=== PATIENT | female | born 1955 | race Caucasian/White ===

== ENCOUNTER → 2016-08-06 | Outpatient (CLI) | payer MEDICARE, MEDICAID ==
--- OUTSIDE RECORDS SUMMARY | 2016-08-06 12:38 | XMS REPORT ---
Author ELENITA Deluna [facility] eClinicalWorks Address Unknown Phone Unavailable Care Team Providers Care School Plant Consultant Name Role Phone ELENITA LOPEZ CP Unavailable Allergies, Adverse Reactions, Alerts Substance Reaction Event Type Morphine Info Not Available Drug Allergy Problems Problem Type Condition Code Onset Dates Condition Status Problem Cramp of limb 729.82 Active Problem Generalized osteoarthrosis, unspecified site 715.00 Active Problem Sciatica 724.3 Active Problem Acute exacerbation of emphysema J43.9 Active Problem Sciatica, unspecified side M54.30 Active Problem Emphysema with chronic bronchitis J44.9 Active Problem Chronic airway obstruction, not elsewhere classified 496 Active Problem Personal history of tobacco use, presenting hazards to health V15.82 Active Problem Hypoxemia 799.02 Active Problem Nondependent tobacco use disorder 305.1 Active Assessment Bronchitis J40 Active Problem Essential hypertension, benign 401.1 Active Problem Other and unspecified hyperlipidemia 272.4 Active Problem Need for prophylactic vaccination and inoculation, Influenza V04.81 Active Problem Encounter for long-term (current) use of other medications V58.69 Active Problem Disturbance of skin sensation 782.0 Active Problem Routine general medical examination at health care facility V70.0 Active Medications Medication Code System Code Instructions Start Date End Date Status Dosage Lyrica [facility] [address]-28 50 MG Orally Three times a day. Must have appt prior to refill Mar 27, 2015 1 capsule Amitriptyline HCl [facility] [address]-75 75 MG Orally Once a day at HS Jan 16, 2015 1 tablet Biotin [facility] [address]-85 300 MCG Orally Once a day 1 tablet HydrOXYzine HCl [facility] [address]-86 25 mg May 14, 2014 1 tablet by Oral route 4 times per day PRN Albuterol Sulfate [facility] [address]-80 2.5 mg /3 mL (0.083 %) Mar 19, 2014 1 Each by Inhalation route every 4 hours for cough and wheeze PRN for wheezing or cough Doxycycline Hyclate [facility] [address]-53 100 MG Orally Twice a day May 26, 2015 Jun 02, 2015 1 capsule Zyrtec Allergy [facility] [address]-50 10 MG Orally Once a day 1 tablet as needed Fish Oil [facility] [address]-96 1000 MG Orally Once a day 1 capsule PredniSONE [facility] [address]-04 20 MG Orally Once a day May 26, 2015 as directed Celexa [facility] [address]-06 20 mg August 24, 2014 1 tablet by Oral route 1 time per day Meloxicam [facility] [address]-55 7.5 mg May 14, 2014 take 1 tablet by Oral route 2 times per day anti-inflammatory med Aspirin [facility] [address]-01 81 mg December 18, 2012 chew 1 tablet (81 mg ) by oral route once daily atorvastatin [facility] 0 20 mg May 14, 2014 take 1 tablet by Oral route 1 time per day QHS; Avoid grapefruit juice Spiriva HandiHaler [facility] [address]-82 18 MCG Inhalation Once a day 1 capsule Singulair [facility] [address]-16 10 MG Orally Once a day 1 tablet in the evening Lisinopril [facility] [address]-63 10 mg May 14, 2014 take 1 tablet by Oral route 1 time per day Take in am Symbicort [facility] [address]-11 160-4.5 mcg/actuation May 14, 2014 inhale 2 puffs in the morning and evening 2 times per day use every day; rinse mouth after Flonase [facility] [address]-41 50 MCG/ACT Nasally Once a day 1 spray in each nostril Procedures Procedure Coding System Code Date Office Visit, Est Pt., Level 2 CPT-4 57269 May 26, 2015 MEASURE BLOOD OXYGEN LEVEL CPT-4 00342 May 26, 2015 Vital Signs Date/Time: May 26, 2015 Temperature 98.8 F Weight 185 lbs Height 64 in Oximetry 90 % Blood Pressure Diastolic 78 mmHg Blood Pressure Systolic 122 mmHg Cardiac Monitoring Heart Rate 108 bpm BMI 31.75 Index Results No Known Results Summary Purpose eClinicalWorks Submission
--- NOTE | 2016-08-09 17:28 | Diagnostic Imaging Report ---
Bilateral screening mammogram. The current study was also evaluated with a Computer Aided Detection (CAD) system. INDICATION: Screening. No current complaints stated on the questionnaire. COMPARISON: 01/21/10. FINDINGS: The breasts are composed of scattered fibroglandular densities. There is no mass, architectural distortion or suspicious cluster of calcification. Allowing for technique and positional differences, no suspicious change is seen. IMPRESSION: No significant change. ACR BI-RADS Category 2: Benign findings. Result letter will be mailed to the patient. Note: At least 10% of breast cancer is not imaged by mammography. Dictated by: Dictated on workstation # [id number]
== END ==
LOC: RAD 12:35
PROVIDERS: ATTEND Nurse Practitioner Family
DX: Z12.31 Encounter for screening mammogram for malignant neoplasm of breast (principal)
CPT/HCPCS: 77067

== ENCOUNTER → 2016-09-08 | Outpatient (CLI) | payer MEDICARE, MEDICAID ==
--- NOTE | 2016-09-08 15:37 | Diagnostic Imaging Report ---
PROCEDURE: CT chest without contrast. TECHNIQUE: Multiple contiguous axial images were obtained through the chest without the use of intravenous contrast. INDICATION: History of pneumonia. FINDINGS: Patchy subsegmental areas of consolidation are seen in the medial aspect of the right middle lobe and anterior lateral aspect of the right lower lobe along the lung base. There is associated air bronchograms. There is subpleural intralobular and interlobular septal thickening seen in the lungs compatible with nonspecific fibrotic changes. There is no honeycombing and there is no significant bronchiectasis. The left lung demonstrates no significant consolidation. There is no mass or suspicious nodule identified. The heart size is normal. No pericardial effusion. No mediastinal mass. Borderline sized mediastinal lymph nodes are seen up to 1 cm in short axis of uncertain significance. No axillary lymphadenopathy seen. The hilar vessels are not opacified on this unenhanced exam with no obvious hilar mass. Sections in the upper abdomen demonstrate no significant abnormality. There is mild to moderate degenerative changes in the thoracic spine. IMPRESSION: There is nonspecific background peripheral fibrotic changes seen in the lungs slightly more prominent in the bases. Patchy airspace consolidation in the right middle lobe and anterior aspect of the right lower lobe in the lung base may relate to superimposed pneumonia or atelectasis. Dictated by: Dictated on workstation # [id number]
== END ==
LOC: RAD 11:06
PROVIDERS: ATTEND Nurse Practitioner Family
DX: R04.2 Hemoptysis (principal)
CPT/HCPCS: 71250

== ENCOUNTER → 2016-11-02 | Outpatient (CLI) | payer MEDICARE, MEDICAID ==
--- NOTE | 2016-11-02 16:43 | Diagnostic Imaging Report ---
PROCEDURE: CT chest without contrast. TECHNIQUE: Multiple contiguous axial images were obtained through the chest without the use of intravenous contrast. INDICATION: Pneumonia. COMPARISON: Exam compared to 09/08/2016. FINDINGS: Focal air space consolidation and bronchograms in the inferior and posterior aspect of the right middle lobe present on the prior exam as well as in the subpleural right lower lobe at the lateral sulcus have resolved. The chronic interstitial lung disease and fibrotic features involving all five lobes superimposed is an unchanged finding. There is no adverse development. No effusion or pneumothorax. No evidence for adenopathy. IMPRESSION: Chronic interstitial changes, COPD, and fibrosis are stable background findings. The acute infiltrates superimposed in the right lung present on the prior have resolved in the interim. No adverse development. Dictated by: Dictated on workstation # [id number]
== END ==
LOC: RAD 13:20
PROVIDERS: ATTEND Nurse Practitioner Family
DX: J44.9 Chronic obstructive pulmonary disease, unspecified (principal); R09.02 Hypoxemia; R06.00 Dyspnea, unspecified; J18.9 Pneumonia, unspecified organism
CPT/HCPCS: 71250

== ENCOUNTER 2016-11-19 10:00 | Outpatient (CLI) | payer MEDICARE, MEDICAID ==
[~2016-11-19] VITALS: Ht 162.6 cm; Wt 64.9 kg
[2016-11-19] MEDS ORDERED: NFBIOT1000 PO (10:39)
[2016-11-19] MEDS ORDERED: FLUT9.9S NSEACH (10:39)
[2016-11-19] MEDS ORDERED: CITA20TA7 PO (10:39)
[2016-11-19] MEDS ORDERED: MONT10TA21 PO (10:39)
[2016-11-19] MEDS ORDERED: TIOT18CA2 IH (10:39)
[2016-11-19] MEDS ORDERED: CETI10TA20 PO (10:39)
[2016-11-19] MEDS ORDERED: HYDR-700 PO (10:39)
[2016-11-19] MEDS ORDERED: ALB0.5V IH (10:39)
[2016-11-19] MEDS ORDERED: HYDR25TA4 PO (10:39)
[2016-11-19] MEDS ORDERED: ATOR20TA66 PO (10:39)
[2016-11-19] MEDS ORDERED: BUDE10.22 IH (10:39)
[2016-11-19] MEDS ORDERED: ASPI-586 PO (10:39)
[2016-11-19] MEDS ORDERED: OMEG100032 PO (10:39)
[2016-11-19] MEDS ORDERED: LISI10TA2 PO (10:39)
[2016-11-19] MEDS ORDERED: PREG50CA2 PO (10:39)
[2016-11-19] MEDS ORDERED: MELO7.5T46 PO (10:39)
[2016-11-19] MEDS ORDERED: AMIT25TA9 PO (10:39)
== END 2016-11-19 14:05 ==
LOC: PREOP 10:00
PROVIDERS: ATTEND Surgery
DX: Z01.818 Encounter for other preprocedural examination (principal); R63.4 Abnormal weight loss; R19.5 Other fecal abnormalities

== ENCOUNTER 2016-11-23 08:41 | Day surgery (SDC) | payer MEDICARE, MEDICAID ==
[~2016-11-23] VITALS: Ht 162.6 cm; Wt 64.9 kg
[~2016-11-23 08:41] MED LIST: ALB0.5V IH; AMIT25TA9 PO; ASPI-586 PO; ATOR20TA66 PO; BUDE10.22 IH; CETI10TA20 PO; CITA20TA7 PO; FLUT9.9S NSEACH; HYDR-700 PO; HYDR25TA4 PO; LISI10TA2 PO; MELO7.5T46 PO; MONT10TA21 PO; NFBIOT1000 PO; OMEG100032 PO; PREG50CA2 PO; TIOT18CA2 IH
[2016-11-23] MEDS ORDERED: LACTATED RINGERS 1,000 ML IV STA (08:49)
[2016-11-23 08:50] VITALS: BP 130/79
[2016-11-23] MEDS ORDERED: HURRICAINE EXT TUBE (BENZOCAINE) XX PRN (09:00)
[2016-11-23] MEDS ORDERED: PROPOFOL INJECTION 50 ML IV ONE (09:16)
[2016-11-23] MEDS ORDERED: MIDAZOLAM 2 MG/2 ML (VERSED) VIAL ONE (09:16)
--- NOTE | 2016-11-23 09:48 | Progress Note-Pre Operative ---
Pre-Operative Progress Note H&P Reviewed The H&P was reviewed, patient examined and no changes noted. Date Seen by Provider: Nov 23, 2016 Time Seen by Provider: 09:48 Date H&P Reviewed: Nov 23, 2016 Time H&P Reviewed: 09:48 Pre-Operative Diagnosis: weight loss JUANA ORTEGA DO Nov 23, 2016 9:48 am
--- OUTSIDE RECORDS SUMMARY | 2016-11-23 10:21 | XMS REPORT ---
Author ELENITA Deluna [facility] eClinicalWorks Address Unknown Phone Unavailable Care Team Providers Care Senior Merchandiser Name Role Phone ELENITA LOPEZ CP Unavailable [...] Start Date End Date Status Dosage Lyrica [facility] [address]-76 50 MG Orally Three times a day. Must have appt prior to refill Mar 27, 2015 1 capsule Amitriptyline HCl [facility] [address]-59 75 MG Orally Once a day at HS Jan 16, 2015 1 tablet Biotin [facility] [address]-13 300 MCG Orally Once a day 1 tablet HydrOXYzine HCl [facility] [address]-22 25 mg May 14, 2014 1 tablet by Oral route 4 times per day PRN Albuterol Sulfate [facility] [address]-77 2.5 mg /3 mL (0.083 %) Mar 19, 2014 1 Each by Inhalation route every 4 hours for cough and wheeze PRN for wheezing or cough Doxycycline Hyclate [facility] [address]-66 100 MG Orally Twice a day May 26, 2015 Jun 02, 2015 1 capsule Zyrtec Allergy [facility] [address]-66 10 MG Orally Once a day 1 tablet as needed Fish Oil [facility] [address]-83 1000 MG Orally Once a day 1 capsule PredniSONE [facility] [address]-81 20 MG Orally Once a day May 26, 2015 as directed Celexa [facility] [address]-76 20 mg August 24, 2014 1 tablet by Oral route 1 time per day Meloxicam [facility] [address]-25 7.5 mg May 14, 2014 take 1 tablet by Oral route 2 times per day anti-inflammatory med Aspirin [facility] [address]-18 81 mg December 18, 2012 chew 1 tablet (81 mg ) by oral route once daily atorvastatin [facility] 0 20 mg May 14, 2014 take 1 tablet by Oral route 1 time per day QHS; Avoid grapefruit juice Spiriva HandiHaler [facility] [address]-38 18 MCG Inhalation Once a day 1 capsule Singulair [facility] [address]-08 10 MG Orally Once a day 1 tablet in the evening Lisinopril [facility] [address]-07 10 mg May 14, 2014 take 1 tablet by Oral route 1 time per day Take in am Symbicort [facility] [address]-04 160-4.5 mcg/actuation May 14, 2014 inhale 2 puffs in the morning and evening 2 times per day use every day; rinse mouth after Flonase [facility] [address]-51 50 MCG/ACT Nasally Once a day 1 spray in each nostril Procedures Procedure Coding System Code Date Office Visit, Est Pt., Level 2 CPT-4 72199 May 26, 2015 MEASURE BLOOD OXYGEN LEVEL CPT-4 36142 May 26, 2015 Vital Signs Date/Time: May 26, 2015 Temperature 98.8 F Weight 185 lbs Height 64 in Oximetry 90 % Blood Pressure Diastolic 78 mmHg Blood Pressure Systolic 122 mmHg Cardiac Monitoring Heart Rate 108 bpm BMI 31.75 Index Results No Known Results Summary Purpose eClinicalWorks Submission
--- OUTSIDE RECORDS SUMMARY | 2016-11-23 10:21 | XMS REPORT ---
Author Author TOMMY ROBLEDO Organization eClinicalWorks Address Unknown Phone Unavailable Care Team Providers Care Senior Behavioral Scientist Name Role Phone TOMMY ROBLEDO CP Unavailable Allergies No Known Allergies Problems Problem Type Condition Code Onset Dates Condition Status Problem Depression, unspecified depression type F32.9 Active Problem History of tobacco abuse Z87.891 Active Problem Nerve pain M79.2 Active Problem Environmental allergies Z91.09 Active Problem Wheezing R06.2 Active Problem Hepatitis C B19.20 Active Problem Low HDL (under 40) E78.6 Active Problem History of long-term use of multiple prescription drugs Z92.29 Active Problem Essential hypertension I10 Active Problem Chronic obstructive pulmonary disease, unspecified COPD type J44.9 Active Problem Osteoarthritis of multiple joints, unspecified osteoarthritis type M15.9 Active Medications Medication Code System Code Instructions Start Date End Date Status Dosage Atorvastatin Calcium [facility] [address]-52 20 mg Orally Once a day 1 tablet Hydrochlorothiazide [facility] [address]-88 12.5 MG Orally Once a day Feb 12, 2016 1 tablet Amitriptyline HCl [facility] 62272539972 75 MG Orally Once a day at HS 1 tablet Results No Known Results Summary Purpose eClinicalWorks Submission
--- OUTSIDE RECORDS SUMMARY | 2016-11-23 10:21 | XMS REPORT ---
Author Author TOMMY ROBLEDO eClinicalWorks Address Unknown Phone Unavailable Care Team Providers Care Trust Vault Clerk Name Role Phone TOMMY ROBLEDO CP Unavailable Allergies, Adverse Reactions, Alerts Substance Reaction Event Type Morphine Info Not Available Drug Allergy Problems Problem Type Condition Code Onset Dates Condition Status Problem Depression, unspecified depression type F32.9 Active Problem History of tobacco abuse Z87.891 Active Problem Nerve pain M79.2 Active Assessment Dependent edema R60.9 Active Problem Environmental allergies Z91.09 Active Problem [...] Instructions Start Date End Date Status Dosage Fish Oil [facility] [address]-44 1000 MG Orally Once a day 1 capsule Lisinopril [facility] [address]-64 10 mg Orally Once a day May 14, 2014 take 1 tablet by Oral route 1 time per day Take in am Albuterol Sulfate [facility] [address]-60 2.5 mg /3 mL (0.083 %) Inhalation every 4 hrs Mar 19, 2014 1 Each by Inhalation route every 4 hours for cough and wheeze PRN for wheezing or cough Singulair [facility] [address]-73 10 mg Orally Once a day 1 tablet in the evening Oxygen NDC 0 2LPM PRN Symbicort [facility] [address]-49 160-4.5 MCG/ACT Inhalation Twice a day INHALE TWO PUFFS BY MOUTH TWICE DAILY Flonase [facility] [address]-10 50 MCG/ACT Nasally Once a day 1 spray in each nostril Spiriva HandiHaler [facility] [address]-81 18 MCG Inhalation Once a day 1 capsule atorvastatin [place] 0 20 mg May 14, 2014 take 1 tablet by Oral route 1 time per day QHS; Avoid grapefruit juice Citalopram Hydrobromide [facility] [address]-19 20 mg Orally Once a day TAKE ONE TABLET BY MOUTH ONCE DAILY Amitriptyline HCl [facility] 67310272248 75 MG Orally Once a day at HS 1 tablet HydrOXYzine HCl [facility] [address]-23 25 mg May 14, 2014 1 tablet by Oral route 4 times per day PRN Biotin [facility] [address]-98 300 MCG Orally Once a day 1 tablet Lyrica [facility] [address]-59 50 mg Orally Three times a day Mar 27, 2015 1 capsule Aspirin [facility] [address]-43 81 mg December 18, 2012 chew 1 tablet (81 mg ) by oral route once daily Atorvastatin Calcium [facility] [address]-74 20 mg Orally Once a day 1 tablet Zyrtec Allergy [facility] [address]-71 10 mg Orally Once a day 1 tablet as needed Procedures Procedure Coding System Code Date Office Visit, Est Pt., Level 3 CPT-4 19121 December 16, 2015 Vital Signs Date/Time: December 16, 2015 Cardiac Monitoring Heart Rate 82 bpm Weight 179.5 lbs Height 64 in Blood Pressure Diastolic 82 mmHg Blood Pressure Systolic 131 mmHg Results No Known Results Summary Purpose eClinicalWorks Submission
--- OUTSIDE RECORDS SUMMARY | 2016-11-23 10:21 | XMS REPORT ---
Author Author JEROD NORBERTO Organization [facility] Address [address] [place] [address] Care Team Providers Care Tarring Machine Operator Name Role Phone NORBERTO NEWSOME Unavailable PROBLEMS Type Condition ICD9-CM Code [id number] Code Onset Dates Condition Status SNOMED Code Problem Nerve pain M79.2 Active 64998551 Problem Essential hypertension I10 Active 74199862 Problem History of tobacco abuse Z87.891 Active 2758100210334 Problem Low HDL (under 40) E78.6 Active 457549973 Problem Wheezing R06.2 Active 06604205 Problem Osteoarthritis of multiple joints, unspecified osteoarthritis type M15.9 Active 008249373 Problem History of long-term use of multiple prescription drugs Z92.29 Active 590845226 Problem Hepatitis C B19.20 Active 25493251 Problem Chronic obstructive pulmonary disease, unspecified COPD type J44.9 Active 62001965 Problem Neuropathy G62.9 Active 800763478 Problem Neuropathy of ankle, 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 Active 219527257 Assessment Cough R05 Apr, Active 98237815 Problem Major depressive disorder, recurrent, in full remission F33.42 Active 781071303 Assessment Subacute ethmoidal sinusitis J01.20 Apr, Active 39259000 Problem Environmental allergies Z91.09 Active 635265957 ALLERGIES Substance Reaction Event Type Date Status Morphine Unknown Drug Allergy Apr, Active SOCIAL HISTORY No smoking Hx information available PLAN OF CARE VITAL SIGNS Height 64 in 2016-05-01 Weight 176.0 lbs 2016-05-01 Heart Rate 84 bpm 2016-05-01 Respiratory Rate 20 2016-05-01 BMI 30.21 kg/m2 2016-05-01 Blood pressure systolic 124 mmHg 2016-05-01 Blood pressure diastolic 60 mmHg 2016-05-01 MEDICATIONS Medication Instructions Dosage Frequency Start Date End Date Duration Status Atorvastatin Calcium 20 mg Orally Once a day 1 tablet 24h Active HydrOXYzine HCl 25 mg 1 tablet by Oral route 4 times per day PRN Apr Active Flonase 50 MCG/ACT Nasally Once a day 1 spray in each nostril 24h Active Amitriptyline HCl 75 MG Orally Once a day at HS 1 tablet 90 days Active Singulair 10 mg Orally Once a day 1 tablet in the evening 24h Active Zyrtec Allergy 10 mg Orally Once a day 1 tablet as needed 24h Active Fish Oil 1000 MG Orally Once a day 1 capsule 24h Active Oxygen 2LPM PRN Active Promethazine-Codeine 6.25-10 MG/5ML Orally every 6 hrs 5 ml as needed 6h Apr, Active Lisinopril 10 mg Orally Once a day take 1 tablet by Oral route 1 time per day Take in am 24h Apr, Active Albuterol Sulfate 2.5 mg /3 mL (0.083 %) Inhalation every 4 hrs 1 Each by Inhalation route every 4 hours for cough and wheeze PRN for wheezing or cough 4h Feb, Active Symbicort 160-4.5 MCG/ACT Inhalation Twice a day INHALE TWO PUFFS BY MOUTH TWICE DAILY 12h Active Lyrica 50 mg Orally Three times a day 1 capsule 8h Feb, 90 days Active Augmentin 875-125 MG Orally every 12 hrs 1 tablet 12h Apr,Apr 10 day(s) Active Hydrochlorothiazide 12.5 MG Orally Once a day 1 tablet 24h 15 Jan, 2016 Active Citalopram Hydrobromide 20 mg Orally Once a day TAKE ONE TABLET BY MOUTH ONCE DAILY 24h Active Spiriva HandiHaler 18 MCG Inhalation Once a day 1 capsule 24h Active Biotin 300 MCG Orally Once a day 1 tablet 24h Active Aspirin 81 mg chew 1 tablet (81 mg) by oral route once daily Nov, Active PredniSONE 20 mg Orally twice a day 1 tablet 12h Apr, Apr, 05 days Active RESULTS No Results PROCEDURES Procedure Date Ordered Related Diagnosis Body Site PENDING SALE TO [facility] VISIT ESTABLISHED PATIENT May 01, 2016 Office Visit, Est Pt., Level 3 May 01, 2016 IMMUNIZATIONS No Known Immunizations
--- OUTSIDE RECORDS SUMMARY | 2016-11-23 10:21 | XMS REPORT ---
Author Author TOMMY ROBLEDO Organization eClinicalWorks Address Unknown Phone Unavailable Care Team Providers Care Snout Puller Name Role Phone TOMMY ROBLEDO CP Unavailable [...] joints, unspecified osteoarthritis type M15.9 Active Medications No Known Medications Results No Known Results Summary Purpose eClinicalWorks Submission
--- OUTSIDE RECORDS SUMMARY | 2016-11-23 10:22 | XMS REPORT ---
Author Author ASHLEY VÁZQUEZ [facility] eClinicalWorks Address Unknown Phone Unavailable Care Team Providers Care Regional Clinical Research Associate Name Role Phone ASHLEY VÁZQUEZ CP Unavailable Allergies, Adverse Reactions, Alerts Substance Reaction Event Type Morphine Info Not Available Drug Allergy Problems Problem Type Condition ICD-9 Code Onset Dates Condition Status Problem Other and unspecified hyperlipidemia 272.4 Active Problem Routine general medical examination at health care facility V70.0 Active Problem Encounter for long-term (current) use of other medications V58.69 Active Problem Nondependent tobacco use disorder 305.1 Active Problem Chronic airway obstruction, not elsewhere classified 496 Active Problem Hypoxemia 799.02 Active Problem Sciatica 724.3 Active Problem Cramp of limb 729.82 Active Problem Personal history of tobacco use, presenting hazards to health V15.82 Active Problem Generalized osteoarthrosis, unspecified site 715.00 Active Assessment Encounter for long-term (current) use of other medications V58.69 Active Problem Need for prophylactic vaccination and inoculation, Influenza V04.81 Active Problem Disturbance of skin sensation 782.0 Active Assessment Sciatica 724.3 Active Problem Essential hypertension, benign 401.1 Active Medications Medication Code System Code Instructions Start Date End Date Status Dosage Fish Oil [facility] [address]-40 1000 MG Orally Once a day 1 capsule Aspirin [facility] [address]-40 81 mg December 18, 2012 chew 1 tablet (81 mg ) by oral route once daily Symbicort [facility] [address]-40 160-4.5 mcg/actuation May 14, 2014 inhale 2 puffs in the morning and evening 2 times per day use every day; rinse mouth after Flonase [facility] [address]-42 50 MCG/ACT Nasally Once a day 1 spray in each nostril Albuterol Sulfate [facility] [address]-81 2.5 mg /3 mL (0.083 %) Mar 19, 2014 1 Each by Inhalation route every 4 hours for cough and wheeze PRN for wheezing or cough Biotin [facility] [address]-18 300 MCG Orally Once a day 1 tablet Singulair [facility] [address]-86 10 MG Orally Once a day 1 tablet in the evening Lisinopril [facility] [address]-33 10 mg May 14, 2014 take 1 tablet by Oral route 1 time per day Take in am Zyrtec Allergy [facility] [address]-97 10 MG Orally Once a day 1 tablet as needed Amitriptyline HCl [facility] [address]-60 75 MG Orally Once a day at HS Jan 16, 2015 1 tablet Celexa [facility] [address]-04 20 mg August 24, 2014 1 tablet by Oral route 1 time per day Lyrica [facility] [address]-09 50 MG Orally Three times a day November 13, 2014 1 capsule Meloxicam [facility] [address]-27 7.5 mg May 14, 2014 take 1 tablet by Oral route 2 times per day anti-inflammatory med Spiriva HandiHaler [facility] [address]-14 18 MCG Inhalation Once a day 1 capsule HydrOXYzine HCl [facility] [address]-33 25 mg May 14, 2014 1 tablet by Oral route 4 times per day PRN atorvastatin NDC 0 20 mg May 14, 2014 take 1 tablet by Oral route 1 time per day QHS; Avoid grapefruit juice Oxygen NDC 0 2LPM PRN Procedures Procedure Coding System Code Date Office Visit, Est Pt., Level 3 CPT-4 48073 Jan 16, 2015 Vital Signs Date/Time: Jan 16, 2015 Temperature 98.2 F Weight 186.2 lbs Height 64 in BMI 31.96 Index Blood Pressure Diastolic 80 mmHg Blood Pressure Systolic 128 mmHg Cardiac Monitoring Heart Rate 86 bpm Results No Known Results Summary Purpose eClinicalWorks Submission
--- OUTSIDE RECORDS SUMMARY | 2016-11-23 10:22 | XMS REPORT ---
Author Author WILLY SULLIVAN eClinicalWorks Address Unknown Phone Unavailable Care Team Providers Care Bouffant Curtain Machine Tender Name Role Phone WILLY SULLIVAN CP Unavailable Allergies, Adverse Reactions, Alerts Substance Reaction Event Type Morphine Info Not Available Drug Allergy Problems Problem Type Condition Code Onset Dates Condition Status Problem Acute exacerbation of emphysema J43.9 Active Problem Hyperlipidemia E78.5 Active Problem Environmental allergies Z91.09 Active Problem Osteoarthritis of multiple joints, unspecified osteoarthritis type M15.9 Active Assessment Hepatitis C virus infection without hepatic coma, unspecified chronicity B19.20 Active Problem History of long-term use of multiple prescription drugs Z92.29 Active Problem Chronic obstructive pulmonary disease, unspecified COPD type J44.9 Active Problem Nerve pain M79.2 Active Problem Depression, unspecified depression type F32.9 Active Problem Essential hypertension I10 Active Problem History of tobacco abuse Z87.891 Active Assessment Chronic obstructive pulmonary disease, unspecified COPD type J44.9 Active Assessment Hyperlipidemia E78.5 Active Assessment Anxiety F41.9 Active Assessment Environmental allergies Z91.09 Active Assessment Osteoarthritis of multiple joints, unspecified osteoarthritis type M15.9 Active Assessment Nerve pain M79.2 Active Assessment Depression, unspecified depression type F32.9 Active Assessment Essential hypertension I10 Active Assessment History of long-term use of multiple prescription drugs Z92.29 Active Problem Sciatica, unspecified side M54.30 Active Medications Medication Code System Code Instructions Start Date End Date Status Dosage Lyrica [facility] [address]-39 50 MG Orally Three times a day Mar 27, 2015 1 capsule Celexa [facility] [place] [address]-59 20 MG Orally Once a day August 24, 2014 1 tablet by Oral route 1 time per day Meloxicam [facility] [place] [address]-56 7.5 MG Orally 2 times a day May 14, 2014 September 10, 2015 take 1 tablet by Oral route 2 times per day anti- inflammatory med atorvastatin ND 0 20 mg May 14, 2014 take 1 tablet by Oral route 1 time per day QHS; Avoid grapefruit juice Aspirin [facility] [place] [address]-04 81 mg December 18, 2012 chew 1 tablet (81 mg ) by oral route once daily Oxygen ND 0 2LPM PRN Albuterol Sulfate [facility] [place] [address]-36 2.5 mg /3 mL (0.083 %) Mar 19, 2014 1 Each by Inhalation route every 4 hours for cough and wheeze PRN for wheezing or cough Amitriptyline HCl [facility] [place] [address]-51 75 MG Orally Once a day at Jan 16, 2015 1 tablet Combivent Respimat [facility] [place] [address]-57 20-100 MCG/ACT Inhalation Four times a day November 13, 2014 1 puff Fish Oil [facility] [place] [address]-51 1000 MG Orally Once a day 1 capsule Zyrtec Allergy [facility] [place] [address]-03 10 MG Orally Once a day 1 tablet as needed Flonase [facility] [place] [address]-23 50 MCG/ACT Nasally Once a day 1 spray in each nostril Spiriva HandiHaler [facility] [place] [address]-45 18 MCG Inhalation Once a day 1 capsule HydrOXYzine HCl [facility] [place] [address]-37 25 mg May 14, 2014 1 tablet by Oral route 4 times per day PRN Biotin [facility] [place] [address]-87 300 MCG Orally Once a day 1 tablet Lisinopril [facility] [place] [address]-45 10 MG Orally Once a day May 14, 2014 take 1 tablet by Oral route 1 time per day Take in am Atorvastatin Calcium [facility] [place] [address]-43 20 MG Orally Once a day Jun 12, 2015 1 tablet Singulair [facility] [place] [address]-55 10 MG Orally Once a day 1 tablet in the evening Symbicort [facility] [place] [address]-64 160-4.5 mcg/actuation May 14, 2014 inhale 2 puffs in the morning and evening 2 times per day use every day; rinse mouth after Procedures Procedure Coding System Code Date Office Visit, Est Pt., Level 3 CPT-4 24191 Jun 12, 2015 MEASURE BLOOD OXYGEN LEVEL CPT-4 84683 Jun 12, 2015 Vital Signs Date/Time: Jun 12, 2015 Temperature 98.0 F Weight 187.0 lbs Height 64 in Oximetry 92 % Blood Pressure Diastolic 60 mmHg Blood Pressure Systolic 120 mmHg Cardiac Monitoring Heart Rate 92 bpm BMI 32.09 Index Results No Known Results Summary Purpose eClinicalWorks Submission
--- OUTSIDE RECORDS SUMMARY | 2016-11-23 10:22 | XMS REPORT ---
Author Author ASHLEY VÁZQUEZ [facility] eClinicalWorks Address Unknown Phone Unavailable Care Team Providers Care Robotic Maintenance Technician Name Role Phone ASHLEY VÁZQUEZ CP Unavailable Allergies No Known Allergies Problems Problem Type Condition Code Onset Dates Condition Status Problem Other [...] Generalized osteoarthrosis, unspecified site 715.00 Active Problem Need for prophylactic vaccination and inoculation, Influenza V04.81 Active Problem Disturbance of skin sensation 782.0 Active Problem Essential hypertension, benign 401.1 Active Medications Medication Code System Code Instructions Start Date End Date Status Dosage Lyrica [facility] [place] [address]-20 50 MG Orally Three times a day November 13, 2014 1 capsule Results No Known Results Summary Purpose eClinicalWorks Submission
--- OUTSIDE RECORDS SUMMARY | 2016-11-23 10:22 | XMS REPORT ---
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 Active 318827656 Problem Major depressive disorder, recurrent, in full remission F33.42 Active 260663614 Problem Environmental allergies Z91.09 Active 095902304 Problem Low HDL (under 40) E78.6 Active 762264515 Problem Wheezing R06.2 Active 68771446 Problem Osteoarthritis of multiple joints, unspecified osteoarthritis type M15.9 Active 477323184 Problem History of long-term use of multiple prescription drugs Z92.29 Active 067974131 Problem Hepatitis C B19.20 Active 77443390 Problem Chronic obstructive pulmonary disease, unspecified COPD type J44.9 Active 79256943 ALLERGIES Unknown Allergies SOCIAL HISTORY No smoking Hx information available PLAN OF CARE VITAL SIGNS MEDICATIONS Medication Instructions Dosage Frequency Start Date End Date Duration Status Citalopram Hydrobromide 20 mg Orally Once a day TAKE ONE TABLET BY MOUTH ONCE DAILY 24h Active Zyrtec Allergy 10 mg Orally Once a day 1 tablet as needed 24h Active RESULTS No Results PROCEDURES No Known procedures IMMUNIZATIONS No Known Immunizations
--- OUTSIDE RECORDS SUMMARY | 2016-11-23 10:22 | XMS REPORT | Continuity of Care Document ---
Author Author [facility] Address Unknown Phone Unavailable Allergies Active Description Code Type Severity Reaction Onset Reported/Identified Relationship to Patient Clinical Status Yes morphine Drug Allergy N/A N/A 03/26/2013 Yes morphine [id number] Drug Allergy Unknown NAUSEA 11/19/2016 Medications Problems Date Dx Coded Attending Type Code Diagnosis Diagnosed By 10/07/2009 070.54 CHRONIC HEPATITIS C WITHOUT MENTION OF HEPATIC COMA 10/07/2009 070.54 CHRONIC HEPATITIS C WITHOUT MENTION OF HEPATIC COMA 10/07/2009 ROLANDO COLES DO K 070.54 CHRONIC HEPATITIS C WITHOUT MENTION OF HEPATIC COMA 10/07/2009 CHUYITA COLES DOA K 070.54 CHRONIC HEPATITIS C WITHOUT MENTION OF HEPATIC COMA 10/07/2009 ARVIND TAI APRN A 070.54 CHRONIC HEPATITIS C WITHOUT MENTION OF HEPATIC COMA 10/07/2009 ARVIND TAI APRN A 070.54 CHRONIC HEPATITIS C WITHOUT MENTION OF HEPATIC COMA 10/07/2009 CHUYITA COLES DOA K 070.54 CHRONIC HEPATITIS C WITHOUT MENTION OF HEPATIC COMA 10/07/2009 COLES CHUYITA ADAMSA K 070.54 CHRONIC HEPATITIS C WITHOUT MENTION OF HEPATIC COMA 10/07/2009 CHUYITA COLES DOA K 070.54 CHRONIC HEPATITIS C WITHOUT MENTION OF HEPATIC COMA 10/07/2009 COLES CHUYITA ADAMSA K 070.54 CHRONIC HEPATITIS C WITHOUT MENTION OF HEPATIC COMA 10/07/2009 COLES DO ROLANDO K 070.54 CHRONIC HEPATITIS C WITHOUT MENTION OF HEPATIC COMA 10/07/2009 BLAYNE WHARTON APRN 070.54 CHRONIC HEPATITIS C WITHOUT MENTION OF HEPATIC COMA 10/07/2009 RUBIO BURLESON DDS 070.54 CHRONIC HEPATITIS C WITHOUT MENTION OF HEPATIC COMA 10/07/2009 COLES DO ROLANDO K 070.54 CHRONIC HEPATITIS C WITHOUT MENTION OF HEPATIC COMA 10/07/2009 CHUYITA COLES DOA K 070.54 CHRONIC HEPATITIS C WITHOUT MENTION OF HEPATIC COMA 10/07/2009 COLES DOCHUYITAA K 070.54 CHRONIC HEPATITIS C WITHOUT MENTION OF HEPATIC COMA 10/07/2009 COLES DO ROLANDO K 070.54 CHRONIC HEPATITIS C WITHOUT MENTION OF HEPATIC COMA 10/07/2009 COLES DO ROLANDO K 070.54 CHRONIC HEPATITIS C WITHOUT MENTION OF HEPATIC COMA 12/18/2012 V58.69 LONG-TERM (CURRENT) USE OF OTHER MEDICATIONS 12/18/2012 V70.0 ROUTINE GENERAL MEDICAL EXAMINATION AT A HEALTH CARE FACILITY 12/18/2012 V58.69 LONG-TERM (CURRENT) USE OF OTHER MEDICATIONS 12/18/2012 V70.0 ROUTINE GENERAL MEDICAL EXAMINATION AT A HEALTH CARE FACILITY 12/18/2012 COLES DO ROLANDO K V58.69 LONG-TERM (CURRENT) USE OF OTHER MEDICATIONS 12/18/2012 COLES DO ROLANDO K V70.0 ROUTINE GENERAL MEDICAL EXAMINATION AT A HEALTH CARE FACILITY 12/18/2012 COLES DO ROLANDO K V58.69 LONG-TERM (CURRENT) USE OF OTHER MEDICATIONS 12/18/2012 COLES DO ROLANDO K V70.0 ROUTINE GENERAL MEDICAL EXAMINATION AT A HEALTH CARE FACILITY 12/18/2012 KERIE FERRY CAPTAIN, ARVIND A V58.69 LONG-TERM (CURRENT) USE OF OTHER MEDICATIONS 12/18/2012 RAJOTTE FERRY CAPTAIN, ARVIND A V70.0 ROUTINE GENERAL MEDICAL EXAMINATION AT A HEALTH CARE FACILITY 12/18/2012 RAJTHIENE FERRY CAPTAIN, ARVIND A V58.69 LONG-TERM (CURRENT) USE OF OTHER MEDICATIONS 12/18/2012 RAJOTTE FERRY CAPTAIN, ARVIND A V70.0 ROUTINE GENERAL MEDICAL EXAMINATION AT A HEALTH CARE FACILITY 12/18/2012 SHARYN DO ROLANDO K V58.69 LONG-TERM (CURRENT) USE OF OTHER MEDICATIONS 12/18/2012 COLES DO ROLANDO K V70.0 ROUTINE GENERAL MEDICAL EXAMINATION AT A HEALTH CARE FACILITY 12/18/2012 OCLES DO ROLANDO K V58.69 LONG-TERM (CURRENT) USE OF OTHER MEDICATIONS 12/18/2012 COLES DO ROLANDO K V70.0 ROUTINE GENERAL MEDICAL EXAMINATION AT A HEALTH CARE FACILITY 12/18/2012 COLES DO ROLANDO K V58.69 LONG-TERM (CURRENT) USE OF OTHER MEDICATIONS 12/18/2012 COLES DO ROLANDO K V70.0 ROUTINE GENERAL MEDICAL EXAMINATION AT A HEALTH CARE FACILITY 12/18/2012 COLES DO, ROLANDO K V58.69 LONG-TERM (CURRENT) USE OF OTHER MEDICATIONS 12/18/2012 COLES DO ROLANDO K V70.0 ROUTINE GENERAL MEDICAL EXAMINATION AT A HEALTH CARE FACILITY 12/18/2012 COLES DO ROLANDO K V58.69 LONG-TERM (CURRENT) USE OF OTHER MEDICATIONS 12/18/2012 COLES DO, ROLANDO K V70.0 ROUTINE GENERAL MEDICAL EXAMINATION AT A HEALTH CARE FACILITY 12/18/2012 BLAYNE WHARTON APRN S V58.69 LONG-TERM (CURRENT) USE OF OTHER MEDICATIONS 12/18/2012 BLAYNE WHARTON APRN S V70.0 ROUTINE GENERAL MEDICAL EXAMINATION AT A HEALTH CARE FACILITY 12/18/2012 RUBIO BURLESON DDS V58.69 LONG-TERM (CURRENT) USE OF OTHER MEDICATIONS 12/18/2012 SARAH BETH MCCANNSRUBIO V70.0 ROUTINE GENERAL MEDICAL EXAMINATION AT A HEALTH CARE FACILITY 12/18/2012 SHARYN DOCHUYITAA K V58.69 LONG-TERM (CURRENT) USE OF OTHER MEDICATIONS 12/18/2012 COLES DO ROLANDO K V70.0 ROUTINE GENERAL MEDICAL EXAMINATION AT A HEALTH CARE FACILITY 12/18/2012 SHARYN DO ROLANDO K V58.69 LONG-TERM (CURRENT) USE OF OTHER MEDICATIONS 12/18/2012 COLES DO ROLANDO K V70.0 ROUTINE GENERAL MEDICAL EXAMINATION AT A HEALTH CARE FACILITY 12/18/2012 COLES DO ROLANDO K V58.69 LONG-TERM (CURRENT) USE OF OTHER MEDICATIONS 12/18/2012 COLES DO ROLANDO K V70.0 ROUTINE GENERAL MEDICAL EXAMINATION AT A HEALTH CARE FACILITY 12/18/2012 COLES DO ROLANDO K V58.69 LONG-TERM (CURRENT) USE OF OTHER MEDICATIONS 12/18/2012 COLES DO, ROLANDO K V70.0 ROUTINE GENERAL MEDICAL EXAMINATION AT A HEALTH CARE FACILITY 12/18/2012 COLES DO ROLANDO K V58.69 LONG-TERM (CURRENT) USE OF OTHER MEDICATIONS 12/18/2012 COLES DO, ROLANDO K V70.0 ROUTINE GENERAL MEDICAL EXAMINATION AT A HEALTH CARE FACILITY 02/05/2013 786.2 COUGH 02/05/2013 786.2 COUGH 02/05/2013 COLES DO ROLANDO K 786.2 COUGH 02/05/2013 COLES DO ROLANDO K 786.2 COUGH 02/05/2013 RAJOTTE FERRY CAPTAIN, ARVIND A 786.2 COUGH 02/05/2013 RAJOTTE FERRY CAPTAIN, ARVIND A 786.2 COUGH 02/05/2013 COLES DO, ROLANDO K 786.2 COUGH 02/05/2013 COLES DO, ROLANDO K 786.2 COUGH 02/05/2013 COLES DO, ROLANDO K 786.2 COUGH 02/05/2013 COLES DO, ROLANDO K 786.2 COUGH 02/05/2013 COLES DO, ROLANDO K 786.2 COUGH 02/05/2013 DIO FERRY CAPTAIN, BLAYNE S 786.2 COUGH 02/05/2013 SARAH BETH DDRUBIO Abdullahi 786.2 COUGH 02/05/2013 COLES DO, ROLANDO K 786.2 COUGH 02/05/2013 COLES DO, ROLANDO K 786.2 COUGH 02/05/2013 COLES DO, ROLANDO K 786.2 COUGH 02/05/2013 COLES DO, ROLANDO K 786.2 COUGH 02/05/2013 COLES DO, ROLANDO K 786.2 COUGH 02/06/2013 305.1 NONDEPENDENT TOBACCO USE DISORDER 02/06/2013 496 COPD 02/06/2013 V65.42 COUNSELING - SMOKING CESSATION 02/06/2013 COLES DO, ROLANDO K 305.1 NONDEPENDENT TOBACCO USE DISORDER 02/06/2013 COLES DO, ROLANDO K 496 COPD 02/06/2013 COLES DO, ROLANDO K V65.42 COUNSELING - SMOKING CESSATION 02/06/2013 COLES DO, ROLANDO K 305.1 NONDEPENDENT TOBACCO USE DISORDER 02/06/2013 COLES DO, ROLANDO K 496 COPD 02/06/2013 COLES DO, ROLANDO K V65.42 COUNSELING - SMOKING CESSATION 02/06/2013 RAJOTTE FERRY CAPTAIN, ARVIND A 305.1 NONDEPENDENT TOBACCO USE DISORDER 02/06/2013 RAJOTTE FERRY CAPTAIN, ARVIND A 496 COPD 02/06/2013 RAJOTTE FERRY CAPTAIN, ARVIND A V65.42 COUNSELING - SMOKING CESSATION 02/06/2013 RAJOTTE FERRY CAPTAIN, ARVIND A 305.1 NONDEPENDENT TOBACCO USE DISORDER 02/06/2013 RAJOTTE FERRY CAPTAIN, ARVIND A 496 COPD 02/06/2013 RAJOTTE FERRY CAPTAIN, ARVIND A V65.42 COUNSELING - SMOKING CESSATION 02/06/2013 COLES DO, ROLANDO K 305.1 NONDEPENDENT TOBACCO USE DISORDER 02/06/2013 COLES DO, ROLANDO K 496 COPD 02/06/2013 COLES DO, ROLANDO K V65.42 COUNSELING - SMOKING CESSATION 02/06/2013 COLES DO, ROLANDO K 305.1 NONDEPENDENT TOBACCO USE DISORDER 02/06/2013 COLES DO, ROLANDO K 496 COPD 02/06/2013 COLES DO, ROLANDO K V65.42 COUNSELING - SMOKING CESSATION 02/06/2013 COLES DO, ROLANDO K 305.1 NONDEPENDENT TOBACCO USE DISORDER 02/06/2013 COLES DO, ROLANDO K 496 COPD 02/06/2013 COLES DO, ROLANDO K V65.42 COUNSELING - SMOKING CESSATION 02/06/2013 COLES DO, ROLANDO K 305.1 NONDEPENDENT TOBACCO USE DISORDER 02/06/2013 COLES DO, ROLANDO K 496 COPD 02/06/2013 COLES DO, ROLANDO K V65.42 COUNSELING - SMOKING CESSATION 02/06/2013 COLES DO, ROLANDO K 305.1 NONDEPENDENT TOBACCO USE DISORDER 02/06/2013 COLES DO, ROLANDO K 496 COPD 02/06/2013 COLES DO, ROLANDO K V65.42 COUNSELING - SMOKING CESSATION 02/06/2013 LILLIE WHARTON APRNA S 305.1 NONDEPENDENT TOBACCO USE DISORDER 02/06/2013 LILLIE WHARTON APRNA S 496 COPD 02/06/2013 SAVITA WHARTON APRNNDA S V65.42 COUNSELING - SMOKING CESSATION 02/06/2013 RUBIO BURLESON DDS 305.1 NONDEPENDENT TOBACCO USE DISORDER 02/06/2013 RUBIO BURLESON DDS 496 COPD 02/06/2013 RUBIO BURLESON DDS V65.42 COUNSELING - SMOKING CESSATION 02/06/2013 COLES DO ROLANDO K 305.1 NONDEPENDENT TOBACCO USE DISORDER 02/06/2013 COLES DO, ROLANDO K 496 COPD 02/06/2013 COLES DO, ROLANDO K V65.42 COUNSELING - SMOKING CESSATION 02/06/2013 COLES DO, ROLANDO K 305.1 NONDEPENDENT TOBACCO USE DISORDER 02/06/2013 COLES DO, ROLANDO K 496 COPD 02/06/2013 COLES DO, ROLANDO K V65.42 COUNSELING - SMOKING CESSATION 02/06/2013 COLES DO, ROLANDO K 305.1 NONDEPENDENT TOBACCO USE DISORDER 02/06/2013 COLES DO, ROLANDO K 496 COPD 02/06/2013 COLES DO, ROLANDO K V65.42 COUNSELING - SMOKING CESSATION 02/06/2013 COLES DO, ROLANDO K 305.1 NONDEPENDENT TOBACCO USE DISORDER 02/06/2013 COLES DO, ROLANDO K 496 COPD 02/06/2013 COLES DO, ROLANDO K V65.42 COUNSELING - SMOKING CESSATION 02/06/2013 COLES DO, ROLANDO K 305.1 NONDEPENDENT TOBACCO USE DISORDER 02/06/2013 COLES DO, ROLANDO K 496 COPD 02/06/2013 COLES DO, ROLANDO K V65.42 COUNSELING - SMOKING CESSATION 03/09/2013 COLES DO, ROLANDO K V15.82 Nicotine abuse 03/09/2013 COLES DO, ROLANDO K V15.82 Nicotine abuse 03/09/2013 RAJTHIENE FERRY CAPTAIN ARVIND A V15.82 Nicotine abuse 03/09/2013 RAJTHIENE FERRY CAPTAIN ARVIND A V15.82 Nicotine abuse 03/09/2013 COLES DO, ROLANDO K V15.82 Nicotine abuse 03/09/2013 COLES DO, ROLANDO K V15.82 Nicotine abuse 03/09/2013 COLES DO, ROLANDO K V15.82 Nicotine abuse 03/09/2013 COLES DO, ROLANDO K V15.82 Nicotine abuse 03/09/2013 COLES DO, ROLANDO K V15.82 Nicotine abuse 03/09/2013 BLAYNE WHARTON APRN S V15.82 Nicotine abuse 03/09/2013 RUBIO BURLESON DDS V15.82 Nicotine abuse 03/09/2013 COLES DO, ROLANDO K V15.82 Nicotine abuse 03/09/2013 COLES DO, ROLANDO K V15.82 Nicotine abuse 03/09/2013 COLES DO, ROLANDO K V15.82 Nicotine abuse 03/09/2013 COLES DO, ROLANDO K V15.82 NICOTINE ABUSE 03/09/2013 COLES DO, ROLANDO K V15.82 NICOTINE ABUSE 03/26/2013 COLES DO, ROLANDO K 401.1 HYPERTENSION, BENIGN ESSENTIAL 03/26/2013 COLES DO, ROLANDO K 782.0 DISTURBANCE OF SKIN SENSATION 03/26/2013 COLES DO, ROLANDO K V04.81 FLU SHOT 03/26/2013 RAJOTTE FERRY CAPTAIN, ARVIND A 401.1 HYPERTENSION, BENIGN ESSENTIAL 03/26/2013 RAJOTTE FERRY CAPTAIN, ARVIND A 782.0 DISTURBANCE OF SKIN SENSATION 03/26/2013 RAJOTTE FERRY CAPTAIN, ARVIND A V04.81 FLU SHOT 03/26/2013 RAJOTTE FERRY CAPTAIN, ARVIND A 401.1 HYPERTENSION, BENIGN ESSENTIAL 03/26/2013 RAJOTTE FERRY CAPTAIN, ARVIND A 782.0 DISTURBANCE OF SKIN SENSATION 03/26/2013 RAJOTTE FERRY CAPTAIN, ARVIND A V04.81 FLU SHOT 03/26/2013 COLES DO, ROLANDO K 401.1 HYPERTENSION, BENIGN ESSENTIAL 03/26/2013 COLES DO, ROLANDO K 782.0 DISTURBANCE OF SKIN SENSATION 03/26/2013 COLES DO, ROLANDO K V04.81 FLU SHOT 03/26/2013 COLES DO, ROLANDO K 401.1 HYPERTENSION, BENIGN ESSENTIAL 03/26/2013 COLES DO, ROLANDO K 782.0 DISTURBANCE OF SKIN SENSATION 03/26/2013 COLES DO, ROLANDO K V04.81 FLU SHOT 03/26/2013 COLES DO, ROLANDO K 401.1 HYPERTENSION, BENIGN ESSENTIAL 03/26/2013 COLES DO, ROLANDO K 782.0 DISTURBANCE OF SKIN SENSATION 03/26/2013 COLES DO, ROLANDO K V04.81 FLU SHOT 03/26/2013 COLES DO, ROLANDO K 401.1 HYPERTENSION, BENIGN ESSENTIAL 03/26/2013 COLES DO, ROLANDO K 782.0 DISTURBANCE OF SKIN SENSATION 03/26/2013 COLES DO, ROLANDO K V04.81 FLU SHOT 03/26/2013 COLES DO, ROLANDO K 401.1 HYPERTENSION, BENIGN ESSENTIAL 03/26/2013 COLES DO, ROLANDO K 782.0 DISTURBANCE OF SKIN SENSATION 03/26/2013 COLES DO, ROLANDO K V04.81 FLU SHOT 03/26/2013 DIO FERRY CAPTAIN, BLAYNE S 401.1 HYPERTENSION, BENIGN ESSENTIAL 03/26/2013 DIO FERRY CAPTAIN, BLAYNE S 782.0 DISTURBANCE OF SKIN SENSATION 03/26/2013 DIO FERRY CAPTAIN, BLAYNE S V04.81 FLU SHOT 03/26/2013 BURLESON DDS, RUBIO 401.1 HYPERTENSION, BENIGN ESSENTIAL 03/26/2013 BURLESON DDS, RUBIO 782.0 DISTURBANCE OF SKIN SENSATION 03/26/2013 BURLESON DDS, RUBIO V04.81 FLU SHOT 03/26/2013 COLES DO, ROLANDO K 401.1 HYPERTENSION, BENIGN ESSENTIAL 03/26/2013 COLES DO, ROLANDO K 782.0 DISTURBANCE OF SKIN SENSATION 03/26/2013 COLES DO, ROLANDO K V04.81 FLU SHOT 03/26/2013 COLES DO, ROLANDO K 401.1 HYPERTENSION, BENIGN ESSENTIAL 03/26/2013 COLES DO, ROLANDO K 782.0 DISTURBANCE OF SKIN SENSATION 03/26/2013 COLES DO, ROLANDO K V04.81 FLU SHOT 03/26/2013 COLES DO, ROLANDO K 401.1 HYPERTENSION, BENIGN ESSENTIAL 03/26/2013 COLES DO, ROLANDO K 782.0 DISTURBANCE OF SKIN SENSATION 03/26/2013 COLES DO, ROLANDO K V04.81 FLU SHOT 03/26/2013 COLES DO, ROLANDO K 401.1 HYPERTENSION, BENIGN ESSENTIAL 03/26/2013 COLES DO, ROLANDO K 782.0 DISTURBANCE OF SKIN SENSATION 03/26/2013 COLES DO, ROLANDO K V04.81 FLU SHOT 03/26/2013 COLES DO, ROLANDO K 401.1 HYPERTENSION, BENIGN ESSENTIAL 03/26/2013 COLES DO, ROLANDO K 782.0 DISTURBANCE OF SKIN SENSATION 03/26/2013 COLES DO, ROLANDO K V04.81 FLU SHOT 09/14/2013 COLES DO, ROLANDO K 724.3 SCIATICA 09/14/2013 COLES DO, ROLANDO K 729.82 CRAMP OF LIMB 09/14/2013 COLES DO, ROLANDO K 724.3 SCIATICA 09/14/2013 COLES DO, ROLANDO K 729.82 CRAMP OF LIMB 09/14/2013 COLES DO, ROLANDO K 724.3 SCIATICA 09/14/2013 COLES DO, ROLANDO K 729.82 CRAMP OF LIMB 09/14/2013 COLES DO, ROLANDO K 724.3 SCIATICA 09/14/2013 COLES DO, ROLANDO K 729.82 CRAMP OF LIMB 09/14/2013 COLES DO, ROLANDO K 724.3 SCIATICA 09/14/2013 COLES DO, ROLANDO K 729.82 CRAMP OF LIMB 09/14/2013 DIO FERRY CAPTAIN BLAYNE S 724.3 SCIATICA 09/14/2013 DIO FERRY CAPTAINSAVITABLAYNE S 729.82 CRAMP OF LIMB 09/14/2013 BURLESON DDS, RUBIO 724.3 SCIATICA 09/14/2013 BURLESON DDS, RUBIO 729.82 CRAMP OF LIMB 09/14/2013 COLES DO, ROLANDO K 724.3 SCIATICA 09/14/2013 COLES DO, ROLANDO K 729.82 CRAMP OF LIMB 09/14/2013 COLES DO, ROLANDO K 724.3 SCIATICA 09/14/2013 COLES DO, ROLANDO K 729.82 CRAMP OF LIMB 09/14/2013 COLES DO, ROLANDO K 724.3 SCIATICA 09/14/2013 COLES DO, ROLANDO K 729.82 CRAMP OF LIMB 09/14/2013 COLES DO, ROLANDO K 724.3 SCIATICA 09/14/2013 COLES DO, ROLANDO K 729.82 CRAMP OF LIMB 09/14/2013 COLES DO, ROLANDO K 724.3 SCIATICA 09/14/2013 COLES DO, ROLANDO K 729.82 CRAMP OF LIMB 09/21/2013 COLES DO, ROLANDO K 272.4 DYSLIPIDEMIA 09/21/2013 COLES DO, ROLANDO K 272.4 DYSLIPIDEMIA 09/21/2013 COLES DO, ROLANDO K 272.4 DYSLIPIDEMIA 09/21/2013 COLES DO, ROLANDO K 272.4 DYSLIPIDEMIA 09/21/2013 BLAYNE WHARTON APRN 272.4 DYSLIPIDEMIA 09/21/2013 BURLESON DDS, RUBIO 272.4 DYSLIPIDEMIA 09/21/2013 COLES DO, ROLANDO K 272.4 DYSLIPIDEMIA 09/21/2013 COLES DO, ROLANDO K 272.4 DYSLIPIDEMIA 09/21/2013 COLES DO, ROLANDO K 272.4 DYSLIPIDEMIA 09/21/2013 COLES DO, ROLANDO K 272.4 DYSLIPIDEMIA 09/21/2013 COLES DO, ROLANDO K 272.4 DYSLIPIDEMIA 01/04/2014 COLES DO, ROLANDO K 461.9 SINUSITIS ACUTE 01/04/2014 COLES DO, ROLANDO K 461.9 SINUSITIS ACUTE 01/04/2014 BLAYNE WHARTON APRN 461.9 SINUSITIS ACUTE 01/04/2014 SARAH BETH MCCANNS, RUBIO 461.9 SINUSITIS ACUTE 01/04/2014 COLES DO, ROLANDO K 461.9 SINUSITIS ACUTE 01/04/2014 COLES DO, ROLANDO K 461.9 SINUSITIS ACUTE 01/04/2014 COLES DO, ROLANDO K 461.9 SINUSITIS ACUTE 01/04/2014 COLES DO, ROLANDO K 461.9 SINUSITIS ACUTE 01/04/2014 COLES DO, ROLANDO K 461.9 SINUSITIS ACUTE 03/16/2014 DIO FERRY CAPTAIN, BLAYNE S 466.0 BRONCHITIS, ACUTE 03/16/2014 SARAH BETH LAMAR, RUBIO 466.0 BRONCHITIS, ACUTE 03/16/2014 COLES DO, ROLANDO K 466.0 BRONCHITIS, ACUTE 03/16/2014 COLES DO, ROLANDO K 466.0 BRONCHITIS, ACUTE 03/16/2014 COLES DO, ROLANDO K 466.0 BRONCHITIS, ACUTE 03/16/2014 COLES DO, ROLANDO K 466.0 BRONCHITIS, ACUTE 03/16/2014 COLES DO, ROLANDO K 466.0 BRONCHITIS, ACUTE 05/14/2014 COLES DO, ROLANDO K 715.00 OSTEOARTHROSIS GENERALIZED INVOLVING UNSPECIFIED SITE 05/14/2014 COLES DO, ROLANDO K 715.00 OSTEOARTHROSIS GENERALIZED INVOLVING UNSPECIFIED SITE 05/14/2014 COLES DO, ROLANDO K 715.00 OSTEOARTHROSIS GENERALIZED INVOLVING UNSPECIFIED SITE 05/14/2014 COLES DO, ROLANDO K 715.00 OSTEOARTHROSIS GENERALIZED INVOLVING UNSPECIFIED SITE 05/14/2014 COLES DO, ROLANDO K 715.00 OSTEOARTHROSIS GENERALIZED INVOLVING UNSPECIFIED SITE 06/04/2014 COLES DO, ROLANDO K 461.9 SINUSITIS ACUTE 06/04/2014 COLES DO, ROLANDO K 466.0 BRONCHITIS, ACUTE 06/04/2014 COLES DO, ROLANDO K 461.9 SINUSITIS ACUTE 06/04/2014 COLES DO, ROLANDO K 466.0 BRONCHITIS, ACUTE 06/04/2014 COLES DO, ROLANDO K 461.9 SINUSITIS ACUTE 06/04/2014 COLES DO, ROLANDO K 466.0 BRONCHITIS, ACUTE 06/04/2014 COLES DO, ROLANDO K 461.9 SINUSITIS ACUTE 06/04/2014 COLES DO, ROLANDO K 466.0 BRONCHITIS, ACUTE 07/02/2014 COLES DO, ROLANDO K 786.05 SHORTNESS OF BREATH 07/02/2014 COLES DO, ROLANDO K 799.02 HYPOXEMIA 07/02/2014 COLES DO, ROLANDO K 786.05 SHORTNESS OF BREATH 07/02/2014 COLES DO, RLOANDO K 799.02 HYPOXEMIA 07/02/2014 COLES DO, ROLANDO K 786.05 SHORTNESS OF BREATH 07/02/2014 COLES DO, ROLANDO K 799.02 HYPOXEMIA 09/12/2014 COLES DO, ROLANDO K 477.9 RHINITIS 01/08/2015 BISI HASSAN, ALFREDO Mi (DDU) Ot 070.70 01/08/2015 BISI HASSAN, ALFREDO Mi (DDU) Ot 401.9 01/08/2015 BISI HASSAN, ALFREDO Mi (DDU) Ot 496 01/08/2015 ALFREDO MATHEWS MD (DDU) Ot 733.90 01/08/2015 BISI HASSAN, ALFREDO Mi (DDU) Ot 786.05 01/22/2015 MICHELLE CLAY DO Ot 278.00 01/22/2015 MICHELLE CLAY DO M Ot 496 01/22/2015 MICHELLE CLAY DO M Ot 786.09 01/23/2015 MICHELLE CLAY DO M Ot 278.00 01/23/2015 MICHELLE CLAY DO M Ot 496 01/23/2015 MICHELLE CLAY DO M Ot 786.09 03/24/2015 IBSI HASSAN, ALFREDO Mi (DDU) Ot 070.70 03/24/2015 ALFREDO MATHEWS MD (DDU) Ot 401.9 03/24/2015 ALFREDO MATHEWS MD (DDU) Ot 496 03/24/2015 BISI HASSAN, ALFREDO Mi (DDU) Ot 733.99 03/24/2015 ALFREDO MATHEWS MD (DDU) Ot 782.3 03/24/2015 ALFREDO MATHEWS MD (DDU) Ot 786.05 03/26/2015 ALFREDO MATHEWS MD (DDU) Ot 070.70 03/26/2015 ALFREDO MATHEWS MD (DDU) Ot 401.9 03/26/2015 ALFREDO MATHEWS MD (DDU) Ot 496 03/26/2015 ALFREDO MATHEWS MD (DDU) Ot 733.90 03/26/2015 ALFREDO MATHEWS MD (DDU) Ot 786.05 03/26/2015 MICHELLE CLAY DO M Ot 278.00 03/26/2015 MICHELLE CLAY DO Ot 496 03/26/2015 OBEDMICHELLE MANE DO Ot 786.09 03/26/2015 MICHELLE CLAY DO Ot E66.9 03/26/2015 OBED MICHELLE ADAMS Ot J44.9 03/26/2015 MICHELLE CLAY DO Ot R06.00 04/11/2015 OBED MICHELLE ADAMS Ot E66.9 04/11/2015 OBED MICHELLE Almodovar Ot J44.9 04/11/2015 OBED MICHELLE ADAMS Ot R06.00 06/22/2015 OBED MICHELLE ADAMS Ot E66.9 OBESITY, UNSPECIFIED 06/22/2015 OBED ADAMS MICHELLE Almodovar Ot J44.9 CHRONIC OBSTRUCTIVE PULMONARY DISEASE, U 06/22/2015 OBED ADAMS MICHELLE Nishi Ot R06.00 DYSPNEA, UNSPECIFIED 08/06/2016 ALFREDO MATHEWS MD (DDU) Ot 070.70 UNSPECIFIED VIRAL HEPATITIS C WITHOUT HE 08/06/2016 ALFREDO MATHEWS MD (DDU) Ot 401.9 HYPERTENSION NOS 08/06/2016 ALFREDO MATHEWS MD (DDU) Ot 496 CHR AIRWAY OBSTRUCT NEC 08/06/2016 ALFREDO MATHEWS MD (DDU) Ot 733.90 BONE CARTILAGE DIS NOS 08/06/2016 ALFREDO MATHEWS MD (DDU) Ot 786.05 SHORTNESS OF BREATH 08/06/2016 OBED ADAMS MICHELLE Nishi Ot 278.00 OBESITY, NOS 08/06/2016 OBED ADAMS MICHELLE M Ot 496 CHR AIRWAY OBSTRUCT NEC 08/06/2016 MICHELLE CLAY DO Ot 786.09 RESPIRATORY ABNORM NEC 08/06/2016 OBED ADAMS MICHELLE Nishi Ot E66.9 OBESITY, UNSPECIFIED 08/06/2016 OBED ADAMS MICHELLE Nishi Ot J44.9 CHRONIC OBSTRUCTIVE PULMONARY DISEASE, U 08/06/2016 OBED ADAMS MICHELLE M Ot R06.00 DYSPNEA, UNSPECIFIED 09/01/2016 GUILLE SCHWARZ Ot Z12.31 ENCNTR SCREEN MAMMOGRAM FOR MALIGNANT NE 09/03/2016 GUILLE SCHWARZP Ot Z12.31 ENCNTR SCREEN MAMMOGRAM FOR MALIGNANT NE 09/10/2016 PAIGE [place] PHARMAC[employer] OPERATIONS COORDINATOR Ot R04.2 HEMOPTYSIS 09/28/2016 PAIGE [place] PHARMAC[employer] OPERATIONS COORDINATOR Ot R04.2 HEMOPTYSIS 10/05/2016 PAIGE [place] [employer]ARMAC[employer] OPERATIONS COORDINATOR Ot R04.2 HEMOPTYSIS 11/19/2016 MICHELLE CLAY DO Ot E66.9 OBESITY, UNSPECIFIED 11/19/2016 MICHELLE CLAY DO Ot J44.9 CHRONIC OBSTRUCTIVE PULMONARY DISEASE, U 11/19/2016 MICHELLE CLAY DO Ot R06.00 DYSPNEA, UNSPECIFIED Procedures Code [place] [address] OXIMETRY 2012 37480 XRAY CHEST 2 VIEW 02/05/2013 94654 NEBULIZER TREATMENT 02/05/2013 J7613 ALBUTEROL UNIT DOSE FORM INHALED 02/05/2013 76526 OXIMETRY 2012 86752 PULMONARY FUNCTION TEST (IN-HOUSE) 03/09/2013 95189 BRONCHODILATION PRE/POST 03/09/2013 50427 RESPIRATORY FLOW VOLUME LOOP 03/09/2013 47484 PULMONARY EDUCATION 03/09/2013 G0437 TOBACCO-USE ATHLETIC INSTRUCTOR>10MIN 03/09/2013 98091 ROUTINE VENIPUNCTURE 09/19/2013 61761 CBC 09/19/2013 85996 LIPID PANEL 09/19 60135 TSH 09/19/2013 42174 ROUTINE VENIPUNCTURE 01/04/2014 56768 CMP 01/04/2014 84981 OXIMETRY 2014 63587 OXIMETRY 2014 Results Encounters ACCT No. Visit Date/Time Discharge Status Pt. Type Provider Facility Loc./Unit Complaint [id number] 09/12/2014 11:40:00 09/12/2014 23: 59:59 CLS Outpatient ROLANDO COLES DO [id number] 08/24/2014 14:03:00 08/24/2014 23: 59:59 CLS Outpatient ROLANDO COLES DO [id number] 07/02/2014 15:49:00 07/02/2014 23: 59:59 CLS Outpatient ROLANDO COLES DO [id number] 06/04/2014 10:37:00 06/04/2014 23: 59:59 CLS Outpatient ROLANDO COLES DO [id number] 05/14/2014 15:10:00 05/14/2014 23: 59:59 CLS Outpatient ROLANDO COLES DO [id number] 03/26/2014 12:43:00 03/26/2014 23: 59:59 CLS Outpatient RUBIO BURLESON DDS [id number] 03/16/2014 10:54:00 03/16/2014 23: 59:59 CLS Outpatient BLAYNE WHARTON APRN [id number] 02/08/2014 16:22:00 02/08/2014 23: 59:59 CLS Outpatient COLES DOROLANDO [id number] 01/04/2014 09:34:00 01/04/2014 23: 59:59 CLS Outpatient COLES DOROLANDO [id number] 09/19/2013 07:57:00 09/19/2013 23: 59:59 CLS Outpatient COLES DOROLANDO [id number] 09/14/2013 16:27:00 09/14/2013 23: 59:59 CLS Outpatient COLES DOROLANDO [id number] 09/03/2013 00:00:00 09/03/2013 23: 59:59 CLS Outpatient COLES DOROLANDO [id number] 05/29/2013 00:00:00 05/29/2013 23: 59:59 CLS Outpatient ZAIRE BENTONARVIND Moreno [id number] 05/25/2013 09:15:00 05/25/2013 23: 59:59 CLS Outpatient ZAIRE BENTONARVIND Moreno [id number] 03/26/2013 16:29:00 03/26/2013 23: 59:59 CLS Outpatient COLES DOROLANDO [id number] 03/09/2013 08:53:00 03/09/2013 23: 59:59 CLS Outpatient COLES DOROLANDO [id number] 02/06/2013 07:58:00 Document Registration [id number] 02/05/2013 13:50:00 Document Registration
--- OUTSIDE RECORDS SUMMARY | 2016-11-23 10:23 | XMS REPORT ---
Author Author TOMMY ROBLEDO Organization [employer] Address Unknown Phone Unavailable Care Team Providers Care Caption Writer Name Role Phone TOMMY ROBLEDO CP Unavailable Allergies, Adverse Reactions, Alerts Substance Reaction Event Type Morphine Info Not Available Drug Allergy Problems Problem Type Condition Code Onset Dates Condition Status Assessment Routine health maintenance Z00.00 Active Problem Depression, unspecified depression type F32.9 Active Problem Environmental allergies Z91.09 Active Problem Chronic obstructive pulmonary disease, unspecified COPD type J44.9 Active Problem Osteoarthritis of multiple joints, unspecified osteoarthritis type M15.9 Active Problem Hepatitis C B19.20 Active Problem History of tobacco abuse Z87.891 Active Problem Nerve pain M79.2 Active Problem History of long-term use of multiple prescription drugs Z92.29 Active Problem Essential hypertension I10 Active Assessment Depression, unspecified depression type F32.9 Active Assessment Nerve pain M79.2 Active Assessment Hyperlipidemia E78.5 Active Assessment History of long-term use of multiple prescription drugs Z92.29 Active Assessment Osteoarthritis of multiple joints, unspecified osteoarthritis type M15.9 Active Assessment History of tobacco abuse Z87.891 Active Assessment Chronic obstructive pulmonary disease, unspecified COPD type J44.9 Active Assessment Essential hypertension I10 Active Assessment Hepatitis C B19.20 Active Medications Medication Code System Code Instructions Start Date End Date Status Dosage Lyrica [facility] [address]-44 50 MG Orally Three times a day Mar 27, 2015 1 capsule Symbicort [facility] [address]-66 160-4.5 MCG/ACT INHALE TWO PUFFS BY MOUTH TWICE DAILY Zyrtec Allergy [facility] [address]-76 10 MG Orally Once a day 1 tablet as needed Biotin [facility] [address]-67 300 MCG Orally Once a day 1 tablet Lisinopril [facility] [address]-65 10 MG Orally Once a day May 14, 2014 take 1 tablet by Oral route 1 time per day Take in am Flonase [facility] [address]-32 50 MCG/ACT Nasally Once a day 1 spray in each nostril Atorvastatin Calcium [facility] [address]-87 20 mg Orally Once a day 1 tablet Aspirin [facility] [address]-20 81 mg December 18, 2012 chew 1 tablet (81 mg ) by oral route once daily Singulair [facility] [address]-35 10 MG Orally Once a day 1 tablet in the evening Oxygen ND 0 2LPM PRN Amitriptyline HCl [facility] [address]-96 75 MG Orally Once a day at HS Jan 16, 2015 1 tablet Meloxicam [facility] [address]-14 7.5 MG Orally 2 times a day May 14, 2014 September 10, 2015 take 1 tablet by Oral route 2 times per day anti- inflammatory med HydrOXYzine HCl [facility] [address]-62 25 mg May 14, 2014 1 tablet by Oral route 4 times per day PRN Citalopram Hydrobromide [facility] [address]-05 20 mg Orally Once a day TAKE ONE TABLET BY MOUTH ONCE DAILY Spiriva HandiHaler [facility] [address]-99 18 MCG Inhalation Once a day 1 capsule Albuterol Sulfate [facility] [address]-01 2.5 mg /3 mL (0.083 %) Mar 19, 2014 1 Each by Inhalation route every 4 hours for cough and wheeze PRN for wheezing or cough Fish Oil [facility] [address]-73 1000 MG Orally Once a day 1 capsule Procedures Procedure Coding System Code Date Office Visit, Est Pt., Level 3 CPT-4 39823 September 09, 2015 Vital Signs Date/Time: September 09, 2015 Temperature 97.0 F Weight 184.4 lbs Height 64 in BMI 31.65 Index Blood Pressure Diastolic 78 mmHg Blood Pressure Systolic 120 mmHg Cardiac Monitoring Heart Rate 82 bpm Results No Known Results Summary Purpose [employer]ClinicalWorks Submission
--- OUTSIDE RECORDS SUMMARY | 2016-11-23 10:23 | XMS REPORT ---
Author ASHLEY Layne [employer] Address Unknown Phone Unavailable Care Team Providers Care Radiology Receptionist Name Role Phone ASHLEY VÁZQUEZ CP Unavailable [...] Nondependent tobacco use disorder 305.1 Active Assessment Emphysema with chronic bronchitis J44.9 Active Assessment Acute exacerbation of emphysema J43.9 Active Problem Essential hypertension, benign 401.1 Active [...] Instructions Start Date End Date Status Dosage Biotin [facility] [address]-32 300 MCG Orally Once a day 1 tablet Fish Oil [facility] [address]-58 1000 MG Orally Once a day 1 capsule Symbicort [facility] [address]-43 160-4.5 mcg/actuation May 14, 2014 inhale 2 puffs in the morning and evening 2 times per day use every day; rinse mouth after Aspirin [facility] [address]-51 81 mg December 18, 2012 chew 1 tablet (81 mg ) by oral route once daily PredniSONE [facility] [address]-69 20 MG Orally Once a day Feb 17, 2015Jan 3 tabs x 3 days, 2 tabs x 3 days, 1 tab x 3 days Meloxicam [facility] [address]-37 7.5 mg May 14, 2014 take 1 tablet by Oral route 2 times per day anti-inflammatory med Lyrica [facility] [address]-39 50 MG Orally Three times a day. Must have appt prior to refill Mar 27, 2015 1 capsule atorvastatin NDC 0 20 mg May 14, 2014 take 1 tablet by Oral route 1 time per day QHS; Avoid grapefruit juice Zyrtec Allergy [facility] [address]-80 10 MG Orally Once a day 1 tablet as needed Flonase [facility] [address]-97 50 MCG/ACT Nasally Once a day 1 spray in each nostril Celexa [facility] [address]-75 20 mg August 24, 2014 1 tablet by Oral route 1 time per day Albuterol Sulfate [facility] [address]-20 2.5 mg /3 mL (0.083 %) Mar 19, 2014 1 Each by Inhalation route every 4 hours for cough and wheeze PRN for wheezing or cough Amitriptyline HCl [facility] [address]-85 75 MG Orally Once a day at HS Jan 16, 2015 1 tablet Oxygen ND 0 2LPM PRN Singulair [facility] [address]-27 10 MG Orally Once a day 1 tablet in the evening HydrOXYzine HCl [facility] [address]-58 25 mg May 14, 2014 1 tablet by Oral route 4 times per day PRN Lisinopril [facility] [address]-09 10 mg May 14, 2014 take 1 tablet by Oral route 1 time per day Take in am Spiriva HandiHaler [facility] [address]-70 18 MCG Inhalation Once a day 1 capsule Procedures Procedure Coding System Code Date Office Visit, Est Pt., Level 3 CPT-4 40696 Apr 03, 2015 Vital Signs Date/Time: Apr 03, 2015 Temperature 97.6 F Weight 185.1 lbs Height 64 in BMI 31.77 Index Blood Pressure Diastolic 82 mmHg Blood Pressure Systolic 128 mmHg Cardiac Monitoring Heart Rate 80 bpm Results No Known Results Summary Purpose eClinicalWorks Submission
--- OUTSIDE RECORDS SUMMARY | 2016-11-23 10:23 | XMS REPORT ---
Author Author ASHLEY VÁZQUEZ [facility] eClinicalWorks Address Unknown Phone Unavailable Care Team Providers Care Sound Engineering Technician Name Role Phone ASHLEY VÁZQUEZ CP Unavailable Allergies No Known Allergies Problems Problem Type Condition Code Onset Dates Condition Status Problem Encounter for long-term (current) use of other medications V58.69 Active Problem Cramp of limb 729.82 Active Problem Routine general medical examination at health care facility V70.0 Active Problem Hypoxemia 799.02 Active Problem Nondependent tobacco use disorder 305.1 Active Problem Sciatica, unspecified side M54.30 Active Problem Generalized osteoarthrosis, unspecified site 715.00 Active Problem Sciatica 724.3 Active Problem Chronic airway obstruction, not elsewhere classified 496 Active Problem Personal history of tobacco use, presenting hazards to health V15.82 Active Problem Need for prophylactic vaccination and inoculation, Influenza V04.81 Active Problem Disturbance of skin sensation 782.0 Active Problem Essential hypertension, benign 401.1 Active Problem Other and unspecified hyperlipidemia 272.4 Active Medications No Known Medications Results No Known Results Summary Purpose eClinicalWorks Submission
--- OUTSIDE RECORDS SUMMARY | 2016-11-23 10:23 | XMS REPORT ---
Author Author TOMMY ROBLEDO Organization [employer] Address Unknown Phone Unavailable Care Team Providers Care Manager Unit Name Role Phone TOMMY ROBLEDO CP Unavailable Allergies, Adverse Reactions, Alerts Substance Reaction Event Type Morphine Info Not Available Drug Allergy Problems Problem Type Condition Code Onset Dates Condition Status Problem Environmental allergies Z91.09 Active Problem History of tobacco abuse Z87.891 Active Problem Nerve pain M79.2 Active Problem Wheezing R06.2 Active Problem Hepatitis C B19.20 Active Problem Low HDL (under 40) E78.6 Active Problem History of long-term use of multiple prescription drugs Z92.29 Active Problem Essential hypertension I10 Active Problem Chronic obstructive pulmonary disease, unspecified COPD type J44.9 Active Problem Osteoarthritis of multiple joints, unspecified osteoarthritis type M15.9 Active Assessment Low HDL (under 40) E78.6 Active Assessment Essential hypertension I10 Active Assessment Environmental allergies Z91.09 Active Assessment History of long-term use of multiple prescription drugs Z92.29 Active Assessment Nerve pain M79.2 Active Problem Neuropathy G62.9 Active Assessment Depression, unspecified depression type F32.9 Active Problem Neuropathy of ankle, 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 Active Assessment Chronic obstructive pulmonary disease, unspecified COPD type J44.9 Active Problem Major depressive disorder, recurrent, in full remission F33.42 Active Medications Medication Code System Code Instructions Start Date End Date Status Dosage Lyrica [facility] [address]-45 50 mg Orally Three times a day Mar 27, 2015 1 capsule Singulair [facility] [address]-29 10 mg Orally Once a day 1 tablet in the evening HydrOXYzine HCl [facility] [address]-34 25 mg May 14, 2014 1 tablet by Oral route 4 times per day PRN Flonase [facility] [address]-61 50 MCG/ACT Nasally Once a day 1 spray in each nostril Citalopram Hydrobromide [facility] [address]-29 20 mg Orally Once a day TAKE ONE TABLET BY MOUTH ONCE DAILY Oxygen NDC 0 2LPM PRN Atorvastatin Calcium [facility] [address]-88 20 mg Orally Once a day 1 tablet Fish Oil [facility] [address]-47 1000 MG Orally Once a day 1 capsule Biotin [facility] [address]-03 300 MCG Orally Once a day 1 tablet Zyrtec Allergy [facility] [address]-36 10 mg Orally Once a day 1 tablet as needed Symbicort [facility] [address]-27 160-4.5 MCG/ACT Inhalation Twice a day INHALE TWO PUFFS BY MOUTH TWICE DAILY Amitriptyline HCl [facility] 41800216244 75 MG Orally Once a day at HS 1 tablet atorvastatin NDC 0 20 mg May 14, 2014 take 1 tablet by Oral route 1 time per day QHS; Avoid grapefruit juice Albuterol Sulfate [facility] [address]-11 2.5 mg /3 mL (0.083 %) Inhalation every 4 hrs Mar 19, 2014 1 Each by Inhalation route every 4 hours for cough and wheeze PRN for wheezing or cough Aspirin [facility] [address]-12 81 mg December 18, 2012 chew 1 tablet (81 mg ) by oral route once daily Hydrochlorothiazide [facility] [address]-36 12.5 MG Orally Once a day Feb 12, 2016 1 tablet Lisinopril [facility] [address]-88 10 mg Orally Once a day May 14, 2014 take 1 tablet by Oral route 1 time per day Take in am Spiriva HandiHaler [facility] [address]-14 18 MCG Inhalation Once a day 1 capsule Procedures Procedure Coding System Code Date Office Visit, Est Pt., Level 3 CPT-4 67589 Apr 06, 2016 [facility] VISIT ESTABLISHED PATIENT CPT-4 G0467 Apr 06, 2016 Vital Signs Date/Time: Apr 06, 2016 Cardiac Monitoring Heart Rate 80 bpm Weight 179.4 lbs Height 64 in BMI 30.79 Index Blood Pressure Diastolic 84 mmHg Blood Pressure Systolic 122 mmHg Results No Known Results Summary Purpose eClinicalWorks Submission
--- OUTSIDE RECORDS SUMMARY | 2016-11-23 10:23 | XMS REPORT ---
Author Author ASHLEY VÁZQUEZ [facility] eClinicalWorks Address Unknown Phone Unavailable Care Team Providers Care Stamp Mounter Name Role Phone ASHLEY VÁZQUEZ CP Unavailable [...] unspecified site 715.00 Active Assessment Encounter for immunization Z23 Active Problem Need for prophylactic vaccination and inoculation, Influenza V04.81 Active Problem Disturbance of skin sensation 782.0 Active Problem Essential hypertension, benign 401.1 Active Medications No Known Medications Procedures Procedure Coding System Code Date SINGLE IMMUNIZATION ADMIN CPT-4 69217 Mar 06, 2015 FLUARIX QUAD (3 & UP)-GSK-2014 CPT-4 53191 Mar 06, 2015 Results No Known Results Immunizations Vaccine Administration Date FLUARIX QUAD (3 & UP)-GSK-2014Mar 06, 2015 Summary Purpose eClinicalWorks Submission
--- OUTSIDE RECORDS SUMMARY | 2016-11-23 10:23 | XMS REPORT ---
Author Author VENKAT TOMMY Organization [facility] Address [address] [place] [address] Care Team Providers Care Entry Analyst Name Role Phone ROBLEDO TOMMY Unavailable PROBLEMS Type Condition ICD9-CM Code PDG78-PT Code Onset Dates Condition Status SNOMED Code Problem Nerve pain M79.2 Active 79158394 Problem Essential hypertension I10 Active 69195902 Problem History of tobacco abuse Z87.891 Active 8764403350426 Problem Low HDL (under 40) E78.6 Active 760136390 Problem Wheezing R06.2 Active 77156471 Problem Osteoarthritis of multiple joints, unspecified osteoarthritis type M15.9 Active 867060449 Problem History of long-term use of multiple prescription drugs Z92.29 Active 575225711 Problem Hepatitis C B19.20 Active 57252838 Problem Chronic obstructive pulmonary disease, unspecified COPD type J44.9 Active 52258972 Assessment Encounter for immunization Z23 15 Jan, 2016 Active 677552182 Problem Neuropathy G62.9 Active 033744041 Problem Neuropathy of ankle, 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 Active 930041156 Assessment Flank pain R10.9 Jan, Active 191183329 Problem Major depressive disorder, recurrent, in full remission F33.42 Active 492618359 Assessment Dysuria R30.0 Jan, Active 49439531 Problem Environmental allergies Z91.09 Active 787868252 ALLERGIES Substance Reaction Event Type Date Status Morphine Unknown Drug Allergy Jan, Active SOCIAL HISTORY No smoking Hx information available PLAN OF CARE VITAL SIGNS Height 64 in 2016-02-12 Weight 180.1 lbs 2016-02-12 Heart Rate 94 bpm 2016-02-12 Respiratory Rate 18 2016-02-12 BMI 30.91 kg/m2 2016-02-12 Blood pressure systolic 119 mmHg 2016-02-12 Blood pressure diastolic 67 mmHg 2016-02-12 MEDICATIONS Medication Instructions Dosage Frequency Start Date End Date Duration Status Fish Oil 1000 MG Orally Once a day 1 capsule 24h Active Singulair 10 mg Orally Once a day 1 tablet in the evening 24h Active Aspirin 81 mg chew 1 tablet (81 mg) by oral route once daily Nov, Active Atorvastatin Calcium 20 mg Orally Once a day 1 tablet 24h Active Citalopram Hydrobromide 20 mg Orally Once a day TAKE ONE TABLET BY MOUTH ONCE DAILY 24h Active HydrOXYzine HCl 25 mg 1 tablet by Oral route 4 times per day PRN Apr Active Albuterol Sulfate 2.5 mg /3 mL (0.083 %) Inhalation every 4 hrs 1 Each by Inhalation route every 4 hours for cough and wheeze PRN for wheezing or cough 4h Feb, Active Symbicort 160-4.5 MCG/ACT Inhalation Twice a day INHALE TWO PUFFS BY MOUTH TWICE DAILY 12h Active Lisinopril 10 mg Orally Once a day take 1 tablet by Oral route 1 time per day Take in am 24h Apr, Active Lyrica 50 mg Orally Three times a day 1 capsule 8h Feb, Active atorvastatin 20 mg take 1 tablet by Oral route 1 time per day QHS; Avoid grapefruit juice Apr, Active Oxygen 2LPM PRN Active Spiriva HandiHaler 18 MCG Inhalation Once a day 1 capsule 24h Active Flonase 50 MCG/ACT Nasally Once a day 1 spray in each nostril 24h Active Biotin 300 MCG Orally Once a day 1 tablet 24h Active Zyrtec Allergy 10 mg Orally Once a day 1 tablet as needed 24h Active Hydrochlorothiazide 12.5 MG Orally Once a day 1 tablet 24h Jan, 30 day(s) Active Amitriptyline HCl 75 MG Orally Once a day at HS 1 tablet 30 Active RESULTS Name Result Date Reference Range UA LONG DIP (IN HOUSE) 2016-02-12 Lot # Exp date Clarity clear Color yellow Odor GLU negative AROLDO negative KET negative SG 1.020 BLO negative pH 6.5 Protein negative URO 1.0 NIT negative ALLEN negative Lot # Exp date PROCEDURES Procedure Date Ordered Related Diagnosis Body Site URINALYSIS, AUTO, W/O SCOPE Feb 12, 2016 Office Visit, Est Pt., Level 3 Feb 12, 2016 SINGLE IMMUNIZATION ADMIN Feb 12, 2016 FLUARIX QUAD P-FREE 3 AND UP .50 2015Feb 12, 2016 IMMUNIZATION ADMIN, EACH ADD (please include units) Feb 12, 2016 IMMUNIZATIONS Vaccine Route Administration Date Status FLUARIX QUAD P-FREE 3 AND UP .50 2015 IM Intramuscular Feb 12, 2016 Administered
--- OUTSIDE RECORDS SUMMARY | 2016-11-23 10:23 | XMS REPORT ---
Author Author ASHLEY VÁZQUEZ [facility] eClinicalWorks Address Unknown Phone Unavailable Care Team Providers Care Director Utilization Management Name Role Phone ASHLEY VÁZQUEZ CP Unavailable [...] Active Problem Essential hypertension, benign 401.1 Active Assessment Sciatica, unspecified side M54.30 Active Problem Other and unspecified hyperlipidemia 272.4 Active Medications Medication Code System Code Instructions Start Date End Date Status Dosage Lyrica [facility] [address]-92 50 MG Orally Three times a day. Must have appt prior to refill Mar 27, 2015 1 capsule Results No Known Results Summary Purpose eClinicalWorks Submission
--- OUTSIDE RECORDS SUMMARY | 2016-11-23 10:24 | XMS REPORT ---
Author Author DARRYL HARRY [facility] eClinicalWorks Address Unknown Phone Unavailable Care Team Providers Care Industrial Registered Nurse Name Role Phone DARRYL HARRY Unavailable Allergies, Adverse Reactions, Alerts Substance Reaction [...] Nondependent tobacco use disorder 305.1 Active Assessment Seasonal allergies J30.2 Active Assessment Acute left otitis media H66.92 Active Assessment Emphysema J43.9 Active Problem Essential hypertension, benign 401.1 [...] Start Date End Date Status Dosage Biotin [facility] [address]-15 300 MCG Orally Once a day 1 tablet Fish Oil [facility] [address]-72 1000 MG Orally Once a day 1 capsule Aspirin [facility] [address]-37 81 mg December 18, 2012 chew 1 tablet (81 mg ) by oral route once daily HydrOXYzine HCl [facility] [address]-25 25 mg May 14, 2014 1 tablet by Oral route 4 times per day PRN Albuterol Sulfate [facility] [address]-86 2.5 mg /3 mL (0.083 %) Mar 19, 2014 1 Each by Inhalation route every 4 hours for cough and wheeze PRN for wheezing or cough Lyrica [facility] [address]-48 50 MG Orally Three times a day. Must have appt prior to refill Mar 27, 2015 1 capsule Singulair [facility] [address]-91 10 MG Orally Once a day 1 tablet in the evening atorvastatin NDC 0 20 mg May 14, 2014 take 1 tablet by Oral route 1 time per day QHS; Avoid grapefruit juice Flonase [facility] [address]-03 50 MCG/ACT Nasally Once a day 1 spray in each nostril Oxygen ND 0 2LPM PRN Meloxicam [facility] [address]-92 7.5 mg May 14, 2014 take 1 tablet by Oral route 2 times per day anti-inflammatory med Amitriptyline HCl [facility] [address]-25 75 MG Orally Once a day at Jan 16, 2015 1 tablet Amoxicillin [facility] [address]-60 500 MG Orally Twice a day May 03, 2015 May 13, 2015 1 tablet Celexa [facility] [address]-23 20 mg August 24, 2014 1 tablet by Oral route 1 time per day Zyrtec Allergy [facility] [address]-60 10 MG Orally Once a day 1 tablet as needed Symbicort [facility] [address]-77 160-4.5 mcg/actuation May 14, 2014 inhale 2 puffs in the morning and evening 2 times per day use every day; rinse mouth after Lisinopril [facility] [address]-82 10 mg May 14, 2014 take 1 tablet by Oral route 1 time per day Take in am Spiriva HandiHaler [facility] [address]-36 18 MCG Inhalation Once a day 1 capsule Procedures Procedure Coding System Code Date Office Visit, Est Pt., Level 3 CPT-4 32294 May 03, 2015 MEASURE BLOOD OXYGEN LEVEL CPT-4 95671 May 03, 2015 Vital Signs Date/Time: May 03, 2015 Temperature 98.0 F Weight 187 lbs Height 64 in Oximetry 93 % Blood Pressure Diastolic 80 mmHg Blood Pressure Systolic 126 mmHg Cardiac Monitoring Heart Rate 90 bpm BMI 32.09 Index Results No Known Results Summary Purpose eClinicalWorks Submission
--- OUTSIDE RECORDS SUMMARY | 2016-11-23 10:24 | XMS REPORT ---
Author Author TOMMY ROBLEDO Organization e[employer] Address Unknown Phone Unavailable Care Team Providers Care Case Technician Name Role Phone TOMMY ROBLEDO CP Unavailable [...] Instructions Start Date End Date Status Dosage Amitriptyline HCl [facility] 63396637605 75 MG Orally Once a day at HS 1 tablet Results No Known Results Summary Purpose eClinicalWorks Submission
--- OUTSIDE RECORDS SUMMARY | 2016-11-23 10:24 | XMS REPORT ---
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 Active 950332503 Problem Major depressive disorder, recurrent, in full remission F33.42 Active 161851690 Problem Environmental allergies Z91.09 Active 698266455 Problem Low HDL (under 40) E78.6 Active 601341260 Problem Wheezing R06.2 Active 74739659 Problem Osteoarthritis of multiple joints, unspecified osteoarthritis type M15.9 Active 258231619 Problem History of long-term use of multiple prescription drugs Z92.29 Active 926855599 Problem Hepatitis C B19.20 Active 63456148 Problem Chronic obstructive pulmonary disease, unspecified COPD type J44.9 Active 93423393 ALLERGIES Unknown Allergies SOCIAL HISTORY No smoking Hx information available PLAN OF CARE VITAL SIGNS MEDICATIONS Medication Instructions Dosage Frequency Start Date End Date Duration Status Singulair 10 mg Orally Once a day 1 tablet in the evening 24h Active Atorvastatin Calcium 20 mg Orally Once a day 1 tablet 24h Active RESULTS No Results PROCEDURES No Known procedures IMMUNIZATIONS No Known Immunizations
[2016-11-23] MEDS ORDERED: PANT40TA2 PO (10:51)
[2016-11-23] MEDS ORDERED: SUCR1TAB36 PO (10:51)
--- NOTE | 2016-11-23 10:54 | Discharge Inst-Simple/Standard ---
Discharge Inst-Standard Discharge Medications New, Converted or Re-Newed RX: RX on Chart Patient Instructions/Follow Up Plan of Care/Instructions/FU: Follow up with Dr. Smallwood in 2-3 weeks Take medication as directed. Hold Aspirin and meloxicam for 3 days Activity as Tolerated: Yes Discharge Diet: No Restrictions JENNIFER LOU APRN Nov 23, 2016 10:54
[2016-11-23 10:55] VITALS: BP 123/85
--- NOTE | 2016-11-23 10:56 | Operative Report ---
Operative Report Date of Procedure/Surgery Nov 23, 2016 Surgeon (s) JUANA ORTEGA DO Faculty Research Assistant (s): na Post-Operative Diagnosis gastritis, colon polyps, minimal diverticulosis Procedure Performed egd c biopsies and colonoscopy c hot bx polypectomy x6 Description of Procedure Anesthesia Type: MAC Estimated blood loss (mL): none Specimen(s) collected/removed antrum, body of stomach, ascending colon polyps, sigmoid colon polyps x 4, rectal polyp Description of the Procedure COMPLICATIONS: None. INDICATIONS: The patient is a 61 female who presented with weight loss. She was recommended to have EGD and colonoscopy. She understands the risks and benefits and wished to proceed with procedure. Consent was signed and on the chart. The patient was taken to the endoscopy suite, placed in left lateral recumbent position. Timeout was performed. Scope was inserted into the mouth, down the esophagus, stomach and into the duodenum without difficulty. There are no polyps, masses or ulcerations within the duodenum. The scope was slowly retracted back into the stomach and further insufflated. Erythematous changes present. Biopsy of the antrum at this area was obtained. The scope was then slowly retracted back and retroflexed noting erythematous changes and biopsy obtained. Scope was returned to its normal position, slowly withdrawn back into the distal esophagus, there were no changes at the GE junction. Scope was slowly retracted back noting no other pathology. Digital rectal exam was performed and there were no palpable polyps, masses or ulcerations. Scope was inserted in the rectum and advanced all the way to the cecum with minimal difficulty. Prep was adequate. Scope was then slowly retracted back. There were no polyps, masses or ulcerations within the cecum. There were polyps in the ascending, descending and sigmoid colon and rectum which hot bx polypectomies were performed. Once in the rectum, scope was also retroflexed noting no other pathology. Scope was returned to its normal position, slowly withdrawn until completely removed. The patient tolerated procedure well without any complications. The patient was taken to recovery room in stable condition. RECOMMENDATIONS: Patient will follow up in the office to discuss pathology results in 3 weeks. The patient would recommend repeat colonoscopy if she has any problems at that time; otherwise in 3 years if no Patient to be placed on protonix and carafate and see how symptoms are. Findings of the Procedure see above. Allergies and Home Medications Allergies Coded Allergies: morphine (Verified Allergy, Unknown, NAUSEA, 11/19/16) Home Medications Albuterol Sulfate 2.5 Mg/0.5 Ml Vial.neb, 2.5 MG IH Q4H PRN for SHORTNESS OF BREATH, (Reported) Amitriptyline HCl 25 Mg Tablet, 25 MG PO HS, (Reported) Aspirin 81 Mg Tablet.dr, 81 MG PO DAILY, (Reported) Atorvastatin Calcium 20 Mg Tablet, 20 MG PO HS, (Reported) Biotin 1,000 Mcg Tablet, 1,000 MCG PO DAILY, (Reported) Budesonide/Formoterol Fumarate 10.2 Gm Hfa.aer.ad, 2 PUFF IH BID, (Reported) Cetirizine HCl 10 Mg Tablet, 10 MG PO DAILY, (Reported) Citalopram Hydrobromide 20 Mg Tablet, 20 MG PO DAILY, (Reported) Fluticasone Propionate 9.9 Ml [place].susp, 1 SPRAY NSEACH DAILY, (Reported) Hydrochlorothiazide 25 Mg Tablet, 25 MG PO DAILY, (Reported) Hydroxyzine HCl 25 Mg Tablet, 25 MG PO TID PRN for ANXIETY, (Reported) Lisinopril 10 Mg Tablet, 10 MG PO DAILY, (Reported) Meloxicam 7.5 Mg Tablet, 7.5 MG PO BID, (Reported) Montelukast Sodium 10 Mg Tablet, 10 MG PO DAILY, (Reported) [place]-3/Dha/Epa/Fish Oil 1,000 Mg Capsule, 1,000 MG PO DAILY, (Reported) Pregabalin 50 Mg Capsule, 50 MG PO TID, (Reported) Tiotropium [place] 1 Inh Aerp, 1 INH IH DAILY, (Reported) JUANA ORTEGA DO Nov 23, 2016 10:56 am
[2016-11-23 11:30] VITALS: BP 114/78
[2016-11-23 11:40] VITALS: BP 114/78
== END 2016-11-23 11:40 | disposition home or self-care (01) ==
LOC: ENDO 08:41
PROVIDERS: ATTEND Surgery
DX: D12.2 Benign neoplasm of ascending colon (principal); K63.5 Polyp of colon; K62.1 Rectal polyp; K57.30 Diverticulosis of large intestine without perforation or abscess without bleeding; K29.70 Gastritis, unspecified, without bleeding; R19.5 Other fecal abnormalities; R63.4 Abnormal weight loss; J44.9 Chronic obstructive pulmonary disease, unspecified; B19.20 Unspecified viral hepatitis C without hepatic coma; Z79.899 Other long term (current) drug therapy

== ENCOUNTER 2016-12-06 08:05 | Outpatient (RCR) | payer MEDICAID, MEDICARE ==
[~2016-12-06 08:05] MED LIST changes: +PANT40TA2 PO; +SUCR1TAB36 PO
== END 2017-02-26 | disposition home or self-care (01) ==
LOC: PULM 08:05
PROVIDERS: ATTEND Nurse Practitioner Family
DX: J44.9 Chronic obstructive pulmonary disease, unspecified (principal); R06.02 Shortness of breath
CPT/HCPCS: 99211

== ENCOUNTER → 2017-05-09 | Outpatient (CLI) | payer MEDICARE, MEDICAID ==
--- NOTE | 2017-05-09 11:27 | Diagnostic Imaging Report ---
CLINICAL INDICATION: Patient with COPD, dyspnea, unexplained weight loss and tobacco dependence. EXAM: Chest x-ray PA and lateral views. COMPARISON: Chest CT scan dated 11/02/2016. FINDINGS: There are slightly hyperinflated lungs, increased retrosternal clear space, and flattened hemidiaphragms which can be seen with COPD changes. There are reticular nodular opacities throughout both lungs with amorphous increased density involving the both lung bases. These findings may be related to chronic lung changes/scarring. There is curvilinear like an amorphous area of increased opacity in the right lung base likely representing atelectasis versus scarring. There is a subtle amorphous area of increased density in the right lung base which is not definitively seen on the comparison CT scan. No pleural effusion or pneumothorax. Pulmonary vasculature and cardiac silhouettes within normal limits. There are degenerative spurs seen throughout spine. IMPRESSION: 1: There is subtle amorphous increase density in the right lung base region. This finding may represent atelectasis or scarring but superimposed infiltrate or other abnormality should be excluded. Comparison to prior chest x-ray, follow up chest x-ray in 2 weeks is suggested to evaluate for interval resolution of this finding. If finding persists, then chest CT scan is suggested to evaluate for interval change. 2: There are COPD lung changes with bibasilar atelectasis or scarring. Dictated by: Dictated on workstation # [id number]
== END ==
LOC: RAD 10:44
PROVIDERS: ATTEND Nurse Practitioner Family
DX: R91.8 Other nonspecific abnormal finding of lung field (principal); J44.9 Chronic obstructive pulmonary disease, unspecified; R63.4 Abnormal weight loss; F17.200 Nicotine dependence, unspecified, uncomplicated
CPT/HCPCS: 71020

== ENCOUNTER → 2017-06-23 | Outpatient (CLI) | payer MEDICARE, MEDICAID ==
--- NOTE | 2017-06-23 10:51 | Diagnostic Imaging Report ---
PROCEDURE: CT chest without contrast. TECHNIQUE: Multiple contiguous axial images were obtained through the chest without the use of intravenous contrast. INDICATION: COPD. Comparison is made with prior CT chest from 11/02/2016. FINDINGS: No definite axillary, hilar or mediastinal lymphadenopathy is seen. Coronary arterial calcifications are present. No pericardial or pleural fluid is identified. Chronic appearing reticular opacities throughout both lungs consistent with interstitial fibrotic changes are again noted and appear stable when compared with prior exam. No definite superimposed infiltrate is seen. No parenchymal mass is identified. The upper abdomen is unremarkable. IMPRESSION: Stable chronic interstitial changes and COPD when compared with examination from 11/02/2016. Dictated by: Dictated on workstation # [id number]
== END ==
LOC: RAD 09:44
PROVIDERS: ATTEND Nurse Practitioner Family
DX: J44.9 Chronic obstructive pulmonary disease, unspecified (principal); E66.9 Obesity, unspecified; F17.200 Nicotine dependence, unspecified, uncomplicated; R63.4 Abnormal weight loss; R09.02 Hypoxemia
CPT/HCPCS: 71250

== ENCOUNTER 2018-07-06 14:33 | Outpatient (CLI) | payer MEDICARE, MEDICAID ==
[~2018-07-06] VITALS: Ht 162.6 cm; Wt 60.8 kg
[~2018-07-06 14:33] MED LIST changes: -CITA20TA7 PO; +CITA20TA9 PO
[2018-07-06] MEDS ORDERED: AMIT75TA2 PO (14:41)
[2018-07-06] MEDS ORDERED: VARE1TAB22 PO (14:41)
[2018-07-06] MEDS ORDERED: SUCR1TAB36 PO (14:41)
[2018-07-06] MEDS ORDERED: BUDE10.2 IH (14:41)
== END 2018-07-06 14:43 | disposition home or self-care (01) ==
LOC: PREOP 14:33
PROVIDERS: ATTEND Surgery
DX: Z01.818 Encounter for other preprocedural examination (principal)

== ENCOUNTER 2018-07-11 08:16 | Day surgery (SDC) | payer MEDICAID, MEDICARE ==
[~2018-07-11] VITALS: Ht 162.6 cm; Wt 60.8 kg
[~2018-07-11 08:16] MED LIST changes: +AMIT75TA2 PO; +BUDE10.2 IH; +VARE1TAB22 PO
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
--- OUTSIDE RECORDS SUMMARY | 2018-07-11 08:21 | XMS REPORT ---
Author Author VENKATHARLEENTOMMY Organization [facility] Address [address] [place] [address] Care Team Providers Care Adjunct Professor Name Role Phone ROBLEDOTOMMY Chaudhary Unavailable PROBLEMS Type Condition ICD9-CM Code OPS06-AX Code Onset Dates Condition Status SNOMED Code Problem Osteoarthritis of multiple joints, unspecified osteoarthritis type M15.9 Active 511617667 Problem Essential hypertension I10 Active 34955350 Problem Chronic obstructive pulmonary disease, unspecified COPD type J44.9 Active 91545288 Problem Neuropathy G62.9 Active 115255340 Problem Major depressive disorder, recurrent, in full remission F33.42 Active 559186362 Problem Environmental allergies Z91.09 Active 304373990 Problem Tobacco abuse counseling Z71.6 Active 375669728 Problem Tobacco abuse Z72.0 Active 539796154 Problem Low HDL (under 40) E78.6 Active 013489020 Problem Hepatitis C B19.20 Active 40518372 Problem Chronic fatigue R53.82 Active 54995948 Problem GERD with esophagitis K21.0 Active 073444450 ALLERGIES No Information ENCOUNTERS Encounter Location Date Diagnosis [place] [id number] [place] [address] 97202- 2750 Dec, Neuropathy G62.9 [facility] [address] [place] [address] 59175- 6173 Dec, Chronic obstructive pulmonary disease, unspecified COPD type J44.9 ; Essential hypertension I10 ; Neuropathy G62.9 and Tobacco abuse counseling Z71.6 [facility] [address] [place] [address] 77340- 0654 Nov, Neuropathy G62.9 [facility] [address] [place] [id number] [address] Aug, Essential hypertension I10 ; Chronic obstructive [...] abuse Z72.0 and Tobacco abuse counseling Z71.6 [facility] [address] [address] Aug, Low back pain M54.5 and Right flank pain R10.[address] [address]70- [address] Jun, [place] [address] 31188- 3870 May, Nerve pain M79.2 [facility] [place] [address] [address] May, Cough R05 and Chronic obstructive pulmonary disease, unspecified COPD type J44.9 [place] [address] 78851- 5108 Apr, Chronic obstructive pulmonary disease, unspecified COPD type J44.9 [place] [address] 10428- 7549 Mar, COPD with exacerbation J44.1 [place] [address] 27527- 7745 Mar, Environmental allergies Z91.09 ; Chronic obstructive pulmonary disease, unspecified COPD type J44.9 ; Major depressive disorder, recurrent, in full remission F33.42 and Nerve pain M79.2 [place] [address] 80484- 6685 Feb, Chronic obstructive pulmonary disease, unspecified COPD type J44.9 ; Essential hypertension I10 ; Hepatitis C B19.20 ; Abnormal CBC R79.89 ; Encounter for immunization Z23 ; GERD with esophagitis K21.0 ; Weight loss R63.4 and Chronic fatigue R53.82 [place] [address] 64095- 6138 Dec, [place] [address] 36511- 9898 Dec, Other injury of unspecified body region T14.8 and Laceration without foreign body, left lower leg, subsequent encounter S81.812D [place] [address] 72382- 1541 Dec, Nerve pain M79.2 [facility] [address] 7[address]8018 Nov, Unspecified open wound, left lower leg, initial encounter S81.802A [place] [address] 29526- 1004 Nov, Encounter for immunization Z23 [place] [address] 50645- 5470 Oct, [place] [address] 12995- 3646 September, Chronic obstructive pulmonary disease, unspecified COPD type J44.9 ; Essential hypertension I10 ; Low HDL (under 40) E78.6 ; Major depressive disorder, recurrent, in full remission F33.42 ; Neuropathy G62.9 and Weight loss R63.4 [place] [address] 69644- 9265 Aug, Chronic obstructive pulmonary disease, unspecified COPD type J44.9 ; COPD with exacerbation J44.[address] scan, chest R93.8 [place] [address] 89780- 2676 Aug, [place] [address] 41411- 1204 Aug, [place] [address] 90109- 1644 05 Aug, 2016 Hemoptysis R04.2 [place] [address] [place] [address] 13578- 8101 03 Aug, 2016 Follow-up visit after completion of treatment Z09 and Pneumonia of right lower lobe due to Mycoplasma pneumoniae J15.7 [place] [address] [place] [address] 50131- 6240 30 Jul, 2016 Cough R05 ; Fever, unspecified fever cause R50.9 and Community acquired pneumonia J18.9 [place] [address] [place] [id number] [place] [address] 20622- 6322 15 Jul, 2016 Routine gynecological examination Z01.419 and Yeast infection of the vagina B37.3 [place] [address] [place] [address] 43041- 5274 07 Jul, 2016 Routine gynecological examination Z01.419 ; Laceration of right ear without foreign body, initial encounter S01.311A and Yeast infection of the vagina B37.3 [place] [address] [place] [address] 92683- 4236 28 Jun, 2016 Essential hypertension I10 ; Chronic obstructive pulmonary disease, unspecified COPD type J44.9 and Major depressive disorder, recurrent, in full remission F33.42 [facility] [address] [place] [address] [id number] Jun, Dental examination Z01.20 [facility] [address] [place] [id number] [place] [address] [id number] Jun, Dental caries K02.9 [place] [address] [place] [address] 87619- 8876 Apr, Dental examination Z01.20 [place] [address] [place] [id number] [place] [address] 42665- 3103 16 Apr, 2016 Chronic obstructive pulmonary disease, unspecified COPD type J44.9 ; Earlobe lesion, right H61.91 and Acute bronchitis, unspecified organism J20.9 [facility] [address] 55258 -7761 Apr, Subacute ethmoidal sinusitis J01.20 and Cough R05 [address] 89194- 6732 Apr, [place] [address] 97547- 4850 Mar, Nerve pain M79.2 ; Chronic obstructive pulmonary disease, unspecified COPD type J44.9 ; Depression, unspecified depression type F32.9 ; Essential hypertension I10 ; Low HDL (under 40) E78.6 ; History of long-term use of multiple prescription drugs Z92.29 and Environmental allergies Z91.09 [place] [address] 64624- 6236 Feb, [address] 20050- 1003 Jan, [place] [address] 34805- 1053 Jan, [address] 66526- 3737 Jan, Dysuria R30.0 ; Flank pain R10.9 ; Encounter for immunization Z23 and Essential hypertension I10 [address] 18561- 2651 Dec, [address] 22318- 6832 Dec, [place] [address] 56614- 5396 Nov, Dependent edema R60.[address] 96051- 3761 Oct, Chronic obstructive pulmonary disease, unspecified COPD type J44.9 ; Osteoarthritis of multiple joints, unspecified osteoarthritis type M15.9 ; Essential hypertension I10 ; Environmental allergies Z91.09 ; Depression , unspecified depression type F32.9 ; Nerve pain M79.2 ; Low HDL (under 40) E78.6 and Wheezing R06.2 [place] [id number] [place] [address] 46979- 6111 September, Routine health maintenance Z00.00 ; Chronic obstructive pulmonary disease, unspecified COPD type J44.9 ; Essential hypertension I10 and Hyperlipidemia E78.[address] 11525- 5033 September, Routine health maintenance Z00.00 ; Chronic obstructive pulmonary disease, unspecified COPD type J44.9 ; Essential hypertension I10 ; Hyperlipidemia E78.5 ; Osteoarthritis of multiple joints, unspecified osteoarthritis type M15.9 ; History of long-term use of multiple prescription drugs Z92.29 ; History of tobacco abuse Z87.891 ; Nerve pain M79.2 and Depression, unspecified depression type F32.[address] 37929- 4767 September, [facility] [address] 76136- 5028 Aug, Routine health maintenance Z00.00 ; Hepatitis C B19.20 ; Chronic obstructive pulmonary disease, unspecified COPD type J44.9 ; Osteoarthritis of multiple joints, unspecified osteoarthritis type M15.9 ; History of long-term use of multiple prescription drugs Z92.29 ; Essential hypertension I10 ; History of tobacco abuse Z87.891 ; Nerve pain M79.2 ; Depression, unspecified depression type F32.9 and Hyperlipidemia E78.5 [facility] [address] [place] [id number] [place] [address] 15827- 0681 Aug, [facility] [address] [place] [id number] [place] [address] 65807 -1685 Jul, Acute bacterial sinusitis J01.90 and Chronic obstructive pulmonary disease, unspecified COPD type J44.9 [facility] [address] [place] [id number] [place] [address] 60027- 7785 Jul, Chronic obstructive pulmonary disease with (acute) exacerbation J44.1 [facility] [address] [place] [id number] [place] [address] 27209- 5738 Jun, [facility] [address] [place] [id number] [place] [address] 57711- 9776 10 Jun, 2015 Nerve pain M79.2 [place] [id number] [place] [address] 95682- 6639 May, Essential hypertension I10 ; Nerve pain M79.2 ; Osteoarthritis of multiple joints, unspecified osteoarthritis type M15.9 ; History of long-term use of multiple prescription drugs Z92.29 ; Depression, unspecified depression type F32.9 ; Hyperlipidemia E78.5 ; Chronic obstructive pulmonary disease, unspecified COPD type J44.9 ; Environmental allergies Z91.09 ; Anxiety F41.9 and Hepatitis C virus infection without hepatic coma, unspecified chronicity B19.20 [place] [id number] [place] [address] 69291- 2591 Apr, Bronchitis J40 [facility] [address] 93476 -0254 Apr, Acute left otitis media H66.92 ; Seasonal allergies J30.2 and Emphysema J43.9 [place] [id number] [place] [address] 42934- 5762 Mar, Acute exacerbation of emphysema J43.9 and Emphysema with chronic bronchitis J44.9 [place] [address] [place] [id number] [place] [address] 24293- 3984 Feb, [place] [address] 82911- 5014 Feb, Sciatica, unspecified side M54.30 [place] [id number] [place] [address] 69861- 5651 Feb, Encounter for immunization Z23 [place] [id number] [place] [address] 32871- 0164 Jan, [place] [address] [place] [id number] [place] [address] 43574- 1320 Jan, COPD with exacerbation 491.21 [place] [id number] [place] [address] 07662- 3956 Dec, Encounter for long-term (current) use of other medications V58.69 and Sciatica 724.3 [place] [id number] [place] [address] 22911- 0878 Dec, [place] [address] [place] [id number] [place] [address] 19244- 8695 Nov, Cramp of limb 729.82 and Shortness of breath 786.05 [place] [id number] [place] [address] 37175- 6671 Nov, Shortness of breath 786.05 [place] [id number] [place] [address] 58678- 3894 Oct, Essential hypertension, benign 401.1 [place] [id number] [place] [address] 85138- 5674 Oct, [place] [id number] [place] [address] 97303- 8757 Oct, Shortness of breath 786.05 ; Other and unspecified hyperlipidemia 272.4 ; Essential hypertension, benign 401.1 and Cramp of limb 729.[address] [place] [address] 77132- 1783 Oct, Shortness of breath 786.05 and Cramp of limb 729.82 [place] [address] [place] [id number] [place] [address] 29456- 6065 Oct, Shortness of breath 786.05 [place] [id number] [place] [address] 76987- 8714 14 Aug, 2014 [address] [place] [address] 91055- 4135 Aug, [place] [id number] [place] [address]- 0502 Jul, 2014 [facility] [place] [facility] [address] [id number] [place] [address]- 5562 Jul, 2014 [facility] [place] [facility] [address] [id number] [place] 3[address] Jul, 2014 [facility] [place] [facility] [address] [id number] [place] [address]- 9336 Jul, 2014 [facility] [place] [facility] [address] [id number] [place] [address]- 2916 Jun, 2014 [facility] [place] [facility] [address] [id number] [place] [address]- 4688 Jun, [facility] [place] [facility] [address] [id number] [place] [address]- 3781 May, [facility] [place] [facility] [address] [id number] [place] [address]- 6576 May, [facility] [place] [facility] [address] [id number] [place] [address]- 7119 Apr, [facility] [place] [facility] [address] [id number] [place] [address]- 3919 Apr, [facility] [place] [facility] [address] [id number] [place] [address]- 5222 Feb, [facility] [place] [facility] [address] [id number] [place] [address]- 6269 Feb, [facility] [place] [facility] [address] [id number] [place] [address]- 5639 Feb, [facility] [place] [facility] [address] [id number] [place] 2326 Feb, [facility] [place] [facility] [address] [id number] [place] [address]- 6982 Feb, [facility] [place] [facility] [address] [id number] [place] [address]- 6117 Feb, [facility] [place] [facility] [address] [id number] [place] [address]- 4899 Feb, [facility] [place] [facility] [address] [id number] [place] [address]- 3014 Feb, [facility] [place] [facility] [address] [id number] [place] [address]- 3969 Jan, [facility] [place] [facility] [address] [id number] [place] [address]- 2272 Jan, [facility] [place] [facility] [address] [id number] [place] [address]- 0332 Jan, [facility] [place] [facility] [address] [id number] [place] [address]- 1639 Jan, [facility] [place] [facility] [address] [id number] [place] [address]- 1471 Dec, [facility] [place] [facility] [address] [id number] [place] [address]- 7299 Dec, [facility] [place] [facility] [address] [id number] [place] [address]- 3469 Dec, [facility] [place] [facility] [address] [id number] [place] [address]- 0011 Dec, [facility] [place] [facility] [address] [id number] [place] [address]- 2266 Nov, [facility] [place] [facility] [address] [id number] [place] [address]- 4294 Nov, [facility] [place] [facility] [address] [id number] [place] [address]- 3197 Nov, [facility] [place] [facility] [address] [id number] [place] [address]- 5722 Oct, [facility] [place] [facility] [address] [id number] [place] 4210 Oct, [facility] [place] [facility] [address] [id number] [place] [address]- 0511 Aug, [facility] [address] [id number] [place] [address]- 1315 Aug, [facility] [place] [facility] [address] [id number] [place] [address]- 1040 Aug, [facility] [place] [facility] [address] [id number] [place] [address]- 3334 Aug, [facility] [place] [facility] [address] [id number] [place] [address]- 7217 Aug, [facility] [place] [facility] [address] [id number] [place] [address]- 0701 Aug, [facility] [place] [facility] [address] [id number] [place] [address]- 2631 Aug, [facility] [address] [id number] [place] [address]- 4084 Aug, [facility] [place] [facility] [address] [id number] [place] [address]- 6220 Jul, [facility] [place] [facility] [address] [id number] [place] [address]- 0508 Jul, [facility] [place] [facility] [address] [id number] [place] [address]- 8842 Apr, [facility] [place] [facility] [address] [id number] [place] [address]- 4193 Apr, [facility] [place] [facility] [address] [id number] [place] [address]- 3508 Apr, [facility] [place] [facility] [address] [id number] [place] [address]- 9692 Apr, [facility] [place] [facility] [address] [id number] [place] [address]- 5380 Feb, [facility] [place] [facility] [address] [id number] [place] [address]- 0089 Feb, [facility] [place] [facility] [address] [facility] [id number] 7701 Feb, [facility] [address] [facility] [id number] 7090 Feb, [facility] [address] [facility] [id number] 4344 Feb, [facility] [address] [facility] [id number]- 1280 Feb, [facility] [address] [facility] [id number] 9573 Feb, [facility] [address] 3651 Feb, [facility] [address] [address]- 5828 Jan, [facility] [address] [address]- 2419 Jan, [facility] [address] [address]- 5600 Nov, [facility] [address] [place] [id number] [address]- 2493 September, IMMUNIZATIONS No Known Immunizations SOCIAL HISTORY Never Assessed REASON FOR VISIT Lyrica PLAN OF CARE VITAL SIGNS MEDICATIONS Medication Instructions Dosage Frequency Start Date End Date Duration Status Lyrica 50 mg Orally Three times a day 1 capsule 8h Feb, 28 days Active RESULTS No Results PROCEDURES No Known [...]
--- OUTSIDE RECORDS SUMMARY | 2018-07-11 08:21 | XMS REPORT ---
Author Author VENKAT TOMMY Organization [facility] Address [address] [place] [address] Care Team Providers Care Cfo Name Role Phone ROBLEDOTOMMY Chaudhary Unavailable PROBLEMS Type Condition ICD9-CM Code IPL13-UR Code Onset Dates Condition Status SNOMED Code Problem Osteoarthritis of multiple joints, unspecified osteoarthritis type M15.9 Active 430635724 Problem Essential hypertension I10 Active 41907934 Problem Chronic obstructive pulmonary disease, unspecified COPD type J44.9 Active 40083064 Problem Neuropathy G62.9 Active 718590204 Problem Major depressive disorder, recurrent, in full remission F33.42 Active 604424104 Problem Environmental allergies Z91.09 Active 560883015 Problem Tobacco abuse counseling Z71.6 Active 873122524 Problem Tobacco abuse Z72.0 Active 165435749 Problem Low HDL (under 40) E78.6 Active 045792816 Problem Hepatitis C B19.20 Active 78094633 Problem Chronic fatigue R53.82 Active 61464466 Problem GERD with esophagitis K21.0 Active 571530887 ALLERGIES Substance Reaction Event Type Date Status Morphine Unknown Drug Allergy Dec, Active ENCOUNTERS Encounter Location Date Diagnosis [facility] [address] [address] Dec, Neuropathy G62.9 [facility] [id number] [place] [address] Dec, Chronic obstructive pulmonary disease, unspecified COPD type J44.9 ; Essential hypertension I10 ; Neuropathy G62.9 and Tobacco abuse counseling Z71.6 [facility] [id number] [address] Nov, Neuropathy G62.9 [facility] [address] [place] [address]32- 0424 Aug, Essential hypertension I10 ; Chronic obstructive [...] abuse Z72.0 and Tobacco abuse counseling Z71.6 [facility] [address] [address] Aug, Low back pain M54.5 and Right flank pain R10.[address] [address] Jun, [address] [address] May, Nerve pain M79.2 [facility] [address] [address] May, Cough R05 and Chronic obstructive pulmonary disease, unspecified COPD type J44.[address] [address] Apr, Chronic obstructive pulmonary disease, unspecified COPD type J44.[address] [address] Mar, COPD with exacerbation J44.[address] [address] Mar, Environmental allergies Z91.09 ; Chronic obstructive pulmonary disease, unspecified COPD type J44.9 ; Major depressive disorder, recurrent, in full remission F33.42 and Nerve pain M79.[address] [address] Feb, Chronic obstructive pulmonary disease, unspecified COPD type J44.9 ; Essential hypertension I10 ; Hepatitis C B19.20 ; Abnormal CBC R79.89 ; Encounter for immunization Z23 ; GERD with esophagitis K21.0 ; Weight loss R63.4 and Chronic fatigue R53.82 [place] [address] [address] Dec, [place] [address] [address] Dec, Other injury of unspecified body region T14.8 and Laceration without foreign body, left lower leg, subsequent encounter S81.812D [place] [address] [address] Dec, Nerve pain M79.2 [facility] [address] [address] Nov, Unspecified open wound, left lower leg, initial encounter S81.802A [address] [address] Nov, Encounter for immunization Z23 [place] [address] [address] Oct, [place] [address] [address] September, Chronic obstructive pulmonary disease, unspecified COPD type J44.9 ; Essential hypertension I10 ; Low HDL (under 40) E78.6 ; Major depressive disorder, recurrent, in full remission F33.42 ; Neuropathy G62.9 and Weight loss R63.4 [place] [id number] [place] [address]9582- [address] Aug, Chronic obstructive pulmonary disease, unspecified COPD type J44.9 ; COPD with exacerbation J44.[address] scan, chest R93.8 [place] [id number] [place] [address]91- 2[address] Aug, [place] [address] [address] Aug, [place] [id number] [place] [address] 20620- 2599 05 Aug, 2016 Hemoptysis R04.2 [place] [address] [address] 03 Aug, 2016 Follow-up visit after completion of treatment Z09 and Pneumonia of right lower lobe due to Mycoplasma pneumoniae J15.7 [place] [address] [address] 30 Jul, 2016 Cough R05 ; Fever, unspecified fever cause R50.9 and Community acquired pneumonia J18.9 [place] [id number] [place] [address] 74781- 4899 15 Jul, 2016 Routine gynecological examination Z01.419 and Yeast infection of the vagina B37.3 [place] [id number] [place] [address] 67647- 5121 07 Jul, 2016 Routine gynecological examination Z01.419 ; Laceration of right ear without foreign body, initial encounter S01.311A and Yeast infection of the vagina B37.3 [place] [address] [place] [address] 74516- 2633 28 Jun, 2016 Essential hypertension I10 ; Chronic obstructive pulmonary disease, unspecified COPD type J44.9 and Major depressive disorder, recurrent, in full remission F33.42 [facility] [id number] [place] [id number] Jun, Dental examination Z01.20 [facility] [id number] [place] [id number] Jun, Dental caries K02.9 [place] [id number] [place] [address] 98101- 7498 Apr, Dental examination Z01.20 [place] [id number] [place] [address] 28864- 6111 16 Apr, 2016 Chronic obstructive pulmonary disease, unspecified COPD type J44.9 ; Earlobe lesion, right H61.91 and Acute bronchitis, unspecified organism J20.9 [facility] [id number] [place] [address] Apr, Subacute ethmoidal sinusitis J01.20 and Cough R05 [facility] [address] [address] Apr, [facility] [address] 8[address]- 6[address] Mar, Nerve pain M79.2 ; Chronic obstructive pulmonary disease, unspecified COPD type J44.9 ; Depression, unspecified depression type F32.9 ; Essential hypertension I10 ; Low HDL (under 40) E78.6 ; History of long-term use of multiple prescription drugs Z92.29 and Environmental allergies Z91.09 [place] [address] [address] Feb, [place] [address] [address] Jan, [place] [address] [address] 2049 Jan, [address] [address] Jan, Dysuria R30.0 ; Flank pain R10.9 ; Encounter for immunization Z23 and Essential hypertension I10 [address] [address]- [address] Dec, [place] [address] [address] Dec, [place] [address] [address]- [address] Nov, Dependent edema R60.9 [place] [address] 52762- 80[address] Oct, Chronic obstructive pulmonary disease, unspecified COPD type J44.9 ; Osteoarthritis of multiple joints, unspecified osteoarthritis type M15.9 ; Essential hypertension I10 ; Environmental allergies Z91.09 ; Depression , unspecified depression type F32.9 ; Nerve pain M79.2 ; Low HDL (under 40) E78.6 and Wheezing R06.2 [place] [id number] [place] [address] 69970- 23[address] September, Routine health maintenance Z00.00 ; Chronic obstructive pulmonary disease, unspecified COPD type J44.9 ; Essential hypertension I10 and Hyperlipidemia E78.5 [place] [id number] [place] [address] 50915- 5787 September, Routine health maintenance Z00.00 ; Chronic obstructive pulmonary disease, unspecified COPD type J44.9 ; Essential hypertension I10 ; Hyperlipidemia E78.5 ; Osteoarthritis of multiple joints, unspecified osteoarthritis type M15.9 ; History of long-term use of multiple prescription drugs Z92.29 ; History of tobacco abuse Z87.891 ; Nerve pain M79.2 and Depression, unspecified depression type F32.9 [place] [id number] [place] [address] 37832- 4260 September, [place] [id number] [place] [address] 30851- 9632 Aug, Routine health maintenance Z00.00 ; Hepatitis C B19.20 ; Chronic obstructive pulmonary disease, unspecified COPD type J44.9 ; Osteoarthritis of multiple joints, unspecified osteoarthritis type M15.9 ; History of long-term use of multiple prescription drugs Z92.29 ; Essential hypertension I10 ; History of tobacco abuse Z87.891 ; Nerve pain M79.2 ; Depression, unspecified depression type F32.9 and Hyperlipidemia E78.5 [address] [place] [address] 80656- 5232 Aug, [facility] [address] [place] [id number] [place] [address]57 [address] Jul, Acute bacterial sinusitis J01.90 and Chronic obstructive pulmonary disease, unspecified COPD type J44.9 [place] [id number] [place] [address] 75591- 1045 Jul, Chronic obstructive pulmonary disease with (acute) exacerbation J44.1 [place] [id number] [place] [address] 70675- 3194 Jun, [place] [address] 6[address]- 68[address] Jun, Nerve pain M79.[address] [address]- [address] May, Essential hypertension I10 ; Nerve pain M79.2 ; Osteoarthritis of multiple joints, unspecified osteoarthritis type M15.9 ; History of long-term use of multiple prescription drugs Z92.29 ; Depression, unspecified depression type F32.9 ; Hyperlipidemia E78.5 ; Chronic obstructive pulmonary disease, unspecified COPD type J44.9 ; Environmental allergies Z91.09 ; Anxiety F41.9 and Hepatitis C virus infection without hepatic coma, unspecified chronicity B19.[address] 823[address]- [address] Apr, Bronchitis J40 [facility] [address] [address] Apr, Acute left otitis media H66.92 ; Seasonal allergies J30.2 and Emphysema J43.[address] 93061- 46[address] Mar, Acute exacerbation of emphysema J43.9 and Emphysema with chronic bronchitis J44.[address] 288[address]- 2941 Feb, [address] 02858- [address] Feb, Sciatica, unspecified side M54.[address] 61109- 2624 Feb, Encounter for immunization Z23 [address] [address]79- [address] Jan, [place] [id number] [place] [address] 41829- 7437 Jan, COPD with exacerbation 491.21 [place] [id number] [place] [address] 84658- 4214 Dec, Encounter for long-term (current) use of other medications V58.69 and Sciatica 724.3 [place] [address] 73[address]- 9796 Dec, [place] [id number] [place] [address] 43233- 3806 Nov, Cramp of limb 729.82 and Shortness of breath 786.05 [place] [id number] [place] [address] 70518- 2059 Nov, Shortness of breath 786.05 [place] [id number] [place] [address] 48792- 5364 Oct, Essential hypertension, benign 401.1 [place] [id number] [place] [address] 92944- 2010 Oct, [place] [id number] [place] [address] 01283- 3107 Oct, Shortness of breath 786.05 ; Other and unspecified hyperlipidemia 272.4 ; Essential hypertension, benign 401.1 and Cramp of limb 729.82 [place] [id number] [place] [address] 42792- 9502 Oct, Shortness of breath 786.05 and Cramp of limb 729.82 [place] [id number] [place] [address] 07961- 7559 Oct, Shortness of breath 786.05 [place] [id number] [place] [address] 37150- 4428 14 Aug, 2014 [place] [id number] [place] [address] 27485- 9673 Aug, [facility] [place] [facility] [address] [id number] [place] [address]- 3664 Jul, [facility] [place] [facility] [address] [id number] [place] [address]- 6460 Jul, [facility] [place] [facility] [address] [id number] [place] [address]- 5582 Jul, [facility] [place] [facility] [address] [id number] [place] [address]- 2862 Jul, [facility] [place] [facility] [address] [id number] [place] [address]- 8029 Jun, [facility] [place] [facility] [address] [id number] [place] [address]- 0914 Jun, [facility] [place] [facility] [address] [id number] [place] [address]- 2638 May, [facility] [place] [facility] [address] [id number] [place] [address]- 4272 May, [facility] [place] [facility] [address] [id number] [place] [address]- 7328 Apr, [facility] [place] [facility] [address] [id number] [place] [address]- 3338 Apr, [facility] [place] [facility] [address] [id number] [place] [address]- 7569 Feb, [facility] [place] [facility] [address] [id number] [address]- [address] Feb, [facility] [place] [facility] [address] [id number] [place] [address]- 3029 Feb, [facility] [place] [facility] [address] [id number] [place] [address]- 4756 Feb, [facility] [place] [facility] [address] [id number] [place] [address]- 6017 Feb, [facility] [place] [facility] [address] [id number] [place] [address]- 9218 Feb, [facility] [place] [facility] [address] [id number] [place] [address]- 3452 Feb, [facility] [place] [facility] [address] [id number] [place] [address]- 2440 Feb, [facility] [place] [facility] [address] [id number] [place] [address]- 0542 Jan, [facility] [place] [facility] [address] [id number] [place] [address]- 4481 Jan, [facility] [place] [facility] [address] [id number] [place] [address]- 5496 Jan, [facility] [place] [facility] [address] [id number] [place] [address]- 9299 Jan, [facility] [place] [facility] [address] [id number] [place] [address]- 9889 Dec, [facility] [place] [facility] [address] [id number] [place] [address]- 0315 Dec, [facility] [place] [facility] [address] [id number] [place] [address]- 9311 Dec, [facility] [place] [facility] [address] [id number] [place] [address]- 6906 Dec, [facility] [place] [facility] [address] [id number] [place] [address]- 7950 Nov, [facility] [place] [facility] [address] [id number] [place] [address]- 0253 Nov, [facility] [place] [facility] [address] [id number] [place] [address]- 6863 Nov, [facility] [place] [facility] [address] [id number] [place] [address]- 6945 Oct, [facility] [place] [facility] [address] [id number] [place] [address] Oct, [facility] [place] [facility] [address] [id number] [place] [address]- 3191 Aug, [facility] [place] [facility] [address] [id number] [place] [address]- 5499 Aug, [facility] [place] [facility] [address] [id number] [place] [address]- 7178 Aug, [facility] [place] [facility] [address] [id number] [place] [address]- 5122 Aug, [facility] [place] [facility] [address] [id number] [place] [address]- 0433 Aug, [facility] [place] [facility] [address] [id number] [place] [address]- 2047 Aug, [facility] [place] [facility] [address] [id number] [place] [address]- 0659 Aug, [facility] [place] [facility] [address] [id number] [place] [address]- 4581 Aug, [facility] [place] [facility] [address] [id number] [place] [address]- 8573 Jul, [facility] [place] [facility] [address] [id number] [place] [address]- 2475 Jul, [facility] [place] [facility] [address] [id number] [place] [address]- 9468 Apr, [facility] [place] [facility] [address] [id number] [place] [address]- 9323 Apr, [facility] [place] [facility] [address] [id number] [place] [address]- 0677 Apr, [facility] [place] [facility] [address] [id number] [place] [address]- 8330 Apr, [facility] [place] [facility] [address] [id number] [place] [address]- 5610 31 Feb, 2013 [facility] [place] [facility] [address] [id number] [place] [address]- 0805 Feb, [facility] [id number] [address]- 2847 Feb, [facility] [address] [place] [address]- 7800 Feb, [facility] [address] [address]- 6965 Feb, [facility] [address] [address]- 1987 Feb, [facility] [address] [address]- 6686 Feb, [facility] [address] [address]- 6478 Feb, [facility] [address] [address]- 3311 Jan, [facility] [address] [address]- 9453 Jan, [facility] [address] [address]- 5336 Nov, [facility] [address] [address]- 1672 September, IMMUNIZATIONS No Known Immunizations SOCIAL HISTORY Never Assessed REASON FOR VISIT COPD fu -- shemar collins, Needs o2 sats, PHQ2, AuDIT C PLAN OF CARE Activity Details Follow Up 3 Months, prn Reason:CHM/COPD VITAL SIGNS Height 64 in 2017-12-29 Weight 130.0 lbs 2017-12-29 Temperature 98.6 degrees Fahrenheit 2017-12-29 Heart Rate 82 bpm 2017-12-29 Respiratory Rate 24 2017-12-29 Oximetry 95 % 2017-12-29 BMI 22.31 kg/m2 2017-12-29 Blood pressure systolic 124 mmHg 2017-12-29 Blood pressure diastolic 70 mmHg 2017-12-29 MEDICATIONS Medication Instructions Dosage Frequency Start Date End Date Duration Status Zyrtec Allergy 10 mg Orally Once a day 1 tablet as needed 24h May, 90 days Active Hydrochlorothiazide 12.5 MG Orally Once a day 1 tablet 24h 15 Jan, 2016 Active Amitriptyline HCl 75 MG Orally Once a day TAKE ONE TABLET BY MOUTH ONCE DAILY AT BEDTIME 24h 90 Active Atorvastatin Calcium 20 mg Orally Once a day TAKE ONE TABLET BY MOUTH ONCE DAILY 24h 90 Active Lisinopril 10 mg Orally Once a day TAKE ONE TABLET BY MOUTH ONCE DAILY IN THE MORNING 24h Active Fish Oil 1000 MG Orally Once a day 1 capsule 24h Active Albuterol Sulfate 2.5 mg /3 mL (0.083 %) Inhalation every 4 hrs 1 Each by Inhalation route every 4 hours for cough and wheeze PRN for wheezing or cough 4h 21 Feb, 2014 Active Symbicort 160-4.5 MCG/ACT Inhalation Twice a day INHALE TWO PUFFS BY MOUTH TWICE DAILY 12h Aug, Active Singulair 10 mg Orally Once a day 1 tablet in the evening 24h Active Flonase 50 MCG/ACT Nasally Once a day 1 spray in each nostril 24h 12 months Active Fluticasone Propionate 50 MCG/ACT USE ONE SPRAY IN EACH NOSTRIL ONCE DAILY 30 Active Biotin 300 MCG Orally Once a day 1 tablet 24h Active Oxygen 2LPM PRN Active Pantoprazole Sodium 40 mg Orally Once a day 1 tablet 24h 90 days Active Aspirin 81 mg chew 1 tablet (81 mg) by oral route once daily Nov, Active Lyrica 50 mg Orally Three times a day 1 capsule 8h 29 Feb, 2015 Active Citalopram Hydrobromide 20 mg Orally Once a day TAKE ONE TABLET BY MOUTH ONCE DAILY 24h 90 days Active Spiriva HandiHaler 18 MCG Inhalation Once a day 1 capsule 24h Aug, Active RESULTS No Results PROCEDURES Procedure Date Ordered Result Body Site [facility] VISIT ESTABLISHED PATIENT Dec 29, 2017 INSTRUCTIONS MEDICATIONS ADMINISTERED No Known Medications MEDICAL [...]
--- OUTSIDE RECORDS SUMMARY | 2018-07-11 08:22 | XMS REPORT ---
Author Author VENKAT TOMMY Organization [facility] Address [address] [place] [address] Care Team Providers Care Hand Packer Name Role Phone ROBLEDOTOMMY Chaudhary Unavailable PROBLEMS Type Condition ICD9-CM Code RKM79-BL Code Onset Dates Condition Status SNOMED Code Problem Chronic obstructive pulmonary disease, unspecified COPD type J44.9 Active 26509795 Problem Hepatitis C B19.20 Active 64785469 Problem Essential hypertension I10 Active 40813504 Problem Tobacco abuse counseling Z71.6 Active 832940799 Problem Tobacco abuse Z72.0 Active 081035185 Problem Abnormal CT scan, chest R93.8 Active 060482266 Problem Low HDL (under 40) E78.6 Active 475875650 Problem Chronic fatigue R53.82 Active 49703601 Problem GERD with esophagitis K21.0 Active 434587370 Problem Major depressive disorder, recurrent, in full remission F33.42 Active 841249823 Problem Nerve pain M79.2 Active 38999453 Problem Environmental allergies Z91.09 Active 543438950 Problem Neuropathy G62.9 Active 000882280 Problem Osteoarthritis of multiple joints, unspecified osteoarthritis type M15.9 Active 271082544 ALLERGIES Substance Reaction Event Type Date Status Morphine Unknown Drug Allergy Aug, Active ENCOUNTERS Encounter Location Date Diagnosis [facility] [address] [facility] [id number] [address] Dec, [facility] [address] [facility] [id number] [address] Nov, Neuropathy G62.9 [facility] [address] [id number] [address] Aug, Essential hypertension I10 ; Chronic obstructive [...] abuse Z72.0 and Tobacco abuse counseling Z71.6 [facility] [address] [address] Aug, Low back pain M54.5 and Right flank pain R10.9 [place] [address] [address] Jun, [place] [address] [address] May, Nerve pain M79.2 [facility] [place] [address] [address] May, Cough R05 and Chronic obstructive pulmonary disease, unspecified COPD type J44.9 [place] [address] [address] Apr, Chronic obstructive pulmonary disease, unspecified COPD type J44.9 [place] [address] [address]- [address] Mar, COPD with exacerbation J44.[address] [address] Mar, Environmental allergies Z91.09 ; Chronic obstructive pulmonary disease, unspecified COPD type J44.9 ; Major depressive disorder, recurrent, in full remission F33.42 and Nerve pain M79.2 [place] [address] [address] Feb, Chronic obstructive pulmonary disease, unspecified COPD type J44.9 ; Essential hypertension I10 ; Hepatitis C B19.20 ; Abnormal CBC R79.89 ; Encounter for immunization Z23 ; GERD with esophagitis K21.0 ; Weight loss R63.4 and Chronic fatigue R53.82 [address] [place] [address] Dec, [place] [address] [place] [id number] [place] [address]89- 4025 Dec, Other injury of unspecified body region T14.8 and Laceration without foreign body, left lower leg, subsequent encounter S81.812D [place] [address] [place] [id number] [place] [address] 48187- 0459 Dec, Nerve pain M79.2 [facility] [address] [address] Nov, Unspecified open wound, left lower leg, initial encounter S81.802A [place] [address] [address]- 78[address] Nov, Encounter for immunization Z23 [place] [address] [place] [id number] [place] [address] 87401- 5129 Oct, [place] [address] [address] September, Chronic obstructive pulmonary disease, unspecified COPD type J44.9 ; Essential hypertension I10 ; Low HDL (under 40) E78.6 ; Major depressive disorder, recurrent, in full remission F33.42 ; Neuropathy G62.9 and Weight loss R63.4 [place] [address] [place] [id number] [place] [address] 78156- 5237 Aug, Chronic obstructive pulmonary disease, unspecified COPD type J44.9 ; COPD with exacerbation J44.[address] scan, chest R93.8 [place] [address] [place] [id number] [place] [address] 29246- 2841 Aug, [place] [address] [place] [id number] [place] [address] 25484- 2646 Aug, [place] [address] [place] [id number] [place] [address] 01359- 6395 Aug, Hemoptysis R04.2 [place] [address] [place] [id number] [place] [address] 67349- 4584 03 Aug, 2016 Follow-up visit after completion of treatment Z09 and Pneumonia of right lower lobe due to Mycoplasma pneumoniae J15.7 [place] [address] [place] [id number] [place] [address] 11892- 8439 30 Jul, 2016 Cough R05 ; Fever, unspecified fever cause R50.9 and Community acquired pneumonia J18.9 [place] [address] [id number] [place] [address] 34026- 5959 Jul, Routine gynecological examination Z01.419 and Yeast infection of the vagina B37.3 [place] [address] 8[address]- 18[address] 07 Jul, 2016 Routine gynecological examination Z01.419 ; Laceration of right ear without foreign body, initial encounter S01.311A and Yeast infection of the vagina B37.3 [place] [address] [place] [id number] [place] [address] 39595- 1548 Jun, Essential hypertension I10 ; Chronic obstructive pulmonary disease, unspecified COPD type J44.9 and Major depressive disorder, recurrent, in full remission F33.42 [facility] [address] [id number] Jun, Dental examination Z01.20 [facility] [address] [id number] Jun, Dental caries K02.9 [place] [address] [place] [id number] [place] [address]67- 2403 Apr, Dental examination Z01.20 [place] [address] [place] [id number] [place] [address] 93762- 2041 Apr, Chronic obstructive pulmonary disease, unspecified COPD type J44.9 ; Earlobe lesion, right H61.91 and Acute bronchitis, unspecified organism J20.9 [facility] [address] [address] [id number] [place] [address]53 -6943 Apr, Subacute ethmoidal sinusitis J01.20 and Cough R05 [place] [address] 72774- 8317 Apr, [place] [address] 18468- 50[address] Mar, Nerve pain M79.2 ; Chronic obstructive pulmonary disease, unspecified COPD type J44.9 ; Depression, unspecified depression type F32.9 ; Essential hypertension I10 ; Low HDL (under 40) E78.6 ; History of long-term use of multiple prescription drugs Z92.29 and Environmental allergies Z91.09 [place] [address] [address]- 2629 Feb, [place] [address] 45634- 7507 Jan, [place] [address] 96285- 6666 Jan, [place] [address] 64076- 4832 Jan, Dysuria R30.0 ; Flank pain R10.9 ; Encounter for immunization Z23 and Essential hypertension I10 [address] [address]- [address] Dec, [place] [address] 17830- 9569 Dec, [place] [address] 58201- [address]857 Nov, Dependent edema R60.[address] 8[address]85- 7169 Oct, Chronic obstructive pulmonary disease, unspecified COPD type J44.9 ; Osteoarthritis of multiple joints, unspecified osteoarthritis type M15.9 ; Essential hypertension I10 ; Environmental allergies Z91.09 ; Depression , unspecified depression type F32.9 ; Nerve pain M79.2 ; Low HDL (under 40) E78.6 and Wheezing R06.2 [place] [address] [address] September, Routine health maintenance Z00.00 ; Chronic obstructive pulmonary disease, unspecified COPD type J44.9 ; Essential hypertension I10 and Hyperlipidemia E78.5 [facility] [address] [place] [address]9413- 4990 September, Routine health maintenance Z00.00 ; Chronic obstructive pulmonary disease, unspecified COPD type J44.9 ; Essential hypertension I10 ; Hyperlipidemia E78.5 ; Osteoarthritis of multiple joints, unspecified osteoarthritis type M15.9 ; History of long-term use of multiple prescription drugs Z92.29 ; History of tobacco abuse Z87.891 ; Nerve pain M79.2 and Depression, unspecified depression type F32.9 [place] [id number] [place] [address] 27138- 6745 September, [place] [id number] [place] [address] 21619- 2527 Aug, Routine health maintenance Z00.00 ; Hepatitis C B19.20 ; Chronic obstructive pulmonary disease, unspecified COPD type J44.9 ; Osteoarthritis of multiple joints, unspecified osteoarthritis type M15.9 ; History of long-term use of multiple prescription drugs Z92.29 ; Essential hypertension I10 ; History of tobacco abuse Z87.891 ; Nerve pain M79.2 ; Depression, unspecified depression type F32.9 and Hyperlipidemia E78.[address] [place] [address] 71379- 2056 Aug, [facility] [address] [place] [id number] [place] [address]452 Jul, Acute bacterial sinusitis J01.90 and Chronic obstructive pulmonary disease, unspecified COPD type J44.9 [address] [place] [address] 76730- 4690 Jul, Chronic obstructive pulmonary disease with (acute) exacerbation J44.1 [place] [id number] [place] [address] 92573- 2082 Jun, [facility] [address] [place] [address] [id number] [place] [address] 97370- 1117 10 Jun, 2015 Nerve pain M79.2 [facility] [address] 67[address]- 0218 May, Essential hypertension I10 ; Nerve pain M79.2 ; Osteoarthritis of multiple joints, unspecified osteoarthritis type M15.9 ; History of long-term use of multiple prescription drugs Z92.29 ; Depression, unspecified depression type F32.9 ; Hyperlipidemia E78.5 ; Chronic obstructive pulmonary disease, unspecified COPD type J44.9 ; Environmental allergies Z91.09 ; Anxiety F41.9 and Hepatitis C virus infection without hepatic coma, unspecified chronicity B19.20 [facility] [address] 75331- 1281 Apr, Bronchitis J40 [facility] [address] [address] Apr, Acute left otitis media H66.92 ; Seasonal allergies J30.2 and Emphysema J43.[address] 0[address]- 2837 Mar, Acute exacerbation of emphysema J43.9 and Emphysema with chronic bronchitis J44.9 [place] [address] 34975- 4337 Feb, [place] [address] 03622- 7295 Feb, Sciatica, unspecified side M54.30 [facility] [address] 73983- 9790 Feb, Encounter for immunization Z23 [place] [address] 43028- 9637 Jan, [facility] [address] 24641- 7015 Jan, COPD with exacerbation 491.21 [place] [address] [place] [id number] [place] [address] 21542- 3481 Dec, Encounter for long-term (current) use of other medications V58.69 and Sciatica 724.3 [place] [address] [place] [id number] [place] [address] 45179- 8617 Dec, [place] [address] [place] [id number] [place] [address] 14293- 6203 Nov, Cramp of limb 729.82 and Shortness of breath 786.05 [place] [address] [place] [id number] [place] [address] 99108- 3896 16 Nov, 2014 Shortness of breath 786.05 [place] [address] [place] [id number] [place] [address] 91435- 7325 Oct, Essential hypertension, benign 401.1 [place] [address] [place] [id number] [place] [address] 43996- 2993 Oct, [place] [address] [place] [id number] [place] [address] 58459- 9700 Oct, Shortness of breath 786.05 ; Other and unspecified hyperlipidemia 272.4 ; Essential hypertension, benign 401.1 and Cramp of limb 729.82 [place] [address] [place] [id number] [place] [address] 42381- 6066 17 Oct, 2014 Shortness of breath 786.05 and Cramp of limb 729.82 [place] [address] [place] [id number] [place] [address] 62052- 8834 Oct, Shortness of breath 786.05 [place] [address] [place] [id number] [place] [address] 81328- 2988 14 Aug, 2014 [place] [address] [place] [id number] [place] [address] 23030- 3413 Aug, [place] [address] [place] [id number] [place] [address] 02686- 2680 Jul, [place] [address] [place] [id number] [place] [address]- 6728 Jul, 2014 [facility] [place] [facility] [address] [id number] [place] [address]- 2720 Jul, 2014 [facility] [place] [facility] [address] [id number] [place] [address]- 5438 Jul, 2014 [facility] [place] [facility] [address] [id number] [place] [address]- 1076 Jun, 2014 [facility] [place] [facility] [address] [id number] [place] [address]- 0647 Jun, [facility] [place] [facility] [address] [id number] [place] [address]- 5433 May, [facility] [place] [facility] [address] [id number] [place] [address]- 2521 May, [facility] [place] [facility] [address] [id number] [place] [address]- 8262 Apr, [facility] [place] [facility] [address] [id number] [place] [address]- 2002 Apr, [facility] [place] [facility] [address] [id number] [place] [address]- 7408 Feb, [facility] [place] [facility] [address] [id number] [place] [address]- 0857 29 Feb, 2014 [facility] [place] [facility] [address] [id number] [place] [address]- 7379 Feb, [facility] [place] [facility] [address] [id number] [place] [address]- 7161 Feb, [facility] [place] [facility] [address] [id number] [place] [address]- 6401 Feb, [facility] [place] [facility] [address] [id number] [place] [address] Feb, [facility] [place] [facility] [address] [id number] [place] [address]- 4400 Feb, [facility] [place] [facility] [address] [id number] [place] [address]- 3586 Feb, [facility] [place] [facility] [address] [id number] [place] [address]- 7863 Jan, [facility] [place] [facility] [address] [id number] [place] [address]- 7668 Jan, [facility] [place] [facility] [address] [id number] [place] [address]- 8042 Jan, [facility] [place] [facility] [address] [id number] [place] [address]- 4960 Jan, [facility] [place] [facility] [address] [id number] [place] [address]- 4099 Dec, [facility] [place] [facility] [address] [id number] [place] [address]- 1167 Dec, [facility] [place] [facility] [address] [id number] [place] [address]- 3431 Dec, [facility] [place] [facility] [address] [id number] [place] [address]- 8489 Dec, [facility] [place] [facility] [address] [id number] [place] [address]- 4986 Nov, [facility] [place] [facility] [address] [id number] [place] [address]- 9383 Nov, [facility] [place] [facility] [address] [id number] [address]- 2290 Nov, [facility] [place] [facility] [address] [id number] [place] [address]- 6068 Oct, [facility] [place] [facility] [address] [id number] [place] [address]- 0803 Oct, [facility] [place] [facility] [address] [id number] [place] [address]- 1250 Aug, [facility] [place] [facility] [address] [id number] [place] [address]- 0857 Aug, [facility] [place] [facility] [address] [id number] [place] [address]- 5320 Aug, [facility] [place] [facility] [address] [id number] [place] [address]- 6364 Aug, [facility] [place] [facility] [address] [id number] [place] [address]- 0010 Aug, [facility] [place] [facility] [address] [id number] [place] [address]- 4837 Aug, [facility] [place] [facility] [address] [id number] [place] [address]- 6585 Aug, [facility] [place] [facility] [address] [id number] [place] [address]- 3913 Aug, [facility] [place] [facility] [address] [id number] [place] [address]- 0338 Jul, [facility] [place] [facility] [address] [id number] [place] [address]- 8048 Jul, [facility] [place] [facility] [address] [id number] [place] [address]- 7792 Apr, [facility] [place] [facility] [address] [facility] [id number] [place] [address]- 9389 Apr, [facility] [place] [facility] [address] [id number] [place] [address]- 8377 Apr, [facility] [place] [facility] [address] [id number] [place] [address]- 9378 Apr, [facility] [place] [facility] [address] [id number] [place] [address]- 2299 Feb, [facility] [place] [facility] [address] [id number] [place] [address]- 4930 31 Feb, 2013 [facility] [place] [facility] [address] [id number] [place] [address]- 6482 28 Feb, 2013 [facility] [address] [id number] [address]- 8341 Feb, [facility] [address] [address]- 9668 Feb, [facility] [address] [facility] [id number], [place] [address]- 7881 Feb, [facility] [address], [place] [address]- 6812 Feb, [facility] [address] [facility] [id number], [place] [address]- [address] Feb, [facility] [address], [place] [address]- 3436 Jan, [facility] [address], [place] [address]- 6525 Jan, [facility] [address], [place] [address]- 9300 Nov, [facility] [address] [address] [id number], [place] [address]- 0437 September, IMMUNIZATIONS No Known Immunizations SOCIAL HISTORY Never Assessed REASON FOR VISIT COPD follow up. [facility] last week for lower back pain. KELLY Browning PLAN OF CARE Activity Details Follow Up 3 Months, prn Reason:CHM/COPD VITAL SIGNS Height 64 in 2017-09-12 Weight 134.3 lbs 2017-09-12 Temperature 98.0 degrees Fahrenheit 2017-09-12 Heart Rate 80 bpm 2017-09-12 Respiratory Rate 20 2017-09-12 Oximetry 99 % 2017-09-12 BMI 23.05 kg/m2 2017-09-12 Blood pressure systolic 116 mmHg 2017-09-12 Blood pressure diastolic 64 mmHg 2017-09-12 MEDICATIONS Medication Instructions Dosage Frequency Start Date End Date Duration Status Lisinopril 10 mg Orally Once a day TAKE ONE TABLET BY MOUTH ONCE DAILY IN THE MORNING 24h 90 Active Lyrica 50 mg Orally Three times a day 1 capsule 8h 29 Feb, 2015 90 days Active Aspirin 81 mg chew 1 tablet (81 mg) by oral route once daily Nov, Active Citalopram Hydrobromide 20 mg Orally Once a day TAKE ONE TABLET BY MOUTH ONCE DAILY 24h 90 days Active Oxygen 2LPM PRN Active Zyrtec Allergy 10 mg Orally Once a day 1 tablet as needed 24h 11 May, 2018 90 days Active Flonase 50 MCG/ACT Nasally Once a day 1 spray in each nostril 24h 12 months Active Spiriva HandiHaler 18 MCG Inhalation Once a day 1 capsule 24h 16 Aug, 2020 12 months Active Atorvastatin Calcium 20 mg Orally Once a day TAKE ONE TABLET BY MOUTH ONCE DAILY 24h 90 Active Amitriptyline HCl 75 MG Orally Once a day TAKE ONE TABLET BY MOUTH ONCE DAILY AT BEDTIME 24h 90 Active Albuterol Sulfate 2.5 mg /3 mL (0.083 %) Inhalation every 4 hrs 1 Each by Inhalation route every 4 hours for cough and wheeze PRN for wheezing or cough 4h 21 Feb, 2014 12 months Active Fish Oil 1000 MG Orally Once a day 1 capsule 24h Active Pantoprazole Sodium 40 mg Orally Once a day 1 tablet 24h 90 days Active Singulair 10 mg Orally Once a day 1 tablet in the evening 24h 90 days Active Biotin 300 MCG Orally Once a day 1 tablet 24h Active Symbicort 160-4.5 MCG/ACT Inhalation Twice a day INHALE TWO PUFFS BY MOUTH TWICE DAILY 12h Aug, 12 months Active Hydrochlorothiazide 12.5 MG Orally Once a day 1 tablet 24h 15 Jan, 2016 90 days Active RESULTS No Results PROCEDURES Procedure Date Ordered Result Body Site [facility] VISIT ESTABLISHED PATIENT September 12, 2017 INSTRUCTIONS MEDICATIONS ADMINISTERED No Known Medications [...] of long-term use of multiple prescription drugs Surgical History Hysterectomy Surgical History Right ankle-pins and plate placed Hospitalization History laser skin on right ear
--- OUTSIDE RECORDS SUMMARY | 2018-07-11 08:22 | XMS REPORT ---
Author Author VENKATHARLEENTOMMY Organization [facility] Address [address] [place] [address] Care Team Providers Care Compound Specialist Name Role Phone ROBLEDOTOMMY Chaudhary Unavailable PROBLEMS Type Condition ICD9-CM Code PRS03-KI Code Onset Dates Condition Status SNOMED Code Problem Osteoarthritis of multiple joints, unspecified osteoarthritis type M15.9 Active 491456128 Problem Essential hypertension I10 Active 22831895 Problem Chronic obstructive pulmonary disease, unspecified COPD type J44.9 Active 02323403 Problem Neuropathy G62.9 Active 310553506 Problem Major depressive disorder, recurrent, in full remission F33.42 Active 150924160 Problem Environmental allergies Z91.09 Active 236506948 Problem Tobacco abuse counseling Z71.6 Active 589169165 Problem Tobacco abuse Z72.0 Active 918134818 Problem Low HDL (under 40) E78.6 Active 322384080 Problem Hepatitis C B19.20 Active 84676245 Problem Chronic fatigue R53.82 Active 87756998 Problem GERD with esophagitis K21.0 Active 625821271 ALLERGIES No Information ENCOUNTERS Encounter Location Date Diagnosis [place] [id number] [place] [address]78- 3969 Dec, Neuropathy G62.9 [facility] [address] [place] [address] 17526- 9137 Dec, Chronic obstructive pulmonary disease, unspecified COPD type J44.9 ; Essential hypertension I10 ; Neuropathy G62.9 and Tobacco abuse counseling Z71.6 [facility] [address] [place] [address] 75733- 3829 Nov, Neuropathy G62.9 [facility] [address] [place] [id number] [address] Aug, Essential hypertension I10 ; Chronic obstructive [...] abuse Z72.0 and Tobacco abuse counseling Z71.6 [facility] [address] [address] Aug, Low back pain M54.5 and Right flank pain R10.[address] [address]- [address] Jun, [place] [address] 9[address] May, Nerve pain M79.2 [facility] [place] [address] [address] May, Cough R05 and Chronic obstructive pulmonary disease, unspecified COPD type J44.9 [place] [address] [address]- [address] Apr, Chronic obstructive pulmonary disease, unspecified COPD type J44.9 [place] [address] 53881- 0066 Mar, COPD with exacerbation J44.1 [place] [address] 99[address]- [address] Mar, Environmental allergies Z91.09 ; Chronic obstructive pulmonary disease, unspecified COPD type J44.9 ; Major depressive disorder, recurrent, in full remission F33.42 and Nerve pain M79.2 [place] [address] 07961- 8693 Feb, Chronic obstructive pulmonary disease, unspecified COPD type J44.9 ; Essential hypertension I10 ; Hepatitis C B19.20 ; Abnormal CBC R79.89 ; Encounter for immunization Z23 ; GERD with esophagitis K21.0 ; Weight loss R63.4 and Chronic fatigue R53.82 [place] [address] [address]- [address] Dec, [place] [address] 85925- 8009 Dec, Other injury of unspecified body region T14.8 and Laceration without foreign body, left lower leg, subsequent encounter S81.812D [place] [address] 05814- 9378 Dec, Nerve pain M79.2 [facility] [address] 609[address] Nov, Unspecified open wound, left lower leg, initial encounter S81.802A [place] [address] 18583- 5187 Nov, Encounter for immunization Z23 [place] [address] 57[address]- 2417 Oct, [place] [address] 61385- 38[address] September, Chronic obstructive pulmonary disease, unspecified COPD type J44.9 ; Essential hypertension I10 ; Low HDL (under 40) E78.6 ; Major depressive disorder, recurrent, in full remission F33.42 ; Neuropathy G62.9 and Weight loss R63.4 [place] [address] 31220- 43[address] Aug, Chronic obstructive pulmonary disease, unspecified COPD type J44.9 ; COPD with exacerbation J44.[address] scan, chest R93.8 [place] [address] 65882- 6503 Aug, [place] [address] 65876- 7656 Aug, [place] [address] 33111- 5858 05 Aug, 2016 Hemoptysis R04.2 [place] [address] [place] [address] 82105- 3280 03 Aug, 2016 Follow-up visit after completion of treatment Z09 and Pneumonia of right lower lobe due to Mycoplasma pneumoniae J15.7 [place] [address] [place] [address] 31511- 4687 30 Jul, 2016 Cough R05 ; Fever, unspecified fever cause R50.9 and Community acquired pneumonia J18.9 [place] [address] [place] [id number] [place] [address] 43490- 7391 15 Jul, 2016 Routine gynecological examination Z01.419 and Yeast infection of the vagina B37.3 [place] [address] [place] [address] 99048- 6250 07 Jul, 2016 Routine gynecological examination Z01.419 ; Laceration of right ear without foreign body, initial encounter S01.311A and Yeast infection of the vagina B37.3 [place] [address] [place] [address] 94522- 9666 28 Jun, 2016 Essential hypertension I10 ; Chronic obstructive pulmonary disease, unspecified COPD type J44.9 and Major depressive disorder, recurrent, in full remission F33.42 [facility] [address] [place] [address] [id number] Jun, Dental examination Z01.20 [facility] [address] [place] [id number] [place] [address] [id number] Jun, Dental caries K02.9 [place] [address] [place] [address] 53441- 8904 Apr, Dental examination Z01.20 [place] [address] [place] [id number] [place] [address] 15941- 2595 16 Apr, 2016 Chronic obstructive pulmonary disease, unspecified COPD type J44.9 ; Earlobe lesion, right H61.91 and Acute bronchitis, unspecified organism J20.9 [facility] [address] [address] Apr, Subacute ethmoidal sinusitis J01.20 and Cough R05 [address] 0[address]- 7172 Apr, [place] [address] 35821- 9724 Mar, Nerve pain M79.2 ; Chronic obstructive pulmonary disease, unspecified COPD type J44.9 ; Depression, unspecified depression type F32.9 ; Essential hypertension I10 ; Low HDL (under 40) E78.6 ; History of long-term use of multiple prescription drugs Z92.29 and Environmental allergies Z91.09 [place] [address] 09516- 2120 Feb, [address] 01227- 5845 Jan, [place] [address] 70514- 5442 Jan, [address] [address]68- 4526 Jan, Dysuria R30.0 ; Flank pain R10.9 ; Encounter for immunization Z23 and Essential hypertension I10 [address] 95594- 7285 Dec, [address] 92046- 7472 Dec, [place] [address] 09206- 6576 Nov, Dependent edema R60.[address] 49267- 9357 Oct, Chronic obstructive pulmonary disease, unspecified COPD type J44.9 ; Osteoarthritis of multiple joints, unspecified osteoarthritis type M15.9 ; Essential hypertension I10 ; Environmental allergies Z91.09 ; Depression , unspecified depression type F32.9 ; Nerve pain M79.2 ; Low HDL (under 40) E78.6 and Wheezing R06.2 [place] [id number] [place] [address] 41094- 2062 September, Routine health maintenance Z00.00 ; Chronic obstructive pulmonary disease, unspecified COPD type J44.9 ; Essential hypertension I10 and Hyperlipidemia E78.[address] 35271- 8669 September, Routine health maintenance Z00.00 ; Chronic obstructive pulmonary disease, unspecified COPD type J44.9 ; Essential hypertension I10 ; Hyperlipidemia E78.5 ; Osteoarthritis of multiple joints, unspecified osteoarthritis type M15.9 ; History of long-term use of multiple prescription drugs Z92.29 ; History of tobacco abuse Z87.891 ; Nerve pain M79.2 and Depression, unspecified depression type F32.[address] 31191- 9175 September, [facility] [address] 83205- 2985 Aug, Routine health maintenance Z00.00 ; Hepatitis C B19.20 ; Chronic obstructive pulmonary disease, unspecified COPD type J44.9 ; Osteoarthritis of multiple joints, unspecified osteoarthritis type M15.9 ; History of long-term use of multiple prescription drugs Z92.29 ; Essential hypertension I10 ; History of tobacco abuse Z87.891 ; Nerve pain M79.2 ; Depression, unspecified depression type F32.9 and Hyperlipidemia E78.5 [facility] [address] [place] [id number] [place] [address] 90793- 3263 Aug, [facility] [address] [place] [id number] [place] [address] 79105 -1784 Jul, Acute bacterial sinusitis J01.90 and Chronic obstructive pulmonary disease, unspecified COPD type J44.9 [facility] [address] [place] [id number] [place] [address] 05620- 3187 Jul, Chronic obstructive pulmonary disease with (acute) exacerbation J44.1 [facility] [address] [place] [id number] [place] [address] 06844- 0701 Jun, [facility] [address] [place] [id number] [place] [address] 51639- 4116 10 Jun, 2015 Nerve pain M79.2 [place] [id number] [place] [address] 87486- 5811 May, Essential hypertension I10 ; Nerve pain M79.2 ; Osteoarthritis of multiple joints, unspecified osteoarthritis type M15.9 ; History of long-term use of multiple prescription drugs Z92.29 ; Depression, unspecified depression type F32.9 ; Hyperlipidemia E78.5 ; Chronic obstructive pulmonary disease, unspecified COPD type J44.9 ; Environmental allergies Z91.09 ; Anxiety F41.9 and Hepatitis C virus infection without hepatic coma, unspecified chronicity B19.20 [place] [id number] [place] [address] 30325- 2061 Apr, Bronchitis J40 [facility] [address] 16765 -4834 Apr, Acute left otitis media H66.92 ; Seasonal allergies J30.2 and Emphysema J43.9 [place] [id number] [place] [address] 70959- 2252 Mar, Acute exacerbation of emphysema J43.9 and Emphysema with chronic bronchitis J44.9 [place] [address] [place] [id number] [place] [address] 72691- 4256 Feb, [place] [address] 29531- 1702 Feb, Sciatica, unspecified side M54.30 [place] [id number] [place] [address] 02379- 6443 Feb, Encounter for immunization Z23 [place] [id number] [place] [address] 20215- 6320 Jan, [place] [address] [place] [id number] [place] [address] 84621- 8608 Jan, COPD with exacerbation 491.21 [place] [id number] [place] [address] 35560- 3588 Dec, Encounter for long-term (current) use of other medications V58.69 and Sciatica 724.3 [place] [id number] [place] [address] 36789- 8287 Dec, [place] [address] [place] [id number] [place] [address] 36716- 3675 Nov, Cramp of limb 729.82 and Shortness of breath 786.05 [place] [id number] [place] [address] 74600- 7085 Nov, Shortness of breath 786.05 [place] [id number] [place] [address] 04364- 3663 Oct, Essential hypertension, benign 401.1 [place] [id number] [place] [address] 79960- 1060 Oct, [place] [id number] [place] [address] 21660- 9724 Oct, Shortness of breath 786.05 ; Other and unspecified hyperlipidemia 272.4 ; Essential hypertension, benign 401.1 and Cramp of limb 729.[address] [place] [address] 27344- 4448 Oct, Shortness of breath 786.05 and Cramp of limb 729.82 [place] [address] [place] [id number] [place] [address] 17606- 5143 Oct, Shortness of breath 786.05 [place] [id number] [place] [address] 42161- 0423 14 Aug, [address] [place] [address] 73583- 2668 Aug, [place] [id number] [place] [address]- 3823 Jul, 2014 [facility] [place] [facility] [address] [id number] [place] [address]- 7555 Jul, 2014 [facility] [place] [facility] [address] [id number] [place] [address] Jul, 2014 [facility] [place] [facility] [address] [id number] [place] [address]- 7110 Jul, 2014 [facility] [place] [facility] [address] [id number] [place] [address]- 7723 Jun, 2014 [facility] [place] [facility] [address] [id number] [place] [address]- 1755 Jun, [facility] [place] [facility] [address] [id number] [place] [address]- 0025 May, [facility] [place] [facility] [address] [id number] [place] [address]- 9329 May, [facility] [place] [facility] [address] [id number] [place] [address]- 5608 Apr, [facility] [place] [facility] [address] [id number] [place] [address]- 4229 Apr, [facility] [place] [facility] [address] [id number] [place] [address]- 7121 Feb, [facility] [place] [facility] [address] [id number] [place] [address]- 0069 Feb, [facility] [place] [facility] [address] [id number] [place] [address]- 0098 Feb, [facility] [place] [facility] [address] [id number] [place] 0681 Feb, [facility] [place] [facility] [address] [id number] [place] [address]- 3198 Feb, [facility] [place] [facility] [address] [id number] [place] [address]- 8302 Feb, [facility] [place] [facility] [address] [id number] [place] [address]- 6482 Feb, [facility] [place] [facility] [address] [id number] [place] [address]- 6615 Feb, [facility] [place] [facility] [address] [id number] [place] [address]- 8469 Jan, [facility] [place] [facility] [address] [id number] [place] [address]- 0266 Jan, [facility] [place] [facility] [address] [id number] [place] [address]- 8653 Jan, [facility] [place] [facility] [address] [id number] [place] [address]- 4641 Jan, [facility] [place] [facility] [address] [id number] [place] [address]- 0825 Dec, [facility] [place] [facility] [address] [id number] [place] [address]- 5801 Dec, [facility] [place] [facility] [address] [id number] [place] [address]- 7371 Dec, [facility] [place] [facility] [address] [id number] [place] [address]- 4606 Dec, [facility] [place] [facility] [address] [id number] [place] [address]- 2073 Nov, [facility] [place] [facility] [address] [id number] [place] [address]- 5602 Nov, [facility] [place] [facility] [address] [id number] [place] [address]- 8708 Nov, [facility] [place] [facility] [address] [id number] [place] [address]- 6648 Oct, [facility] [place] [facility] [address] [id number] [place] 3089 Oct, [facility] [place] [facility] [address] [id number] [place] [address]- 9462 Aug, [facility] [address] [id number] [place] [address]- 4593 Aug, [facility] [place] [facility] [address] [id number] [place] [address]- 1680 Aug, [facility] [place] [facility] [address] [id number] [place] [address]- 9554 Aug, [facility] [place] [facility] [address] [id number] [place] [address]- 5662 Aug, [facility] [place] [facility] [address] [id number] [place] [address]- 4397 Aug, [facility] [place] [facility] [address] [id number] [place] [address]- 1297 Aug, [facility] [address] [id number] [place] [address]- 2919 Aug, [facility] [place] [facility] [address] [id number] [place] [address]- 4090 Jul, [facility] [place] [facility] [address] [id number] [place] [address]- 3522 Jul, [facility] [place] [facility] [address] [id number] [place] [address]- 5385 Apr, [facility] [place] [facility] [address] [id number] [place] [address]- 0695 Apr, [facility] [place] [facility] [address] [id number] [place] [address]- 1523 Apr, [facility] [place] [facility] [address] [id number] [place] [address]- 4109 Apr, [facility] [place] [facility] [address] [id number] [place] [address]- 9336 Feb, [facility] [place] [facility] [address] [id number] [place] [address]- 3082 Feb, [facility] [place] [facility] [address] [address]- 2047 Feb, [facility] [address] [address]- 0073 Feb, [facility] [address] [facility] [id number] [address]81 Feb, [facility] [address] [address]- 9831 Feb, [facility] [address] [facility] [id number] 9820 Feb, [facility] [address] [address]- 3559 Feb, [facility] [address] [address]- 9583 Jan, [facility] [address] 56[address] Jan, [facility] [address] [address]- 2088 Nov, [facility] [address] [place] [id number] [address] [address]60 September, IMMUNIZATIONS No Known Immunizations SOCIAL HISTORY Never Assessed REASON FOR VISIT Controlled Med Refill PLAN OF CARE VITAL SIGNS MEDICATIONS Medication [...]
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
--- OUTSIDE RECORDS SUMMARY | 2018-07-11 08:23 | XMS REPORT ---
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 Name Role Phone BETSY OROZCO Unavailable PROBLEMS Type Condition ICD9-CM Code ZLH99-LJ Code Onset Dates Condition Status SNOMED Code Problem Chronic obstructive pulmonary disease, unspecified COPD type J44.9 Active 85930973 Problem Hepatitis C B19.20 Active 14877243 Problem Essential hypertension I10 Active 12754753 Problem Tobacco abuse counseling Z71.6 Active 304655283 Problem Tobacco abuse Z72.0 Active 927022084 Problem Abnormal CT scan, chest R93.8 Active 813473562 Problem Low HDL (under 40) E78.6 Active 531600487 Problem Chronic fatigue R53.82 Active 48798628 Problem GERD with esophagitis K21.0 Active 991830607 Problem Major depressive disorder, recurrent, in full remission F33.42 Active 950672964 Problem Nerve pain M79.2 Active 00206967 Problem Environmental allergies Z91.09 Active 909016793 Problem Neuropathy G62.9 Active 271178754 Problem Osteoarthritis of multiple joints, unspecified osteoarthritis type M15.9 Active 900199584 ALLERGIES Substance Reaction Event Type Date Status Morphine Unknown Drug Allergy Aug, Active ENCOUNTERS Encounter Location Date Diagnosis [facility] [address] [facility] [id number] [address] Dec, [facility] [address] [facility] [id number], [place] [address] Nov, Neuropathy G62.9 [facility] [address] [id number] [address] Aug, Essential hypertension I10 ; Chronic obstructive [...] abuse Z72.0 and Tobacco abuse counseling Z71.6 [facility] [address] [address] Aug, Low back pain M54.5 and Right flank pain R10.9 [place] [address] [address] Jun, [place] [address] [address] May, Nerve pain M79.2 [facility] [place] [address] [address] May, Cough R05 and Chronic obstructive pulmonary disease, unspecified COPD type J44.9 [place] [address] [address] Apr, Chronic obstructive pulmonary disease, unspecified COPD type J44.9 [place] [address] [address] Mar, COPD with exacerbation J44.[address] [address] Mar, Environmental allergies Z91.09 ; Chronic obstructive pulmonary disease, unspecified COPD type J44.9 ; Major depressive disorder, recurrent, in full remission F33.42 and Nerve pain M79.2 [place] [address] [address] Feb, Chronic obstructive pulmonary disease, unspecified COPD type J44.9 ; Essential hypertension I10 ; Hepatitis C B19.20 ; Abnormal CBC R79.89 ; Encounter for immunization Z23 ; GERD with esophagitis K21.0 ; Weight loss R63.4 and Chronic fatigue R53.82 [place] [id number] [address] Dec, [place] [address] [place] [id number] [place] [address] Dec, Other injury of unspecified body region T14.8 and Laceration without foreign body, left lower leg, subsequent encounter S81.812D [place] [address] [place] [id number] [place] [address] Dec, Nerve pain M79.2 [facility] [address] [address] [id number] [place] [address] Nov, Unspecified open wound, left lower leg, initial encounter S81.802A [place] [address] [place] [id number] [place] [address] 3[address] Nov, Encounter for immunization Z23 [place] [address] [place] [id number] [place] [address]- 117[address] Oct, [place] [address] [address] September, Chronic obstructive pulmonary disease, unspecified COPD type J44.9 ; Essential hypertension I10 ; Low HDL (under 40) E78.6 ; Major depressive disorder, recurrent, in full remission F33.42 ; Neuropathy G62.9 and Weight loss R63.4 [place] [address] [place] [id number] [place] [address] Aug, Chronic obstructive pulmonary disease, unspecified COPD type J44.9 ; COPD with exacerbation J44.[address] scan, chest R93.8 [place] [address] [place] [id number] [place] [address] 3639 Aug, [place] [address] [place] [id number] [place] [address] 40666- 6159 Aug, [place] [address] [place] [id number] [place] [address] 25891- 3191 Aug, Hemoptysis R04.2 [place] [address] [place] [id number] [place] [address]12- 6[address] Aug, Follow-up visit after completion of treatment Z09 and Pneumonia of right lower lobe due to Mycoplasma pneumoniae J15.7 [place] [address] [address] 30 Jul, 2016 Cough R05 ; Fever, unspecified fever cause R50.9 and Community acquired pneumonia J18.9 [place] [address] [address] 9[address] 15 Jul, 2016 Routine gynecological examination Z01.419 and Yeast infection of the vagina B37.3 [place] [address] [address] Jul, Routine gynecological examination Z01.419 ; Laceration of right ear without foreign body, initial encounter S01.311A and Yeast infection of the vagina B37.3 [place] [address] [address] Jun, Essential hypertension I10 ; Chronic obstructive pulmonary disease, unspecified COPD type J44.9 and Major depressive disorder, recurrent, in full remission F33.42 [facility] [address] [id number] Jun, Dental examination Z01.20 [facility] [address] [id number] Jun, Dental caries K02.9 [place] [address] [place] [id number] [place] [address]275[address] 8984 Apr, Dental examination Z01.20 [place] [address] [place] [id number] [place] [address] 12117[address] 2497 Apr, Chronic obstructive pulmonary disease, unspecified COPD type J44.9 ; Earlobe lesion, right H61.91 and Acute bronchitis, unspecified organism J20.9 [facility] [address] [address] [id number] [place] [address] Apr, Subacute ethmoidal sinusitis J01.20 and Cough R05 [place] [address] [place] [id number] [place] [address]62[address] Apr, [place] [address] [address] Mar, Nerve pain M79.2 ; Chronic obstructive pulmonary disease, unspecified COPD type J44.9 ; Depression, unspecified depression type F32.9 ; Essential hypertension I10 ; Low HDL (under 40) E78.6 ; History of long-term use of multiple prescription drugs Z92.29 and Environmental allergies Z91.09 [place] [address] [address] 295[address] Feb, [place] [address] 0[address]92[address] Jan, [place] [address] [address] Jan, [place] [address] [address] Jan, Dysuria R30.0 ; Flank pain R10.9 ; Encounter for immunization Z23 and Essential hypertension I10 [place] [address] [address] Dec, [place] [address] [address] Dec, [place] [address] 17217[address] 39[address] Nov, Dependent edema R60.[address] [address] Oct, Chronic obstructive pulmonary disease, unspecified COPD type J44.9 ; Osteoarthritis of multiple joints, unspecified osteoarthritis type M15.9 ; Essential hypertension I10 ; Environmental allergies Z91.09 ; Depression , unspecified depression type F32.9 ; Nerve pain M79.2 ; Low HDL (under 40) E78.6 and Wheezing R06.2 [place] [address] [place] [address]84[address] 6[address] September, Routine health maintenance Z00.00 ; Chronic obstructive pulmonary disease, unspecified COPD type J44.9 ; Essential hypertension I10 and Hyperlipidemia E78.5 [facility] [address] [place] [address]10[address] September, Routine health maintenance Z00.00 ; Chronic obstructive pulmonary disease, unspecified COPD type J44.9 ; Essential hypertension I10 ; Hyperlipidemia E78.5 ; Osteoarthritis of multiple joints, unspecified osteoarthritis type M15.9 ; History of long-term use of multiple prescription drugs Z92.29 ; History of tobacco abuse Z87.891 ; Nerve pain M79.2 and Depression, unspecified depression type F32.9 [place] [id number] [place] [address] 9[address]54- [address] September, [place] [id number] [place] [address] 19154- [address] Aug, Routine health maintenance Z00.00 ; Hepatitis C B19.20 ; Chronic obstructive pulmonary disease, unspecified COPD type J44.9 ; Osteoarthritis of multiple joints, unspecified osteoarthritis type M15.9 ; History of long-term use of multiple prescription drugs Z92.29 ; Essential hypertension I10 ; History of tobacco abuse Z87.891 ; Nerve pain M79.2 ; Depression, unspecified depression type F32.9 and Hyperlipidemia E78.5 [place] [address] [place] [id number] [place] [address] 7[address]- 6196 Aug, [facility] [address] [place] [address] Jul, Acute bacterial sinusitis J01.90 and Chronic obstructive pulmonary disease, unspecified COPD type J44.9 [place] [address] [place] [id number] [place] [address] 91679- 5907 Jul, Chronic obstructive pulmonary disease with (acute) exacerbation J44.1 [place] [id number] [place] [address] 7[address]56- 8996 Jun, [facility] [address] [address] Jun, Nerve pain M79.2 [facility] [address] 25083- 29[address] May, Essential hypertension I10 ; Nerve pain M79.2 ; Osteoarthritis of multiple joints, unspecified osteoarthritis type M15.9 ; History of long-term use of multiple prescription drugs Z92.29 ; Depression, unspecified depression type F32.9 ; Hyperlipidemia E78.5 ; Chronic obstructive pulmonary disease, unspecified COPD type J44.9 ; Environmental allergies Z91.09 ; Anxiety F41.9 and Hepatitis C virus infection without hepatic coma, unspecified chronicity B19.20 [place] [address] [address]- 8138 Apr, Bronchitis J40 [facility] [address] [address] Apr, Acute left otitis media H66.92 ; Seasonal allergies J30.2 and Emphysema J43.[address] [address]- [address] Mar, Acute exacerbation of emphysema J43.9 and Emphysema with chronic bronchitis J44.9 [place] [address] 31783- 3[address] Feb, [place] [address] [address]- [address] Feb, Sciatica, unspecified side M54.30 [place] [address] 67973- 8453 Feb, Encounter for immunization Z23 [place] [address] 8[address]- [address] Jan, [place] [address] [address]- 2823 Jan, COPD with exacerbation 491.21 [place] [address] [place] [id number] [place] [address] 00691- 9095 20 Dec, 2014 Encounter for long-term (current) use of other medications V58.69 and Sciatica 724.3 [place] [address] [place] [id number] [place] [address] 43046- 5141 Dec, [place] [address] 220[address]- 98[address] Nov, Cramp of limb 729.82 and Shortness of breath 786.05 [place] [address] [place] [id number] [place] [address] 90510- 1055 16 Nov, 2014 Shortness of breath 786.05 [place] [address] [place] [id number] [place] [address] 00845- 4498 Oct, Essential hypertension, benign 401.1 [place] [address] 47447- 0552 Oct, [place] [address] [place] [id number] [place] [address] 99764- 7273 18 Oct, 2014 Shortness of breath 786.05 ; Other and unspecified hyperlipidemia 272.4 ; Essential hypertension, benign 401.1 and Cramp of limb 729.82 [place] [address] [place] [id number] [place] [address] 63240- 7033 17 Oct, 2014 Shortness of breath 786.05 and Cramp of limb 729.82 [place] [address] [place] [id number] [place] [address] 76373- 7706 Oct, Shortness of breath 786.05 [place] [address] [place] [id number] [place] [address] 02130- 0728 14 Aug, 2014 [place] [address] [place] [id number] [place] [address] 85147- 0045 Aug, [place] [address] [place] [id number] [place] [address] 27002- 5419 Jul, [place] [address] [id number] [place] [address] Jul, 2014 [facility] [place] [facility] [address] [id number] [place] [address]- 4[address] Jul, [facility] [place] [facility] [address] [id number] [place] [address]- 7924 Jul, [facility] [place] [facility] [address] [id number] [place] [address]- 7866 Jun, [facility] [place] [facility] [address] [id number] [place] [address]- 8047 Jun, [facility] [place] [facility] [address] [id number] [place] [address]- 2887 May, [facility] [place] [facility] [address] [id number] [place] [address]- 1510 May, [facility] [place] [facility] [address] [id number] [place] [address]- 1131 Apr, [facility] [place] [facility] [address] [id number] [place] [address]- 6675 Apr, [facility] [place] [facility] [address] [id number] [place] [address]- 6890 Feb, [facility] [place] [facility] [address] [id number] [place] [address]- 5458 Feb, [facility] [place] [facility] [address] [id number] [place] [address]- 1362 Feb, [facility] [place] [facility] [address] [id number] [place] [address]- 1944 Feb, [facility] [place] [facility] [address] [id number] [place] [address]- 6482 Feb, [facility] [place] [facility] [address] [id number] [place] [address] Feb, [facility] [place] [facility] [address] [id number] [place] [address]- 6632 Feb, [facility] [place] [facility] [address] [id number] [place] [address] Feb, [facility] [place] [facility] [address] [id number] [place] [address]- 8430 Jan, [facility] [place] [facility] [address] [id number] [place] [address]- 3371 Jan, [facility] [place] [facility] [address] [id number] [place] [address]- 7783 Jan, [facility] [place] [facility] [address] [id number] [place] [address]- 4864 Jan, [facility] [place] [facility] [address] [id number] [place] [address]- 7716 Dec, [facility] [place] [facility] [address] [id number] [place] [address]- 4754 Dec, [facility] [place] [facility] [address] [id number] [place] [address]- 8881 Dec, [facility] [place] [facility] [address] [id number] [place] [address]- 5506 Dec, [facility] [place] [facility] [address] [id number] [place] [address]- 2515 Nov, [facility] [place] [facility] [address] [id number], [place] [address]- 20[address] Nov, [facility] [place] [facility] [address] [id number], [place] [address]- 4135 Nov, [facility] [place] [facility] [address] [id number] [place] [address]- 5433 Oct, [facility] [place] [facility] [address] [id number] [place] [address]- 9188 Oct, [facility] [place] [facility] [address] [id number] [place] [address]- 6899 Aug, [facility] [place] [facility] [address] [id number] [place] [address]- 1698 Aug, [facility] [place] [facility] [address] [id number] [place] [address]- 1505 Aug, [facility] [place] [facility] [address] [id number] [place] [address]- 9295 Aug, [facility] [place] [facility] [address] [id number] [place] [address]- 4685 Aug, [facility] [place] [facility] [address] [id number] [place] [address]- 6788 Aug, [facility] [place] [facility] [address] [id number] [place] [address]- 0531 Aug, [facility] [place] [facility] [address] [id number] [place] [address]- 9711 Aug, [facility] [place] [facility] [address] [id number] [place] [address]- 1634 Jul, [facility] [place] [facility] [address] [id number] [place] [address]- 1004 Jul, [facility] [place] [facility] [address] [id number] [place] [address]- 1180 Apr, [facility] [place] [facility] [address] [facility] [id number] [place] [address]- 1354 Apr, [facility] [place] [facility] [address] [id number] [place] [address]- 5386 Apr, [facility] [place] [facility] [address] [id number] [place] [address]- 8963 Apr, [facility] [place] [facility] [address] [id number] [place] [address] 31 Feb, 2013 [facility] [place] [facility] [address] [id number] [place] [address]- 4539 31 Feb, 2013 [facility] [place] [facility] [address] [id number] [place] [address]- 0378 Feb, [facility] [address] [id number] [address]- 0555 Feb, [facility] [address] 70[address] Feb, [facility] [address] [address]- 5094 Feb, [facility] [address] [address] Feb, [facility] [address] 8769 Feb, [facility] [address] [address]- 4480 Jan, [facility] [address] [address]- 5259 Jan, [facility] [address] [address]- 1240 Nov, [facility] [address] [address]- 0066 September, IMMUNIZATIONS No Known Immunizations SOCIAL HISTORY Never Assessed REASON FOR VISIT kidney pain Pt c/o lower back pain on the R side which started this morning, denies blood in urine VICTOR MANUEL Jones PLAN OF CARE Activity Details Follow Up prn Reason: VITAL SIGNS Height 64 in 2017-09-05 Weight 134.4 lbs 2017-09-05 Temperature 98.9 degrees Fahrenheit 2017-09-05 Heart Rate 88 bpm 2017-09-05 Respiratory Rate 22 2017-09-05 BMI 23.07 kg/m2 2017-09-05 Blood pressure systolic 122 mmHg 2017-09-05 Blood pressure diastolic 74 mmHg 2017-09-05 MEDICATIONS Medication Instructions Dosage Frequency Start Date End Date Duration Status Amitriptyline HCl 75 MG TAKE ONE TABLET BY MOUTH ONCE DAILY AT BEDTIME 90 Active Spiriva HandiHaler 18 MCG Inhalation Once a day 1 capsule 24h Active Flonase 50 MCG/ACT Nasally Once a day 1 spray in each nostril 24h Active Lyrica 50 mg Orally Three times a day 1 capsule 8h 29 Oct, 2015 90 days Active Lisinopril 10 MG TAKE ONE TABLET BY MOUTH ONCE DAILY IN THE MORNING 90 Active Fish Oil 1000 MG Orally Once a day 1 capsule 24h Active Singulair 10 mg Orally Once a day 1 tablet in the evening 24h 90 days Active Oxygen 2LPM PRN Active Citalopram Hydrobromide 20 mg Orally Once a day TAKE ONE TABLET BY MOUTH ONCE DAILY 24h 90 days Active Aspirin 81 mg chew 1 tablet (81 mg) by oral route once daily Nov, Active Biotin 300 MCG Orally Once a day 1 tablet 24h Active HydrOXYzine HCl 25 mg 1 tablet by Oral route 4 times per day PRN Apr Not-Taking Albuterol Sulfate 2.5 mg /3 mL (0.083 %) Inhalation every 4 hrs 1 Each by Inhalation route every 4 hours for cough and wheeze PRN for wheezing or cough 4h Feb, Active Pantoprazole Sodium 40 mg Orally Once a day 1 tablet 24h 90 days Active Atorvastatin Calcium 20 MG TAKE ONE TABLET BY MOUTH ONCE DAILY 90 Active Montelukast Sodium 10 MG TAKE ONE TABLET BY MOUTH IN THE EVENING 90 Active Hydrochlorothiazide 12.5 MG Orally Once a day 1 tablet 24h Jan, 90 days Active Symbicort 160-4.5 MCG/ACT Inhalation Twice a day INHALE TWO PUFFS BY MOUTH TWICE DAILY 12h Active Zyrtec Allergy 10 mg Orally Once a day 1 tablet as needed 24h Active RESULTS Name Result Date Reference Range UA LONG DIP (IN HOUSE) 2017-09-05 Lot # [id number] Exp date [id number] Clarity sl cloudy Color yellow Odor yes GLU negative AROLDO negative KET negative SG 1.020 BLO negative pH 7.0 Protein negative URO 2.0 NIT negative ALLEN negative Lot # [id number] Exp date 08/2017 PROCEDURES Procedure Date Ordered Result Body Site URINALYSIS, AUTO, W/O SCOPE September 05, 2017 [facility] VISIT ESTABLISHED PATIENT September 05, 2017 INSTRUCTIONS MEDICATIONS ADMINISTERED No Known Medications [...]
--- OUTSIDE RECORDS SUMMARY | 2018-07-11 08:23 | XMS REPORT ---
Author Author TOMMY ROBLEDO Organization [facility] Address [address] [place] [address] Care Team Providers Care Barrelhead Inspector Name Role Phone ROBLEDOHARLEEN ChaudharyELE Unavailable PROBLEMS Type Condition ICD9-CM Code KYT26-CN Code Onset Dates Condition Status SNOMED Code Problem Chronic obstructive pulmonary disease, unspecified COPD type J44.9 Active 04116577 Problem Hepatitis C B19.20 Active 91567276 Problem Essential hypertension I10 Active 67113948 Problem Tobacco abuse counseling Z71.6 Active 295265479 Problem Tobacco abuse Z72.0 Active 693385583 Problem Abnormal CT scan, chest R93.8 Active 704066684 Problem Low HDL (under 40) E78.6 Active 467576450 Problem Chronic fatigue R53.82 Active 90577336 Problem GERD with esophagitis K21.0 Active 665475632 Problem Major depressive disorder, recurrent, in full remission F33.42 Active 420881937 Problem Nerve pain M79.2 Active 33820441 Problem Environmental allergies Z91.09 Active 860037571 Problem Neuropathy G62.9 Active 819380621 Problem Osteoarthritis of multiple joints, unspecified osteoarthritis type M15.9 Active 574057741 ALLERGIES No Information ENCOUNTERS Encounter Location Date Diagnosis [facility] [address] [id number] [address] Dec, [facility] [address] [facility] [id number] [place] [address] 81164- 4365 Aug, Essential hypertension I10 ; Chronic obstructive [...] abuse Z72.0 and Tobacco abuse counseling Z71.[address] [facility] [id number] [place] [address]67 -6584 Aug, Low back pain M54.5 and Right flank pain R10.9 [facility] [address] [address]- [address] Jun, [place] [address] [address]- 4594 May, Nerve pain M79.[address] [facility] [address] [address] May, Cough R05 and Chronic obstructive pulmonary disease, unspecified COPD type J44.9 [place] [address] 8[address]- 7174 Apr, Chronic obstructive pulmonary disease, unspecified COPD type J44.9 [place] [address] [address]83- 1998 Mar, COPD with exacerbation J44.[address] [address]- [address] Mar, Environmental allergies Z91.09 ; Chronic obstructive pulmonary disease, unspecified COPD type J44.9 ; Major depressive disorder, recurrent, in full remission F33.42 and Nerve pain M79.2 [place] [address] 24227- 9775 Feb, Chronic obstructive pulmonary disease, unspecified COPD type J44.9 ; Essential hypertension I10 ; Hepatitis C B19.20 ; Abnormal CBC R79.89 ; Encounter for immunization Z23 ; GERD with esophagitis K21.0 ; Weight loss R63.4 and Chronic fatigue R53.82 [place] [id number] [place] [address] 87277- 4044 Dec, [place] [address] [address]- 1035 Dec, Other injury of unspecified body region T14.8 and Laceration without foreign body, left lower leg, subsequent encounter S81.812D [place] [id number] [place] [address] 53938- 3125 Dec, Nerve pain M79.[address] [facility] [id number] [place] [address] 60447 -9651 Nov, Unspecified open wound, left lower leg, initial encounter S81.802A [place] [id number] [place] [address] 14121- 1877 Nov, Encounter for immunization Z23 [place] [address] 90421- 5874 Oct, [place] [id number] [place] [address] 78408- 8174 September, Chronic obstructive pulmonary disease, unspecified COPD type J44.9 ; Essential hypertension I10 ; Low HDL (under 40) E78.6 ; Major depressive disorder, recurrent, in full remission F33.42 ; Neuropathy G62.9 and Weight loss R63.4 [place] [id number] [place] [address] 66624- 7127 Aug, Chronic obstructive pulmonary disease, unspecified COPD type J44.9 ; COPD with exacerbation J44.[address] scan, chest R93.8 [place] [id number] [place] [address] 47508- 9706 Aug, [place] [id number] [place] [address] 30439- 3595 Aug, [place] [id number] [place] [address] 97382- 7967 Aug, Hemoptysis R04.2 [place] [id number] [place] [address] 97589- 8288 Aug, Follow-up visit after completion of treatment Z09 and Pneumonia of right lower lobe due to Mycoplasma pneumoniae J15.7 [place] [id number] [place] [address] 89408- 3470 30 Jul, 2016 Cough R05 ; Fever, unspecified fever cause R50.9 and Community acquired pneumonia J18.9 [facility] [address] [address]71- [address] 15 Jul, 2016 Routine gynecological examination Z01.419 and Yeast infection of the vagina B37.3 [facility] [address] 39852- 1364 07 Jul, 2016 Routine gynecological examination Z01.419 ; Laceration of right ear without foreign body, initial encounter S01.311A and Yeast infection of the vagina B37.3 [place] [address] 82921- 4014 28 Jun, 2016 Essential hypertension I10 ; Chronic obstructive pulmonary disease, unspecified COPD type J44.9 and Major depressive disorder, recurrent, in full remission F33.42 [facility] [place] [facility] [address] [id number] Jun, Dental examination Z01.20 [facility] [place] [facility] [address] [id number] Jun, Dental caries K02.9 [facility] [address] 72025- 9423 Apr, Dental examination Z01.20 [facility] [id number] [place] [address] 53486- 2264 Apr, Chronic obstructive pulmonary disease, unspecified COPD type J44.9 ; Earlobe lesion, right H61.91 and Acute bronchitis, unspecified organism J20.[address] [facility] [address] 99768 -1925 Apr, Subacute ethmoidal sinusitis J01.20 and Cough R05 [facility] [address] 84472- 8416 Apr, [facility] [address] [place] [address] 119[address] Mar, Nerve pain M79.2 ; Chronic obstructive pulmonary disease, unspecified COPD type J44.9 ; Depression, unspecified depression type F32.9 ; Essential hypertension I10 ; Low HDL (under 40) E78.6 ; History of long-term use of multiple prescription drugs Z92.29 and Environmental allergies Z91.09 [place] [address] 46814- 3252 Feb, [place] [address] 78053- 4069 Jan, [place] [address] 56670- 7340 Jan, [place] [address] 51493- 4158 Jan, Dysuria R30.0 ; Flank pain R10.9 ; Encounter for immunization Z23 and Essential hypertension I10 [place] [address] 48741- 3710 Dec, [place] [address] 94523- 6733 Dec, [place] [address] 92438- 5832 Nov, Dependent edema R60.9 [place] [address] 93046- 9263 Oct, Chronic obstructive pulmonary disease, unspecified COPD type J44.9 ; Osteoarthritis of multiple joints, unspecified osteoarthritis type M15.9 ; Essential hypertension I10 ; Environmental allergies Z91.09 ; Depression , unspecified depression type F32.9 ; Nerve pain M79.2 ; Low HDL (under 40) E78.6 and Wheezing R06.2 [place] [address] 74077- 8337 September, Routine health maintenance Z00.00 ; Chronic obstructive pulmonary disease, unspecified COPD type J44.9 ; Essential hypertension I10 and Hyperlipidemia E78.5 [facility] [id number] [place] [address] 18971- 8939 September, Routine health maintenance Z00.00 ; Chronic obstructive pulmonary disease, unspecified COPD type J44.9 ; Essential hypertension I10 ; Hyperlipidemia E78.5 ; Osteoarthritis of multiple joints, unspecified osteoarthritis type M15.9 ; History of long-term use of multiple prescription drugs Z92.29 ; History of tobacco abuse Z87.891 ; Nerve pain M79.2 and Depression, unspecified depression type F32.9 [place] [id number] [place] [address] 24355- 9623 September, [place] [address] 55360- 3610 Aug, Routine health maintenance Z00.00 ; Hepatitis C B19.20 ; Chronic obstructive pulmonary disease, unspecified COPD type J44.9 ; Osteoarthritis of multiple joints, unspecified osteoarthritis type M15.9 ; History of long-term use of multiple prescription drugs Z92.29 ; Essential hypertension I10 ; History of tobacco abuse Z87.891 ; Nerve pain M79.2 ; Depression, unspecified depression type F32.9 and Hyperlipidemia E78.5 [place] [id number] [place] [address] 41786- 3490 Aug, [facility] [address] [place] [address] 64251 -6213 Jul, Acute bacterial sinusitis J01.90 and Chronic obstructive pulmonary disease, unspecified COPD type J44.9 [facility] [id number] [place] [address] 33432- 5316 Jul, Chronic obstructive pulmonary disease with (acute) exacerbation J44.1 [place] [address] [address]66- 2005 Jun, [place] [id number] [place] [address] 61908- 7526 Jun, Nerve pain M79.2 [place] [id number] [place] [address] 74123- 7570 14 May, 2015 Essential hypertension I10 ; Nerve pain M79.2 ; Osteoarthritis of multiple joints, unspecified osteoarthritis type M15.9 ; History of long-term use of multiple prescription drugs Z92.29 ; Depression, unspecified depression type F32.9 ; Hyperlipidemia E78.5 ; Chronic obstructive pulmonary disease, unspecified COPD type J44.9 ; Environmental allergies Z91.09 ; Anxiety F41.9 and Hepatitis C virus infection without hepatic coma, unspecified chronicity B19.[address] 89[address]- 3215 Apr, Bronchitis J40 [facility] [address] [place] [address] 83051 -4991 Apr, Acute left otitis media H66.92 ; Seasonal allergies J30.2 and Emphysema J43.[address] 86976- 4487 Mar, Acute exacerbation of emphysema J43.9 and Emphysema with chronic bronchitis J44.[address] 22406- 9212 Feb, [address] 77047- 9547 Feb, Sciatica, unspecified side M54.[address] 51516- 2306 Feb, Encounter for immunization Z23 [address] 33690- 2395 Jan, [address] 01610- 4530 Jan, COPD with exacerbation 491.[address] 69750- 8679 Dec, Encounter for long-term (current) use of other medications V58.69 and Sciatica 724.3 [facility] [address] [address]- [address] Dec, [facility] [id number] [place] [address] 131010- 9104 Nov, Cramp of limb 729.82 and Shortness of breath 786.05 [facility] [id number] [place] [address] 289036- 8376 Nov, Shortness of breath 786.05 [facility] [address] [place] [address] 87658- 6955 Oct, Essential hypertension, benign 401.1 [facility] [id number] [place] [address] 06593- 3536 Oct, [facility] [id number] [place] [address] 28659- 3587 Oct, Shortness of breath 786.05 ; Other and unspecified hyperlipidemia 272.4 ; Essential hypertension, benign 401.1 and Cramp of limb 729.82 [facility] [address] [place] [address] 19778- 4904 Oct, Shortness of breath 786.05 and Cramp of limb 729.82 [facility] [address] [address]- 9195 Oct, Shortness of breath 786.05 [facility] [address] [address]- 8698 14 Aug, 2014 [facility] [address] [address]- 8161 Aug, [facility] [id number] [place] [address] 69501- 8096 Jul, [facility] [address] [address]26 Jul, [facility] [id number] [place] [address] 208996- 6820 Jul, 2014 [facility] [place] [facility] [address] [id number] [place] [address]- 7918 Jul, 2014 [facility] [place] [facility] [address] [id number] [place] [address]- 5399 Jun, 2014 [facility] [place] [facility] [address] [id number] [place] [address]- 2755 Jun, [facility] [place] [facility] [address] [id number] [place] [address]- 9346 May, [facility] [place] [facility] [address] [id number] [place] [address]- 8391 May, [facility] [place] [facility] [address] [id number] [place] [address]- 8484 Apr, [facility] [place] [facility] [address] [id number] [place] [address]- 0872 Apr, [facility] [place] [facility] [address] [id number] [place] [address]- 6477 Feb, [facility] [place] [facility] [address] [id number] [place] [address]- 3926 Feb, [facility] [place] [facility] [address] [id number] [place] [address]- 8766 Feb, [facility] [place] [facility] [address] [id number] [address]- 7400 Feb, [facility] [place] [facility] [address] [id number] [address]- 2005 Feb, [facility] [place] [facility] [address] [id number] [place] [address]- 0441 Feb, [facility] [place] [facility] [address] [id number] [place] [address]- 4256 Feb, [facility] [place] [facility] [address] [id number] [place] 3680 Feb, [facility] [place] [facility] [address] [id number] [place] [address]- 1489 Jan, [facility] [place] [facility] [address] [id number] [place] [address]- 6727 Jan, [facility] [place] [facility] [address] [id number] [place] [address]- 8992 Jan, [facility] [place] [facility] [address] [id number] [place] [address]- 5526 Jan, [facility] [place] [facility] [address] [id number] [place] [address]- 7856 Dec, [facility] [place] [facility] [address] [id number] [place] [address]- 4206 Dec, [facility] [place] [facility] [address] [id number] [place] [address]- 8636 Dec, [facility] [place] [facility] [address] [id number] [place] [address]- 8968 Dec, [facility] [place] [facility] [address] [id number] [place] [address]- 5495 Nov, [facility] [place] [facility] [address] [id number] [place] [address]- 9160 Nov, [facility] [place] [facility] [address] [id number] [place] [address]- 6477 Nov, [facility] [place] [facility] [address] [id number] [place] [address]- 7119 Oct, [facility] [place] [facility] [address] [id number] [place] [address]- 2000 Oct, [facility] [place] [facility] [address] [id number] [place] [address]- 7957 Aug, [facility] [place] [facility] [address] [id number] [place] [address]- 6965 Aug, [facility] [place] [facility] [address] [id number] [place] [address]- 0742 Aug, [facility] [place] [facility] [address] [id number] [place] [address]- 2569 Aug, [facility] [place] [facility] [address] [id number] [place] [address]- 2450 Aug, [facility] [place] [facility] [address] [id number] [place] [address]- 4691 Aug, [facility] [place] [facility] [address] [id number] [place] [address]- 0164 Aug, [facility] [address] [id number] [place] [address]- 1481 Aug, [facility] [place] [facility] [address] [id number] [place] [address]- 3577 Jul, [facility] [address] [id number] [place] [address]- 4738 Jul, [facility] [address] [id number] [place] [address]- 5658 Apr, [facility] [place] [facility] [address] [id number] [place] [address]- 5599 Apr, [facility] [place] [facility] [address] [id number] [place] [address]- 7186 Apr, [facility] [place] [facility] [address] [id number] [place] [address]- 3580 Apr, [facility] [place] [facility] [address] [id number] [place] [address]- 7753 Feb, [facility] [place] [facility] [address] [id number] [place] [address]- 3841 Feb, [facility] [place] [facility] [address] [id number] [place] [address]- 9399 Feb, [facility] [place] [facility] [address] [id number] [place] 6613 Feb, [facility] [place] [facility] [address] [id number] [address]- 1446 Feb, [facility] [id number], [place] [address]- 0691 Feb, [facility] [id number], [place] [address]- 5886 Feb, [facility] [id number], [place] [address]- 7836 Feb, [facility] [id number], [place] [address]- 4516 Jan, [facility] [id number], [place] [address]- 8629 Jan, [facility] [id number], [place] [address]- 4917 Nov, [facility] [id number], [place] [address]- 9787 September, IMMUNIZATIONS No Known Immunizations SOCIAL HISTORY Never Assessed REASON FOR VISIT Hep C note PLAN OF CARE VITAL SIGNS MEDICATIONS Unknown [...]
[2018-07-11] MEDS ORDERED: LACTATED RINGERS 1,000 ML IV ONE (08:24)
--- OUTSIDE RECORDS SUMMARY | 2018-07-11 08:24 | XMS REPORT ---
Author Author MASSIEL OSWALD Organization [facility] Address [address] [place] [address] Care Team Providers Care Vp Director Of Creative Strategy Name Role Phone MASSIEL OSWALD Unavailable PROBLEMS Type Condition ICD9-CM Code MTQ98-BN Code Onset Dates Condition Status SNOMED Code Problem History of tobacco abuse Z87.891 Active 2333333700201 Problem Hepatitis C B19.20 Active 22150582 Problem Essential hypertension I10 Active 64813862 Problem Chronic fatigue R53.82 Active 96108895 Problem GERD with esophagitis K21.0 Active 846861128 Problem Low HDL (under 40) E78.6 Active 498829655 Problem Wheezing R06.2 Active [address]61 Problem [address] scan, chest R93.8 Active 213526099 Problem COPD with exacerbation J44.1 Active 753461696 Problem Neuropathy of ankle, 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 Active 309133609 Problem Neuropathy G62.9 Active 865224324 Problem Osteoarthritis of multiple joints, unspecified osteoarthritis type M15.9 Active 968344503 Problem Chronic obstructive pulmonary disease, unspecified COPD type J44.9 Active 40107667 Problem Major depressive disorder, recurrent, in full remission F33.42 Active 306253788 Problem Environmental allergies Z91.09 Active 035370162 Problem History of long-term use of multiple prescription drugs Z92.29 Active 972163036 Problem Nerve pain M79.2 Active 02328055 ALLERGIES Substance Reaction Event Type Date Status Morphine Unknown Drug Allergy Nov, Active ENCOUNTERS Encounter Location Date Diagnosis [facility] [address] [facility] [id number], [place] [address] Aug, [facility] [address] [id number] [address] Jun, [facility] [address] [facility] [id number], [place] [address] May, Nerve pain M79.2 [facility] [id number] [place] [address] May, Cough R05 and Chronic obstructive pulmonary disease, unspecified COPD type J44.9 [place] [id number] [place] [address]257- [address] Apr, Chronic obstructive pulmonary disease, unspecified COPD type J44.9 [place] [address] [address] Mar, COPD with exacerbation J44.[address] [address]- [address] Mar, Environmental allergies Z91.09 ; Chronic obstructive pulmonary disease, unspecified COPD type J44.9 ; Major depressive disorder, recurrent, in full remission F33.42 and Nerve pain M79.[address] [address] Feb, Chronic obstructive pulmonary disease, unspecified COPD type J44.9 ; Essential hypertension I10 ; Hepatitis C B19.20 ; Abnormal CBC R79.89 ; Encounter for immunization Z23 ; GERD with esophagitis K21.0 ; Weight loss R63.4 and Chronic fatigue R53.82 [place] [id number] [place] [address] Dec, [place] [address] [address] Dec, Other injury of unspecified body region T14.8 and Laceration without foreign body, left lower leg, subsequent encounter S81.812D [place] [address] [address]- [address] Dec, Nerve pain M79.2 [facility] [id number] [place] [address] Nov, Unspecified open wound, left lower leg, initial encounter S81.802A [address] [place] [address] 17 Nov, 2016 Encounter for immunization Z23 [place] [address] [address]- [address] Oct, [place] [address] [address] September, Chronic obstructive pulmonary disease, unspecified COPD type J44.9 ; Essential hypertension I10 ; Low HDL (under 40) E78.6 ; Major depressive disorder, recurrent, in full remission F33.42 ; Neuropathy G62.9 and Weight loss R63.4 [place] [address] [address] Aug, Chronic obstructive pulmonary disease, unspecified COPD type J44.9 ; COPD with exacerbation J44.[address] scan, chest R93.[address] [address] Aug, [place] [address] [address] 6[address] Aug, [place] [address] [address] Aug, Hemoptysis R04.[address] [address]- [address] Aug, Follow-up visit after completion of treatment Z09 and Pneumonia of right lower lobe due to Mycoplasma pneumoniae J15.7 [place] [id number] [place] [address] 12149- 9[address] 30 Jul, 2016 Cough R05 ; Fever, unspecified fever cause R50.9 and Community acquired pneumonia J18.9 [place] [id number] [place] [address] 21048- 8207 15 Jul, 2016 Routine gynecological examination Z01.419 and Yeast infection of the vagina B37.3 [place] [id number] [place] [address]- 77[address] Jul, Routine gynecological examination Z01.419 ; Laceration of right ear without foreign body, initial encounter S01.311A and Yeast infection of the vagina B37.[address] [address]- [address] Jun, Essential hypertension I10 ; Chronic obstructive pulmonary disease, unspecified COPD type J44.9 and Major depressive disorder, recurrent, in full remission F33.42 [facility] [address] [id number] Jun, Dental examination Z01.20 [facility] [address] [id number] Jun, Dental caries K02.[address] [address]- 9[address] Apr, Dental examination Z01.[address] [address]- 88[address] Apr, Chronic obstructive pulmonary disease, unspecified COPD type J44.9 ; Earlobe lesion, right H61.91 and Acute bronchitis, unspecified organism J20.9 [facility] [address] [address] Apr, Subacute ethmoidal sinusitis J01.20 and Cough R05 [address] [address]- [address]99 Apr, [address] [address]- 48[address] Mar, Nerve pain M79.2 ; Chronic obstructive pulmonary disease, unspecified COPD type J44.9 ; Depression, unspecified depression type F32.9 ; Essential hypertension I10 ; Low HDL (under 40) E78.6 ; History of long-term use of multiple prescription drugs Z92.29 and Environmental allergies Z91.09 [facility] [address] [place] [address]- [address] 13 Feb, 2016 [address] [place] [address] Jan, [place] [id number] [place] [address]- [address] Jan, [place] [id number] [place] [address] 00365[address] 4119 Jan, Dysuria R30.0 ; Flank pain R10.9 ; Encounter for immunization Z23 and Essential hypertension I10 [place] [address] 9[address]- 79[address] Dec, [place] [address] 46492- [address] Dec, [place] [address] 0[address]85[address] Nov, Dependent edema R60.[address] [address]- [address] Oct, Chronic obstructive pulmonary disease, unspecified COPD type J44.9 ; Osteoarthritis of multiple joints, unspecified osteoarthritis type M15.9 ; Essential hypertension I10 ; Environmental allergies Z91.09 ; Depression , unspecified depression type F32.9 ; Nerve pain M79.2 ; Low HDL (under 40) E78.6 and Wheezing R06.2 [place] [id number] [place] [address] 06178- 5324 September, Routine health maintenance Z00.00 ; Chronic obstructive pulmonary disease, unspecified COPD type J44.9 ; Essential hypertension I10 and Hyperlipidemia E78.5 [place] [id number] [place] [address] 85333- 2081 September, Routine health maintenance Z00.00 ; Chronic obstructive pulmonary disease, unspecified COPD type J44.9 ; Essential hypertension I10 ; Hyperlipidemia E78.5 ; Osteoarthritis of multiple joints, unspecified osteoarthritis type M15.9 ; History of long-term use of multiple prescription drugs Z92.29 ; History of tobacco abuse Z87.891 ; Nerve pain M79.2 and Depression, unspecified depression type F32.9 [place] [id number] [place] [address] 13513- 3672 September, [place] [address] 7[address] Aug, Hepatitis C B19.20 ; Routine health maintenance Z00.00 ; Chronic obstructive pulmonary disease, unspecified COPD type J44.9 ; Osteoarthritis of multiple joints, unspecified osteoarthritis type M15.9 ; History of long-term use of multiple prescription drugs Z92.29 ; Essential hypertension I10 ; History of tobacco abuse Z87.891 ; Nerve pain M79.2 ; Depression, unspecified depression type F32.9 and Hyperlipidemia E78.5 [place] [id number] [place] [address] 51700- 2438 Aug, [facility] [address] [place] [id number] [place] [address] 02738 -[address]111 Jul, Acute bacterial sinusitis J01.90 and Chronic obstructive pulmonary disease, unspecified COPD type J44.9 [place] [id number] [place] [address] 15345- 1427 Jul, Chronic obstructive pulmonary disease with (acute) exacerbation J44.1 [place] [id number] [place] [address] 98600- 8932 Jun, [place] [id number] [place] [address] 86967- 5616 Jun, Nerve pain M79.2 [place] [id number] [place] [address] 9[address]- 9833 May, Essential hypertension I10 ; Nerve pain M79.2 ; Osteoarthritis of multiple joints, unspecified osteoarthritis type M15.9 ; History of long-term use of multiple prescription drugs Z92.29 ; Depression, unspecified depression type F32.9 ; Hyperlipidemia E78.5 ; Chronic obstructive pulmonary disease, unspecified COPD type J44.9 ; Environmental allergies Z91.09 ; Anxiety F41.9 and Hepatitis C virus infection without hepatic coma, unspecified chronicity B19.20 [place] [id number] [place] [address]65- 8258 Apr, Bronchitis J40 [facility] [address] [address] Apr, Acute left otitis media H66.92 ; Seasonal allergies J30.2 and Emphysema J43.9 [place] [address] [address]- 69[address] Mar, Acute exacerbation of emphysema J43.9 and Emphysema with chronic bronchitis J44.9 [place] [address] 60[address]- 3130 Feb, [place] [address] [address]12- [address]78 Feb, Sciatica, unspecified side M54.[address] 16594- 6648 Feb, Encounter for immunization Z23 [place] [address] 96643- 4339 Jan, [place] [address] [address]- 1990 Jan, COPD with exacerbation 491.21 [place] [address] 7[address]24- 7984 Dec, Encounter for long-term (current) use of other medications V58.69 and Sciatica 724.3 [place] [id number] [place] [address] 15616- 1279 Dec, [place] [address] 20164- [address] Nov, Cramp of limb 729.82 and Shortness of breath 786.05 [place] [address] 67[address]- 6644 16 Nov, 2014 Shortness of breath 786.05 [place] [address], [place] [address] 19 Oct, 2014 Essential hypertension, benign 401.1 [facility] [id number] [place] [address] 42321- 5668 Oct, [facility] [address], [place] [address]- [address] 18 Oct, 2014 Shortness of breath 786.05 ; Other and unspecified hyperlipidemia 272.4 ; Essential hypertension, benign 401.1 and Cramp of limb 729.82 [facility] [id number] [place] [address] 87382- 4012 17 Oct, 2014 Shortness of breath 786.05 and Cramp of limb 729.82 [facility] [address], [place] [address]- 1619 Oct, Shortness of breath 786.05 [facility] [id number] [place] [address] 65947- 7158 14 Aug, 2014 [facility] [address], [place] [address] Aug, [facility] [address] [id number] [address]- [address]757 Jul, [facility] [address], [place] [address]- 30[address] Jul, [facility] [address], [place] [address]- 1416 Jul, [facility] [address], [place] [address]- 25[address] Jul, [facility] [address] [id number] [address]- 3166 Jun, [facility] [address], [place] [address]- 2546 Jun, [facility] [address] [place] [address] 260777- 4133 May, [facility] [place] [facility] [address] [id number] [place] [address]- 8562 May, [facility] [place] [facility] [address] [id number] [place] [address]- 4111 Apr, [facility] [place] [facility] [address] [id number] [place] [address]- 3402 Apr, [facility] [place] [facility] [address] [id number] [place] [address]- 4101 Feb, [facility] [place] [facility] [address] [id number] [place] [address]- 3391 Feb, [facility] [place] [facility] [address] [id number] [place] [address]- 2552 Feb, [facility] [place] [facility] [address] [id number] [place] [address]- 3075 Feb, [facility] [place] [facility] [address] [id number] [place] [address]- 1068 Feb, [facility] [place] [facility] [address] [id number] [place] [address]- 1444 Feb, [facility] [place] [facility] [address] [id number] [place] [address]- 2288 Feb, [facility] [place] [facility] [address] [id number] [place] [address]- 4651 Feb, [facility] [place] [facility] [address] [id number], [place] [address]- 4745 Jan, [facility] [place] [facility] [address] [id number] [place] [address]- 6747 Jan, [facility] [place] [facility] [address] [id number] [place] [address]- 6359 Jan, [facility] [place] [facility] [address] [id number] [place] [address]- 4810 Jan, [facility] [place] [facility] [address] [id number] [place] [address]- 8258 Dec, [facility] [place] [facility] [address] [id number] [place] [address]- 4267 Dec, [facility] [place] [facility] [address] [id number] [place] [address]- 6747 Dec, [facility] [place] [facility] [address] [id number] [place] [address]- 2893 Dec, [facility] [place] [facility] [address] [id number] [place] [address]- 0958 Nov, [facility] [place] [facility] [address] [id number] [place] [address]- 3439 Nov, [facility] [place] [facility] [address] [id number] [place] [address]- 1328 Nov, [facility] [place] [facility] [address] [id number] [place] [address]- 7288 Oct, [facility] [place] [facility] [address] [id number] [place] [address]- 0702 Oct, [facility] [place] [facility] [address] [id number] [place] [address]- 6476 Aug, [facility] [place] [facility] [address] [id number] [place] [address]- 2716 Aug, [facility] [place] [facility] [address] [id number] [place] [address]- 0984 Aug, [facility] [place] [facility] [address] [id number] [place] [address]- 6349 Aug, [facility] [place] [facility] [address] [id number] [place] [address]- 7186 Aug, [facility] [place] [facility] [address] [id number] [place] [address]- 8937 Aug, [facility] [place] [facility] [address] [id number] [place] [address]- 4860 Aug, [facility] [place] [facility] [address] [id number] [place] [address]- 4924 Aug, [facility] [place] [facility] [address] [id number] [place] [address]- 3489 Jul, [facility] [place] [facility] [address] [id number] [place] [address]- 5483 Jul, [facility] [place] [facility] [address] [id number] [place] [address]- 6901 Apr, [facility] [place] [facility] [address] [id number] [place] [address]- 8870 Apr, [facility] [place] [facility] [address] [id number] [place] [address]- 4932 Apr, [facility] [place] [facility] [address] [id number] [place] [address]- 8522 Apr, [facility] [place] [facility] [address] [id number] [place] [address]- 3514 Feb, [facility] [place] [facility] [address] [id number] [place] [address]- 0382 31 Feb, 2013 [facility] [place] [facility] [address] [id number] [place] [address]- 6005 Feb, [facility] [place] [facility] [address] [id number] [place] [address]- 8753 28 Feb, 2013 [facility] [place] [facility] [address] [id number] [place] [address]- 9910 15 Feb, 2013 [facility] [place] [facility] [address] [id number] [place] [address]- 6193 15 Feb, 2013 [facility] [place] [facility] [address] [id number] [place] [address]- 7932 Feb, [facility] [place] [facility] [address] [id number] [place] [address]- 0939 Feb, [facility] [place] [facility] [address] [id number] [place] [address]- 0164 Jan, [facility] [address] [facility] [id number] [place] [address]- 9946 Jan, [facility] [address] [facility] [id number], [place] [address]- 0526 Nov, [facility] [address] [facility] [id number] [place] [address]- 7236 September, IMMUNIZATIONS No Known Immunizations SOCIAL HISTORY Never Assessed REASON FOR VISIT tripped tuesday over a tomato cage...came to [facility] and got a tetanus shot that day. now left foot is swollen and her left lower leg is red around wound where she injured herself on tuesday. [email or web address] PLAN OF CARE VITAL SIGNS Height 64 in 2016-12-15 Weight 145.0 lbs 2016-12-15 Temperature 97.7 degrees Fahrenheit 2016-12-15 Heart Rate 82 bpm 2016-12-15 Respiratory Rate 20 2016-12-15 BMI 24.89 kg/m2 2016-12-15 Blood pressure systolic 126 mmHg 2016-12-15 Blood pressure diastolic 76 mmHg 2016-12-15 MEDICATIONS Medication Instructions Dosage Frequency Start Date End Date Duration Status Fish Oil 1000 MG Orally Once a day 1 capsule 24h Active Oxygen 2LPM PRN Active Lyrica 50 mg Orally Three times a day 1 capsule 8h Feb, 90 days Active Aspirin 81 mg chew 1 tablet (81 mg) by oral route once daily Nov, Active Singulair 10 mg Orally Once a day 1 tablet in the evening 24h 90 days Active HydrOXYzine HCl 25 mg 1 tablet by Oral route 4 times per day PRN Apr Active Atorvastatin Calcium 20 MG TAKE ONE TABLET BY MOUTH ONCE DAILY 90 Active Spiriva HandiHaler 18 MCG Inhalation Once a day 1 capsule 24h Active Citalopram Hydrobromide 20 mg Orally Once a day TAKE ONE TABLET BY MOUTH ONCE DAILY 24h 90 days Active Flonase 50 MCG/ACT Nasally Once a day 1 spray in each nostril 24h Active Hydrochlorothiazide 12.5 MG Orally Once a day 1 tablet 24h 15 Jan, 2016 90 days Active Augmentin 875-125 MG Orally every 12 hrs 1 tablet 12h Nov,Nov 10 day(s) Active Lisinopril 10 mg Orally Once a day take 1 tablet by Oral route 1 time per day Take in am 24h 16 Apr, 2014 Active Amitriptyline HCl 75 MG Orally Once a day at HS 1 tablet 90 days Active Zyrtec Allergy 10 mg Orally Once a day 1 tablet as needed 24h Active Symbicort 160-4.5 MCG/ACT Inhalation Twice a day INHALE TWO PUFFS BY MOUTH TWICE DAILY 12h Active Biotin 300 MCG Orally Once a day 1 tablet 24h Active Albuterol Sulfate 2.5 mg /3 mL (0.083 %) Inhalation every 4 hrs 1 Each by Inhalation route every 4 hours for cough and wheeze PRN for wheezing or cough 4h Feb, Active RESULTS No Results PROCEDURES Procedure Date Ordered Result Body Site [facility] VISIT ESTABLISHED PATIENT December 15, 2016 INSTRUCTIONS MEDICATIONS ADMINISTERED No Known Medications MEDICAL [...]
--- OUTSIDE RECORDS SUMMARY | 2018-07-11 08:24 | XMS REPORT ---
Author Author TOMMY ROBLEDO Organization [facility] Address [address] [place] [address] Care Team Providers Care Chief Radiation Therapist Name Role Phone ROBLEDOHARLEEN ChaudharyELE Unavailable PROBLEMS Type Condition ICD9-CM Code NWH74-NA Code Onset Dates Condition Status SNOMED Code Problem Chronic obstructive pulmonary disease, unspecified COPD type J44.9 Active 54584614 Problem Hepatitis C B19.20 Active 46846361 Problem Essential hypertension I10 Active 03117282 Problem Tobacco abuse counseling Z71.6 Active 946849722 Problem Tobacco abuse Z72.0 Active 947443859 Problem Abnormal CT scan, chest R93.8 Active 301940744 Problem Low HDL (under 40) E78.6 Active 451060798 Problem Chronic fatigue R53.82 Active 31205623 Problem GERD with esophagitis K21.0 Active 608222864 Problem Major depressive disorder, recurrent, in full remission F33.42 Active 366840720 Problem Nerve pain M79.2 Active 72120143 Problem Environmental allergies Z91.09 Active 759786038 Problem Neuropathy G62.9 Active 908148467 Problem Osteoarthritis of multiple joints, unspecified osteoarthritis type M15.9 Active 347753684 ALLERGIES Substance Reaction Event Type Date Status Morphine Unknown Drug Allergy Apr, Active ENCOUNTERS Encounter Location Date Diagnosis [facility] [address] [facility] [id number], [place] [address] Aug, Essential hypertension I10 ; Chronic obstructive [...] abuse Z72.0 and Tobacco abuse counseling Z71.6 [facility] [id number] [place] [address]287 Aug, Low back pain M54.5 and Right flank pain R10.9 [place] [id number] [place] [address] 21371- 2208 Jun, [place] [address] [address]007 May, Nerve pain M79.2 [facility] [address] [address] May, Cough R05 and Chronic obstructive pulmonary disease, unspecified COPD type J44.9 [place] [address] 35[address]- 6277 Apr, Chronic obstructive pulmonary disease, unspecified COPD type J44.9 [place] [address] 46676- 2603 Mar, COPD with exacerbation J44.[address] [address]- [address] Mar, Environmental allergies Z91.09 ; Chronic obstructive pulmonary disease, unspecified COPD type J44.9 ; Major depressive disorder, recurrent, in full remission F33.42 and Nerve pain M79.2 [place] [id number] [place] [address] 29350- 6432 Feb, Chronic obstructive pulmonary disease, unspecified COPD type J44.9 ; Essential hypertension I10 ; Hepatitis C B19.20 ; Abnormal CBC R79.89 ; Encounter for immunization Z23 ; GERD with esophagitis K21.0 ; Weight loss R63.4 and Chronic fatigue R53.82 [place] [id number] [place] [address] 32191- 6663 Dec, [place] [id number] [place] [address] 38379- 2117 Dec, Other injury of unspecified body region T14.8 and Laceration without foreign body, left lower leg, subsequent encounter S81.812D [facility] [id number] [place] [address] 44147- 8394 Dec, Nerve pain M79.2 [facility] [id number] [place] [address] 86534 -5214 Nov, Unspecified open wound, left lower leg, initial encounter S81.802A [facility] [address] 45288- 4698 Nov, Encounter for immunization Z23 [facility] [address] 80525- 7131 Oct, [place] [address] 33262- 1193 September, Chronic obstructive pulmonary disease, unspecified COPD type J44.9 ; Essential hypertension I10 ; Low HDL (under 40) E78.6 ; Major depressive disorder, recurrent, in full remission F33.42 ; Neuropathy G62.9 and Weight loss R63.4 [facility] [id number] [place] [address] 68951- 6692 Aug, Chronic obstructive pulmonary disease, unspecified COPD type J44.9 ; COPD with exacerbation J44.[address] scan, chest R93.8 [place] [id number] [place] [address] 28565- 5104 Aug, [place] [id number] [place] [address] 23725- 3253 Aug, [place] [id number] [place] [address] 62266- 2075 Aug, Hemoptysis R04.2 [place] [id number] [place] [address] 72729- 9703 Aug, Follow-up visit after completion of treatment Z09 and Pneumonia of right lower lobe due to Mycoplasma pneumoniae J15.7 [place] [id number] [place] [address] 94100- 0207 30 Jul, 2016 Cough R05 ; Fever, unspecified fever cause R50.9 and Community acquired pneumonia J18.9 [facility] [address] 48451- 4025 15 Jul, 2016 Routine gynecological examination Z01.419 and Yeast infection of the vagina B37.3 [facility] [address] 50832- 1221 07 Jul, 2016 Routine gynecological examination Z01.419 ; Laceration of right ear without foreign body, initial encounter S01.311A and Yeast infection of the vagina B37.3 [place] [address] 74307- 4356 Jun, Essential hypertension I10 ; Chronic obstructive pulmonary disease, unspecified COPD type J44.9 and Major depressive disorder, recurrent, in full remission F33.42 [facility] [address] [id number] Jun, Dental examination Z01.20 [facility] [address] [id number] Jun, Dental caries K02.9 [facility] [address] 46269- 8025 Apr, Dental examination Z01.20 [facility] [id number] [place] [address] 59248- 1065 Apr, Chronic obstructive pulmonary disease, unspecified COPD type J44.9 ; Earlobe lesion, right H61.91 and Acute bronchitis, unspecified organism J20.9 [facility] [id number] [place] [address] 81075 -4552 Apr, Subacute ethmoidal sinusitis J01.20 and Cough R05 [facility] [id number] [place] [address] 39676- 6852 Apr, [facility] [address] 63945- 9952 Mar, Nerve pain M79.2 ; Chronic obstructive pulmonary disease, unspecified COPD type J44.9 ; Depression, unspecified depression type F32.9 ; Essential hypertension I10 ; Low HDL (under 40) E78.6 ; History of long-term use of multiple prescription drugs Z92.29 and Environmental allergies Z91.09 [place] [id number] [place] [address] 60002- 7629 Feb, [place] [address] 34199- 8132 Jan, [place] [address] 68123- 3727 Jan, [address] 38623- 1729 Jan, Dysuria R30.0 ; Flank pain R10.9 ; Encounter for immunization Z23 and Essential hypertension I10 [address] 21133- 2227 Dec, [place] [address] 60293- 9638 Dec, [address] 59875- 4386 Nov, Dependent edema R60.[address] 19754- 0158 Oct, Chronic obstructive pulmonary disease, unspecified COPD type J44.9 ; Osteoarthritis of multiple joints, unspecified osteoarthritis type M15.9 ; Essential hypertension I10 ; Environmental allergies Z91.09 ; Depression , unspecified depression type F32.9 ; Nerve pain M79.2 ; Low HDL (under 40) E78.6 and Wheezing R06.[address] 09236- 9446 September, Routine health maintenance Z00.00 ; Chronic obstructive pulmonary disease, unspecified COPD type J44.9 ; Essential hypertension I10 and Hyperlipidemia E78.5 [place] [id number] [place] [address] 40422- 9693 September, Routine health maintenance Z00.00 ; Chronic obstructive pulmonary disease, unspecified COPD type J44.9 ; Essential hypertension I10 ; Hyperlipidemia E78.5 ; Osteoarthritis of multiple joints, unspecified osteoarthritis type M15.9 ; History of long-term use of multiple prescription drugs Z92.29 ; History of tobacco abuse Z87.891 ; Nerve pain M79.2 and Depression, unspecified depression type F32.9 [facility] [address] 31790- 0731 September, [address] 14264- 4218 Aug, Routine health maintenance Z00.00 ; Hepatitis C B19.20 ; Chronic obstructive pulmonary disease, unspecified COPD type J44.9 ; Osteoarthritis of multiple joints, unspecified osteoarthritis type M15.9 ; History of long-term use of multiple prescription drugs Z92.29 ; Essential hypertension I10 ; History of tobacco abuse Z87.891 ; Nerve pain M79.2 ; Depression, unspecified depression type F32.9 and Hyperlipidemia E78.[address] 93764- 4304 Aug, [facility] [address] [place], [place] [id number] [place] [address] 23084 -5672 Jul, Acute bacterial sinusitis J01.90 and Chronic obstructive pulmonary disease, unspecified COPD type J44.9 [facility] [address] [place], [place] [id number] [place] [address] 00314- 6915 Jul, Chronic obstructive pulmonary disease with (acute) exacerbation J44.[address] 91555- 5418 Jun, [address] 63064- 9939 Jun, Nerve pain M79.2 [facility] [address] [place] [address] 30986- 1240 May, Essential hypertension I10 ; Nerve pain M79.2 ; Osteoarthritis of multiple joints, unspecified osteoarthritis type M15.9 ; History of long-term use of multiple prescription drugs Z92.29 ; Depression, unspecified depression type F32.9 ; Hyperlipidemia E78.5 ; Chronic obstructive pulmonary disease, unspecified COPD type J44.9 ; Environmental allergies Z91.09 ; Anxiety F41.9 and Hepatitis C virus infection without hepatic coma, unspecified chronicity B19.20 [place] [address] 39379- 8930 Apr, Bronchitis J40 [facility] [address] [place] [address] 93475 -0119 Apr, Acute left otitis media H66.92 ; Seasonal allergies J30.2 and Emphysema J43.[address] 49855- 7840 Mar, Acute exacerbation of emphysema J43.9 and Emphysema with chronic bronchitis J44.[address] 46069- 7157 Feb, [address] 08830- 2132 Feb, Sciatica, unspecified side M54.[address] 59253- 9515 Feb, Encounter for immunization Z23 [address] 55977- 0601 Jan, [address] 70058- 4837 Jan, COPD with exacerbation 491.[address] 31652- 7991 Dec, Encounter for long-term (current) use of other medications V58.69 and Sciatica 724.[address] [place] [address]- 2493 Dec, [facility] [address] [place] [address] 60609- 8641 Nov, Cramp of limb 729.82 and Shortness of breath 786.05 [facility] [address] [address] 7781 Nov, Shortness of breath 786.05 [facility] [id number] [place] [address] 40168- 2442 Oct, Essential hypertension, benign 401.1 [facility] [id number] [place] [address] 872488- 2089 Oct, [facility] [id number] [place] [address] 85804- 8439 Oct, Shortness of breath 786.05 ; Other and unspecified hyperlipidemia 272.4 ; Essential hypertension, benign 401.1 and Cramp of limb 729.82 [facility] [address] [address]- 7672 Oct, Shortness of breath 786.05 and Cramp of limb 729.82 [facility] [id number] [place] [address] 08116- 5849 Oct, Shortness of breath 786.05 [facility] [address] [address]- 2515 14 Aug, 2014 [facility] [address] [place] [address] 99945- 2482 Aug, [facility] [address] [address]- 9147 Jul, [facility] [id number] [place] [address] 383589- 2836 Jul, [facility] [address] [address] Jul, [facility] [id number] [place] [address]- 8764 Jul, [facility] [place] [facility] [address] [id number] [place] [address] Jun, [facility] [place] [facility] [address] [id number] [place] [address]12 Jun, 2014 [facility] [place] [facility] [address] [id number] [place] [address]- 2745 May, [facility] [place] [facility] [address] [id number] [place] [address]- 0997 May, [facility] [place] [facility] [address] [id number] [place] [address]- 4446 Apr, [facility] [place] [facility] [address] [id number] [place] [address]- 0154 Apr, [facility] [place] [facility] [address] [id number] [place] [address]- 2538 Feb, [facility] [place] [facility] [address] [id number] [place] [address]- 9091 Feb, [facility] [place] [facility] [address] [id number] [place] [address]- 2466 Feb, [facility] [place] [facility] [address] [id number] [place] [address]- 8665 Feb, [facility] [place] [facility] [address] [id number] [place] [address]- 8776 Feb, [facility] [place] [facility] [address] [id number] [place] [address]- 5873 Feb, [facility] [place] [facility] [address] [id number] [place] [address]- 4353 Feb, [facility] [place] [facility] [address] [id number] [place] [address]- 8938 Feb, [facility] [place] [facility] [address] [id number] [place] [address]- 3669 Jan, [facility] [place] [facility] [address] [id number] [place] [address]- 0000 Jan, [facility] [place] [facility] [address] [id number] [place] [address]- 4815 Jan, [facility] [place] [facility] [address] [id number] [place] [address]- 4365 Jan, [facility] [place] [facility] [address] [id number] [place] [address]- 8101 Dec, [facility] [place] [facility] [address] [id number] [place] [address]- 0086 Dec, [facility] [place] [facility] [address] [id number] [place] [address]- 0016 Dec, [facility] [place] [facility] [address] [id number] [place] [address]- 2118 Dec, [facility] [place] [facility] [address] [id number] [place] [address]- 8726 Nov, [facility] [place] [facility] [address] [id number] [place] [address]- 8365 Nov, [facility] [place] [facility] [address] [id number] [place] [address]- 1835 Nov, [facility] [place] [facility] [address] [id number] [place] [address]- 1886 Oct, [facility] [place] [facility] [address] [id number] [place] [address]- 8858 Oct, [facility] [place] [facility] [address] [id number] [place] [address]- 6414 Aug, [facility] [place] [facility] [address] [id number] [place] [address]- 1470 Aug, [facility] [place] [facility] [address] [id number] [place] [address]- 9994 Aug, [facility] [place] [facility] [address] [id number], [place] [address]- 7935 Aug, [facility] [place] [facility] [address] [id number] [place] [address]- 3191 Aug, [facility] [place] [facility] [address] [id number] [place] [address]- 4358 Aug, [facility] [place] [facility] [address] [id number] [place] [address]- 4851 Aug, [facility] [place] [facility] [address] [id number] [place] [address]- 1156 Aug, [facility] [place] [facility] [address] [id number] [place] [address]- 1172 Jul, [facility] [place] [facility] [address] [id number] [place] [address]- 4521 Jul, [facility] [place] [facility] [address] [id number] [place] [address]- 3708 Apr, [facility] [place] [facility] [address] [id number] [place] [address]- 4715 Apr, [facility] [place] [facility] [address] [id number] [place] [address]- 5797 Apr, [facility] [place] [facility] [address] [id number] [place] [address]- 3431 Apr, [facility] [place] [facility] [address] [id number], [place] [address]- 5585 31 Feb, 2013 [facility] [place] [facility] [address] [id number] [place] [address]- 1709 31 Feb, 2013 [facility] [place] [facility] [address] [id number] [place] [address]- 8509 28 Feb, 2013 [facility] [place] [facility] [address] [id number] [place] [address]- 1062 28 Feb, 2013 [facility] [place] [facility] [address] [id number] [place] [address]- 8733 15 Feb, 2013 [facility] [place] [facility] [address] [facility] [place] [id number], [place] [address]- 6701 Feb, [facility] [id number] [address]- 2694 Feb, [facility] [address] [place] [address]- 5158 Feb, [facility] [id number] 9616 Jan, [facility] [address] [place] [address]- 1036 Jan, [facility] [address] [address]99 Nov, [facility] [address], [place] [address]- 8313 September, IMMUNIZATIONS No Known Immunizations SOCIAL HISTORY Never Assessed REASON FOR VISIT Pneumonia-Terri, Saw Dr. Rivera last week and her chest xrays showed possible pneumonia, we have given her an rx already which she completed with no improvement PLAN OF CARE Activity Details Follow Up 3 Months Reason:chm/copd VITAL SIGNS Height 64 in 2017-05-19 Weight 130.0 lbs 2017-05-19 Temperature 97.7 degrees Fahrenheit 2017-05-19 Heart Rate 80 bpm 2017-05-19 Respiratory Rate 20 2017-05-19 Oximetry on room air:97 % 2017-05-19 BMI 22.31 kg/m2 2017-05-19 Blood pressure systolic 124 mmHg 2017-05-19 Blood pressure diastolic 76 mmHg 2017-05-19 MEDICATIONS Medication Instructions Dosage Frequency Start Date End Date Duration Status Citalopram Hydrobromide 20 mg Orally Once a day TAKE ONE TABLET BY MOUTH ONCE DAILY 24h 90 days Active Oxygen 2LPM PRN Active Hydrochlorothiazide 12.5 MG Orally Once a day 1 tablet 24h 15 Jan, 2016 90 days Active Albuterol Sulfate 2.5 mg /3 mL (0.083 %) Inhalation every 4 hrs 1 Each by Inhalation route every 4 hours for cough and wheeze PRN for wheezing or cough 4h Feb, Active Zyrtec Allergy 10 mg Orally Once a day 1 tablet as needed 24h Active Biotin 300 MCG Orally Once a day 1 tablet 24h Active Amitriptyline HCl 75 MG Orally Once a day at HS 1 tablet 90 days Active Lisinopril 10 mg Orally Once a day take 1 tablet by Oral route 1 time per day Take in am 24h 90 Active Spiriva HandiHaler 18 MCG Inhalation Once a day 1 capsule 24h Active Pantoprazole Sodium 40 mg Orally Once a day 1 tablet 24h 90 days Active Singulair 10 mg Orally Once a day 1 tablet in the evening 24h 90 days Active Aspirin 81 mg chew 1 tablet (81 mg) by oral route once daily Nov, Active HydrOXYzine HCl 25 mg 1 tablet by Oral route 4 times per day PRN Apr Not-Taking Flonase 50 MCG/ACT Nasally Once a day 1 spray in each nostril 24h Active Symbicort 160-4.5 MCG/ACT Inhalation Twice a day INHALE TWO PUFFS BY MOUTH TWICE DAILY 12h Active Atorvastatin Calcium 20 MG TAKE ONE TABLET BY MOUTH ONCE DAILY 90 Active Fish Oil 1000 MG Orally Once a day 1 capsule 24h Active Lyrica 50 mg Orally Three times a day 1 capsule 8h Feb, 90 days Active RESULTS No Results PROCEDURES Procedure Date Ordered Result Body Site MEASURE BLOOD OXYGEN LEVEL May 19, 2017 [facility] VISIT ESTABLISHED PATIENT May 19, 2017 INSTRUCTIONS MEDICATIONS ADMINISTERED No Known Medications [...]
--- OUTSIDE RECORDS SUMMARY | 2018-07-11 08:25 | XMS REPORT ---
Author Author CARLOS Queen Organization [facility] Address Unknown Care Team Providers Care Licensed Practical Nurse Instructor Name Role Phone alfredoalfredoANGELAIDEN CARLOS Unavailable PROBLEMS Type Condition ICD9-CM Code IGP05-DW Code Onset Dates Condition Status SNOMED Code Problem History of long-term use of multiple prescription drugs Z92.29 Active 880837447 Problem Chronic obstructive pulmonary disease, unspecified COPD type J44.9 Active 75589866 Problem Osteoarthritis of multiple joints, unspecified osteoarthritis type M15.9 Active 748144880 Problem Abnormal CT scan, chest R93.8 Active 075686176 Problem COPD with exacerbation J44.1 Active 673652614 Problem Hepatitis C B19.20 Active 48066419 Problem Essential hypertension I10 Active 02286800 Problem Low HDL (under 40) E78.6 Active 921955845 Problem Wheezing R06.2 Active 49964488 Problem Neuropathy of ankle, 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 Active 627653345 Problem Nerve pain M79.2 Active 34252826 Problem Neuropathy G62.9 Active 915365009 Problem History of tobacco abuse Z87.891 Active 4751104076917 Problem Major depressive disorder, recurrent, in full remission F33.42 Active 508824476 Problem Environmental allergies Z91.09 Active 192541792 ALLERGIES Substance Reaction Event Type Date Status Morphine Unknown Drug Allergy Jun, Active SOCIAL HISTORY Never Assessed PLAN OF CARE Activity Details Follow Up prn Reason:shen VITAL SIGNS Height 64 in 2016-07-20 Blood pressure systolic 143 mmHg 2016-07-20 Blood pressure diastolic 96 mmHg 2016-07-20 MEDICATIONS Medication Instructions Dosage Frequency Start Date End Date Duration Status Citalopram Hydrobromide 20 mg Orally Once a day TAKE ONE TABLET BY MOUTH ONCE DAILY 24h Active Aspirin 81 mg chew 1 tablet (81 mg) by oral route once daily Nov, Active Albuterol Sulfate 2.5 mg /3 mL (0.083 %) Inhalation every 4 hrs 1 Each by Inhalation route every 4 hours for cough and wheeze PRN for wheezing or cough 4h Feb, Active Singulair 10 mg Orally Once a day 1 tablet in the evening 24h Active Oxygen 2LPM PRN Active Amitriptyline HCl 75 MG Orally Once a day at HS 1 tablet 90 days Active Spiriva HandiHaler 18 MCG Inhalation Once a day 1 capsule 24h Active Lyrica 50 mg Orally Three times a day 1 capsule 8h Feb, 90 days Active Promethazine-Codeine 6.25-10 MG/5ML Orally every 6 hrs 5 ml as needed 6h Apr, Active PredniSONE 10 mg Orally Once a day 3 tabs x 3 days, 2 tabs x 3 days, 1 tab x 3 days 24h Apr, Active Lisinopril 10 mg Orally Once a day take 1 tablet by Oral route 1 time per day Take in am 24h Apr, Active Symbicort 160-4.5 MCG/ACT Inhalation Twice a day INHALE TWO PUFFS BY MOUTH TWICE DAILY 12h Active Flonase 50 MCG/ACT Nasally Once a day 1 spray in each nostril 24h Active Biotin 300 MCG Orally Once a day 1 tablet 24h Active Cetirizine HCl Active Hydrochlorothiazide 12.5 MG Orally Once a day 1 tablet 24h Jan, Active Fish Oil 1000 MG Orally Once a day 1 capsule 24h Active Zyrtec Allergy 10 mg Orally Once a day 1 tablet as needed 24h Active Amoxicillin 500 MG Orally 4 times daily 1 capsule 7 days Active HydrOXYzine HCl 25 mg 1 tablet by Oral route 4 times per day PRN Apr Active Atorvastatin Calcium 20 MG TAKE ONE TABLET BY MOUTH ONCE DAILY 90 Active RESULTS No Results PROCEDURES Procedure Date Ordered Result Body Site EXTRAC ERUPTED TOOTH/EXPOSED ROOT Jul 20, 2016 EXTRAC ERUPTED TOOTH/EXPOSED ROOT Jul 20, 2016 IMMUNIZATIONS No Known Immunizations MEDICAL (GENERAL) [...]
--- OUTSIDE RECORDS SUMMARY | 2018-07-11 08:25 | XMS REPORT ---
Author Author GUILLE SCHWARZ Organization [facility] Address [address] [place] [address] Care Team Providers Care Lvn Name Role Phone GUILLE SCHWARZ Unavailable PROBLEMS Type Condition ICD9-CM Code [id number] Code Onset Dates Condition Status SNOMED Code Problem History of long-term use of multiple prescription drugs Z92.29 Active 223647561 Problem Chronic obstructive pulmonary disease, unspecified COPD type J44.9 Active 59841116 Problem Osteoarthritis of multiple joints, unspecified osteoarthritis type M15.9 Active 195081812 Problem Abnormal CT scan, chest R93.8 Active 575004394 Problem COPD with exacerbation J44.1 Active 052553509 Problem Hepatitis C B19.20 Active 09024081 Problem Essential hypertension I10 Active 94847814 Problem Low HDL (under 40) E78.6 Active 425284703 Problem Wheezing R06.2 Active 07910706 Problem Neuropathy of ankle, 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 Active 187412810 Problem Nerve pain M79.2 Active 09554247 Problem Neuropathy G62.9 Active 992142032 Problem History of tobacco abuse Z87.891 Active 4374169606576 Problem Major depressive disorder, recurrent, in full remission F33.42 Active 901492808 Problem Environmental allergies Z91.09 Active 734008760 ALLERGIES No Information SOCIAL HISTORY Never Assessed PLAN OF CARE VITAL SIGNS MEDICATIONS Medication Instructions Dosage Frequency Start Date End Date Duration Status Amoxicillin 875 MG Orally every 12 hrs 1 tablet 12h Jul, 07 days Active Diflucan 100 MG 1 tablet Jul, 1 dose Active RESULTS No Results PROCEDURES No Known procedures IMMUNIZATIONS No Known Immunizations MEDICAL (GENERAL) HISTORY [...]
--- OUTSIDE RECORDS SUMMARY | 2018-07-11 08:26 | XMS REPORT ---
Author Author TOMMY ROBLEDO Organization [facility] Address [address] [place] [address] Care Team Providers Care Product Picker Name Role Phone VENKAT TOMMY Unavailable PROBLEMS Type Condition ICD9-CM Code IJV75-HH Code Onset Dates Condition Status SNOMED Code Problem Chronic obstructive pulmonary disease, unspecified COPD type J44.9 Active 05317366 Problem Hepatitis C B19.20 Active 82490943 Problem Essential hypertension I10 Active 04431436 Problem Tobacco abuse counseling Z71.6 Active 757713377 Problem Tobacco abuse Z72.0 Active 633454545 Problem Abnormal CT scan, chest R93.8 Active 392152645 Problem Low HDL (under 40) E78.6 Active 202605736 Problem Chronic fatigue R53.82 Active 88059673 Problem GERD with esophagitis K21.0 Active 694263500 Problem Major depressive disorder, recurrent, in full remission F33.42 Active 703959279 Problem Nerve pain M79.2 Active 13662542 Problem Environmental allergies Z91.09 Active 439191014 Problem Neuropathy G62.9 Active 882622859 Problem Osteoarthritis of multiple joints, unspecified osteoarthritis type M15.9 Active 729027335 ALLERGIES No Information ENCOUNTERS Encounter Location Date Diagnosis [facility] [address] [facility] [id number] [address] Aug, Essential hypertension I10 ; Chronic obstructive [...] Z72.0 and Tobacco abuse counseling Z71.6 [facility] [id number] [place] [address] Aug, Low back pain M54.5 and Right flank pain R10.9 [facility] [address] [address] Jun, [facility] [id number] [place] [address]370- 7077 May, Nerve pain M79.2 [facility] [address] [address] May, Cough R05 and Chronic obstructive pulmonary disease, unspecified COPD type J44.9 [place] [address] [address] Apr, Chronic obstructive pulmonary disease, unspecified COPD type J44.9 [place] [address] [address] Mar, COPD with exacerbation J44.1 [place] [address] [address] Mar, Environmental allergies Z91.09 ; Chronic obstructive pulmonary disease, unspecified COPD type J44.9 ; Major depressive disorder, recurrent, in full remission F33.42 and Nerve pain M79.2 [place] [address] [address] Feb, Chronic obstructive pulmonary disease, unspecified COPD type J44.9 ; Essential hypertension I10 ; Hepatitis C B19.20 ; Abnormal CBC R79.89 ; Encounter for immunization Z23 ; GERD with esophagitis K21.0 ; Weight loss R63.4 and Chronic fatigue R53.82 [place] [address] [address] Dec, [place] [address] [address] Dec, Other injury of unspecified body region T14.8 and Laceration without foreign body, left lower leg, subsequent encounter S81.812D [place] [id number] [place] [address]885- 4104 Dec, Nerve pain M79.2 [facility] [id number] [place] [address] Nov, Unspecified open wound, left lower leg, initial encounter S81.802A [place] [id number] [place] [address]40- 6486 Nov, Encounter for immunization Z23 [place] [id number] [place] [address] 09462- 3316 Oct, [address] [address] September, Chronic obstructive pulmonary disease, unspecified COPD type J44.9 ; Essential hypertension I10 ; Low HDL (under 40) E78.6 ; Major depressive disorder, recurrent, in full remission F33.42 ; Neuropathy G62.9 and Weight loss R63.4 [place] [id number] [place] [address] 71392- 9636 Aug, Chronic obstructive pulmonary disease, unspecified COPD type J44.9 ; COPD with exacerbation J44.[address] scan, chest R93.8 [place] [id number] [place] [address]- 3662 Aug, [place] [id number] [place] [address] 09278- 3168 Aug, [place] [id number] [place] [address] 89681- 5873 Aug, Hemoptysis R04.2 [place] [id number] [place] [address]64- 8074 Aug, Follow-up visit after completion of treatment Z09 and Pneumonia of right lower lobe due to Mycoplasma pneumoniae J15.7 [place] [id number] [place] [address] 33195- 9747 Jul, Cough R05 ; Fever, unspecified fever cause R50.9 and Community acquired pneumonia J18.9 [facility] [id number] [place] [address]14- 1271 15 Jul, 2016 Routine gynecological examination Z01.419 and Yeast infection of the vagina B37.3 [facility] [id number] [place] [address] 08763- 7510 07 Jul, 2016 Routine gynecological examination Z01.419 ; Laceration of right ear without foreign body, initial encounter S01.311A and Yeast infection of the vagina B37.3 [facility] [id number] [place] [address] 86403- 1321 28 Jun, 2016 Essential hypertension I10 ; Chronic obstructive pulmonary disease, unspecified COPD type J44.9 and Major depressive disorder, recurrent, in full remission F33.42 [facility] [address] [id number] Jun, Dental examination Z01.20 [facility] [address] [id number] Jun, Dental caries K02.9 [facility] [address] [address]- [address] Apr, Dental examination Z01.20 [facility] [id number] [place] [address] 8[address]30- 1170 Apr, Chronic obstructive pulmonary disease, unspecified COPD type J44.9 ; Earlobe lesion, right H61.91 and Acute bronchitis, unspecified organism J20.9 [facility] [address] [place] [address] Apr, Subacute ethmoidal sinusitis J01.20 and Cough R05 [facility] [address] 225[address]- 78[address] Apr, [facility] [address] [address] 3697 Mar, Nerve pain M79.2 ; Chronic obstructive pulmonary disease, unspecified COPD type J44.9 ; Depression, unspecified depression type F32.9 ; Essential hypertension I10 ; Low HDL (under 40) E78.6 ; History of long-term use of multiple prescription drugs Z92.29 and Environmental allergies Z91.09 [place] [address] [address] Feb, [address] [address] Jan, [place] [address] [address] Jan, [address] [address]65- 6014 Jan, Dysuria R30.0 ; Flank pain R10.9 ; Encounter for immunization Z23 and Essential hypertension I10 [address] [address]- 8433 Dec, [address] 12[address]- 1689 Dec, [address] [address]- 0798 Nov, Dependent edema R60.[address] 93054- 0996 Oct, Chronic obstructive pulmonary disease, unspecified COPD type J44.9 ; Osteoarthritis of multiple joints, unspecified osteoarthritis type M15.9 ; Essential hypertension I10 ; Environmental allergies Z91.09 ; Depression , unspecified depression type F32.9 ; Nerve pain M79.2 ; Low HDL (under 40) E78.6 and Wheezing R06.[address] [address]- [address] September, Routine health maintenance Z00.00 ; Chronic obstructive pulmonary disease, unspecified COPD type J44.9 ; Essential hypertension I10 and Hyperlipidemia E78.[address] [address]- [address] September, Routine health maintenance Z00.00 ; Chronic obstructive pulmonary disease, unspecified COPD type J44.9 ; Essential hypertension I10 ; Hyperlipidemia E78.5 ; Osteoarthritis of multiple joints, unspecified osteoarthritis type M15.9 ; History of long-term use of multiple prescription drugs Z92.29 ; History of tobacco abuse Z87.891 ; Nerve pain M79.2 and Depression, unspecified depression type F32.9 [facility] [address] [address] September, [place] [address] [address]67[address] Aug, Routine health maintenance Z00.00 ; Hepatitis C B19.20 ; Chronic obstructive pulmonary disease, unspecified COPD type J44.9 ; Osteoarthritis of multiple joints, unspecified osteoarthritis type M15.9 ; History of long-term use of multiple prescription drugs Z92.29 ; Essential hypertension I10 ; History of tobacco abuse Z87.891 ; Nerve pain M79.2 ; Depression, unspecified depression type F32.9 and Hyperlipidemia E78.5 [place] [id number] [place] [address] 96793- 0907 Aug, [facility] [id number] [place] [address] Jul, Acute bacterial sinusitis J01.90 and Chronic obstructive pulmonary disease, unspecified COPD type J44.9 [place] [id number] [place] [address] 20846- 8309 Jul, Chronic obstructive pulmonary disease with (acute) exacerbation J44.1 [facility] [id number] [place] [address] 35043- 2167 Jun, [address] 9[address]- 7698 Jun, Nerve pain M79.2 [place] [id number] [place] [address] 25465- 5652 14 [place], 2016 Essential hypertension I10 ; Nerve pain M79.2 ; Osteoarthritis of multiple joints, unspecified osteoarthritis type M15.9 ; History of long-term use of multiple prescription drugs Z92.29 ; Depression, unspecified depression type F32.9 ; Hyperlipidemia E78.5 ; Chronic obstructive pulmonary disease, unspecified COPD type J44.9 ; Environmental allergies Z91.09 ; Anxiety F41.9 and Hepatitis C virus infection without hepatic coma, unspecified chronicity B19.[address] [address]- [address] Apr, Bronchitis J40 [facility] [address] [address] Apr, Acute left otitis media H66.92 ; Seasonal allergies J30.2 and Emphysema J43.[address] 36472- 8868 Mar, Acute exacerbation of emphysema J43.9 and Emphysema with chronic bronchitis J44.[address] 02666- 2520 Feb, [address] 21374- 1178 Feb, Sciatica, unspecified side M54.[address] 3[address]- 0493 08 Feb, 2015 Encounter for immunization Z23 [address] 44[address]- 1183 Jan, [address] 15086- 1478 Jan, COPD with exacerbation 491.[address] 78913- 3662 Dec, Encounter for long-term (current) use of other medications V58.69 and Sciatica 724.[address] 89972- 0203 Dec, [facility] [address] [address] Nov, Cramp of limb 729.82 and Shortness of breath 786.05 [facility] [address] [address]- [address] Nov, Shortness of breath 786.05 [facility] [address] [place] [address] 16632- 5858 Oct, Essential hypertension, benign 401.1 [facility] [address] [place] [address] 18423- 2606 Oct, [facility] [id number] [place] [address] 630082- 2952 Oct, Shortness of breath 786.05 ; Other and unspecified hyperlipidemia 272.4 ; Essential hypertension, benign 401.1 and Cramp of limb 729.82 [facility] [address] [address]40 Oct, Shortness of breath 786.05 and Cramp of limb 729.82 [facility] [address] [place] [address] 065326- 7339 Oct, Shortness of breath 786.05 [facility] [address] [address] 29[address] 14 Aug, 2014 [facility] [address] [address]- 0163 Aug, [facility] [address] [address]- 5985 Jul, [facility] [id number] [address]- 5726 Jul, [facility] [address] [address]- 3616 Jul, [facility] [address] [place] [address] 41717- 8870 Jul, [facility] [place] [facility] [address] [id number] [place] [address]- 8430 Jun, [facility] [place] [facility] [address] [id number] [place] [address]- 8326 Jun, [facility] [place] [facility] [address] [id number] [place] [address]- 5860 May, [facility] [place] [facility] [address] [id number] [place] [address]- [address] May, [facility] [place] [facility] [address] [id number] [place] [address] Apr, [facility] [place] [facility] [address] [id number] [place] Apr, [facility] [place] [facility] [address] [id number] [place] [address]- 1363 Feb, [facility] [place] [facility] [address] [id number] [place] [address]- 7506 Feb, [facility] [place] [facility] [address] [id number] [place] [address]- 9608 Feb, [facility] [place] [facility] [address] [id number] [place] [address]- 2100 Feb, [facility] [place] [facility] [address] [id number] [address]- 2026 Feb, [facility] [place] [facility] [address] [id number] [address]- 2736 Feb, [facility] [place] [facility] [address] [id number] [place] [address] Feb, [facility] [place] [facility] [address] [id number] [address]- 8859 Feb, [facility] [place] [facility] [address] [id number] [place] [address]- 4846 Jan, [facility] [place] [facility] [address] [id number] [place] [address]- 8407 Jan, [facility] [place] [facility] [address] [id number] [place] [address]- 4235 Jan, [facility] [place] [facility] [address] [id number] [place] [address]- 9966 Jan, [facility] [place] [facility] [address] [id number] [place] [address]- 8960 Dec, [facility] [place] [facility] [address] [id number] [place] [address]- 9915 Dec, [facility] [place] [facility] [address] [id number] [place] [address]- 9056 Dec, [facility] [place] [facility] [address] [id number] [place] [address]- 8682 Dec, [facility] [place] [facility] [address] [id number] [place] [address]- 1936 Nov, [facility] [place] [facility] [address] [id number] [place] [address]- 6966 Nov, [facility] [place] [facility] [address] [id number] [place] [address]- 1355 Nov, [facility] [place] [facility] [address] [id number] [place] [address]- 1117 Oct, [facility] [place] [facility] [address] [id number] [place] [address]- 5495 Oct, [facility] [place] [facility] [address] [id number] [place] [address]- 9667 Aug, [facility] [place] [facility] [address] [id number] [place] [address]- 9147 Aug, [facility] [place] [facility] [address] [id number] [place] [address]- 4378 Aug, [facility] [place] [facility] [address] [id number] [place] [address]- 7412 Aug, [facility] [place] [facility] [address] [id number] [place] [address]- 0742 Aug, [facility] [place] [facility] [address] [id number] [place] [address]- 5207 Aug, [facility] [place] [facility] [address] [id number] [place] [address]- 0646 Aug, [facility] [place] [facility] [address] [id number] [place] [address]- 2951 Aug, [facility] [address] [id number] [place] [address]- 1082 Jul, [facility] [place] [facility] [address] [id number] [place] [address]- 5452 Jul, [facility] [address] [id number] [place] [address]- 4885 Apr, [facility] [address] [id number] [place] [address]- 8695 Apr, [facility] [place] [facility] [address] [id number] [place] [address]- 8372 Apr, [facility] [place] [facility] [address] [id number] [place] [address]- 8557 Apr, [facility] [place] [facility] [address] [id number] [place] [address]- 9776 Feb, [facility] [place] [facility] [address] [id number] [address]- 5755 31 Feb, 2013 [facility] [place] [facility] [address] [id number] [place] [address]- 3220 Feb, [facility] [place] [facility] [address] [id number] [place] [address]- 3928 28 Feb, 2013 [facility] [place] [facility] [address] [id number] [place] [address]- 3584 15 Feb, 2013 [facility] [place] [facility] [address] [id number] [place] [address]- 2546 Feb, [facility] [address] [facility] [id number] [place] [address]- 2546 Feb, [facility] [address] [facility] [id number] [address]- 2546 Feb, [facility] [address] [facility] [id number] [address]- 2546 Jan, [facility] [address] [facility] [id number] [address]- 2546 Jan, [facility] [address] [facility] [id number] [address]- 2546 Nov, [facility] [address] [facility] [id number] [address] 2546 September, IMMUNIZATIONS No Known Immunizations SOCIAL HISTORY Never Assessed REASON FOR VISIT medication refills PLAN OF CARE VITAL SIGNS MEDICATIONS Medication Instructions Dosage Frequency Start Date End Date Duration Status Zyrtec Allergy 10 mg Orally Once a day 1 tablet as needed 24h Active Atorvastatin Calcium 20 MG TAKE ONE TABLET BY MOUTH ONCE DAILY 90 Active Lyrica 50 mg Orally Three times a day 1 capsule 8h Feb, 90 days Active Lisinopril 10 mg Orally Once a day take 1 tablet by Oral route 1 time per day Take in am 24h 90 Active Singulair 10 mg Orally Once a day 1 tablet in the evening 24h 90 days Active Amitriptyline HCl 75 MG Orally Once a day at HS 1 tablet 90 days Active RESULTS No Results PROCEDURES No [...]
--- OUTSIDE RECORDS SUMMARY | 2018-07-11 08:26 | XMS REPORT ---
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 Name Role Phone VENKAT TOMMY Unavailable PROBLEMS Type Condition ICD9-CM Code BJC53-AC Code Onset Dates Condition Status SNOMED Code Problem Chronic obstructive pulmonary disease, unspecified COPD type J44.9 Active 57924634 Problem Hepatitis C B19.20 Active 88821336 Problem Essential hypertension I10 Active 99065039 Problem Tobacco abuse counseling Z71.6 Active 577676615 Problem Tobacco abuse Z72.0 Active 776192354 Problem Abnormal CT scan, chest R93.8 Active 031392566 Problem Low HDL (under 40) E78.6 Active 989538584 Problem Chronic fatigue R53.82 Active 44916882 Problem GERD with esophagitis K21.0 Active 464371204 Problem Major depressive disorder, recurrent, in full remission F33.42 Active 575920183 Problem Nerve pain M79.2 Active 95615647 Problem Environmental allergies Z91.09 Active 112481436 Problem Neuropathy G62.9 Active 145519987 Problem Osteoarthritis of multiple joints, unspecified osteoarthritis type M15.9 Active 411064904 ALLERGIES No Information ENCOUNTERS Encounter Location Date Diagnosis [facility] [address] [facility] [id number] [address] Aug, Essential hypertension I10 ; Chronic obstructive [...] abuse Z72.0 and Tobacco abuse counseling Z71.6 [facility] [id number] [place] [address] Aug, Low back pain M54.5 and Right flank pain R10.9 [facility] [address] [address] Jun, [facility] [id number] [place] [address]8810- 5736 May, Nerve pain M79.2 [facility] [address] [address] May, Cough R05 and Chronic obstructive pulmonary disease, unspecified COPD type J44.9 [place] [address] [address]- [address] Apr, Chronic obstructive pulmonary disease, unspecified COPD type J44.9 [place] [address] [address]31- 8365 Mar, COPD with exacerbation J44.1 [place] [address] [address]- 98[address] Mar, Environmental allergies Z91.09 ; Chronic obstructive pulmonary disease, unspecified COPD type J44.9 ; Major depressive disorder, recurrent, in full remission F33.42 and Nerve pain M79.2 [place] [address] [address] Feb, Chronic obstructive pulmonary disease, unspecified COPD type J44.9 ; Essential hypertension I10 ; Hepatitis C B19.20 ; Abnormal CBC R79.89 ; Encounter for immunization Z23 ; GERD with esophagitis K21.0 ; Weight loss R63.4 and Chronic fatigue R53.82 [place] [address] [address]- [address] Dec, [place] [address] [address]39- 5286 Dec, Other injury of unspecified body region T14.8 and Laceration without foreign body, left lower leg, subsequent encounter S81.812D [place] [address] [place] [address] 07504- 7797 Dec, Nerve pain M79.2 [facility] [id number] [place] [address]9916 Nov, Unspecified open wound, left lower leg, initial encounter S81.802A [place] [id number] [place] [address] 34613- 1532 Nov, Encounter for immunization Z23 [place] [id number] [place] [address] 86216- 1877 Oct, [address] [address]- [address] September, Chronic obstructive pulmonary disease, unspecified COPD type J44.9 ; Essential hypertension I10 ; Low HDL (under 40) E78.6 ; Major depressive disorder, recurrent, in full remission F33.42 ; Neuropathy G62.9 and Weight loss R63.4 [place] [id number] [place] [address] 70446- 7116 Aug, Chronic obstructive pulmonary disease, unspecified COPD type J44.9 ; COPD with exacerbation J44.[address] scan, chest R93.8 [place] [id number] [place] [address] 02896- 8463 Aug, [place] [address] [id number] [place] [address] 92295- 6852 Aug, [place] [id number] [place] [address] 08195- 5877 Aug, Hemoptysis R04.2 [place] [id number] [place] [address] 71930- 8872 Aug, Follow-up visit after completion of treatment Z09 and Pneumonia of right lower lobe due to Mycoplasma pneumoniae J15.7 [place] [id number] [place] [address] 29342- 3710 Jul, Cough R05 ; Fever, unspecified fever cause R50.9 and Community acquired pneumonia J18.9 [facility] [id number] [place] [address] 21227- 3629 15 Jul, 2016 Routine gynecological examination Z01.419 and Yeast infection of the vagina B37.3 [facility] [id number] [place] [address] 49833- 0191 07 Jul, 2016 Routine gynecological examination Z01.419 ; Laceration of right ear without foreign body, initial encounter S01.311A and Yeast infection of the vagina B37.3 [facility] [id number] [place] [address] 86795- 1899 28 Jun, 2016 Essential hypertension I10 ; Chronic obstructive pulmonary disease, unspecified COPD type J44.9 and Major depressive disorder, recurrent, in full remission F33.42 [facility] [address] [id number] Jun, Dental examination Z01.20 [facility] [address] [id number] Jun, Dental caries K02.9 [facility] [address] 87877- 0581 Apr, Dental examination Z01.20 [facility] [id number] [place] [address] 37284- 0316 Apr, Chronic obstructive pulmonary disease, unspecified COPD type J44.9 ; Earlobe lesion, right H61.91 and Acute bronchitis, unspecified organism J20.9 [facility] [address] [place] [address]1472 -4411 Apr, Subacute ethmoidal sinusitis J01.20 and Cough R05 [facility] [address] 98864- 9071 Apr, [facility] [address] 84419- 7597 Mar, Nerve pain M79.2 ; Chronic obstructive pulmonary disease, unspecified COPD type J44.9 ; Depression, unspecified depression type F32.9 ; Essential hypertension I10 ; Low HDL (under 40) E78.6 ; History of long-term use of multiple prescription drugs Z92.29 and Environmental allergies Z91.09 [place] [address] 70021- 3499 Feb, [address] 52471- 0342 Jan, [place] [address] 26[address]- 4101 Jan, [address] 20952- 6962 Jan, Dysuria R30.0 ; Flank pain R10.9 ; Encounter for immunization Z23 and Essential hypertension I10 [address] 18793- 0642 Dec, [address] 86624- 4489 Dec, [address] 57826- 3702 Nov, Dependent edema R60.[address] 15057- 2889 Oct, Chronic obstructive pulmonary disease, unspecified COPD type J44.9 ; Osteoarthritis of multiple joints, unspecified osteoarthritis type M15.9 ; Essential hypertension I10 ; Environmental allergies Z91.09 ; Depression , unspecified depression type F32.9 ; Nerve pain M79.2 ; Low HDL (under 40) E78.6 and Wheezing R06.[address] 05913- 97[address] September, Routine health maintenance Z00.00 ; Chronic obstructive pulmonary disease, unspecified COPD type J44.9 ; Essential hypertension I10 and Hyperlipidemia E78.[address] 43030- 1059 September, Routine health maintenance Z00.00 ; Chronic obstructive pulmonary disease, unspecified COPD type J44.9 ; Essential hypertension I10 ; Hyperlipidemia E78.5 ; Osteoarthritis of multiple joints, unspecified osteoarthritis type M15.9 ; History of long-term use of multiple prescription drugs Z92.29 ; History of tobacco abuse Z87.891 ; Nerve pain M79.2 and Depression, unspecified depression type F32.9 [facility] [address] 88846- 2107 September, [place] [address] 16932- 9064 Aug, Routine health maintenance Z00.00 ; Hepatitis C B19.20 ; Chronic obstructive pulmonary disease, unspecified COPD type J44.9 ; Osteoarthritis of multiple joints, unspecified osteoarthritis type M15.9 ; History of long-term use of multiple prescription drugs Z92.29 ; Essential hypertension I10 ; History of tobacco abuse Z87.891 ; Nerve pain M79.2 ; Depression, unspecified depression type F32.9 and Hyperlipidemia E78.5 [place] [address] [id number] [place] [address] 40706- 5149 Aug, [facility] [id number] [place] [address] 23587 -7302 Jul, Acute bacterial sinusitis J01.90 and Chronic obstructive pulmonary disease, unspecified COPD type J44.9 [place] [id number] [place] [address] 67561- 2825 Jul, Chronic obstructive pulmonary disease with (acute) exacerbation J44.1 [facility] [id number] [place] [address] 13597- 7348 Jun, [address] 87887- 9978 Jun, Nerve pain M79.2 [place] [id number] [place] [address] 16144- 5671 14 [place], 2016 Essential hypertension I10 ; [...] infection without hepatic coma, unspecified chronicity B19.[address] 94505- 0906 Apr, Bronchitis J40 [facility] IN [facility] [address] [address] Apr, Acute left otitis media H66.92 ; Seasonal allergies J30.2 and Emphysema J43.[address] 88784- 2073 Mar, Acute exacerbation of emphysema J43.9 and Emphysema with chronic bronchitis J44.[address] 14125- 0085 Feb, [address] 50649- 6716 Feb, Sciatica, unspecified side M54.[address] 27909- 4347 08 Feb, 2015 Encounter for immunization Z23 [address] 13718- 9895 Jan, [address] 75189- 1294 Jan, COPD with exacerbation 491.[address] 17919- 1240 Dec, Encounter for long-term (current) use of other medications V58.69 and Sciatica 724.[address] 93148- 7248 Dec, [facility] [address] Nov, Cramp of limb 729.82 and Shortness of breath 786.05 [facility] [address] [address]- 3[address] Nov, Shortness of breath 786.05 [facility] [address] [place] [address] 64303- 5684 Oct, Essential hypertension, benign 401.1 [facility] [address] [place] [address] 20976- 9487 Oct, [facility] [id number] [place] [address] 806172- 5273 Oct, Shortness of breath 786.05 ; Other and unspecified hyperlipidemia 272.4 ; Essential hypertension, benign 401.1 and Cramp of limb 729.82 [facility] [address] [address]- 4690 Oct, Shortness of breath 786.05 and Cramp of limb 729.82 [facility] [address] [place] [address] 693450- 2932 Oct, Shortness of breath 786.05 [facility] [address] [address]- 6642 14 Aug, 2014 [facility] [address] [address]- 77[address] Aug, [facility] [address] [address]- 4300 Jul, [facility] [id number] [address]- 6188 Jul, [facility] [address] [address]- 9206 Jul, [facility] [address] [place] [address] 35174- 1755 Jul, [facility] [place] [facility] [address] [id number] [place] [address]- 6657 Jun, [facility] [place] [facility] [address] [id number] [place] [address]- 5497 Jun, [facility] [place] [facility] [address] [id number] [place] [address]- 7259 May, [facility] [place] [facility] [address] [id number] [place] [address]- 5670 May, [facility] [place] [facility] [address] [id number] [place] [address] Apr, [facility] [place] [facility] [address] [id number] [place] [address] Apr, [facility] [place] [facility] [address] [id number] [place] [address]- 6896 Feb, [facility] [place] [facility] [address] [id number] [place] [address]- 9115 Feb, [facility] [place] [facility] [address] [id number] [place] [address]- 3042 Feb, [facility] [place] [facility] [address] [id number] [place] [address]- 4278 Feb, [facility] [place] [facility] [address] [id number], [place] [address]- 1373 Feb, [facility] [place] [facility] [address] [id number], [place] [address]- 6986 Feb, [facility] [place] [facility] [address] [id number] [place] [address] Feb, [facility] [place] [facility] [address] [id number], [place] [address]- 3013 Feb, [facility] [place] [facility] [address] [id number] [place] [address]- 3419 Jan, [facility] [place] [facility] [address] [id number] [place] [address]- 1948 Jan, [facility] [place] [facility] [address] [id number] [place] [address]- 9010 Jan, [facility] [place] [facility] [address] [id number] [place] [address]- 4919 Jan, [facility] [place] [facility] [address] [id number] [place] [address]- 5455 Dec, [facility] [place] [facility] [address] [id number] [place] [address]- 1062 Dec, [facility] [place] [facility] [address] [id number] [place] [address]- 6119 Dec, [facility] [place] [facility] [address] [id number] [place] [address]- 2410 Dec, [facility] [place] [facility] [address] [id number] [place] [address]- 8235 Nov, [facility] [place] [facility] [address] [id number] [place] [address]- 9464 Nov, [facility] [place] [facility] [address] [id number] [place] [address]- 6993 Nov, [facility] [place] [facility] [address] [id number] [place] [address]- 4874 Oct, [facility] [place] [facility] [address] [id number] [place] [address]- 4307 Oct, [facility] [place] [facility] [address] [id number] [place] [address]- 7828 Aug, [facility] [place] [facility] [address] [id number] [place] [address]- 9086 Aug, [facility] [place] [facility] [address] [id number] [place] [address]- 7395 Aug, [facility] [place] [facility] [address] [id number] [place] [address]- 8223 Aug, [facility] [place] [facility] [address] [id number] [place] [address]- 1699 Aug, [facility] [place] [facility] [address] [id number] [place] [address]- 9315 Aug, [facility] [place] [facility] [address] [id number] [place] [address]- 6161 Aug, [facility] [place] [facility] [address] [id number] [place] [address]- 5588 Aug, [facility] [address] [id number] [place] [address]- 3085 Jul, [facility] [place] [facility] [address] [id number] [place] [address]- 9957 Jul, [facility] [address] [id number] [place] [address]- 7373 Apr, [facility] [address] [id number] [place] [address]- 1780 Apr, [facility] [place] [facility] [address] [id number] [place] [address]- 4959 Apr, [facility] [place] [facility] [address] [id number] [place] [address]- 7608 Apr, [facility] [place] [facility] [address] [id number] [place] [address]- 0449 Feb, [facility] [place] [facility] [address] [id number], [place] [address]- 6168 31 Feb, 2013 [facility] [place] [facility] [address] [id number] [place] [address]- 5660 Feb, [facility] [place] [facility] [address] [id number] [place] [address]- 0437 28 Feb, 2013 [facility] [place] [facility] [address] [id number] [place] [address]- 5137 15 Feb, 2013 [facility] [place] [facility] [address] [id number] [place] [address]- 2546 Feb, [facility] [address] [facility] [id number], [place] [address] 2546 Feb, [facility] [address] [facility] [id number], [place] [address]- 2546 Feb, [facility] [address] [facility] [id number], [place] [address]- 2546 Jan, [facility] [address] [facility] [id number], [place] [address]- 2546 Jan, [facility] [address] [facility] [id number], [place] [address]- 4916 Nov, [facility] [address] [facility] [id number], [place] [address]- 5486 September, IMMUNIZATIONS No Known Immunizations SOCIAL HISTORY [...]
--- OUTSIDE RECORDS SUMMARY | 2018-07-11 08:27 | XMS REPORT ---
Author Author TOMMY ROBLEDO Organization [facility] Address [address] [place] [address] Care Team Providers Care Crane Ladle Person Name Role Phone ROBLEDOHARLEEN ChaudharyELE Unavailable PROBLEMS Type Condition ICD9-CM Code HXW36-ZT Code Onset Dates Condition Status SNOMED Code Problem Chronic obstructive pulmonary disease, unspecified COPD type J44.9 Active 03619459 Problem Hepatitis C B19.20 Active 37381915 Problem Essential hypertension I10 Active 07450672 Problem Tobacco abuse counseling Z71.6 Active 652403287 Problem Tobacco abuse Z72.0 Active 210632821 Problem Abnormal CT scan, chest R93.8 Active 847783594 Problem Low HDL (under 40) E78.6 Active 788278399 Problem Chronic fatigue R53.82 Active 26921618 Problem GERD with esophagitis K21.0 Active 192221442 Problem Major depressive disorder, recurrent, in full remission F33.42 Active 753209835 Problem Nerve pain M79.2 Active 15081940 Problem Environmental allergies Z91.09 Active 398752657 Problem Neuropathy G62.9 Active 538054348 Problem Osteoarthritis of multiple joints, unspecified osteoarthritis type M15.9 Active 630976990 ALLERGIES Substance Reaction Event Type Date Status Morphine Unknown Drug Allergy Mar, Active ENCOUNTERS Encounter Location Date Diagnosis [facility] [address] [facility] [id number] [address] Aug, Essential hypertension I10 ; Chronic obstructive [...] [facility] [id number] [place] [address] Aug, Low back pain M54.5 and Right flank pain R10.9 [place] [id number] [place] [address]54- 1826 Jun, [place] [address] [address] May, Nerve pain M79.2 [facility] [address] [address] May, Cough R05 and Chronic obstructive pulmonary disease, unspecified COPD type J44.9 [place] [address] 47[address]- 9297 Apr, Chronic obstructive pulmonary disease, unspecified COPD type J44.9 [place] [address] [address]- 0976 Mar, COPD with exacerbation J44.[address] [address]- [address] Mar, Environmental allergies Z91.09 ; Chronic obstructive pulmonary disease, unspecified COPD type J44.9 ; Major depressive disorder, recurrent, in full remission F33.42 and Nerve pain M79.2 [place] [id number] [place] [address] 70657- 2094 Feb, Chronic obstructive pulmonary disease, unspecified COPD type J44.9 ; Essential hypertension I10 ; Hepatitis C B19.20 ; Abnormal CBC R79.89 ; Encounter for immunization Z23 ; GERD with esophagitis K21.0 ; Weight loss R63.4 and Chronic fatigue R53.82 [place] [id number] [place] [address] 56008- 5358 Dec, [place] [id number] [place] [address] 97661- 9558 Dec, Other injury of unspecified body region T14.8 and Laceration without foreign body, left lower leg, subsequent encounter S81.812D [facility] [id number] [place] [address] 10223- 7386 Dec, Nerve pain M79.2 [facility] [id number] [place] [address] Nov, Unspecified open wound, left lower leg, initial encounter S81.802A [facility] [address] [address] Nov, Encounter for immunization Z23 [facility] [address] 7[address]- 7490 Oct, [place] [address] 8[address]- [address] September, Chronic obstructive pulmonary disease, unspecified COPD type J44.9 ; Essential hypertension I10 ; Low HDL (under 40) E78.6 ; Major depressive disorder, recurrent, in full remission F33.42 ; Neuropathy G62.9 and Weight loss R63.4 [facility] [id number] [place] [address] 96875- 6045 Aug, Chronic obstructive pulmonary disease, unspecified COPD type J44.9 ; COPD with exacerbation J44.[address] scan, chest R93.8 [place] [id number] [place] [address] 20926- 0507 Aug, [place] [id number] [place] [address] 67918- 4339 Aug, [place] [id number] [place] [address] 34617- 2572 Aug, Hemoptysis R04.2 [place] [id number] [place] [address] 45648- 4031 Aug, Follow-up visit after completion of treatment Z09 and Pneumonia of right lower lobe due to Mycoplasma pneumoniae J15.7 [place] [id number] [place] [address] 76327- 7873 30 Jul, 2016 Cough R05 ; Fever, unspecified fever cause R50.9 and Community acquired pneumonia J18.9 [facility] [address] [address]- [address] 15 Jul, 2016 Routine gynecological examination Z01.419 and Yeast infection of the vagina B37.3 [facility] [address] [address]18- [address] 07 Jul, 2016 Routine gynecological examination Z01.419 ; Laceration of right ear without foreign body, initial encounter S01.311A and Yeast infection of the vagina B37.3 [place] [address] 38122- 1713 Jun, Essential hypertension I10 ; Chronic obstructive pulmonary disease, unspecified COPD type J44.9 and Major depressive disorder, recurrent, in full remission F33.42 [facility] [address] [id number] Jun, Dental examination Z01.20 [facility] [address] [id number] Jun, Dental caries K02.9 [facility] [address] 37683- 8136 Apr, Dental examination Z01.20 [facility] [id number] [place] [address] 20187- 4317 Apr, Chronic obstructive pulmonary disease, unspecified COPD type J44.9 ; Earlobe lesion, right H61.91 and Acute bronchitis, unspecified organism J20.9 [facility] [id number] [place] [address] -0393 Apr, Subacute ethmoidal sinusitis J01.20 and Cough R05 [facility] [id number] [place] [address] 93790- 7899 Apr, [facility] [address] 47631- 1099 Mar, Nerve pain M79.2 ; Chronic obstructive pulmonary disease, unspecified COPD type J44.9 ; Depression, unspecified depression type F32.9 ; Essential hypertension I10 ; Low HDL (under 40) E78.6 ; History of long-term use of multiple prescription drugs Z92.29 and Environmental allergies Z91.09 [place] [id number] [place] [address] 70269- 6785 Feb, [place] [address] 34520[address] 4[address] Jan, [place] [address] 59605- 0329 Jan, [address] 13496- 2785 Jan, Dysuria R30.0 ; Flank pain R10.9 ; Encounter for immunization Z23 and Essential hypertension I10 [address] 9[address]16- 2816 Dec, [place] [address] 95462- 3286 Dec, [address] 12861- 1458 Nov, Dependent edema R60.[address] 10517- 0558 Oct, Chronic obstructive pulmonary disease, unspecified COPD type J44.9 ; Osteoarthritis of multiple joints, unspecified osteoarthritis type M15.9 ; Essential hypertension I10 ; Environmental allergies Z91.09 ; Depression , unspecified depression type F32.9 ; Nerve pain M79.2 ; Low HDL (under 40) E78.6 and Wheezing R06.[address] 080[address]- 6[address] September, Routine health maintenance Z00.00 ; Chronic obstructive pulmonary disease, unspecified COPD type J44.9 ; Essential hypertension I10 and Hyperlipidemia E78.5 [place] [id number] [place] [address] 29552- 3708 September, Routine health maintenance Z00.00 ; Chronic obstructive pulmonary disease, unspecified COPD type J44.9 ; Essential hypertension I10 ; Hyperlipidemia E78.5 ; Osteoarthritis of multiple joints, unspecified osteoarthritis type M15.9 ; History of long-term use of multiple prescription drugs Z92.29 ; History of tobacco abuse Z87.891 ; Nerve pain M79.2 and Depression, unspecified depression type F32.9 [facility] [address] 56278- 7640 September, [address] [address] Aug, Hepatitis C B19.20 ; Routine health maintenance Z00.00 ; Chronic obstructive pulmonary disease, unspecified COPD type J44.9 ; Osteoarthritis of multiple joints, unspecified osteoarthritis type M15.9 ; History of long-term use of multiple prescription drugs Z92.29 ; Essential hypertension I10 ; History of tobacco abuse Z87.891 ; Nerve pain M79.2 ; Depression, unspecified depression type F32.9 and Hyperlipidemia E78.[address] 16880- 9471 Aug, [facility] [id number] [place] [address] 61041 [address]1766 Jul, Acute bacterial sinusitis J01.90 and Chronic obstructive pulmonary disease, unspecified COPD type J44.9 [facility] [address] [place] [id number] [place] [address] 16567- 3532 Jul, Chronic obstructive pulmonary disease with (acute) exacerbation J44.[address] 69158- 8623 Jun, [address] 79153- 4006 Jun, Nerve pain M79.2 [facility] [address] [place] [address]109- 2283 May, Essential hypertension I10 ; Nerve pain M79.2 ; Osteoarthritis of multiple joints, unspecified osteoarthritis type M15.9 ; History of long-term use of multiple prescription drugs Z92.29 ; Depression, unspecified depression type F32.9 ; Hyperlipidemia E78.5 ; Chronic obstructive pulmonary disease, unspecified COPD type J44.9 ; Environmental allergies Z91.09 ; Anxiety F41.9 and Hepatitis C virus infection without hepatic coma, unspecified chronicity B19.20 [place] [address] 39695- 3020 Apr, Bronchitis J40 [facility] [address] [place] [address]751 -[address]67 Apr, Acute left otitis media H66.92 ; Seasonal allergies J30.2 and Emphysema J43.[address] 01022- 1898 Mar, Acute exacerbation of emphysema J43.9 and Emphysema with chronic bronchitis J44.[address] 28582- 4896 Feb, [address] 63724- 8802 Feb, Sciatica, unspecified side M54.[address] 46473- 4989 Feb, Encounter for immunization Z23 [address] 31469- 3339 Jan, [address] 11014- 2573 Jan, COPD with exacerbation 491.[address] 96109- 8786 Dec, Encounter for long-term (current) use of other medications V58.69 and Sciatica 724.[address] [place] [address]- 4726 Dec, [facility] [address] [place] [address] 49600- 9170 Nov, Cramp of limb 729.82 and Shortness of breath 786.05 [facility] [address] [address] Nov, Shortness of breath 786.05 [facility] [id number] [place] [address] 19963- 0432 Oct, Essential hypertension, benign 401.1 [facility] [id number] [place] [address] 870654- 8839 Oct, [facility] [id number] [place] [address] 27674- 3893 Oct, Shortness of breath 786.05 ; Other and unspecified hyperlipidemia 272.4 ; Essential hypertension, benign 401.1 and Cramp of limb 729.82 [facility] [address] [address]- 27[address] Oct, Shortness of breath 786.05 and Cramp of limb 729.82 [facility] [id number] [place] [address] 83845- 7947 Oct, Shortness of breath 786.05 [facility] [address] [address]- 2667 14 Aug, 2014 [facility] [address] [place] [address] 64775- 6601 Aug, [facility] [address] [address] 8818 Jul, [facility] [id number] [place] [address] 562548- 8006 Jul, [facility] [address] [address] Jul, [facility] [id number] [place] [address]851 Jul, [facility] [place] [facility] [address] [id number] [place] [address] Jun, [facility] [place] [facility] [address] [id number] [place] [address] Jun, 2014 [facility] [place] [facility] [address] [id number] [place] [address]- 6968 May, [facility] [place] [facility] [address] [id number] [place] [address]- 6684 May, [facility] [place] [facility] [address] [id number] [place] [address]- 5975 Apr, [facility] [place] [facility] [address] [id number] [place] [address]- 5889 Apr, [facility] [place] [facility] [address] [id number] [place] [address]- 2289 Feb, [facility] [place] [facility] [address] [id number] [place] [address]- 2119 Feb, [facility] [place] [facility] [address] [id number] [place] [address]- 6480 Feb, [facility] [place] [facility] [address] [id number] [place] [address]- 5331 Feb, [facility] [place] [facility] [address] [id number] [place] [address]- 3428 Feb, [facility] [place] [facility] [address] [id number] [place] [address]- 5417 Feb, [facility] [place] [facility] [address] [id number] [place] [address]- 8731 Feb, [facility] [place] [facility] [address] [id number] [place] [address]- 3644 Feb, [facility] [place] [facility] [address] [id number] [place] [address]- 5460 Jan, [facility] [place] [facility] [address] [id number] [place] [address]- 3098 Jan, [facility] [place] [facility] [address] [id number] [place] [address]- 1605 Jan, [facility] [place] [facility] [address] [id number] [place] [address]- 7954 Jan, [facility] [place] [facility] [address] [id number] [place] [address]- 9028 Dec, [facility] [place] [facility] [address] [id number] [place] [address]- 8125 Dec, [facility] [place] [facility] [address] [id number] [place] [address]- 8559 Dec, [facility] [place] [facility] [address] [id number] [place] [address]- 8852 Dec, [facility] [place] [facility] [address] [id number] [place] [address]- 3208 Nov, [facility] [place] [facility] [address] [id number] [place] [address]- 9214 Nov, [facility] [place] [facility] [address] [id number] [place] [address]- 0476 Nov, [facility] [place] [facility] [address] [id number] [place] [address]- 6107 Oct, [facility] [place] [facility] [address] [id number] [place] [address]- 6376 Oct, [facility] [place] [facility] [address] [id number] [place] [address]- 6544 Aug, [facility] [place] [facility] [address] [id number] [place] [address]- 3995 Aug, [facility] [place] [facility] [address] [id number] [place] [address]- 1269 Aug, [facility] [place] [facility] [address] [id number], [place] [address]- 6445 Aug, [facility] [place] [facility] [address] [id number] [place] [address]- 2635 Aug, [facility] [place] [facility] [address] [id number] [place] [address]- 1434 Aug, [facility] [place] [facility] [address] [id number] [place] [address]- 2708 Aug, [facility] [place] [facility] [address] [id number] [place] [address]- 7620 Aug, [facility] [place] [facility] [address] [id number] [place] [address]- 5124 Jul, [facility] [place] [facility] [address] [id number] [place] [address]- 9290 Jul, [facility] [place] [facility] [address] [id number] [place] [address]- 7297 Apr, [facility] [place] [facility] [address] [id number] [place] [address]- 8239 Apr, [facility] [place] [facility] [address] [id number] [place] [address]- 1147 Apr, [facility] [place] [facility] [address] [id number] [place] [address]- 8369 Apr, [facility] [place] [facility] [address] [id number], [place] [address]- 2643 31 Feb, 2013 [facility] [place] [facility] [address] [id number] [place] [address]- 8322 31 Feb, 2013 [facility] [place] [facility] [address] [id number] [place] [address]- 2419 28 Feb, 2013 [facility] [place] [facility] [address] [id number] [place] [address]- 7737 28 Feb, 2013 [facility] [place] [facility] [address] [id number] [place] [address]- 6652 15 Feb, 2013 [facility] [place] [facility] [address] [facility] [id number] [address] 2546 Feb, [facility] [address] [id number], [place] [address]- 8185 Feb, [facility] [id number] [address]- 3786 Feb, [facility] [id number], [place] [address]- 7296 Jan, [facility] [id number], [place] [address]- 4596 Jan, [facility] [id number], [place] [address]- 3500 Nov, [facility] [address] [facility] [id number], [place] [address]- 1706 September, IMMUNIZATIONS No Known Immunizations SOCIAL HISTORY Never Assessed REASON FOR VISIT Respiratory: ongoing cough, worse at night, productive thick green sputum. Has been taking previous Rx for codeine cough syrup. Is wearing o2 more during the day. mitzy juárez PLAN OF CARE Activity Details Follow Up 3 Months, prn Reason: VITAL SIGNS Height 64 in 2017-04-26 Weight 134 lbs 2017-04-26 Temperature 97.7 degrees Fahrenheit 2017-04-26 Heart Rate 93 bpm 2017-04-26 Respiratory Rate 22 2017-04-26 Oximetry on room air:92 % 2017-04-26 BMI 23.00 kg/m2 2017-04-26 Blood pressure systolic 110 mmHg 2017-04-26 Blood pressure diastolic 72 mmHg 2017-04-26 MEDICATIONS Medication Instructions Dosage Frequency Start Date End Date Duration Status PredniSONE 20 mg Orally Once a day 1 tablet 24h Mar, Apr, 07 days Active Singulair 10 mg Orally Once a day 1 tablet in the evening 24h 90 days Active Citalopram Hydrobromide 20 mg Orally Once a day TAKE ONE TABLET BY MOUTH ONCE DAILY 24h 90 days Active Biotin 300 MCG Orally Once a day 1 tablet 24h Active HydrOXYzine HCl 25 mg 1 tablet by Oral route 4 times per day PRN Apr Not-Taking Oxygen 2LPM PRN Active Amitriptyline HCl 75 MG Orally Once a day at HS 1 tablet 90 days Active Albuterol Sulfate 2.5 mg /3 mL (0.083 %) Inhalation every 4 hrs 1 Each by Inhalation route every 4 hours for cough and wheeze PRN for wheezing or cough 4h 21 Feb, 2014 Active Spiriva HandiHaler 18 MCG Inhalation Once a day 1 capsule 24h Active Hydrochlorothiazide 12.5 MG Orally Once a day 1 tablet 24h 15 Jan, 2016 90 days Active Flonase 50 MCG/ACT Nasally Once a day 1 spray in each nostril 24h Active Aspirin 81 mg chew 1 tablet (81 mg) by oral route once daily Nov, Active Atorvastatin Calcium 20 MG TAKE ONE TABLET BY MOUTH ONCE DAILY 90 Active Zyrtec Allergy 10 mg Orally Once a day 1 tablet as needed 24h Active Fish Oil 1000 MG Orally Once a day 1 capsule 24h Active Doxycycline Monohydrate 100 mg Orally every 12 hrs 1 capsule 12h Mar, Apr, 10 days Active Symbicort 160-4.5 MCG/ACT Inhalation Twice a day INHALE TWO PUFFS BY MOUTH TWICE DAILY 12h Active Lyrica 50 mg Orally Three times a day 1 capsule 8h Feb, 90 days Active Lisinopril 10 mg Orally Once a day take 1 tablet by Oral route 1 time per day Take in am 24h 90 Active Pantoprazole Sodium 40 mg Orally Once a day 1 tablet 24h 90 days Active RESULTS No Results PROCEDURES Procedure Date Ordered Result Body Site MEASURE BLOOD OXYGEN LEVEL Apr 26, 2017 [facility] VISIT ESTABLISHED PATIENT Apr 26, 2017 INSTRUCTIONS MEDICATIONS ADMINISTERED No Known Medications [...]
--- OUTSIDE RECORDS SUMMARY | 2018-07-11 08:27 | XMS REPORT ---
Author Author CARLOS Queen Organization [facility] Address Unknown Care Team Providers Care Hand Tile Maker Name Role Phone alfredoCARLOS Moore Unavailable PROBLEMS Type Condition ICD9-CM Code [id number] Code Onset Dates Condition Status SNOMED Code Problem History of long-term use of multiple prescription drugs Z92.29 Active 969591563 Problem Chronic obstructive pulmonary disease, unspecified COPD type J44.9 Active 32080367 Problem Osteoarthritis of multiple joints, unspecified osteoarthritis type M15.9 Active 102644901 Problem Abnormal CT scan, chest R93.8 Active 991616673 Problem COPD with exacerbation J44.1 Active 593098337 Problem Hepatitis C B19.20 Active 67448621 Problem Essential hypertension I10 Active 72933049 Problem Low HDL (under 40) E78.6 Active 090932461 Problem Wheezing R06.2 Active 55727656 Problem Neuropathy of ankle, 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 Active 119748900 Problem Nerve pain M79.2 Active 48714162 Problem Neuropathy G62.9 Active 976710055 Problem History of tobacco abuse Z87.891 Active 9759194690320 Problem Major depressive disorder, recurrent, in full remission F33.42 Active 437663900 Problem Environmental allergies Z91.09 Active 018260955 ALLERGIES Substance Reaction Event Type Date Status Morphine Unknown Drug Allergy Apr, Active SOCIAL HISTORY No smoking Hx information available PLAN OF CARE Activity Details Follow Up prn Reason:te 14 and 15 VITAL SIGNS MEDICATIONS Medication Instructions Dosage Frequency Start Date End Date Duration Status Atorvastatin Calcium 20 mg Orally Once a day 1 tablet 24h Active Aspirin 81 mg chew 1 tablet (81 mg) by oral route once daily Nov, Active Zyrtec Allergy 10 mg Orally Once a day 1 tablet as needed 24h Active Amitriptyline HCl 75 MG Orally Once a day at HS 1 tablet 90 days Active Lisinopril 10 mg Orally Once a day take 1 tablet by Oral route 1 time per day Take in am 24h Apr, Active Flonase 50 MCG/ACT Nasally Once a day 1 spray in each nostril 24h Active Fish Oil 1000 MG Orally Once a day 1 capsule 24h Active Amoxicillin 500 MG Orally 4 times daily 1 capsule 7 days Active Spiriva HandiHaler 18 MCG Inhalation Once a day 1 capsule 24h Active Citalopram Hydrobromide 20 mg Orally Once a day TAKE ONE TABLET BY MOUTH ONCE DAILY 24h Active Albuterol Sulfate 2.5 mg /3 mL (0.083 %) Inhalation every 4 hrs 1 Each by Inhalation route every 4 hours for cough and wheeze PRN for wheezing or cough 4h Feb, Active Symbicort 160-4.5 MCG/ACT Inhalation Twice a day INHALE TWO PUFFS BY MOUTH TWICE DAILY 12h Active Biotin 300 MCG Orally Once a day 1 tablet 24h Active PredniSONE 10 mg Orally Once a day 3 tabs x 3 days, 2 tabs x 3 days, 1 tab x 3 days 24h Apr, Active Hydrochlorothiazide 12.5 MG Orally Once a day 1 tablet 24h Jan, Active Lyrica 50 mg Orally Three times a day 1 capsule 8h Feb, 90 days Active Singulair 10 mg Orally Once a day 1 tablet in the evening 24h Active Oxygen 2LPM PRN Active HydrOXYzine HCl 25 mg 1 tablet by Oral route 4 times per day PRN Apr Active Promethazine-Codeine 6.25-10 MG/5ML Orally every 6 hrs 5 ml as needed 6h Apr, Active RESULTS No Results PROCEDURES Procedure Date Ordered Related Diagnosis Body Site LTD ORAL EVALUATION - PROBLEM FOCUS May 26, 2016 INTRAORL-PERIAPICAL 1 FILM 55215 May 26, 2016 BITEWING - SINGLE FILM May 26, 2016 IMMUNIZATIONS No Known Immunizations
--- OUTSIDE RECORDS SUMMARY | 2018-07-11 08:27 | XMS REPORT ---
Author Author GUILLE SCHWARZ [facility] Address [address] [place] [address] Care Team Providers Care Flamer After Lasting Name Role Phone GUILLE SCHWARZ Unavailable PROBLEMS Type Condition ICD9-CM Code [id number] Code Onset Dates Condition Status SNOMED Code Problem History of long-term use of multiple prescription drugs Z92.29 Active 588823495 Problem Chronic obstructive pulmonary disease, unspecified COPD type J44.9 Active 48481485 Problem Osteoarthritis of multiple joints, unspecified osteoarthritis type M15.9 Active 344907931 Problem Abnormal CT scan, chest R93.8 Active 985892618 Problem COPD with exacerbation J44.1 Active 217830486 Problem Hepatitis C B19.20 Active 77007314 Problem Essential hypertension I10 Active 63037236 Problem Low HDL (under 40) E78.6 Active 139762475 Problem Wheezing R06.2 Active 84366817 Problem Neuropathy of ankle, 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 Active 681265566 Problem Nerve pain M79.2 Active 29667510 Problem Neuropathy G62.9 Active 125623131 Problem History of tobacco abuse Z87.891 Active 0268220735315 Problem Major depressive disorder, recurrent, in full remission F33.42 Active 932279505 Problem Environmental allergies Z91.09 Active 363189664 ALLERGIES Substance Reaction Event Type Date Status Morphine Unknown Drug Allergy Jul, Active SOCIAL HISTORY Never Assessed PLAN OF CARE Activity Details Follow Up 1 Year sooner prn Reason: VITAL SIGNS Height 64 in 2016-08-03 Weight 169.8 lbs 2016-08-03 Temperature 97.8 degrees Fahrenheit 2016-08-03 Heart Rate 82 bpm 2016-08-03 Respiratory Rate 20 2016-08-03 BMI 29.14 kg/m2 2016-08-03 Blood pressure systolic 118 mmHg 2016-08-03 Blood pressure diastolic 82 mmHg 2016-08-03 MEDICATIONS Medication Instructions Dosage Frequency Start Date End Date Duration Status Lyrica 50 mg Orally Three times a day 1 capsule 8h 29 Feb, 2015 90 days Active HydrOXYzine HCl 25 mg 1 tablet by Oral route 4 times per day PRN Apr Active Symbicort 160-4.5 MCG/ACT Inhalation Twice a day INHALE TWO PUFFS BY MOUTH TWICE DAILY 12h Active Zyrtec Allergy 10 mg Orally Once a day 1 tablet as needed 24h Active Bactroban 2 % Externally Three times a day 1 application to affected area 8h Jul, Jul, 10 days Active Aspirin 81 mg chew 1 tablet (81 mg) by oral route once daily Nov, Active Albuterol Sulfate 2.5 mg /3 mL (0.083 %) Inhalation every 4 hrs 1 Each by Inhalation route every 4 hours for cough and wheeze PRN for wheezing or cough 4h Feb, Active Fish Oil 1000 MG Orally Once a day 1 capsule 24h Active Diflucan 100 MG 1 tablet Jul, Jul, 1 dose Active Citalopram Hydrobromide 20 mg Orally Once a day TAKE ONE TABLET BY MOUTH ONCE DAILY 24h 90 days Active Spiriva HandiHaler 18 MCG Inhalation Once a day 1 capsule 24h Active Singulair 10 mg Orally Once a day 1 tablet in the evening 24h 90 days Active Flonase 50 MCG/ACT Nasally Once a day 1 spray in each nostril 24h Active Oxygen 2LPM PRN Active Keflex 250 MG Orally every 6 hrs 1 capsule 6h Jul, Jul, 10 day(s) Active Atorvastatin Calcium 20 MG TAKE ONE TABLET BY MOUTH ONCE DAILY 90 Active Lisinopril 10 mg Orally Once a day take 1 tablet by Oral route 1 time per day Take in am 24h Apr, Active Hydrochlorothiazide 12.5 MG Orally Once a day 1 tablet 24h Jan, 90 days Active Biotin 300 MCG Orally Once a day 1 tablet 24h Active Amitriptyline HCl 75 MG Orally Once a day at HS 1 tablet 90 days Active Amoxicillin 875 MG Orally every 12 hrs 1 tablet 12h Jul, Jul, 07 days Active RESULTS Name Result Date Reference Range CULTURE, GENITAL 2016-08-03 Genital Culture, Routine Final report Result 1 Result 2 Result 3 Yeast isolated. TRICHOMONAS (IN HOUSE) 2016-08-03 TRICHOMONAS negative Control + Lot # [id number] Exp date 06/2017 Mammogram, Bilateral Screening 2016-08-06 PAP TEST W/ HPV REGARDLESS 2016-08-03 DIAGNOSIS: Specimen adequacy: Clinician provided ICD10: Performed by: Electronically signed by: . . Note: HPV, high-risk Negative Negative PDF Report 2016-08-03 PDF Report1 LCLS BACTERIAL VAGINOSIS (IN HOUSE) 2016-08-03 RESULTS negative Control + Lot # [id number] Exp date 01/2017 PROCEDURES Procedure Date Ordered Result Body Site SPECIMEN HANDLING August 03, 2016 [facility] August [facility], 2016 ANNUAL WELLNESS VST; PPS SUBSQT VST August 03, 2016 BARRAZA VAG, DNA, DIR PROBE August 03, 2016 IMMUNIZATIONS No Known Immunizations MEDICAL (GENERAL) [...]
--- OUTSIDE RECORDS SUMMARY | 2018-07-11 08:27 | XMS REPORT ---
Author Author VENKAT TOMMY Organization [facility] Address [address] [place] [address] Care Team Providers Care Public Relations Supervisor Name Role Phone VENKAT TOMMY Unavailable PROBLEMS Type Condition ICD9-CM Code [id number] Code Onset Dates Condition Status SNOMED Code Problem History of long-term use of multiple prescription drugs Z92.29 Active 174795609 Problem Chronic obstructive pulmonary disease, unspecified COPD type J44.9 Active 52602801 Problem Osteoarthritis of multiple joints, unspecified osteoarthritis type M15.9 Active 994648908 Problem Abnormal CT scan, chest R93.8 Active 886782839 Problem COPD with exacerbation J44.1 Active 998983679 Problem Hepatitis C B19.20 Active 17584000 Problem Essential hypertension I10 Active 86550467 Problem Low HDL (under 40) E78.6 Active 821536920 Problem Wheezing R06.2 Active 77729114 Problem Neuropathy of ankle, 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 Active 622553563 Problem Nerve pain M79.2 Active 20921207 Problem Neuropathy G62.9 Active 292483322 Problem History of tobacco abuse Z87.891 Active 4830451917741 Problem Major depressive disorder, recurrent, in full remission F33.42 Active 361943217 Problem Environmental allergies Z91.09 Active 992435342 ALLERGIES Substance Reaction Event Type Date Status Morphine Unknown Drug Allergy Jun, Active SOCIAL HISTORY Never Assessed PLAN OF CARE Activity Details Follow Up 3 Months, prn Reason:CHM/ needs [employer] VITAL SIGNS Height 64 in 2016-07-27 Weight 166 lbs 2016-07-27 Temperature 98.1 degrees Fahrenheit 2016-07-27 Heart Rate 90 bpm 2016-07-27 Respiratory Rate 20 2016-07-27 BMI 28.49 kg/m2 2016-07-27 Blood pressure systolic 128 mmHg 2016-07-27 Blood pressure diastolic 84 mmHg 2016-07-27 MEDICATIONS Medication Instructions Dosage Frequency Start Date End Date Duration Status Flonase 50 MCG/ACT Nasally Once a day 1 spray in each nostril 24h Active Spiriva HandiHaler 18 MCG Inhalation Once a day 1 capsule 24h Active Singulair 10 mg Orally Once a day 1 tablet in the evening 24h 90 days Active Zyrtec Allergy 10 mg Orally Once a day 1 tablet as needed 24h Active Symbicort 160-4.5 MCG/ACT Inhalation Twice a day INHALE TWO PUFFS BY MOUTH TWICE DAILY 12h Active Biotin 300 MCG Orally Once a day 1 tablet 24h Active Fish Oil 1000 MG Orally Once a day 1 capsule 24h Active Albuterol Sulfate 2.5 mg /3 mL (0.083 %) Inhalation every 4 hrs 1 Each by Inhalation route every 4 hours for cough and wheeze PRN for wheezing or cough 4h Feb, Active Oxygen 2LPM PRN Active Atorvastatin Calcium 20 MG TAKE ONE TABLET BY MOUTH ONCE DAILY 90 Active Hydrochlorothiazide 12.5 MG Orally Once a day 1 tablet 24h 15 Jan, 2016 90 days Active Lyrica 50 mg Orally Three times a day 1 capsule 8h Feb, 90 days Active Citalopram Hydrobromide 20 mg Orally Once a day TAKE ONE TABLET BY MOUTH ONCE DAILY 24h 90 days Active Lisinopril 10 mg Orally Once a day take 1 tablet by Oral route 1 time per day Take in am 24h Apr, Active Aspirin 81 mg chew 1 tablet (81 mg) by oral route once daily Nov, Active Amitriptyline HCl 75 MG Orally Once a day at HS 1 tablet 90 days Active HydrOXYzine HCl 25 mg 1 tablet by Oral route 4 times per day PRN Apr Active RESULTS No Results PROCEDURES Procedure Date Ordered Result Body Site [facility] VISIT ESTABLISHED PATIENT Jul 27, 2016 IMMUNIZATIONS No Known Immunizations MEDICAL (GENERAL) [...]
--- OUTSIDE RECORDS SUMMARY | 2018-07-11 08:27 | XMS REPORT ---
Author Author VENKATHARLEENTOMMY Organization [facility] Address [address] [place] [address] Care Team Providers Care Manufacturing Production Manager Name Role Phone ROBLEDO TOMMY Unavailable PROBLEMS Type Condition ICD9-CM Code [id number] Code Onset Dates Condition Status SNOMED Code Problem Essential hypertension I10 Active 32342480 Problem Osteoarthritis of multiple joints, unspecified osteoarthritis type M15.9 Active 188315942 Problem History of long-term use of multiple prescription drugs Z92.29 Active 345925895 Problem COPD with exacerbation J44.1 Active 984022125 Problem Abnormal CT scan, chest R93.8 Active 185788872 Problem Hepatitis C B19.20 Active 61060241 Problem Chronic obstructive pulmonary disease, unspecified COPD type J44.9 Active 55492870 Problem Low HDL (under 40) E78.6 Active 877199700 Problem Wheezing R06.2 Active 91641589 Problem Major depressive disorder, recurrent, in full remission F33.42 Active 832079249 Problem Environmental allergies Z91.09 Active 179765119 Problem Neuropathy G62.9 Active 513627721 Problem Nerve pain M79.2 Active 03770906 Problem Neuropathy of ankle, 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 Active 047720340 Problem History of tobacco abuse Z87.891 Active 0937409388263 ALLERGIES Substance Reaction Event Type Date Status Morphine Unknown Drug Allergy Apr, Active SOCIAL HISTORY No smoking Hx information available PLAN OF CARE Activity Details Follow Up 3 Months, prn Reason: VITAL SIGNS Height 64 in 2016-05-14 Weight 171.1 lbs 2016-05-14 Temperature 98.5 degrees Fahrenheit 2016-05-14 Heart Rate 80 bpm 2016-05-14 Respiratory Rate 18 2016-05-14 BMI 29.37 kg/m2 2016-05-14 Blood pressure systolic 116 mmHg 2016-05-14 Blood pressure diastolic 82 mmHg 2016-05-14 MEDICATIONS Medication Instructions Dosage Frequency Start Date End Date Duration Status Promethazine-Codeine 6.25-10 MG/5ML Orally every 6 hrs 5 ml as needed 6h Apr, Active Flonase 50 MCG/ACT Nasally Once a day 1 spray in each nostril 24h Active Tessalon Perles 100 MG Orally Three times a day 1 capsule as needed 8h Apr, Apr, 10 days Active Albuterol Sulfate 2.5 mg /3 mL (0.083 %) Inhalation every 4 hrs 1 Each by Inhalation route every 4 hours for cough and wheeze PRN for wheezing or cough 4h Feb, Active Hydrochlorothiazide 12.5 MG Orally Once a day 1 tablet 24h Jan, Active Spiriva HandiHaler 18 MCG Inhalation Once a day 1 capsule 24h Active HydrOXYzine HCl 25 mg 1 tablet by Oral route 4 times per day PRN Apr Active Zyrtec Allergy 10 mg Orally Once a day 1 tablet as needed 24h Active Aspirin 81 mg chew 1 tablet (81 mg) by oral route once daily Nov, Active Citalopram Hydrobromide 20 mg Orally Once a day TAKE ONE TABLET BY MOUTH ONCE DAILY 24h Active PredniSONE 10 mg Orally Once a day 3 tabs x 3 days, 2 tabs x 3 days, 1 tab x 3 days 24h Apr, Active Azithromycin 250 MG Orally Once a day 2 tablets on the first day, then 1 tablet daily for 4 days 24h Apr, Apr, 5 day(s) Active Oxygen 2LPM PRN Active Singulair 10 mg Orally Once a day 1 tablet in the evening 24h Active Biotin 300 MCG Orally Once [...] 1 capsule 8h Feb, 90 days Active Amitriptyline HCl 75 MG Orally Once a day at HS 1 tablet 90 days Active Atorvastatin Calcium 20 mg Orally Once a day 1 tablet 24h Active Fish Oil 1000 MG Orally Once a day 1 capsule 24h Active RESULTS Name Result Date Reference Range Xray : Chest (IN HOUSE) 2016-05-14 PROCEDURES Procedure Date Ordered Related Diagnosis Body Site CHEST X-RAY May 14, 2016 [facility] VISIT ESTABLISHED PATIENT May 14, 2016 Office Visit, Est Pt., Level 3 May 14, 2016 IMMUNIZATIONS No Known Immunizations
--- OUTSIDE RECORDS SUMMARY | 2018-07-11 08:28 | XMS REPORT ---
Author Author ROBLEDOTOMMY Chaudhary Organization [facility] Address [address] [place] [address] Care Team Providers Care Construction Supervisor Name Role Phone ROBLEDOTOMMY Chaudhary Unavailable PROBLEMS Type Condition ICD9-CM Code ZPN99-BA Code Onset Dates Condition Status SNOMED Code Problem History of tobacco abuse Z87.891 Active 7921933106897 Problem Hepatitis C B19.20 Active 08122821 Problem Essential hypertension I10 Active 86148799 Problem Chronic fatigue R53.82 Active 22247760 Problem GERD with esophagitis K21.0 Active 785133919 Problem Low HDL (under 40) E78.6 Active 761364735 Problem Wheezing R06.2 Active 99515012 Problem Ab[address] scan, chest R93.8 Active 299766746 Problem COPD with exacerbation J44.1 Active 491930202 Problem Neuropathy of ankle, 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 Active 924568432 Problem Neuropathy G62.9 Active 324154320 Problem Osteoarthritis of multiple joints, unspecified osteoarthritis type M15.9 Active 948167525 Problem Chronic obstructive pulmonary disease, unspecified COPD type J44.9 Active 25474550 Problem Major depressive disorder, recurrent, in full remission F33.42 Active 520521906 Problem Environmental allergies Z91.09 Active 957475710 Problem History of long-term use of multiple prescription drugs Z92.29 Active 711799986 Problem Nerve pain M79.2 Active 51807571 ALLERGIES No Information ENCOUNTERS Encounter Location Date Diagnosis [facility] [address] [facility] [id number] [address] Aug, [facility] [address] [id number] [address] Aug, Low back pain M54.5 and Right flank pain R10.9 [facility] [address] [id number], [place] [address] Jun, [facility] [id number] [place] [address] 99504- 5840 May, Nerve pain M79.2 [facility] [id number] [place] [address]50 [address]6201 May, Cough R05 and Chronic obstructive pulmonary disease, unspecified COPD type J44.9 [place] [address] [address] Apr, Chronic obstructive pulmonary disease, unspecified COPD type J44.9 [place] [address] 51813- 4795 Mar, COPD with exacerbation J44.1 [place] [address] 40840- 5944 Mar, Environmental allergies Z91.09 ; Chronic obstructive pulmonary disease, unspecified COPD type J44.9 ; Major depressive disorder, recurrent, in full remission F33.42 and Nerve pain M79.2 [facility] [id number] [place] [address] 88878- 7396 Feb, Chronic obstructive pulmonary disease, unspecified COPD type J44.9 ; Essential hypertension I10 ; Hepatitis C B19.20 ; Abnormal CBC R79.89 ; Encounter for immunization Z23 ; GERD with esophagitis K21.0 ; Weight loss R63.4 and Chronic fatigue R53.82 [facility] [id number] [place] [address] 21661- 7530 Dec, [address] [id number] [place] [address] 09904- 6380 Dec, Other injury of unspecified body region T14.8 and Laceration without foreign body, left lower leg, subsequent encounter S81.812D [facility] [id number] [place] [address] 47294- 0101 Dec, Nerve pain M79.2 [facility] [id number] [place] [address] 09588 -[address]150 Nov, Unspecified open wound, left lower leg, initial encounter S81.802A [facility] [place] [id number] [place] [address] 16194- 1235 Nov, Encounter for immunization Z23 [facility] [id number] [place] [address] 34108- 1283 Oct, [place] [address] [address]2655- [address]80 September, Chronic obstructive pulmonary disease, unspecified COPD type J44.9 ; Essential hypertension I10 ; Low HDL (under 40) E78.6 ; Major depressive disorder, recurrent, in full remission F33.42 ; Neuropathy G62.9 and Weight loss R63.4 [facility] [id number] [place] [address] 39693- 4054 Aug, Chronic obstructive pulmonary disease, unspecified COPD type J44.9 ; COPD with exacerbation J44.[address] scan, chest R93.8 [facility] [place] [id number] [place] [address] 78103- 8571 Aug, [place] [address] 96270- 7342 Aug, [facility] [id number] [place] [address] 86662- 0659 Aug, Hemoptysis R04.2 [id number] [place] [address] 04377- 6030 Aug, Follow-up visit after completion of treatment Z09 and Pneumonia of right lower lobe due to Mycoplasma pneumoniae J15.7 [facility] [place] [id number] [place] [address] 68916- 6736 Jul, Cough R05 ; Fever, unspecified fever cause R50.9 and Community acquired pneumonia J18.9 [facility] [id number] [place] [address] 16733- 9698 Jul, Routine gynecological examination Z01.419 and Yeast infection of the vagina B37.3 [facility] [id number] [place] [address] 30864- 9699 Jul, Routine gynecological examination Z01.419 ; Laceration of right ear without foreign body, initial encounter S01.311A and Yeast infection of the vagina B37.3 [facility] [id number] [place] [address] 33619- 2852 28 Jun, 2016 Essential hypertension I10 ; Chronic obstructive pulmonary disease, unspecified COPD type J44.9 and Major depressive disorder, recurrent, in full remission F33.42 [facility] [address] [id number] Jun, Dental examination Z01.20 [facility] [address] [id number] Jun, Dental caries K02.9 [place] [address] 49924- 6690 Apr, Dental examination Z01.20 [facility] [id number] [place] [address] 53640- 3257 Apr, Chronic obstructive pulmonary disease, unspecified COPD type J44.9 ; Earlobe lesion, right H61.91 and Acute bronchitis, unspecified organism J20.9 [facility] [id number] [place] [address] 62210 -6422 Apr, Subacute ethmoidal sinusitis J01.20 and Cough R05 [facility] [id number] [place] [address] 99885- 9981 Apr, [facility] [address] 11365- 8474 Mar, Nerve pain M79.2 ; Chronic obstructive pulmonary disease, unspecified COPD type J44.9 ; Depression, unspecified depression type F32.9 ; Essential hypertension I10 ; Low HDL (under 40) E78.6 ; History of long-term use of multiple prescription drugs Z92.29 and Environmental allergies Z91.09 [place] [address], [place] [address] Feb, [facility] [id number] [place] [address] 41879- 8809 Jan, [facility] [id number] [place] [address] 02867- 0122 Jan, [facility] [id number] [place] [address] 69228- 4545 Jan, Dysuria R30.0 ; Flank pain R10.9 ; Encounter for immunization Z23 and Essential hypertension I10 [address] [address]- [address] Dec, [facility] [id number] [place] [address] 28657- 6189 Dec, [place] [address] 36347- 4997 Nov, Dependent edema R60.9 [place] [id number] [place] [address] 34572- 4242 Oct, Chronic obstructive pulmonary disease, unspecified COPD type J44.9 ; Osteoarthritis of multiple joints, unspecified osteoarthritis type M15.9 ; Essential hypertension I10 ; Environmental allergies Z91.09 ; Depression , unspecified depression type F32.9 ; Nerve pain M79.2 ; Low HDL (under 40) E78.6 and Wheezing R06.2 [place] [id number] [place] [address] 44537- 5934 September, Routine health maintenance Z00.00 ; Chronic obstructive pulmonary disease, unspecified COPD type J44.9 ; Essential hypertension I10 and Hyperlipidemia E78.5 [place] [id number] [place] [address] 00772- 3039 September, Routine health maintenance Z00.00 ; Chronic obstructive pulmonary disease, unspecified COPD type J44.9 ; Essential hypertension I10 ; Hyperlipidemia E78.5 ; Osteoarthritis of multiple joints, unspecified osteoarthritis type M15.9 ; History of long-term use of multiple prescription drugs Z92.29 ; History of tobacco abuse Z87.891 ; Nerve pain M79.2 and Depression, unspecified depression type F32.9 [facility] [address] [place] [id number] [place] [address] 92445- 6915 September, [facility] [id number] [place] [address] 58363- 6083 Aug, Routine health maintenance Z00.00 ; Hepatitis C B19.20 ; Chronic obstructive pulmonary disease, unspecified COPD type J44.9 ; Osteoarthritis of multiple joints, unspecified osteoarthritis type M15.9 ; History of long-term use of multiple prescription drugs Z92.29 ; Essential hypertension I10 ; History of tobacco abuse Z87.891 ; Nerve pain M79.2 ; Depression, unspecified depression type F32.9 and Hyperlipidemia E78.5 [place] [id number] [place] [address] 33996- 2311 Aug, [facility] [id number] [place] [address] 64585 -3936 Jul, Acute bacterial sinusitis J01.90 and Chronic obstructive pulmonary disease, unspecified COPD type J44.9 [id number] [place] [address] 69994- 6393 Jul, Chronic obstructive pulmonary disease with (acute) exacerbation J44.1 [place] [id number] [place] [address] 44634- 9735 Jun, [address] 20711- 1560 Jun, Nerve pain M79.[address] 17943- 4518 May, Essential hypertension I10 ; Nerve pain M79.2 ; Osteoarthritis of multiple joints, unspecified osteoarthritis type M15.9 ; History of long-term use of multiple prescription drugs Z92.29 ; Depression, unspecified depression type F32.9 ; Hyperlipidemia E78.5 ; Chronic obstructive pulmonary disease, unspecified COPD type J44.9 ; Environmental allergies Z91.09 ; Anxiety F41.9 and Hepatitis C virus infection without hepatic coma, unspecified chronicity B19.20 [facility] [address] 90437- 8914 Apr, Bronchitis J40 [facility] [address] 12777 -3073 Apr, Acute left otitis media H66.92 ; Seasonal allergies J30.2 and Emphysema J43.9 [facility] [address] 40975- 8182 Mar, Acute exacerbation of emphysema J43.9 and Emphysema with chronic bronchitis J44.9 [place] [address] 30138- 9781 Feb, [place] [address] 18395- 3382 Feb, Sciatica, unspecified side M54.30 [place] [address] 79579- 3554 Feb, Encounter for immunization Z23 [place] [address] 94485- 8470 Jan, [place] [address] 46460- 5282 Jan, COPD with exacerbation 491.21 [place] [address] 96370- 9459 Dec, Encounter for long-term (current) use of other medications V58.69 and Sciatica 724.3 [place] [address] 33106- 2914 Dec, [place] [address] 72303- 6877 Nov, Cramp of limb 729.82 and Shortness of breath 786.05 [facility] [address] [id number] [address] 8896 Nov, Shortness of breath 786.05 [facility] [id number] [place] [address] 77623- 0849 Oct, Essential hypertension, benign 401.1 [facility] [id number] [place] [address] 20688- 3239 Oct, [facility] [id number] [place] [address] 13446- 4010 Oct, Shortness of breath 786.05 ; Other and unspecified hyperlipidemia 272.4 ; Essential hypertension, benign 401.1 and Cramp of limb 729.82 [facility] [id number] [place] [address] 55392- 8299 Oct, Shortness of breath 786.05 and Cramp of limb 729.82 [facility] [id number] [place] [address] 08865- 9447 Oct, Shortness of breath 786.05 [facility] [id number] [place] [address] 07761- 6796 Aug, [facility] [id number] [place] [address] 18376- 6863 Aug, [facility] [address] [place] [address] 37243- 5690 Jul, [facility] [address] [place] [address] 55312- 9297 Jul, [facility] [address] [place] [address] 65440- 1705 Jul, [facility] [id number] [place] [address] 17429- 6763 Jul, [facility] [address] [place] [address] 310240- 6850 Jun, [facility] [id number] [place] [address] 29824- 6891 Jun, [facility] [place] [facility] [address] [id number] [place] [address]- 3059 May, [facility] [place] [facility] [address] [id number] [place] [address]26 May, [facility] [place] [facility] [address] [id number] [place] [address]- 4578 Apr, [facility] [place] [facility] [address] [id number] [place] [address]- 4273 Apr, [facility] [place] [facility] [address] [id number] [place] [address]- 5890 Feb, [facility] [place] [facility] [address] [id number] [place] [address]- 5920 Feb, [facility] [place] [facility] [address] [id number] [place] [address]- 8245 Feb, [facility] [place] [facility] [address] [id number] [place] [address]- 1248 Feb, [facility] [place] [facility] [address] [id number] [place] [address]- 4926 Feb, [facility] [place] [facility] [address] [id number] [place] [address]- 8739 Feb, [facility] [place] [facility] [address] [id number] [place] [address]- 5837 Feb, [facility] [place] [facility] [address] [id number] [place] [address]- 0917 Feb, [facility] [place] [facility] [address] [id number] [place] [address]- 9075 Jan, [facility] [place] [facility] [address] [id number] [place] [address]- 4298 Jan, [facility] [place] [facility] [address] [id number] [place] [address]- 4910 Jan, [facility] [place] [facility] [address] [id number] [place] [address]- 5164 Jan, [facility] [place] [facility] [address] [id number] [place] [address]- 6841 Dec, [facility] [place] [facility] [address] [id number] [place] [address]- 2573 Dec, [facility] [place] [facility] [address] [id number] [place] [address]- 6396 Dec, [facility] [place] [facility] [address] [id number] [place] [address]- 4624 Dec, [facility] [place] [facility] [address] [id number] [place] [address]- 0368 Nov, [facility] [place] [facility] [address] [id number] [place] [address]- 6814 Nov, [facility] [place] [facility] [address] [id number] [place] [address]- 5133 Nov, [facility] [place] [facility] [address] [id number] [place] [address]- 3968 Oct, [facility] [place] [facility] [address] [id number] [place] [address]- 2290 Oct, [facility] [place] [facility] [address] [id number] [place] [address]- 0549 Aug, [facility] [place] [facility] [address] [id number] [place] [address]- 8468 Aug, [facility] [place] [facility] [address] [id number] [place] [address]- 9303 Aug, [facility] [place] [facility] [address] [id number] [place] [address]- 1578 Aug, [facility] [place] [facility] [address] [id number] [place] [address]- 4285 Aug, [facility] [place] [facility] [address] [id number] [place] [address]- 8890 Aug, [facility] [place] [facility] [address] [id number] [place] [address]- 9445 Aug, [facility] [place] [facility] [address] [id number] [place] [address]- 1339 Aug, [facility] [place] [facility] [address] [id number] [place] [address]- 4050 Jul, [facility] [place] [facility] [address] [id number] [place] [address]- 6255 Jul, [facility] [place] [facility] [address] [id number] [place] [address]- 7083 Apr, [facility] [place] [facility] [address] [id number] [place] [address]- 2335 Apr, [facility] [place] [facility] [address] [id number] [place] [address]- 5947 Apr, [facility] [place] [facility] [address] [id number] [place] [address]- 9500 Apr, [facility] [place] [facility] [address] [id number] [place] [address]- 2857 Feb, [facility] [place] [facility] [address] [id number] [place] [address]- 7544 Feb, [facility] [place] [facility] [address] [id number] [place] [address]- 7131 28 Feb, 2013 [facility] [place] [facility] [address] [id number] [address]- 7579 28 Feb, 2013 [facility] [place] [facility] [address] [id number] [place] [address]- 6775 15 Feb, 2013 [facility] [place] [facility] [address] [id number] [place] [address]- 8254 15 Feb, 2013 [facility] [place] [facility] [address] [id number] [place] 6229 11 Feb, 2013 [facility] [place] [facility] [address] [id number] [address]- 7606 Feb, [facility] [address] [facility] [id number] [place] [address]- 2623 Jan, [facility] [address] [facility] [id number], [place] [address]- 9796 Jan, [facility] [address] [facility] [id number], [place] [address]- 0129 Nov, [facility] [address] [facility] [id number], [place] [address]- 1696 September, IMMUNIZATIONS No Known Immunizations SOCIAL HISTORY Never Assessed REASON FOR VISIT Requests return call PLAN OF CARE VITAL SIGNS MEDICATIONS Unknown [...]
--- OUTSIDE RECORDS SUMMARY | 2018-07-11 08:29 | XMS REPORT | Continuity of Care Document ---
Author Author [facility] Address Unknown Phone Unavailable Allergies Active Description Code Type Severity Reaction Onset Reported/Identified Relationship to Patient Clinical Status Yes morphine Drug Allergy N/A N/A 03/26/2013 Yes morphine [id number] Drug Allergy Unknown NAUSEA 11/19/2016 Medications There is no data. Problems Date Dx Coded Attending Type Code Diagnosis Diagnosed By 10/07/2009 070.54 CHRONIC HEPATITIS C WITHOUT MENTION OF HEPATIC COMA 10/07/2009 070.54 CHRONIC HEPATITIS C WITHOUT MENTION OF HEPATIC COMA 10/07/2009 CHUYITA COLES DOA K 070.54 CHRONIC HEPATITIS C WITHOUT MENTION OF HEPATIC COMA 10/07/2009 CHUYITA COLES DOA K 070.54 CHRONIC HEPATITIS C WITHOUT MENTION OF HEPATIC COMA 10/07/2009 ARVIND TAI APRN 070.54 CHRONIC HEPATITIS C WITHOUT MENTION OF HEPATIC COMA 10/07/2009 ARVIND TAI APRN 070.54 CHRONIC HEPATITIS C WITHOUT MENTION [...] MENTION OF HEPATIC COMA 12/18/2012 V58.69 LONG-TERM ( CURRENT) USE OF OTHER MEDICATIONS 12/18/2012 V70.0 ROUTINE GENERAL MEDICAL EXAMINATION AT A HEALTH CARE FACILITY 12/18/2012 V58.69 LONG-TERM ( CURRENT) USE OF OTHER MEDICATIONS 12/18/2012 V70.0 ROUTINE GENERAL MEDICAL EXAMINATION AT A HEALTH CARE FACILITY 12/18/2012 SHARYN ADAMS ROLANDO K V58.69 LONG-TERM (CURRENT) USE OF OTHER MEDICATIONS 12/18/2012 COLES DO ROLANDO K V70.0 ROUTINE GENERAL MEDICAL EXAMINATION AT A HEALTH CARE FACILITY 12/18/2012 SHARYN ADAMS ROLANDO K V58.69 LONG-TERM (CURRENT) USE OF OTHER MEDICATIONS 12/18/2012 SHARYN ADAMS ROLANDO K V70.0 ROUTINE GENERAL MEDICAL EXAMINATION AT A HEALTH CARE FACILITY 12/18/2012 KERIE EMTS, ARVIND A V58.69 LONG-TERM (CURRENT) USE OF OTHER MEDICATIONS 12/18/2012 RAJOTTE EMTS, ARVIND A V70.0 ROUTINE GENERAL MEDICAL EXAMINATION AT A HEALTH CARE FACILITY 12/18/2012 RAJTHIENE EMTS, ARVIND A V58.69 LONG-TERM (CURRENT) USE OF OTHER MEDICATIONS 12/18/2012 RAJOTTE EMTS, ARVIND A V70.0 ROUTINE GENERAL MEDICAL EXAMINATION AT A HEALTH CARE FACILITY 12/18/2012 SHARYN ADAMS ROLANDO K V58.69 LONG-TERM (CURRENT) USE OF [...] LONG-TERM (CURRENT) USE OF OTHER MEDICATIONS 12/18/2012 SHARYN ADAMS ROLANDO K V70.0 ROUTINE GENERAL MEDICAL EXAMINATION [...] DO ROLANDO K 786.2 COUGH 02/05/2013 COLES DO, ORLANDO K 786.2 COUGH 02/05/2013 RAJOTTE EMTS, ARVIND A 786.2 COUGH 02/05/2013 RAJOTTE EMTS, ARVIND A 786.2 COUGH 02/05/2013 COLES DO, ROLANDO K 786.2 COUGH 02/05/2013 COLES DO, ROLANDO K 786.2 COUGH 02/05/2013 COLES DO, ROLANDO K 786.2 COUGH 02/05/2013 COLES DO, ROLANDO K 786.2 COUGH 02/05/2013 COLES DO, ROLANDO K 786.2 COUGH 02/05/2013 DIO EMTS, BLAYNE S 786.2 COUGH 02/05/2013 SARAH BETH MCCANNKaylen RUBIO 786.2 COUGH 02/05/2013 COLES DO, ROLANDO K [...] V65.42 COUNSELING - SMOKING CESSATION 02/06/2013 RAJOTTE EMTS, ARVIND A 305.1 NONDEPENDENT TOBACCO USE DISORDER 02/06/2013 RAJOTTE EMTS, ARVIND A 496 COPD 02/06/2013 RAJOTTE EMTS, ARVIND A V65.42 COUNSELING - SMOKING CESSATION 02/06/2013 RAJOTTE EMTS, ARVIND A 305.1 NONDEPENDENT TOBACCO USE DISORDER 02/06/2013 RAJOTTE EMTS, ARVIND A 496 COPD 02/06/2013 RAJOTTE EMTS, ARVIND A V65.42 COUNSELING - SMOKING CESSATION [...] K V65.42 COUNSELING - SMOKING CESSATION 02/06/2013 BLAYNE WHARTON APRN S 305.1 NONDEPENDENT TOBACCO USE DISORDER 02/06/2013 BLAYNE WHARTON APRN S 496 COPD 02/06/2013 SAVITA WHARTON APRNNDA S V65.42 COUNSELING - SMOKING CESSATION 02/06/2013 RUBIO BURLESON DDS 305.1 NONDEPENDENT TOBACCO USE DISORDER 02/06/2013 RUBIO BURLESON DDS 496 COPD 02/06/2013 BURLESONRUBIO GUEVARA DDS V65.42 COUNSELING - SMOKING CESSATION 02/06/2013 [...] K 305.1 NONDEPENDENT TOBACCO USE DISORDER 02/06/2013 CLOES DO, ROLANDO K 496 COPD 02/06/2013 COLES DO, ROLANDO K V65.42 COUNSELING - SMOKING CESSATION 03/09/2013 COLES DO, ROLANDO K V15.82 Nicotine abuse 03/09/2013 COLES DO, ROLANDO K V15.82 Nicotine abuse 03/09/2013 RAJSTEFFEN EMTS ARVIND A V15.82 Nicotine abuse 03/09/2013 RAJSTEFFEN EMTS, ARVIND A V15.82 Nicotine abuse 03/09/2013 COLES DO, ROLANDO K V15.82 Nicotine abuse 03/09/2013 COLES DO, ROLANDO K V15.82 Nicotine abuse 03/09/2013 COLES DO, ROLANDO K V15.82 Nicotine abuse 03/09/2013 COLES DO, ROLANDO K V15.82 Nicotine abuse 03/09/2013 COLES DO, ROLANDO K V15.82 Nicotine abuse 03/09/2013 DIO DIAZ BLAYNE S V15.82 Nicotine abuse 03/09/2013 RUBIO BURLESON [...] ROLANDO K V04.81 FLU SHOT 03/26/2013 RAJOTTE EMTS, ARVIND A 401.1 HYPERTENSION, BENIGN ESSENTIAL 03/26/2013 RAJOTTE EMTS, ARVIND A 782.0 DISTURBANCE OF SKIN SENSATION 03/26/2013 RAJOTTE EMTS, ARVIND A V04.81 FLU SHOT 03/26/2013 RAJOTTE EMTS, ARVIND A 401.1 HYPERTENSION, BENIGN ESSENTIAL 03/26/2013 RAJOTTE EMTS, ARVIND A 782.0 DISTURBANCE OF SKIN SENSATION 03/26/2013 ANOOPOTTE EMTS, ARVIND A V04.81 FLU SHOT 03/26/2013 COLES [...] ROLANDO K V04.81 FLU SHOT 03/26/2013 DIO EMTS, BLAYNE S 401.1 HYPERTENSION, BENIGN ESSENTIAL 03/26/2013 DIO EMTS, BLAYNE S 782.0 DISTURBANCE OF SKIN SENSATION 03/26/2013 DIO EMTS, BLAYNE S V04.81 FLU SHOT 03/26/2013 BURLESON DDS, RUBIO 401.1 HYPERTENSION, BENIGN ESSENTIAL 03/26/2013 BURLESON DDS, RUBIO 782.0 DISTURBANCE OF SKIN SENSATION 03/26/2013 SARAH BETH LAMAR, RUBIO V04.81 FLU SHOT 03/26/2013 COLES DO, [...] K 729.82 CRAMP OF LIMB 09/14/2013 DIO EMTS BLAYNE S 724.3 SCIATICA 09/14/2013 DIO EMTSBLAYNE Moreno 729.82 CRAMP OF LIMB 09/14/2013 BURLESON DDS, [...] K 272.4 DYSLIPIDEMIA 09/21/2013 BLAYNE WHARTON APRN S 272.4 DYSLIPIDEMIA 09/21/2013 BURLESON DDS, RUBIO 272.4 [...] APRN 461.9 SINUSITIS ACUTE 01/04/2014 SARAH BETH MCCANNSRUBIO 461.9 SINUSITIS ACUTE 01/04/2014 COLES DO, ROLANDO K 461.9 SINUSITIS ACUTE 01/04/2014 COLES DO, ROLANDO K 461.9 SINUSITIS ACUTE 01/04/2014 COLES DO, ROLANDO K 461.9 SINUSITIS ACUTE 01/04/2014 COLES DO, ROLANDO K 461.9 SINUSITIS ACUTE 01/04/2014 COLES DO, ROLANDO K 461.9 SINUSITIS ACUTE 03/16/2014 DIO EMTS, BLAYNE S 466.0 BRONCHITIS, ACUTE 03/16/2014 SARAH [...] HASSAN, ALFREDO Mi (DDU) Ot 496 01/08/2015 BISI HASSAN, ALFREDO Mi (DDU) Ot 733.90 01/08/2015 BISI HASSAN, ALFREDO Mi (DDU) Ot 786.05 01/22/2015 MICHELLE CLAY DO Ot 278.00 01/22/2015 MICHELLE CLAY DO M Ot 496 01/22/2015 MICHELLE CLAY DO M Ot 786.09 01/23/2015 MICHELLE CLAY DO M Ot 278.00 01/23/2015 MICHELLE CLAY DO M Ot 496 01/23/2015 MICHELLE CLAY DO M Ot 786.09 03/24/2015 BISI HASSAN, ALFREDO Mi (DDU) Ot 070.70 03/24/2015 BISI HASSAN, ALFREDO Mi (DDU) Ot 401.9 03/24/2015 ALFREDO MATHEWS MD (DDU) Ot 496 03/24/2015 ALFREDO MATHEWS MD (DDU) Ot 733.99 03/24/2015 ALFREDO MATHEWS MD (DDU) Ot 782.3 03/24/2015 ALFREDO MATHEWS MD (DDU) Ot 786.05 03/26/2015 ALFREDO MATHEWS MD (DDU) Ot 070.70 03/26/2015 BISI HASSAN, ALFREDO Mi (DDU) Ot 401.9 03/26/2015 ALFREDO MATHEWS MD (DDU) Ot 496 03/26/2015 ALFREDO MATHESW MD (DDU) Ot 733.90 03/26/2015 ALFREDO MATHEWS MD (DDU) Ot 786.05 03/26/2015 MICHELLE CLAY DO M Ot 278.00 03/26/2015 MICHELLE CLAY DO Ot 496 03/26/2015 MICHELLE CLAY DO Ot 786.09 03/26/2015 MICHELLE CLAY DO Ot E66.9 03/26/2015 MICHELLE CLAY DO Ot J44.9 03/26/2015 MICHELLE CLAY DO Ot R06.00 04/11/2015 MICHELLE CLAY DO Ot E66.9 04/11/2015 MICHELLE CLAY DO Ot J44.9 04/11/2015 MICHELLE CLAY DO Ot R06.00 06/22/2015 MICHELLE CLAY DO Ot E66.9 OBESITY, UNSPECIFIED 06/22/2015 OBED ADAMS MICHELLE Almodovar Ot J44.9 CHRONIC OBSTRUCTIVE PULMONARY DISEASE, U 06/22/2015 OBED MICHELLE Almodovar Ot R06.00 DYSPNEA, UNSPECIFIED 08/06/2016 BISI HASSAN, ALFREDO Mi (DDU) Ot 070.70 UNSPECIFIED VIRAL HEPATITIS C WITHOUT HE 08/06/2016 ALFREDO MATHEWS MD (DDU) Ot 401.9 HYPERTENSION NOS 08/06/2016 ALFREDO MATHEWS MD (DDU) Ot 496 CHR AIRWAY OBSTRUCT NEC 08/06/2016 ALFREDO MATHEWS MD (DDU) Ot 733.90 BONE CARTILAGE DIS NOS 08/06/2016 ALFREDO MATHEWS MD (DDU) Ot 786.05 SHORTNESS OF BREATH 08/06/2016 OBED ADAMS MICHELLE Nishi Ot 278.00 OBESITY, NOS 08/06/2016 OBED ADAMS MICHELLE Nishi Ot 496 CHR AIRWAY OBSTRUCT NEC 08/06/2016 OBED ADAMS MICHELLE Nishi Ot 786.09 RESPIRATORY ABNORM NEC 08/06/2016 OBED ADAMS MICHELLE Almodovar Ot E66.9 OBESITY, UNSPECIFIED 08/06/2016 OBED MICHELLE Almodovar Ot J44.9 CHRONIC OBSTRUCTIVE PULMONARY DISEASE, U 08/06/2016 OBED ADAMS MICHELLE Almodovar Ot R06.00 DYSPNEA, UNSPECIFIED 09/01/2016 GUILLE SCHWARZ A P SUPERVISOR Ot Z12.31 ENCNTR SCREEN MAMMOGRAM FOR MALIGNANT NE 09/03/2016 GUILLE SCHWARZ A P SUPERVISOR Ot Z12.31 ENCNTR SCREEN MAMMOGRAM FOR MALIGNANT NE 09/10/2016 PAIGE COLORADO A P SUPERVISOR Ot R04.2 HEMOPTYSIS 09/28/2016 PAIGE COLOR[place]O A P SUPERVISOR Ot R04.2 HEMOPTYSIS 10/05/2016 PAIGE COLOR[place]O A P SUPERVISOR Ot R04.2 HEMOPTYSIS 11/19/2016 MICHELLE CLAY DO Ot E66.9 OBESITY, UNSPECIFIED 11/19/2016 OBEDMICHELLE MANE DO Ot J44.9 CHRONIC OBSTRUCTIVE PULMONARY DISEASE, U 11/19/2016 MICHELLE CLAY DO Ot R06.00 DYSPNEA, UNSPECIFIED 11/19/2016 JUANA ORTEGA DO Ot R19.5 OTHER FECAL ABNORMALITIES 11/19/2016 JUANA ORTEGA DO Ot R63.4 ABNORMAL WEIGHT LOSS 11/19/2016 JUANA ORTEGA DO Ot Z01.818 ENCOUNTER FOR OTHER PREPROCEDURAL EXAMIN 11/22/2016 JUANA ORTEGA DO Ot R19.5 OTHER FECAL ABNORMALITIES 11/22/2016 JUANA ORTEGA DO Ot R63.4 ABNORMAL WEIGHT LOSS 11/22/2016 JUANA ORTEGA DO Ot Z01.818 ENCOUNTER FOR OTHER PREPROCEDURAL EXAMIN 11/23/2016 JUANA ORTEGA DO Ot B19.20 UNSPECIFIED VIRAL HEPATITIS C WITHOUT HE 11/23/2016 JUANA ORTEGA DO Ot D12.2 BENIGN NEOPLASM OF ASCENDING COLON 11/23/2016 JUANA ORTEGA DO Ot J44.9 CHRONIC OBSTRUCTIVE PULMONARY DISEASE, U 11/23/2016 JUANA ORTEGA DO Ot K29.70 GASTRITIS, UNSPECIFIED, WITHOUT BLEEDING 11/23/2016 JUANA ORTEGA DO Ot K57.30 DVRTCLOS OF LG INT W/O PERFORATION OR AB 11/23/2016 JUANA ORTEGA DO Ot K62.1 RECTAL POLYP 11/23/2016 JUANA ORTEGA DO Ot K63.5 POLYP OF COLON 11/23/2016 JUANA ORTEGA DO Ot R19.5 OTHER FECAL ABNORMALITIES 11/23/2016 JUANA ORTEGA DO Ot R63.4 ABNORMAL WEIGHT LOSS 11/23/2016 JUANA ORTEGA DO Ot Z79.899 OTHER CRIME SCENE ANALYST (CURRENT) DRUG THERAPY 11/23/2016 AURE PARKER APRN Ot J18.9 PNEUMONIA, UNSPECIFIED ORGANISM 11/23/2016 AURE PARKER APRN Ot J44.9 CHRONIC OBSTRUCTIVE PULMONARY DISEASE, U 11/23/2016 AURE PARKER APRN Ot R06.00 DYSPNEA, UNSPECIFIED 11/23/2016 AURE PARKER APRN Ot R09.02 HYPOXEMIA 11/25/2016 JUANA ORTEGA DO Ot R19.5 OTHER FECAL ABNORMALITIES 11/25/2016 JUANA ORTEGA DO Ot R63.4 ABNORMAL WEIGHT LOSS 11/25/2016 JUANA ORTEGA DO Ot Z01.818 ENCOUNTER FOR OTHER PREPROCEDURAL EXAMIN 12/01/2016 AURE PARKER APRN Ot J18.9 PNEUMONIA, UNSPECIFIED ORGANISM 12/01/2016 AURE PARKER APRN Ot J44.9 CHRONIC OBSTRUCTIVE PULMONARY DISEASE, U 12/01/2016 AURE PARKER APRN Ot R06.00 DYSPNEA, UNSPECIFIED 12/01/2016 AURE PARKER APRN Ot R09.02 HYPOXEMIA 12/04/2016 JUANA ORTEGA DO Ot B19.20 UNSPECIFIED VIRAL HEPATITIS C WITHOUT HE 12/04/2016 JUANA ORTEGA DO Ot D12.2 BENIGN NEOPLASM OF ASCENDING COLON 12/04/2016 JUANA ORTEGA DO Ot J44.9 CHRONIC OBSTRUCTIVE PULMONARY DISEASE, U 12/04/2016 JUANA ORTEGA DO Ot K29.70 GASTRITIS, UNSPECIFIED, WITHOUT BLEEDING 12/04/2016 JUANA ORTEGA DO Ot K57.30 DVRTCLOS OF LG INT W/O PERFORATION OR AB 12/04/2016 JUANA ORTEGA DO Ot K62.1 RECTAL POLYP 12/04/2016 JUANA ORTEGA DO Ot K63.5 POLYP OF COLON 12/04/2016 JUANA ORTEGA DO Ot R19.5 OTHER FECAL ABNORMALITIES 12/04/2016 JUANA ORTEGA DO Ot R63.4 ABNORMAL WEIGHT LOSS 12/04/2016 JUANA ORTEGA DO Ot Z79.899 OTHER CUSTODIAL (CURRENT) DRUG THERAPY 12/08/2016 AURE PARKER APRN Ot J44.9 CHRONIC OBSTRUCTIVE PULMONARY DISEASE, U 12/08/2016 AURE PARKER APRN Ot R06.02 SHORTNESS OF BREATH 02/26/2017 AURE PARKER EMTS Ot J44.9 CHRONIC OBSTRUCTIVE PULMONARY DISEASE, U 02/26/2017 AURE PARKER APRN Ot R06.02 SHORTNESS OF BREATH 03/01/2017 AURE PARKER EMTS Ot J44.9 CHRONIC OBSTRUCTIVE PULMONARY DISEASE, U 03/01/2017 AURE PARKER EMTS Ot R06.02 SHORTNESS OF BREATH 04/29/2017 ALFREDO MATHEWS MD (DDU) Ot 070.70 UNSPECIFIED VIRAL HEPATITIS C WITHOUT HE 04/29/2017 ALFREDO MATHEWS MD (DDU) Ot 401.9 HYPERTENSION NOS 04/29/2017 ALFREDO MATHEWS MD (DDU) Ot 496 CHR AIRWAY OBSTRUCT NEC 04/29/2017 ALFREDO MATHEWS MD (DDU) Ot 733.90 BONE CARTILAGE DIS NOS 04/29/2017 ALFREDO MATHEWS MD (DDU) Ot 786.05 SHORTNESS OF BREATH 04/29/2017 MICHELLE CLAY DO Ot 278.00 OBESITY, NOS 04/29/2017 MICHELLE CLAY DO Ot 496 CHR AIRWAY OBSTRUCT NEC 04/29/2017 MICHELLE CLAY DO Ot 786.09 RESPIRATORY ABNORM NEC 04/29/2017 MICHELLE CLAY DO Ot E66.9 OBESITY, UNSPECIFIED 04/29/2017 MICHELLE CLAY DO Ot J44.9 CHRONIC OBSTRUCTIVE PULMONARY DISEASE, U 04/29/2017 MICHELLE CLAY DO Ot R06.00 DYSPNEA, UNSPECIFIED 04/29/2017 GUILLE SCHWARZ Ot Z12.31 ENCNTR SCREEN MAMMOGRAM FOR MALIGNANT NE 04/29/2017 PAIGE COLORADO Ot R04.2 HEMOPTYSIS 04/29/2017 AURE PARKER APRN Ot J18.9 PNEUMONIA, UNSPECIFIED ORGANISM 04/29/2017 AURE PARKER EMTS Ot J44.9 CHRONIC OBSTRUCTIVE PULMONARY DISEASE, U 04/29/2017 AURE PARKER EMTS Ot R06.00 DYSPNEA, UNSPECIFIED 04/29/2017 AURE PARKER EMTS Ot R09.02 HYPOXEMIA 04/29/2017 AURE PARKER EMTS Ot J44.9 CHRONIC OBSTRUCTIVE PULMONARY DISEASE, U 04/29/2017 AURE PARKER EMTS Ot R06.02 SHORTNESS OF BREATH 05/16/2017 DALE PARKERINE E EMTS Ot F17.200 NICOTINE DEPENDENCE, UNSPECIFIED, UNCOMP 05/16/2017 DALE PARKERINE E EMTS Ot J44.9 CHRONIC OBSTRUCTIVE PULMONARY DISEASE, U 05/16/2017 DALE PARKERINE Trish EMTS Ot R63.4 ABNORMAL WEIGHT LOSS 05/16/2017 DALE PARKERINE E EMTS Ot R91.8 OTHER NONSPECIFIC ABNORMAL FINDING OF KENNETH 06/10/2017 DALE PARKERINE E EMTS Ot F17.200 NICOTINE DEPENDENCE, UNSPECIFIED, UNCOMP 06/10/2017 DALE PARKERINE Trish EMTS Ot J44.9 CHRONIC OBSTRUCTIVE PULMONARY DISEASE, U 06/10/2017 DALE PARKERINE Trish EMTS Ot R63.4 ABNORMAL WEIGHT LOSS 06/10/2017 DALE PARKERINE E EMTS Ot R91.8 OTHER NONSPECIFIC ABNORMAL FINDING OF KENNETH 06/21/2017 DALE PARKERINE Trish EMTS Ot F17.200 NICOTINE DEPENDENCE, UNSPECIFIED, UNCOMP 06/21/2017 DALE PARKERINE Trish EMTS Ot J44.9 CHRONIC OBSTRUCTIVE PULMONARY DISEASE, U 06/21/2017 DALE PARKERINE Trish EMTS Ot R63.4 ABNORMAL WEIGHT LOSS 06/21/2017 DALE PARKERINE E EMTS Ot R91.8 OTHER NONSPECIFIC ABNORMAL FINDING OF KENNETH 06/26/2017 DALE PARKERINE E EMTS Ot E66.9 OBESITY, UNSPECIFIED 06/26/2017 DALE PARKERINE Trish EMTS Ot F17.200 NICOTINE DEPENDENCE, UNSPECIFIED, UNCOMP 06/26/2017 DALE PARKERINE Trish EMTS Ot J44.9 CHRONIC OBSTRUCTIVE PULMONARY DISEASE, U 06/26/2017 DALE PARKERINE E EMTS Ot R09.02 HYPOXEMIA 06/26/2017 DALE PARKERINE E EMTS Ot R63.4 ABNORMAL WEIGHT LOSS 07/15/2017 DALE PARKERINE E EMTS Ot E66.9 OBESITY, UNSPECIFIED 07/15/2017 DALE PARKERINE E EMTS Ot F17.200 NICOTINE DEPENDENCE, UNSPECIFIED, UNCOMP 07/15/2017 DALE PARKERINE E EMTS Ot J44.9 CHRONIC OBSTRUCTIVE PULMONARY DISEASE, U 07/15/2017 DALE PARKERINE E EMTS Ot R09.02 HYPOXEMIA 07/15/2017 AURE PARKER APRN Ot R63.4 ABNORMAL WEIGHT LOSS 07/26/2017 AURE PARKER APRN Ot E66.9 OBESITY, UNSPECIFIED 07/26/2017 AURE PARKER APRN Ot F17.200 NICOTINE DEPENDENCE, UNSPECIFIED, UNCOMP 07/26/2017 AURE PARKER APRN Ot J44.9 CHRONIC OBSTRUCTIVE PULMONARY DISEASE, U 07/26/2017 AURE PARKER APRN Ot R09.02 HYPOXEMIA 07/26/2017 AURE PARKER APRN Ot R63.4 ABNORMAL WEIGHT LOSS 07/05/2018 JUANA ORTEGA DO Ot Z01.818 ENCOUNTER FOR OTHER PREPROCEDURAL EXAMIN 07/06/2018 ORTEGAJUANA WOOTEN DO Ot Z01.818 ENCOUNTER FOR OTHER PREPROCEDURAL EXAMIN 07/06/2018 JUANA ORTEGA DO Ot Z01.818 ENCOUNTER FOR OTHER PREPROCEDURAL EXAMIN 07/10/2018 ALFREDO MATHEWS MD (DDU) Ot 070.70 UNSPECIFIED VIRAL HEPATITIS C WITHOUT HE 07/10/2018 ALFREDO MATHEWS MD (DDU) Ot 401.9 HYPERTENSION NOS 07/10/2018 ALFREDO MATHEWS MD (DDU) Ot 496 CHR AIRWAY OBSTRUCT NEC 07/10/2018 ALFREDO MATHEWS MD (DDU) Ot 733.90 BONE CARTILAGE DIS NOS 07/10/2018 ALFREDO MATHEWS MD (DDU) Ot 786.05 SHORTNESS OF BREATH 07/10/2018 MICHELLE CLAY DO Ot 278.00 OBESITY, NOS 07/10/2018 MICHELLE CLAY DO Ot 496 CHR AIRWAY OBSTRUCT NEC 07/10/2018 MICHELLE CLAY DO Ot 786.09 RESPIRATORY ABNORM NEC 07/10/2018 MICHELLE CLAY DO Ot E66.9 OBESITY, UNSPECIFIED 07/10/2018 MICHELLE CLAY DO Ot J44.9 CHRONIC OBSTRUCTIVE PULMONARY DISEASE, U 07/10/2018 MICHELLE CLAY DO Ot R06.00 DYSPNEA, UNSPECIFIED 07/10/2018 GUILLE SCHWARZ Ot Z12.31 ENCNTR SCREEN MAMMOGRAM FOR MALIGNANT NE 07/10/2018 MADL, PAIGE L A P SUPERVISOR Ot R04.2 HEMOPTYSIS 07/10/2018 KEITHDALE MCBRIDEINE Trish EMTS Ot J18.9 PNEUMONIA, UNSPECIFIED ORGANISM 07/10/2018 KEITHDALE MCBRIDEINE Trish EMTS Ot J44.9 CHRONIC OBSTRUCTIVE PULMONARY DISEASE, U 07/10/2018 KEITHDALE MCBRIDEINE Trish EMTS Ot R06.00 DYSPNEA, UNSPECIFIED 07/10/2018 DALE PARKERINE Trish EMTS Ot R09.02 HYPOXEMIA 07/10/2018 KEITH AURE Trish EMTS Ot J44.9 CHRONIC OBSTRUCTIVE PULMONARY DISEASE, U 07/10/2018 KEITHDALE MCBRIDEINE Trish EMTS Ot R06.02 SHORTNESS OF BREATH 07/10/2018 KEITHDALEAURE E EMTS Ot F17.200 NICOTINE DEPENDENCE, UNSPECIFIED, UNCOMP 07/10/2018 KEITHDALE MCBRIDEINE Trish EMTS Ot J44.9 CHRONIC OBSTRUCTIVE PULMONARY DISEASE, U 07/10/2018 KEITHDALEAURE Trish EMTS Ot R63.4 ABNORMAL WEIGHT LOSS 07/10/2018 AURE PARKER EMTS Ot R91.8 OTHER NONSPECIFIC ABNORMAL FINDING OF KENNETH 07/10/2018 KEITH AURE Trish EMTS Ot E66.9 OBESITY, UNSPECIFIED 07/10/2018 KEITHDALEAURE Trish EMTS Ot F17.200 NICOTINE DEPENDENCE, UNSPECIFIED, UNCOMP 07/10/2018 KEITH AURE Chambers EMTS Ot J44.9 CHRONIC OBSTRUCTIVE PULMONARY DISEASE, U 07/10/2018 KEITH AURE Trish EMTS Ot R09.02 HYPOXEMIA 07/10/2018 DALE PARKERINE Trish EMTS Ot R63.4 ABNORMAL WEIGHT LOSS 07/11/2018 ALFREDO MATHEWS MD (DDU) Ot 070.70 UNSPECIFIED VIRAL HEPATITIS C WITHOUT HE 07/11/2018 ALFREDO MATHEWS MD (DDU) Ot 401.9 HYPERTENSION NOS 07/11/2018 ALFREDO MATHEWS MD (DDU) Ot 496 CHR AIRWAY OBSTRUCT NEC 07/11/2018 ALFREDO MATHEWS MD (DDU) Ot 733.90 BONE CARTILAGE DIS NOS 07/11/2018 ALFREDO MATHEWS MD (DDU) Ot 786.05 SHORTNESS OF BREATH 07/11/2018 MICHELLE CLAY DO Ot 278.00 OBESITY, NOS 07/11/2018 MICHELLE CLAY DO Ot 496 CHR AIRWAY OBSTRUCT NEC 07/11/2018 MICHELLE CLAY DO Ot 786.09 RESPIRATORY ABNORM NEC 07/11/2018 MICHELLE CLAY DO Ot E66.9 OBESITY, UNSPECIFIED 07/11/2018 MICHELLE CLAY DO Ot J44.9 CHRONIC OBSTRUCTIVE PULMONARY DISEASE, U 07/11/2018 MICHELLE CLAY DO Ot R06.00 DYSPNEA, UNSPECIFIED 07/11/2018 GUILLE SCHWARZ A P SUPERVISOR Ot Z12.31 ENCNTR SCREEN MAMMOGRAM FOR MALIGNANT NE 07/11/2018 PAIGE COLORADO A P SUPERVISOR Ot R04.2 HEMOPTYSIS 07/11/2018 AURE PARKER EMTS Ot J18.9 PNEUMONIA, UNSPECIFIED ORGANISM 07/11/2018 AURE PARKER EMTS Ot J44.9 CHRONIC OBSTRUCTIVE PULMONARY DISEASE, U 07/11/2018 AURE PARKER EMTS Ot R06.00 DYSPNEA, UNSPECIFIED 07/11/2018 AURE PARKER APRN Ot R09.02 HYPOXEMIA 07/11/2018 AURE PARKER APRN Ot J44.9 CHRONIC OBSTRUCTIVE PULMONARY DISEASE, U 07/11/2018 AURE PARKER EMTS Ot R06.02 SHORTNESS OF BREATH 07/11/2018 AURE PARKER EMTS Ot F17.200 NICOTINE DEPENDENCE, UNSPECIFIED, UNCOMP 07/11/2018 AURE PARKER EMTS Ot J44.9 CHRONIC OBSTRUCTIVE PULMONARY DISEASE, U 07/11/2018 AURE PARKER EMTS Ot R63.4 ABNORMAL WEIGHT LOSS 07/11/2018 AURE PARKER EMTS Ot R91.8 OTHER NONSPECIFIC ABNORMAL FINDING OF KENNETH 07/11/2018 AURE PARKER EMTS Ot E66.9 OBESITY, UNSPECIFIED 07/11/2018 AURE PARKER EMTS Ot F17.200 NICOTINE DEPENDENCE, UNSPECIFIED, UNCOMP 07/11/2018 AURE PARKER EMTS Ot J44.9 CHRONIC OBSTRUCTIVE PULMONARY DISEASE, U 07/11/2018 AURE PARKER EMTS Ot R09.02 HYPOXEMIA 07/11/2018 AURE PARKER EMTS Ot R63.4 ABNORMAL WEIGHT LOSS Procedures Code Description [place] [id number] OXIMETRY 02/05/2013 38118 XRAY CHEST 2 VIEW 02/05/2013 00902 NEBULIZER TREATMENT 02/05/2013 J7613 ALBUTEROL UNIT DOSE FORM INHALED 02/05/2013 30903 OXIMETRY 02/06/2013 59757 PULMONARY FUNCTION TEST (IN- HOUSE) 03/09/2013 37383 BRONCHODILATION PRE/POST 03/09/2013 08885 RESPIRATORY FLOW VOLUME LOOP 03/09/2013 75186 PULMONARY EDUCATION 03/09/2013 G0437 TOBACCO-USE LAST PATTERN GRADER>10MIN 03/09/2013 42209 ROUTINE VENIPUNCTURE 09/19/2013 47936 CBC 09/19/2013 83750 LIPID PANEL 09/19/2013 52867 TSH 09/19/2013 85983 ROUTINE VENIPUNCTURE 01/04/2014 77735 CMP 01/04/2014 70064 OXIMETRY 07/02/2014 40205 OXIMETRY 08/24/2014 Results Test Result Range Pap Lb, HPV-hr - 08/03/16 10:19 HPV, high-risk Negative Negative DIAGNOSIS: Comment Specimen adequacy: Comment Clinician provided ICD10: Comment Performed by: Comment Electronically signed by: Comment . . Note: Comment Genital Culture, Routine - 08/03/16 10:19 Genital Culture, Routine Note Mycoplasma pneumoniae, IgM Ab - 08/26/16 15:42 M pneumoniae IgM Abs 1651 U/mL 0-769 CBC With Differential/Platelet - 10/27/16 08:55 WBC 3.6 x10E3/uL 3.4-10.8 RBC 5.89 x10E6/uL 3.77-5.28 Hemoglobin 17.5 g/dL 11.1-15.9 Hematocrit 52.6 % 34.0-46.6 MCV 89 fL 79-97 MCH 29.7 pg 26.6-33.0 MCHC 33.3 g/dL 31.5-35.7 RDW 13.6 % 12.3-15.4 Platelets 153 x10E3/uL 150-379 Neutrophils 51 % Lymphs 34 % Monocytes 8 % Eos 6 % Basos 1 % Neutrophils (Absolute) 1.8 x10E3/uL 1.4-7.0 Lymphs (Absolute) 1.2 x10E3/uL 0.7-3.1 Monocytes(Absolute) 0.3 x10E3/uL 0.1-0.9 Eos (Absolute) 0.2 x10E3/uL 0.0-0.4 Baso (Absolute) 0.0 x10E3/uL 0.0-0.2 Immature Granulocytes 0 % Immature Grans (Abs) 0.0 x10E3/uL 0.0-0.1 Comp. Metabolic Panel (14) - 10/27/16 08:55 Glucose, Serum 93 mg/dL 65-99 BUN 8 mg/dL 8-27 Creatinine, Serum 0.69 mg/dL 0.57-1.00 eGFR If NonAfricn Am 95 mL/min/1.73 >59 eGFR If Africn Am 109 mL/min/1.73 >59 BUN/Creatinine Ratio 12 12-28 Sodium, Serum 141 mmol/L 134-144 Potassium, Serum 3.9 mmol/L 3.5-5.2 Chloride, Serum 101 mmol/L 96-106 Carbon Dioxide, Total 23 mmol/L 18-29 Calcium, Serum 9.1 mg/dL 8.7-10.3 Protein, Total, Serum 6.8 g/dL 6.0-8.5 Albumin, Serum 3.6 g/dL 3.6-4.8 Globulin, Total 3.2 g/dL 1.5-4.5 A/G Ratio 1.1 1.2-2.2 Bilirubin, Total 1.0 mg/dL 0.0-1.2 Alkaline Phosphatase, S 162 IU/L 39-117 AST (SGOT) 137 IU/L 0-40 ALT (SGPT) 69 IU/L 0-32 Lipid Panel - 10/27/16 08:55 Cholesterol, Total 137 mg/dL 100-199 Triglycerides 105 mg/dL 0-149 HDL Cholesterol 32 mg/dL >39 VLDL Cholesterol [place] 21 mg/dL 5-40 LDL Cholesterol Calc 84 mg/dL 0-99 Thyroid [place] Profile - 10/27/16 08:55 TSH 1.620 uIU/mL 0.450-4.500 Anaerobic and Aerobic Culture - 01/03/17 18:49 Anaerobic and Aerobic Culture Note HEPATITIS PROFILE - 03/07/17 16:41 Hep A Ab, IgM Negative Negative HBsAg Screen Negative Negative Hep B Core Ab, IgM Negative Negative Hep C Virus Ab >11.0 s/co ratio 0.0-0.9 CBC With Differential/Platelet - 03/07/17 16:41 WBC 6.0 x10E3/uL 3.4-10.8 RBC 6.07 x10E6/uL 3.77-5.28 Hemoglobin 18.1 g/dL 11.1-15.9 Hematocrit 54.6 % 34.0-46.6 MCV 90 fL 79-97 MCH 29.8 pg 26.6-33.0 MCHC 33.2 g/dL 31.5-35.7 RDW 13.2 % 12.3-15.4 Platelets 161 x10E3/uL 150-379 Neutrophils 54 % Not Estab. Lymphs 33 % Not Estab. Monocytes 8 % Not Estab. Eos 4 % Not Estab. Basos 1 % Not Estab. Neutrophils (Absolute) 3.3 x10E3/uL 1.4-7.0 Lymphs (Absolute) 2.0 x10E3/uL 0.7-3.1 Monocytes(Absolute) 0.5 x10E3/uL 0.1-0.9 Eos (Absolute) 0.3 x10E3/uL 0.0-0.4 Baso (Absolute) 0.1 x10E3/uL 0.0-0.2 Immature Granulocytes 0 % Not Estab. Immature Grans (Abs) 0.0 x10E3/uL 0.0-0.1 Comp. Metabolic Panel (14) - 03/07/17 16:41 Glucose, Serum 49 mg/dL 65-99 BUN 10 mg/dL 8-27 Creatinine, Serum 0.70 mg/dL 0.57-1.00 eGFR If NonAfricn Am 94 mL/min/1.73 >59 eGFR If Africn Am 108 mL/min/1.73 >59 BUN/Creatinine Ratio 14 12-28 Sodium, Serum 141 mmol/L 134-144 Potassium, Serum 3.9 mmol/L 3.5-5.2 Chloride, Serum 97 mmol/L 96-106 Carbon Dioxide, Total 23 mmol/L 18-29 Calcium, Serum 9.3 mg/dL 8.7-10.3 Protein, Total, Serum 7.4 g/dL 6.0-8.5 Albumin, Serum 3.9 g/dL 3.6-4.8 Globulin, Total 3.5 g/dL 1.5-4.5 A/G Ratio 1.1 1.2-2.2 Bilirubin, Total 0.8 mg/dL 0.0-1.2 Alkaline Phosphatase, S 192 IU/L 39-117 AST (SGOT) 137 IU/L 0-40 ALT (SGPT) 77 IU/L 0-32 Hepatitis Panel (4) - 03/07/17 16:41 HBsAg Screen Negative Negative Hep A Ab, IgM Negative Negative Hep B Core Ab, IgM Negative Negative Hep C Virus Ab >11.0 s/co ratio 0.0-0.9 Prothrombin Time (PT) - 03/07/17 16:41 INR 1.0 0.8-1.2 Prothrombin Time 10.8 sec 9.1-12.0 Vitamin D, 25-Hydroxy - 03/07/17 16:41 Vitamin D, 25-Hydroxy 33.9 ng/mL 30.0-100.0 Thyroid [place] Profile - 03/07/17 16:41 TSH 1.200 uIU/mL 0.450-4.500 Encounters ACCT No. Visit Date/Time Discharge Status Pt. Type Provider Facility Loc./Unit Complaint [id number] 09/12/2014 11:40:00 09/12/2014 23:59:59 CLS Outpatient ROLANDO OCLES DO [id number] 08/24/2014 14:03:00 08/24/2014 23:59:59 CLS Outpatient ROLANDO COLES DO [id number] 07/02/2014 15:49:00 07/02/2014 23:59:59 CLS Outpatient ROLANDO COLES DO [id number] 06/04/2014 10:37:00 06/04/2014 23:59:59 CLS Outpatient ROLANDO COLES DO [id number] 05/14/2014 15:10:00 05/14/2014 23:59:59 CLS Outpatient ROLANDO COLES DO [id number] 03/26/2014 12:43:00 03/26/2014 23:59:59 CLS Outpatient RUBIO BURLESON DDS [id number] 03/16/2014 10:54:00 03/16/2014 23:59:59 CLS Outpatient BLAYNE WHARTON APRN [id number] 02/08/2014 16:22:00 02/08/2014 23:59:59 CLS Outpatient ROLANDO COLES DO [id number] 01/04/2014 09:34:00 01/04/2014 23:59:59 CLS Outpatient ROLANDO COLES DO [id number] 09/19/2013 07:57:00 09/19/2013 23:59:59 CLS Outpatient ROLANDO COLES DO [id number] 09/14/2013 16:27:00 09/14/2013 23:59:59 CLS Outpatient ROLANDO COLES DO [id number] 09/03/2013 00:00:00 09/03/2013 23:59:59 CLS Outpatient ROLANDO COLES DO [id number] 05/29/2013 00:00:00 05/29/2013 23:59:59 CLS Outpatient ZAIRE BENTONTiffanie ARVIND A [id number] 05/25/2013 09:15:00 05/25/2013 23:59:59 CLS Outpatient ANOOPTHIENTrish BENTONARVIND Moreno [id number] 03/26/2013 16:29:00 03/26/2013 23:59:59 CLS Outpatient ROLANDO COLES DO [id number] 03/09/2013 08:53:00 03/09/2013 23:59:59 CLS Outpatient ROLANDO COLES DO [id number] 02/06/2013 07:58:00 Document Registration [id number] 02/05/2013 13:50:00 Document Registration [id number] 08/10/2016 23:06:00 Document Registration [id number] 06/09/2018 08:00:00 06/09/2018 23:59:59 CLS Outpatient [facility]EDO [facility] [id number] 03/07/2017 15:40:00 Document Registration [id number] 01/07/2017 20:08:00 Document Registration [id number] 01/08/2015 16:28:48 ACT Document Registration [id number] 10/28/2016 10:08:00 Document Registration [id number] 03/08/2017 13:05:00 Document Registration [id number] 08/27/2016 23:07:00 Document Registration [id number] 07/06/2018 14:33:00 07/06/2018 14:43:00 DIS Outpatient JUANA ORTEGA DO [facility] PREOP COLONOSCOPY/EGD [id number] 06/23/2017 09:44:00 06/23/2017 23:59:59 CLS Outpatient AURE PARKER APRN [facility] RAD J44.9 COPD [id number] 05/09/2017 10:44:00 05/09/2017 23:59:59 CLS Outpatient AURE PARKER EMTS [facility] RAD J44.9 R63.4 F17.200 R06.00 [id number] 02/27/2017 08:15:00 02/27/2017 23:59:59 CLS Preadmit AURE PARKER EMTS [facility] PULM J44.9 COPD, R06.00 DYSPNEA [id number] 12/06/2016 08:05:00 02/26/2017 00:01:00 DIS Outpatient AURE PARKER APRN [facility] PULM J44.9 COPD, R06.00 DYSPNEA [id number] 01/06/2017 08:51:00 01/06/2017 23:59:59 CLS Preadmit VALERIA SOLANO MD [facility] WOUNDCARE [id number] 11/23/2016 08:41:00 11/23/2016 11:40:00 DIS Outpatient JUANA ORTEGA DO [facility] ENDO UNEXPLAINED WEIGHT LOSS ; CHANGE IN BH [id number] 11/19/2016 10:00:00 11/19/2016 14:05:00 DIS Outpatient JUANA ORTEGA DO [facility] PREOP UNEXPLAINED WEIGHT LOSS ; CHANGE IN BH [id number] 11/02/2016 13:20:00 11/02/2016 23:59:59 CLS Outpatient AURE PARKER EMTS [facility] RAD J44.9 COPD, R06.00 DYSPNEA [id number] 09/08/2016 11:06:00 09/08/2016 23:59:59 CLS Outpatient PAIGE COLORADO A P SUPERVISOR [facility] RAD HEMOPLYSIS [id number] 08/06/2016 12:35:00 08/06/2016 23:59:59 CLS Outpatient GUILLE SCHWARZ A P SUPERVISOR [facility] RAD SCREENING [id number] 06/23/2015 16:00:00 06/23/2015 23:59:59 CLS Preadmit MICHELLE CLAY DO [facility] PULM COPD DYSPNEA [id number] 03/24/2015 15:31:00 06/22/2015 00:01:00 DIS Outpatient MICHELLE CLAY DO [facility] PULM COPD DYSPNEA [id number] 01/08/2015 16:28:00 01/08/2015 23:59:59 CLS Outpatient MICHELLE CLAY DO [facility] RT COPD DYSPNEA [id number] 01/01/2014 09:55:00 01/01/2014 23:59:59 CLS Outpatient ALFREDO MATHEWS MD (DDU) [facility] RAD [id number] 12/05/2013 14:02:00 12/05/2013 23:59:59 CLS Outpatient ALFREDO MATHEWS MD (DDU) [facility] RT DDU [id number] 07/11/2018 08:16:00 ACT Outpatient JUANA ORTEGA DO [facility] ENDO POSITIVE OCCULT STOOL/CHANGE IN STOOL/ABD EPIGASTR [id number] 08/06/2016 14:12:00 Document Registration
--- NOTE | 2018-07-11 08:30 | Progress Note-Pre Operative ---
Pre-Operative Progress Note H&P Reviewed The H&P was reviewed, patient examined and no changes noted. Date Seen by Provider: Jul 11, 2018 Time Seen by Provider: 08:30 Date H&P Reviewed: Jul 11, 2018 Time H&P Reviewed: 08:30 Pre-Operative Diagnosis: occult + stool, change in caliber stools, epigastric abdominal pain. JUANA ORTEGA DO Jul 11, 2018 08:30
[2018-07-11] MEDS ORDERED: PROPOFOL INJECTION 50 ML IV ONE (09:02)
[2018-07-11] MEDS ORDERED: MIDAZOLAM 2 MG/2 ML (VERSED) VIAL ONE (09:03)
[2018-07-11 09:28] VITALS: BP 145/81
[2018-07-11] MEDS ORDERED: proPOfol 200 MG/20 ML (DIPRIVAN) VIAL IV ONE (09:33)
[2018-07-11] MEDS ORDERED: HURRICAINE EXT TUBE (BENZOCAINE) ONE (10:03)
--- NOTE | 2018-07-11 10:06 | Progress Note-Post Operative ---
Post-Operative Progess Note Surgeon (s)/Cafeteria Food Server (s) Surgeon JUANA ORTEGA DO Cafeteria Food Server: na Pre-Operative Diagnosis occult + stool, change in caliber stools, epigastric abdominal pain. Post-Operative Diagnosis gastitis, hiatal hernia, colon polyps diverticulosis Procedure & Operative Findings Date of Procedure 07/11/18 Procedure Performed/Findings egd c biopsies, colonoscopy hot bx polypectomy x 2, with tattoo hepatic flexure Anesthesia Type per form press operator Estimated Blood Loss Estimated blood loss (mL): none Specimens/Packing Specimens Removed antrum, body, ge, hepatic flexure, sigmoid JUANA ORTEGA DO Jul 11, 2018 10:06
[2018-07-11] MEDS ORDERED: PANT40TA2 PO (10:08)
--- NOTE | 2018-07-11 10:08 | Discharge Inst-Simple/Standard ---
Discharge Inst-Standard Discharge Medications New, Converted or Re-Newed RX: Transmitted to Pharmacy Patient Instructions/Follow Up Plan of Care/Instructions/FU: 2 weeks Cl Activity as Tolerated: Yes Discharge Diet: Regular Diet (high fiber) JUANA ORTEGA DO Jul 11, 2018 10:08
[2018-07-11] MEDS ORDERED: LACTATED RINGERS 1,000 ML IV STA (10:09)
[2018-07-11 10:15] VITALS: BP 121/74
[2018-07-11] MEDS ORDERED: HURRICAINE EXT TUBE (BENZOCAINE) XX PRN (10:15)
[2018-07-11 10:45] VITALS: BP 147/96
[2018-07-11 10:54] VITALS: BP 147/96
--- NOTE | 2018-07-11 11:54 | Anesthesia-General Post-Op ---
MAC Patient Condition Mental Status/LOC: Same as Preop Cardiovascular: Satisfactory Nausea/Vomiting: Absent Respiratory: Satisfactory Pain: Controlled Complications: Absent Post Op Complications Complications None Follow Up Care/Instructions Patient Instructions None needed. Anesthesiology Discharge Order Discharge Order Patient is doing well, no complaints, stable vital signs, no apparent adverse anesthesia problems. No complications reported per nursing. GUNNER LOGAN CRNA Jul 11, 2018 11:54
--- NOTE | 2018-07-11 13:34 | OPERATIVE REPORT ---
DATE OF SERVICE: 07/11/2018 PREOPERATIVE DIAGNOSES: Occult positive stool, change in caliber stools and epigastric abdominal pain. POSTOPERATIVE DIAGNOSES: Gastritis, hiatal hernia, colon polyps and diverticulosis. PROCEDURES: EGD with biopsies, colonoscopy with hot biopsy polypectomy x 2 with tattooing of the hepatic flexure polyp. SURGEON: Juana Smallwood DO. ANESTHESIA: Per SHANK STITCHER. ESTIMATED BLOOD LOSS: None. COMPLICATIONS: None. INDICATIONS: The patient is a 62-year-old female, who has had occult positive stool, change in caliber of her stools and having some epigastric abdominal pain. She understands the risks and benefits of procedures and wished to proceed with procedures. Consent was signed on the chart. DESCRIPTION OF PROCEDURE: The patient was taken to the endoscopy suite and placed in the left lateral recumbent position. Timeout was performed. Scope was inserted into the mouth, down the esophagus, stomach and then into the duodenum without difficulty. There were no polyps, mass or ulcerations within the duodenum. Scope was slowly retracted back into the stomach, which was significantly inflamed. Biopsies of the body and antrum were obtained. There are no polyps, masses or ulcerations. Scope was retroflexed noting a small hiatal hernia. No other pathology noted. Scope was returned to its normal position, slowly withdrawn to the distal esophagus, which biopsy of the GE junction was obtained. Scope was then slowly retracted back until completely removed noting no other pathology. Digital rectal exam was performed. There were no palpable polyps, masses or ulcerations. On the right buttock, there was a quarter sized skin lesion present. Scope was inserted in the rectum and advanced all the way to the cecum with minimal difficulty. Prep was adequate with irrigation and suction. Scope was then slowly retracted back. There were no polyps, masses or ulceration of the cecum, ascending colon. At the hepatic flexure, a polyp was present with the changes that had appearance of a more thickened folds. Biopsy of this area was obtained. Just distal to this area, a 2 mL of Patricia ink was used to tattoo the colon wall. This was fairly broad and did not have normal mucosal appearance. Scope was then continued to slowly retract back. There were no polyps, masses or ulcerations in the transverse colon and descending colon. Within the sigmoid colon, a small polyp was present, which hot biopsy polypectomy was performed. Scope was continuously retracted back until it in the rectum, where it was also retroflexed noting no other pathology. Scope was returned to its normal position, slowly withdrawn until completely removed. There was some sigmoid diverticulosis present as well. RECOMMENDATIONS: I would recommend biopsy of a skin lesion on the right buttocks. The patient will need repeat colonoscopy in one year to reevaluate the colon to reexamine the area of the mucosal changes/polyp. The patient will also be started on Protonix 40 mg daily to see how she is doing. The patient will follow up in the office in 2 weeks. Any issues before that will be seen at that time. Job ID: [id number] DocumentID: [id number] Dictated Date: 07/11/2018 10:05:56 Grade Tamper Date: 07/11/2018 13:33:46 Dictated By: JUANA SMALLWOOD DO
== END 2018-07-11 10:50 | disposition home or self-care (01) ==
LOC: ENDO 08:16
PROVIDERS: ATTEND Surgery
DX: K63.5 Polyp of colon (principal); K57.30 Diverticulosis of large intestine without perforation or abscess without bleeding; R19.5 Other fecal abnormalities; K29.70 Gastritis, unspecified, without bleeding; K21.9 Gastro-esophageal reflux disease without esophagitis; K44.9 Diaphragmatic hernia without obstruction or gangrene; L98.9 Disorder of the skin and subcutaneous tissue, unspecified; I10 Essential (primary) hypertension; J43.9 Emphysema, unspecified; F17.210 Nicotine dependence, cigarettes, uncomplicated; B19.20 Unspecified viral hepatitis C without hepatic coma; G62.9 Polyneuropathy, unspecified; Z79.899 Other long term (current) drug therapy
CPT/HCPCS: 88305

== ENCOUNTER 2019-07-17 05:31 | Outpatient (CLI) | payer MEDICARE, OTHER ==
[~2019-07-17] VITALS: Ht 162 cm; Wt 61.8 kg
[2019-07-17] MEDS ORDERED: OMG1KC PO (11:03)
[2019-07-17] MEDS ORDERED: PREG50CA2 PO (11:03)
== END 2019-07-17 12:59 | disposition home or self-care (01) ==
LOC: PREOP 05:31
PROVIDERS: ATTEND Surgery
DX: Z01.818 Encounter for other preprocedural examination (principal)

== ENCOUNTER → 2019-08-14 | Outpatient (CLI) | payer MEDICARE, OTHER ==
[~2019-08-14] MED LIST changes: -CETI10TA20 PO; +CETI10TA21 PO; +OMG1KC PO
--- NOTE | 2019-08-14 13:19 | Diagnostic Imaging Report ---
Indication: 25 pack year smoking history, history of cervical cancer, who presents for low-dose CT screening. Exam compared with the study performed 06/23/2017. Findings: Increased perihilar and basilar cylindrical bronchiectasis as well as progressive predominantly subpleural 5-lobed interstitial lung disease and scarring, background changes of centrilobular emphysema also appeared to show a generalized overall progression with increase symmetrical hyperexpansion of the lungs. No alveolar consolidation. No findings of an acute infiltrate superimposed. No suspicious appearing pulmonary nodule or dominant lung mass. Impression: Progressive chronic interstitial lung disease. No suspicious nodularity or findings suggestive of malignancy. Lung RADS category 2 Dictated by: Dictated on workstation # [id number]
== END ==
LOC: RAD 11:13
PROVIDERS: ATTEND Nurse Practitioner Family
DX: J84.9 Interstitial pulmonary disease, unspecified (principal); Z87.891 Personal history of nicotine dependence

== ENCOUNTER → 2019-10-17 | Outpatient (CLI) | payer MEDICARE, OTHER ==
--- NOTE | 2019-10-17 12:23 | Diagnostic Imaging Report ---
INDICATION: COPD, dyspnea, nicotine dependency, hypoxemia. COMPARISON: 08/14/2019 TECHNIQUE: 2 views of the chest. FINDINGS: Lung volumes are large. No focal consolidation is seen. There does appear to be chronic scarring in the lungs which appears unchanged. No pleural effusion or pneumothorax is seen. Emphysematous changes in the lung apices are noted. The cardiac silhouette is normal in size. IMPRESSION: 1. Findings of chronic obstructive disease and fibrotic changes with no focal consolidation seen. Dictated by: Dictated on workstation # [id number]
== END ==
LOC: RAD 11:10
PROVIDERS: ATTEND Nurse Practitioner Family
DX: J44.9 Chronic obstructive pulmonary disease, unspecified (principal); R09.02 Hypoxemia; F17.210 Nicotine dependence, cigarettes, uncomplicated
CPT/HCPCS: 71046

== ENCOUNTER → 2019-10-24 | Outpatient (CLI) | payer MEDICARE, OTHER ==
[~2019-10-24] MED LIST changes: +RT-ALBUTEROL SULF 2.5 MG/3 ML PRE-MIX VIAL INH ONE
== END ==
LOC: RT 15:20
PROVIDERS: ATTEND Nurse Practitioner Family
DX: J44.9 Chronic obstructive pulmonary disease, unspecified (principal); J30.9 Allergic rhinitis, unspecified; F17.210 Nicotine dependence, cigarettes, uncomplicated
CPT/HCPCS: 94060; 94726; 94729

== ENCOUNTER 2020-01-22 10:45 | Inpatient (IN) | payer MEDICARE, OTHER ==
[~2020-01-22] VITALS: Ht 162 cm; Wt 66.4 kg
[2020-01-22] VITALS (8 sets, daily range): BP systolic 63–117; BP diastolic 42–94
[~2020-01-22 10:45] MED LIST changes: -RT-ALBUTEROL SULF 2.5 MG/3 ML PRE-MIX VIAL INH ONE
[2020-01-22 11:16] LABS: BASOPHILS % (AUTO) 0 % (0-10); EOSINOPHILS # (AUTO) 0.2 10^3/uL (0.0-0.3); EOSINOPHILS % (AUTO) 2 % (0-10); HEMATOCRIT 43 % (35-52); HEMOGLOBIN 15.1 G/DL (11.5-16.0); LYMPHOCYTES # (AUTO) 1.1 X 10^3 (1.0-4.0); LYMPHOCYTES % (AUTO) 14 % (12-44); MEAN CORPUSCULAR HEMOGLOBIN 30 PG (25-34); MEAN CORPUSCULAR HGB CONC 35 G/DL (32-36); MEAN CORPUSCULAR VOLUME 87 FL (80-99); MEAN PLATELET VOLUME 11.3 FL (7.4-10.4); MONOCYTES # (AUTO) 0.9 X 10^3 (0.0-1.0); MONOCYTES % (AUTO) 11 % (0-12); NEUTROPHILS # (AUTO) 5.9 X 10^3 (1.8-7.8); NEUTROPHILS % (AUTO) 73 % (42-75); PLATELET COUNT 204 10^3/uL (130-400); RED CELL DISTRIBUTION WIDTH 13.7 % (10.0-14.5); WHITE BLOOD COUNT 8.1 10^3/uL (4.3-11.0)
[2020-01-22 11:38] LABS: CLARITY,URINE SL CLOUDY; COLOR,URINE AMBER; GLUCOSE, URINE (UA) NEGATIVE (NEGATIVE); KETONES,URINE TRACE (NEGATIVE); LEUKOCYTE ESTERASE ,URINE 3+ (NEGATIVE); NITRITE,URINE NEGATIVE (NEGATIVE); PH,URINE 5.5 (5-9); PROTEIN,URINE NEGATIVE (NEGATIVE)
[2020-01-22 11:47] LABS: BILIRUBIN,URINE 1+ (NEGATIVE); RBC,URINE RARE /HPF; WBC,URINE 25-50 /HPF
[2020-01-22 11:48] LABS: BACTERIA,URINE FEW /HPF
[2020-01-22 11:51] LABS: ALANINE AMINOTRANSFERASE 15 U/L (0-55); ALBUMIN 3.6 GM/DL (3.2-4.5); ALKALINE PHOSPHATASE 129 U/L (40-136); BILIRUBIN,TOTAL 1.2 MG/DL (0.1-1.0); BUN/CREATININE RATIO 14; CALCIUM 8.9 MG/DL (8.5-10.1); CARBON DIOXIDE 24 MMOL/L (21-32); CHLORIDE 100 MMOL/L (98-107); CREATININE SERUM 0.74 MG/DL (0.60-1.30); GFR ESTIMATED > 60; GLUCOSE 102 MG/DL (70-105); SODIUM 136 MMOL/L (135-145); TOTAL PROTEIN 7.4 GM/DL (6.4-8.2)
--- NOTE | 2020-01-22 11:51 | Diagnostic Imaging Report ---
INDICATION: Dyspnea. Hemoptysis. COMPARISON: 10/17/2019 FINDINGS: Single frontal radiograph view the chest was obtained and again demonstrates diffuse coarse prominence of the interstitium. Although present previously, this does appear more prominent on today's exam. There is no large effusion or pneumothorax. Cardiac silhouette and pulmonary vasculature are within normal limits. Osseous structures show no gross acute abnormalities. IMPRESSION: 1. Findings concerning for acute interstitial edema or pneumonia superimposed on background chronic interstitial lung disease. Dictated by: Dictated on workstation # [id number]
[2020-01-22 12:02] LABS: FIBRIN DEGRADATION PRODUCTS 1.11 UG/ML (0.00-0.49); PROTHROMBIN TIME PATIENT 13.3 SEC (12.2-14.7)
[2020-01-22] MEDS ORDERED: CEFEPIME INJECTION 2,000 MG in WATER (STERILE) FOR INJECTION 20 ML IV ONE (12:15)
[2020-01-22] MEDS ORDERED: IOHEXOL 350 MG/ML 100 ML (OMNIPAQUE 350) VIAL IV ONE (12:30)
[2020-01-22] MEDS ORDERED: HOLD METFORMIN - RECEIVED CONTRAST 20 ML VIAL IV SCH (12:30)
[2020-01-22] MEDS ORDERED: NS 100 ML (IVPB) BAG IV ONE (12:30)
--- NOTE | 2020-01-22 12:35 | NUR ---
CALLED TO CT BECAUSE CT STAFF SAID IV INFILTRATED, WENT TO CT TO RESTART IV.
--- NOTE | 2020-01-22 13:29 | Diagnostic Imaging Report ---
PROCEDURE: CT angiography of the chest with contrast. TECHNIQUE: Multiple contiguous axial images were obtained through the chest after uneventful bolus administration of intravenous contrast. 3D reconstructed CTA MIP acquisitions were also performed. Auto Exposure Controls were utilized during the CT exam to meet ALARA standards for radiation dose reduction. DATE: January 22, 2020. INDICATION: 64-year-old female, shortness of breath. History of chronic obstructive pulmonary disease. COMPARISON: Chest radiograph January 22, 2020. CT chest June 23, 2017. FINDINGS: There is airspace consolidation in the right lower lobe with air bronchograms and no pronounced volume loss. The airspace consolidation does not homogeneously enhance. There are findings of emphysema present. There are additional linear opacities in the lungs, likely reflecting mild scarring and/or atelectasis. There is no identified pulmonary nodule. There is no lung mass. There is no additional focal airspace consolidation. There is no pneumothorax. There is no pleural effusion. The central airways are patent. There is no identified pulmonary embolus. There are coronary artery calcifications and additional areas of atherosclerotic disease. The heart is not enlarged. There is no pericardial effusion. There is a precarinal lymph node on axial image 47 which measures 12 mm in short axis. There is a subcarinal lymph node on axial image 61 which measures 15 mm in short axis. There is a right hilar lymph node on axial image 74 which measures 11 mm in short axis. There are subcentimeter additional paratracheal lymph nodes. There is no abnormally enlarged axillary lymph node which meets CT size criteria for adenopathy. The imaged portions of the upper abdomen are unremarkable in appearance. There are multilevel degenerative changes of the spine. There is a chronic deformity of the medial aspect of the left clavicle. There is no identified acute bony abnormality. There are findings of diffuse idiopathic skeletal hyperostosis. IMPRESSION: 1. Right middle lobe airspace consolidation concerning for pneumonia, aspiration, or other alveolar consolidative process. Recommend correlation clinically and ensure followup to resolution. 2. Findings of emphysema. 3. Mediastinal and right hilar adenopathy which potentially could relate to the right middle lobe airspace consolidative process. Dictated by: Dictated on workstation # [id number]
--- NOTE | 2020-01-22 13:42 | ED General ---
General Chief Complaint: Respiratory Problems Stated Complaint: SOA Nursing Triage Note: PT TO RM 9 BY [facility] FROM [facility] WITH CC OF SOB FOR ABOUT 4 DAYS, FELT HOT YESTERDAY, TEMP 99.5 BY EMS, OCCATIONAL COUGH. 90%ON 6 LPM NC SWITCHED TO 15 LPM NRB BY EMS WITH O2 OF 100% ON ARRIVAL, DENIES ANY CHEST PAIN. HX OF COPD Nursing Sepsis Screen: No Definite Risk Source of Information: Patient Exam Limitations: No Limitations History of Present Illness Date Seen by Provider: Jan 22, 2020 Time Seen by Provider: 10:46 Initial Comments This 64-year-old woman presents to the emergency room with complaints of shortness of breath and cough for several days. She reports her cough is productive and sometimes has bloody sputum. She was found to be hypoxic at the [facility] clinic today despite using nasal cannula oxygen. She normally uses her nasal cannula only at night. She does have history of COPD and sees Dr. Jarrett. She has a nebulizer machine at home but did not use it this morning. She is afebrile at present. EMS notes her options saturation was 90 percent on 6 L by nasal cannula. They placed her on high flow nonrebreather mask which resuscitated her saturations. Allergies and Home Medications Allergies Coded Allergies: No Known Drug Allergies (Unverified , 01/22/20) Home Medications Albuterol Sulfate 2.5 Mg/0.5 Ml Vial.neb, 2.5 MG IH Q4H PRN for SHORTNESS OF BREATH, (Reported) Amitriptyline HCl 75 Mg Tablet, 75 MG PO HS, (Reported) Biotin 1,000 Mcg Tablet, 1,000 MCG PO DAILY, (Reported) Budesonide/Formoterol Fumarate 10.2 Gm Hfa.aer.ad, 2 PUFF IH BID, (Reported) [place] 3 Polyunsat Fatty Acids 1,000 Mg Cap, 1,000 MG PO DAILY, (Reported) Pregabalin 50 Mg Capsule, 50 MG PO TID, (Reported) Patient Home Medication List Home Medication List Reviewed: Yes Review of Systems Review of Systems Constitutional: no symptoms reported EENTM: no symptoms reported Respiratory: see HPI Cardiovascular: no symptoms reported Gastrointestinal: no symptoms reported Genitourinary: no symptoms reported : No Musculoskeletal: no symptoms reported Skin: no symptoms reported Psychiatric/Neurological: No Symptoms Reported Hematologic/Lymphatic: See HPI Immunological/Allergic: no symptoms reported Past Fwevmor-Gfunrb-Fkadpj Hx Past Med/Social Hx: Reviewed and Corrections made Patient Social History Alcohol Use: Occasionally Uses Alcohol Beverage of Choice: Whiskey Recreational Drug Use: Yes Drug of Choice: marijuana Smoking Status: Current Everyday Smoker Type Used: Cigarettes Former Smoker, Quit: Nov 20, 2015 2nd Hand Smoke Exposure: Yes Recent Foreign Travel: No Contact w/Someone Who Travel: No Recent Infectious Disease Expo: No Recent Hopitalizations: No Physical Abuse: No Sexual Abuse: No Mistreated: No Fear: No Immunizations Up To Date Date of Pneumonia Vaccine: Mar 25, 2014 Date of Influenza Vaccine: Mar 05, 2019 Seasonal Allergies Seasonal Allergies: Yes Past Medical History Surgeries: Yes (ankle fx, ) Hysterectomy Respiratory: Yes (O2 2L AT NIGHT AND PRN) Chronic Bronchitis, COPD, Emphysema Cardiac: Yes Hypertension Neurological: Yes Neuropathy : No Sexually Transmitted Disease: No HIV/AIDS: No Genitourinary: No Gastrointestinal: Yes (hep C, ) Hepatitis (status post treatment) Musculoskeletal: Yes Fractures Endocrine: No HEENT: Yes Cataract Cancer: Yes Cervical What Type of Treatment Did You: Surgical Intervention Psychosocial: No Integumentary: No Blood Disorders: No Adverse Reaction/Blood Tranf: No (N/A) Family Medical History Reviewed and Corrections made DVT/PE Physical Exam-Suspected Sepsis Physical Exam Vital Signs Vital Signs - First Documented 01/22/20 10:53 Temp 37.0 Pulse 79 Resp 18 B/P (MAP) 118/78 (91) Pulse Ox 99 O2 Delivery Non Rebreather O2 Flow Rate 15.00 Capillary Refill : Less Than 3 Seconds Blood Pressure Mean: 91 Height, Weight, BMI Height: 5'4.00" Weight: 134lbs. 0.0oz. 60.191221on; 23.00 BMI Method: General Appearance: No Apparent Distress, WD/WN, Thin HEENT: PERRL/EOMI, Normal ENT Inspection, Pharynx Normal Neck: Normal Inspection; No JVD Respiratory: Lungs Clear, Normal Breath Sounds, No Accessory Muscle Use Cardiovascular: Regular Rate, Rhythm, No Edema, No Murmur Gastrointestinal: Normal Bowel Sounds, Non Tender, Soft Extremity: Normal Inspection, Non Tender, No Pedal Edema Neurologic/Psychiatric: Alert, Oriented x3, No Motor/Sensory Deficits, Normal Mood/Affect, party plan sales consultant II-XII Norm as Tested Skin: normal color, warm/dry Focused Exam Lactate Level 01/22/20 10:50: Lactic Acid Level 1.00 Lactic Acid Level Progress/Results/Core Measures Suspected Sepsis Recent Fever Within 48 Hours: Yes Infection Criteria Present: Suspected New Infection New/Unexplained Altered Menta: No Sepsis Screen: No Definite Risk SIRS Temperature: Pulse: 79 Respiratory Rate: 18 Laboratory Tests 01/22/20 10:50: White Blood Count 8.1 Blood Pressure 118 /78 Mean: 91 01/22/20 10:50: Lactic Acid Level 1.00 Laboratory Tests 01/22/20 10:50: Creatinine 0.74, Platelet Count 204, Total Bilirubin 1.2H 01/22/20 11:25: INR Comment 1.0 Results/Orders Lab Results Laboratory Tests Test 01/22/20 00:00 01/22/20 10:50 01/22/20 11:25 01/22/20 14:45 Range/Units White Blood Count 8.1 4.3-11.0 10^3/uL Red Blood Count 4.98 4.35-5.85 10^6/uL Hemoglobin 15.1 11.5-16.0 G/DL Hematocrit 43 35-52 % Mean Corpuscular Volume 87 80-99 FL Mean Corpuscular Hemoglobin 30 25-34 PG Mean Corpuscular Hemoglobin Concent 35 32-36 G/DL Red Cell Distribution Width 13.7 10.0-14.5 % Platelet Count 204 130-400 10^3/uL Mean Platelet Volume 11.3 H 7.4-10.4 FL Neutrophils (%) (Auto) 73 42-75 % Lymphocytes (%) (Auto) 14 12-44 % Monocytes (%) (Auto) 11 0-12 % Eosinophils (%) (Auto) 2 0-10 % Basophils (%) (Auto) 0 0-10 % Neutrophils # (Auto) 5.9 1.8-7.8 X 10^3 Lymphocytes # (Auto) 1.1 1.0-4.0 X 10^3 Monocytes # (Auto) 0.9 0.0-1.0 X 10^3 Eosinophils # (Auto) 0.2 0.0-0.3 10^3/uL Basophils # (Auto) 0.0 0.0-0.1 10^3/uL Sodium Level 136 135-145 MMOL/L Potassium Level 4.0 3.6-5.0 MMOL/L Chloride Level 100 98-107 MMOL/L Carbon Dioxide Level 24 21-32 MMOL/L Anion Gap 12 5-14 MMOL/L Blood Urea Nitrogen 10 7-18 MG/DL Creatinine 0.74 0.60-1.30 MG/DL Estimat Glomerular Filtration Rate > 60 BUN/Creatinine Ratio 14 Glucose Level 102 70-105 MG/DL Lactic Acid Level 1.00 0.50-2.00 MMOL/L Calcium Level 8.9 8.5-10.1 MG/DL Corrected Calcium 9.2 8.5-10.1 MG/DL Total Bilirubin 1.2 H 0.1-1.0 MG/DL Aspartate Amino Transf (AST/SGOT) 26 5-34 U/L Alanine Aminotransferase (ALT/SGPT) 15 0-55 U/L Alkaline Phosphatase 129 40-136 U/L Troponin I < 0.028 <0.028 NG/ML C-Reactive Protein High Sensitivity 3.84 H 0.00-0.50 MG/DL B-Type Natriuretic Peptide 18.2 <100.0 PG/ML Total Protein 7.4 6.4-8.2 GM/DL Albumin 3.6 3.2-4.5 GM/DL Procalcitonin 0.15 H <0.10 NG/ML Prothrombin Time 13.3 12.2-14.7 SEC INR Comment 1.0 0.8-1.4 Activated Partial Thromboplast Time 25 24-35 SEC D-Dimer 1.11 H 0.00-0.49 UG/ML Urine Color CHELO H Urine Clarity SL CLOUDY Urine pH 5.5 5-9 Urine Specific [place] 1.015 L 1.016-1.022 Urine Protein NEGATIVE NEGATIVE Urine Glucose (UA) NEGATIVE NEGATIVE Urine Ketones TRACE H NEGATIVE Urine Nitrite NEGATIVE NEGATIVE Urine Bilirubin 1+ H NEGATIVE Urine Urobilinogen 4.0 < = 1.0 MG/DL Urine Leukocyte Esterase 3+ H NEGATIVE Urine RBC (Auto) NEGATIVE NEGATIVE Urine RBC RARE /HPF Urine WBC 25-50 H /HPF Urine Squamous Epithelial Cells 5-10 /HPF Urine Crystals NONE /LPF Urine Bacteria FEW H /HPF Urine Casts NONE /LPF Urine Mucus SMALL H /LPF Urine Culture Indicated CULTURE PENDING Blood Gas Puncture Site UNK Blood Gas Patient Temperature 97.6 Arterial Blood pH 7.40 7.37-7.43 Arterial Blood Partial Pressure CO2 42 35-45 MMHG Arterial Blood Partial Pressure O2 52 L 79-93 MMHG Arterial Blood HCO3 25 23-27 MMOL/L Arterial Blood Total CO2 26.7 21.0-31.0 MMOL/L Arterial Blood Oxygen Saturation 86 L 94-100 % Arterial Blood Base Excess 1.0 -2.5-2.5 MMOL/L Kanu Test UNK Blood Gas Ventilator Setting NO Blood Gas Inspired Oxygen UNK Coronavirus 2019 ([facility]) Negative Negative My Orders Orders - KASSIDY MEZA MD Ed Iv/Invasive Line Start (01/22/20 11:01) Ekg Tracing (01/22/20 11:01) O2 (01/22/20 11:01) Monitor-Rhythm Ecg Trace Only (01/22/20 11:01) BNP (01/22/20 11:01) Hs C Reactive Protein (01/22/20 11:01) Cbc With Automated Diff (01/22/20 11:01) Comprehensive Metabolic Panel (01/22/20 11:01) Blood Culture (01/22/20 11:01) Sputum Culture (01/22/20 11:01) Urinalysis (01/22/20 11:01) Urine Culture (01/22/20 11:01) Protime With Inr (01/22/20 11:01) Partial Thromboplastin Time (01/22/20 11:01) Chest 1 View, Ap/Pa Only (01/22/20 11:01) Ed Iv/Invasive Line Start (01/22/20 11:01) Vital Signs Adult Sepsis Patie Q15M (01/22/20 11:01) Remove Rings In Anticipation O (01/22/20 11:01) Lactic Acid Analyzer (01/22/20 11:01) Fibrin Degradation Products (01/22/20 11:01) Troponin I (01/22/20 11:01) Albuterol Inhaler (Ventolin Hfa) (01/22/20 14:00) Procalcitonin (Pct) (01/22/20 11:01) Ct Angio Chest W (01/22/20 12:08) Cefepime Injection (Maxipime Injection) (01/22/20 12:15) Iohexol Injection (Omnipaque 350 Mg/Ml 1 (01/22/20 12:30) Received Contrast (Hold Metformin- Contr (01/22/20 12:30) Ns (Ivpb) (Sodium Chloride 0.9% Ivpb Bag (01/22/20 12:30) Arterial Blood Gas (01/22/20 14:09) Covid 19 Inhouse Test (01/22/20 14:09) Medications Given in ED Current Medications Medications Dose Ordered Sig/Sophie Route Start Time Stop Time Status Last Admin Dose Admin Cefepime HCl 2000 mg/Sterile Water 20 ml @ 240 mls/hr ONCE ONCE IV 01/22/20 12:15 01/22/20 12:19 DC 01/22/20 13:07 240 MLS/HR Vital Signs/I&O 01/22/20 01/22/20 01/22/20 01/22/20 10:53 16:13 16:40 16:48 Temp 37.0 36.4 36.2 Pulse 79 75 82 79 Resp 18 18 18 B/P (MAP) 118/78 (91) 138/76 (91) 117/74 (88) Pulse Ox 99 99 96 O2 Delivery Non Rebreather Nasal Cannula Nasal Cannula O2 Flow Rate 15.00 3.00 2.00 01/22/20 01/22/20 01/22/20 17:00 18:00 18:13 Pulse 80 81 Resp 12 B/P (MAP) 63/42 (49) 109/94 (99) Pulse Ox 93 99 99 O2 Delivery Nasal Cannula Nasal Cannula Nasal Cannula O2 Flow Rate 2.00 2.00 2.00 Capillary Refill : Less Than 3 Seconds Blood Pressure Mean: 91 Progress Note : Time: 14:03 Progress Note Septic workup was pursued. Patient did not meet criteria for sepsis but was found to have a right middle lobe pneumonia. CT angiogram was obtained due to elevated d-dimer. No pulmonary emboli were noted. Abnormal EKG was reviewed with Dr. Drew. There was right bundle branch block without notable ischemia. Patient's pneumonia was initially treated with cefepime. Dr. Jarrett recommends continuing with this. Albuterol by inhaler was administered in the ER. Dr. Jarrett recommending continuing with the inhaler but not initiating steroids at this time. Case was discussed with Dr. Frank who agrees with admission to the ICU. I discussed CODE STATUS with the patient and she requests a full code but requests no prolonged life supportive measures. Dr. Frank requested an ABG and a rapid COVID swab. ECG Initial ECG Impression Date: Jan 22, 2020 Initial ECG Impression Time: 11:16 Initial ECG Rate: 78 Initial ECG Rhythm: Normal Sinus Comment Sinus rhythm with no ischemic ST elevation or depression. Right bundle branch block. Diagnostic Imaging Diagonstic Imaging: Xray Plain Films/CT/US/NM/MRI: chest Comments Chest x-ray viewed by me and report reviewed. See report below: NAME: [facility] REC#: [id number] PT STATUS: REG ER : 1955 PHYSICIAN: KASSIDY MEZA MD ADMIT DATE: 01/22/20/ER Draft Date of Exam:01/22/20 CHEST 1 VIEW, AP/PA ONLY INDICATION: Dyspnea. Hemoptysis. COMPARISON: 10/17/2019 FINDINGS: Single frontal radiograph view the chest was obtained and again demonstrates diffuse coarse prominence of the interstitium. Although present previously, this does appear more prominent on today's exam. There is no large effusion or pneumothorax. Cardiac silhouette and pulmonary vasculature are within normal limits. Osseous structures show no gross acute abnormalities. IMPRESSION: 1. Findings concerning for acute interstitial edema or pneumonia superimposed on background chronic interstitial lung disease. Dictated on workstation # [id number] Dict: 01/22/20 1143 Trans: 01/22/20 1150 [facility] [id number] Interpreted by: CHLOE TO MD Diagonstic Imaging: CT Plain Films/CT/US/NM/MRI: chest Comments CT angiogram chest viewed by me and report reviewed. See report below: NAME: [facility] REC#: [id number] PT STATUS: REG ER : 1955 PHYSICIAN: KASSIDY MEZA MD ADMIT DATE: 01/22/20/ER Draft Date of Exam:01/22/20 CT ANGIO CHEST W PROCEDURE: CT angiography of the chest with contrast. TECHNIQUE: Multiple contiguous axial images were obtained through the chest after uneventful bolus administration of intravenous contrast. 3D reconstructed CTA MIP acquisitions were also performed. Auto Exposure Controls were utilized during the CT exam to meet ALARA standards for radiation dose reduction. DATE: January 22, 2020. INDICATION: 64-year-old female, shortness of breath. History of chronic obstructive pulmonary disease. COMPARISON: Chest radiograph January 22, 2020. CT chest June 23, 2017. FINDINGS: There is airspace consolidation in the right lower lobe with air bronchograms and no pronounced volume loss. The airspace consolidation does not homogeneously enhance. There are findings of emphysema present. There are additional linear opacities in the lungs, likely reflecting mild scarring and/or atelectasis. There is no identified pulmonary nodule. There is no lung mass. There is no additional focal airspace consolidation. There is no pneumothorax. There is no pleural effusion. The central airways are patent. There is no identified pulmonary embolus. There are coronary artery calcifications and additional areas of atherosclerotic disease. The heart is not enlarged. There is no pericardial effusion. There is a precarinal lymph node on axial image 47 which measures 12 mm in short axis. There is a subcarinal lymph node on axial image 61 which measures 15 mm in short axis. There is a right hilar lymph node on axial image 74 which measures 11 mm in short axis. There are subcentimeter additional paratracheal lymph nodes. There is no abnormally enlarged axillary lymph node which meets CT size criteria for adenopathy. The imaged portions of the upper abdomen are unremarkable in appearance. There are multilevel degenerative changes of the spine. There is a chronic deformity of the medial aspect of the left clavicle. There is no identified acute bony abnormality. There are findings of diffuse idiopathic skeletal hyperostosis. IMPRESSION: 1. Right middle lobe airspace consolidation concerning for pneumonia, aspiration, or other alveolar consolidative process. Recommend correlation clinically and ensure followup to resolution. 2. Findings of emphysema. 3. Mediastinal and right hilar adenopathy which potentially could relate to the right middle lobe airspace consolidative process. Dictated on workstation # [id number] Dict: 01/22/20 1317 Trans: 01/22/20 1329 [id number] Interpreted by: KAYLIN RAVI MD Departure Communication (Admissions) Time/Spoke to Admitting Phy: 13:50 Dr. Frank Time/Spoke to Consulting Phy: 13:55 Dr. Jarrett Impression Primary Impression: Right middle lobe pneumonia Qualified Codes: J18.9 - Pneumonia, unspecified organism Additional Impressions: COPD with exacerbation Hypoxia Urinary tract infection Qualified Codes: N39.0 - Urinary tract infection, site not specified Person under investigation for COVID-19 Disposition: ADMITTED INPATIENT Condition: Stable Admissions Decision to Admit Reason: Admit from ER (General) Decision to Admit/Date: Jan 22, 2020 Time/Decision to Admit Time: 12:00 Departure-Patient Inst. Referrals: [facility] (PCP) Primary Care Physician HUA ALAN APRN (Family) Primary Care Physician Copy Copies To 1: ROLANDO COLES JOSHUA T MD Jan 22, 2020 13:42
[2020-01-22] MEDS ORDERED: RT-ALBUTEROL INHALER HFA (VENTOLIN HFA) 18 GM IH SCH (14:00)
[2020-01-22 14:51] LABS: ABG OXYGEN SATURATION 86 % (94-100); ABG PCO2 42 MMHG (35-45); ABG PO2 52 MMHG (79-93); ABG TCO2 26.7 MMOL/L (21.0-31.0)
[2020-01-22 14:52] LABS: PATIENT TEMP 97.6; VENTILATOR NO
[2020-01-22] MEDS ORDERED: RT-ALBUTEROL INHALER HFA (VENTOLIN HFA) 18 GM IH PRN (16:45)
[2020-01-22] MEDS ORDERED: CATHETER FLUSH 10 ML SYR IV PRN (16:45)
[2020-01-22] MEDS ORDERED: ONDANSETRON 4 MG/2 ML (SDV) Z0FRAN IV PRN (16:45)
[2020-01-22] MEDS: AZITHROMYCIN 500 MG/NS 250 ML IVPB IV SCH ×2 (18:33)
[2020-01-22] MEDS: LACTATED RINGERS 1,000 ML IV SCH ×2 (18:34→23:29)
[2020-01-22] MEDS: ENOXAPARIN 40 MG/0.4 ML (LOVENOX) SYR SC SCH (20:31)
[2020-01-22] MEDS ORDERED: CEFEPIME 2,000 MG/SWFI 20 ML IV PUSH IV SCH ×2 (21:00)
[2020-01-23] VITALS (11 sets, daily range): BP systolic 105–135; BP diastolic 52–88
[2020-01-23 04:32] LABS: BUN/CREATININE RATIO 14; CALCIUM 8.7 MG/DL (8.5-10.1); CARBON DIOXIDE 24 MMOL/L (21-32); CHLORIDE 103 MMOL/L (98-107); CREATININE SERUM 0.73 MG/DL (0.60-1.30); GFR ESTIMATED > 60; GLUCOSE 102 MG/DL (70-105); MAGNESIUM 1.9 MG/DL (1.6-2.4); PHOSPHORUS 3.2 MG/DL (2.3-4.7); POTASSIUM 4.2 MMOL/L (3.6-5.0); SODIUM 138 MMOL/L (135-145)
[2020-01-23] MEDS: MAGNESIUM 1 GM/100 ML IVPB 100 ML IV SCH (05:12)
[2020-01-23] MEDS: KCL 20 MEQ TAB (K-DUR) PO SCH (05:12)
[2020-01-23] MEDS: POTASSIUM CL 10MEQ/50ML IVPB 50 ML IV SCH (05:12)
[2020-01-23 05:13] LABS: BASOPHILS # (AUTO) 0.1 10^3/uL (0.0-0.1); BASOPHILS % (AUTO) 1 % (0-10); EOSINOPHILS # (AUTO) 0.2 10^3/uL (0.0-0.3); EOSINOPHILS % (AUTO) 3 % (0-10); HEMATOCRIT 41 % (35-52); HEMOGLOBIN 13.9 G/DL (11.5-16.0); LYMPHOCYTES # (AUTO) 1.1 X 10^3 (1.0-4.0); LYMPHOCYTES % (AUTO) 17 % (12-44); MEAN CORPUSCULAR HEMOGLOBIN 30 PG (25-34); MEAN CORPUSCULAR HGB CONC 34 G/DL (32-36); MEAN CORPUSCULAR VOLUME 88 FL (80-99); MEAN PLATELET VOLUME 10.8 FL (7.4-10.4); MONOCYTES # (AUTO) 0.8 X 10^3 (0.0-1.0); MONOCYTES % (AUTO) 12 % (0-12); NEUTROPHILS # (AUTO) 4.5 X 10^3 (1.8-7.8); NEUTROPHILS % (AUTO) 67 % (42-75); PLATELET COUNT 163 10^3/uL (130-400); WHITE BLOOD COUNT 6.6 10^3/uL (4.3-11.0)
[2020-01-23] MEDS: LACTATED RINGERS 1,000 ML IV SCH ×2 (05:48→12:49)
--- NOTE | 2020-01-23 05:58 | Pulmonary Consultation ---
History of Present Illness History of Present Illness Date Seen by Provider: Jan 23, 2020 Time Seen by Provider: 05:54 Date of Admission Allergies and Home Medications Allergies Coded Allergies: No Known Drug Allergies (Unverified , 01/22/20) Home Medications Albuterol Sulfate 2.5 Mg/0.5 Ml Vial.neb, 2.5 MG IH Q4H PRN for SHORTNESS OF BREATH, (Reported) Amitriptyline HCl 75 Mg Tablet, 75 MG PO HS, (Reported) Biotin 1,000 Mcg Tablet, 1,000 MCG PO DAILY, (Reported) Budesonide/Formoterol Fumarate 10.2 Gm Hfa.aer.ad, 2 PUFF IH BID, (Reported) [place] 3 Polyunsat Fatty Acids 1,000 Mg Cap, 1,000 MG PO DAILY, (Reported) Pregabalin 50 Mg Capsule, 50 MG PO TID, (Reported) Past Ydrczvm-Zcbsdp-Aiudtf Hx Past Med/Social Hx: Reviewed and Corrections made Patient Social History Alcohol Use: Occasionally Uses Alcohol Beverage of Choice: [employer] Recreational Drug Use: Yes Drug of Choice: marijuana Smoking Status: Current Everyday Smoker Type Used: Cigarettes Former Smoker, Quit: Nov 20, 2015 2nd Hand Smoke Exposure: Yes Recent Foreign Travel: No Contact w/Someone Who Travel: No Recent Infectious Disease Expo: No Recent Hopitalizations: No Physical Abuse: No Sexual Abuse: No Mistreated: No Fear: No Immunizations Up To Date Date of Pneumonia Vaccine: Mar 25, 2014 Date of Influenza Vaccine: Mar 05, 2019 Seasonal Allergies Seasonal Allergies: Yes Past Medical History Surgeries: Yes (ankle fx, ) Hysterectomy Respiratory: Yes (O2 2L AT NIGHT AND PRN) Chronic Bronchitis, COPD, Emphysema Cardiac: Yes Hypertension Neurological: Yes Neuropathy : No Sexually Transmitted Disease: No HIV/AIDS: No Genitourinary: No Gastrointestinal: Yes (hep C, ) Hepatitis (status post treatment) Musculoskeletal: Yes Fractures Endocrine: No HEENT: Yes Cataract Cancer: Yes Cervical What Type of Treatment Did You: Surgical Intervention Psychosocial: No Integumentary: No Blood Disorders: No Adverse Reaction/Blood Tranf: No (N/A) Family Medical History Reviewed and Corrections made DVT/PE Sepsis Event Evaluation Height, Weight, BMI Height: 5'4.00" Weight: 134lbs. 0.0oz. 60.407462py; 23.00 BMI Method: Exam Exam Vital Signs Date Time Temp Pulse Resp B/P (MAP) Pulse Ox O2 Delivery O2 Flow Rate FiO2 01/23/20 04:00 81 131/65 (87) 93 Nasal Cannula 2.00 01/23/20 04:00 98 Nasal Cannula 2.00 01/23/20 03:00 85 121/79 (93) 96 Nasal Cannula 2.00 01/23/20 02:00 82 120/68 (85) 95 Nasal Cannula 2.00 01/23/20 01:00 80 125/65 (85) 97 Nasal Cannula 2.00 01/23/20 01:00 80 01/23/20 00:00 83 105/72 (83) 96 Nasal Cannula 2.00 01/23/20 00:00 98 Nasal Cannula 2.00 01/22/20 23:00 85 104/68 (80) 97 Nasal Cannula 2.00 01/22/20 22:00 83 111/66 (81) 98 Nasal Cannula 2.00 01/22/20 21:00 80 102/50 (67) 97 Nasal Cannula 2.00 01/22/20 20:00 98 Nasal Cannula 2.00 01/22/20 20:00 36.6 01/22/20 20:00 78 103/64 (77) 97 Nasal Cannula 2.00 01/22/20 19:00 81 111/70 (84) 98 Nasal Cannula 2.00 01/22/20 19:00 81 01/22/20 18:13 99 Nasal Cannula 2.00 01/22/20 18:00 81 109/94 (99) 99 Nasal Cannula 2.00 01/22/20 17:00 80 12 63/42 (49) 93 Nasal Cannula 2.00 01/22/20 16:48 79 01/22/20 16:40 36.2 82 18 117/74 (88) 96 Nasal Cannula 2.00 01/22/20 16:13 36.4 75 18 138/76 (91) 99 Nasal Cannula 3.00 01/22/20 10:53 37.0 79 18 118/78 (91) 99 Non Rebreather 15.00 I & O 01/23/20 07:00 Intake Total 950 ml Output Total 1 ml Balance 949 ml Height & Weight Height: 5'4.00" Weight: 134lbs. 0.0oz. 60.909137np; 23.00 BMI Method: General Appearance: No Apparent Distress, WD/WN, Thin HEENT: PERRL/EOMI, Normal ENT Inspection, Pharynx Normal Neck: Normal Inspection; No JVD Respiratory: Lungs Clear, Normal Breath Sounds, No Accessory Muscle Use Cardiovascular: Regular Rate, Rhythm, No Edema, No Murmur Capillary Refill: Less Than 3 Seconds Extremity: Normal Inspection, Non Tender, No Pedal Edema Neurologic/Psychiatric: Alert, Oriented x3, No Motor/Sensory Deficits, Normal Mood/Affect, payroll technician II-XII Norm as Tested Results Lab Laboratory Tests 01/22/20 10:50 01/23/20 03:19 Assessment/Plan Assessment/Plan RML Pneuonia -COVID is pending -Continue rocephin and azithromycin COPDAE -breathing treatments UTI MICHELLE CLAY DO Jan 23, 2020 05:58
[2020-01-23] MEDS ORDERED: MAGNESIUM 1 GM/100 ML IVPB 100 ML IV SCH (06:00)
[2020-01-23] MEDS ORDERED: KCL 20 MEQ TAB (K-DUR) PO SCH (06:00)
[2020-01-23] MEDS ORDERED: POTASSIUM CL 10MEQ/50ML IVPB 50 ML IV SCH (06:00)
--- NOTE | 2020-01-23 07:30 | NUR ---
PATIENT TRANSFERRED TO 4TH FLOOR AT THIS TIME, BY THIS RN, WITHOUT INCIDENT. PERSONAL BELONGINGS SENT WITH PATIENT. REPORT GIVEN TO KELLY ÁLVAREZ TO ASSUME CARE OF PATIENT.
[2020-01-23] MEDS: ALBUTEROL/IPRATROP (COMBIVENT RESPIMAT) 4 GM INHALER IH SCH ×4 (07:57→18:54)
[2020-01-23] MEDS: ADVAIR HFA 115/21 MCG INHALER 8 GM IH SCH ×2 (07:57→18:55)
[2020-01-23] MEDS: CEFEPIME 2,000 MG/SWFI 20 ML IV PUSH IV SCH ×4 (08:36→20:26)
[2020-01-23] MEDS ORDERED: ALBUTEROL/IPRATROP (COMBIVENT RESPIMAT) 4 GM INHALER IH SCH (09:00)
--- NOTE | 2020-01-23 10:21 | History & Physical-Hospitalist ---
History of Present Illness HPI/Chief Complaint CC: Pneumonia HPI: This is a 64yoWF that had been swabbed 3x for Covid at [facility] but presented to the ER with pneumonia and hypoxia. She does continue to smoke but she was diagnosed with a COPD exacerbation and a pneumonia but she was swabbed and the rapid test was negative and that will be confirmed with the follow up test but at this current time pt remains in isolation. PPE was placed and pt was stable at this current time. All home meds will be restarted. Source: patient, RN/MD Exam Limitations: no limitations Date Seen 01/23/20 Time Seen by a Provider: 10:00 Attending Physician Nessa Frank DO [facility] Referring Physician Date of Admission Jan 22, 2020 at 14:48 Home Medications & Allergies Home Medications Reviewed patient Home Medication Reconciliation performed by pharmacy medication reconciliations screen making technician and/or nursing. Patients Allergies have been reviewed. Allergies Allergies Coded Allergies No Known Drug Allergies (Unverified01/22/20) Past Cylcawz-Vlhtho-Snuguo Hx Past Med/Social Hx: Reviewed Nursing Past Med/Soc Hx, Reviewed and Corrections made Patient Social History Marrital Status: single Employed/Student: unemployed, retired Alcohol Use: Denies Use Alcohol Beverage of Choice: Whiskey Recreational Drug Use: Yes Drug of Choice: marijuana Smoking Status: Never a Smoker Former Smoker, Quit: Nov 20, 2015 Type Used: Cigarettes 2nd Hand Smoke Exposure: Yes Recent Foreign Travel: No Contact w/other who traveled: No Recent Hopitalizations: No Recent Infectious Disease Expo: No Immunizations Up To Date Date of Pneumonia Vaccine: Mar 25, 2014 Date of Influenza Vaccine: Mar 05, 2019 Seasonal Allergies Seasonal Allergies: Yes Past Medical History Surgeries: Hysterectomy Cardiac: Hypertension Neurological: Neuropathy : No Sexually Transmitted Disease: No HIV/AIDS: No Gastrointestinal: Hepatitis (status post treatment) Musculoskeletal: Fractures HEENT: Cataract Cancer: Cervical What Type of Treatment Did You: Surgical Intervention History of Blood Disorders: No Adverse Reaction to Blood Melo: No (N/A) Family History Reviewed and Corrections made DVT/PE Review of Systems Constitutional: malaise, other (fatigue) Respiratory: cough Physical Exam Physical Exam Vital Signs Vital Signs - First Documented 01/22/20 10:53 Temp 37.0 Pulse 79 Resp 18 B/P (MAP) 118/78 (91) Pulse Ox 99 O2 Delivery Non Rebreather O2 Flow Rate 15.00 Capillary Refill : Less Than 3 Seconds Height, Weight, BMI Height: 5'4.00" Weight: 134lbs. 0.0oz. 60.820139rg; 23.00 BMI Method: General Appearance: No Apparent Distress Eyes: Right Eye Normal Inspection, Right Eye PERRL HEENT: PERRL/EOMI, TMs Normal, Normal ENT Inspection, Pharynx Normal, Moist Mucous Membranes Neck: Full Range of Motion, Normal Inspection, Non Tender Respiratory: Chest Non Tender, Lungs Clear, Normal Breath Sounds, No Accessory Muscle Use, No Respiratory Distress, Decreased Breath Sounds Cardiovascular: Regular Rate, Rhythm, No Edema, No Gallop, No JVD, No Murmur, Normal Peripheral Pulses Gastrointestinal: Normal Bowel Sounds, No Organomegaly, No Pulsatile Mass, Non Tender, Soft Back: Normal Inspection, No CVA Tenderness, No Vertebral Tenderness Extremity: Normal Capillary Refill, Normal Inspection, Normal Range of Motion, Non Tender, No Calf Tenderness, No Pedal Edema Neurologic/Psychiatric: Alert, Oriented x3, No Motor/Sensory Deficits, Normal Mood/Affect Skin: Normal Color, Warm/Dry Lymphatic: No Adenopathy Results Results/Procedures Labs Laboratory Tests 01/22/20 10:50 01/23/20 03:19 Patient resulted labs reviewed. Assessment/Plan Admission Diagnosis Assessment: Pneumonia AECOPD UTI Smoker COVID swab pending Plan: Await COVID swab Antibiotics Monitor closely Admission Status: Inpatient Order (span 2 midnights) Reason for Inpatient Admission: aecopd pna Diagnosis/Problems Diagnosis/Problems (1) Right middle lobe pneumonia Status: Acute Qualifiers: Pneumonia type: due to unspecified organism Qualified Codes: J18.9 - Pneumonia, unspecified organism (2) COPD with exacerbation Status: Acute (3) Person under investigation for COVID-19 Status: Acute (4) Hypoxia Status: Acute (5) Urinary tract infection Status: Acute Qualifiers: Urinary tract infection type: site unspecified Hematuria presence: without hematuria Qualified Codes: N39.0 - Urinary tract infection, site not specified Clinical Quality Measures DVT/VTE Risk/Contraindication: Risk Factor Score Per Nursin RFS Level Per Nursing on Admit: 4+=Very High NESSA FRANK DO Jan 23, 2020 10:21
[2020-01-23] MEDS ORDERED: MAGN400T39 PO (10:55)
[2020-01-23] MEDS ORDERED: MONT10TA26 PO (10:55)
[2020-01-23] MEDS ORDERED: LEVO5TAB12 PO (10:55)
[2020-01-23] MEDS ORDERED: CHOL100048 PO (10:55)
[2020-01-23] MEDS ORDERED: FLUT1BLS3 IN (10:55)
[2020-01-23] MEDS ORDERED: VARE1TAB22 PO (10:55)
[2020-01-23] MEDS ORDERED: ASPI-999 PO (10:55)
[2020-01-23] MEDS ORDERED: KORE1000 PO (10:55)
[2020-01-23] MEDS ORDERED: TURM500C4 PO (10:55)
[2020-01-23] MEDS ORDERED: PANT40TA2 PO (10:59)
[2020-01-23] MEDS ORDERED: FLUT9.9S NS (10:59)
--- NOTE | 2020-01-23 11:00 | NUR ---
SPOKE WITH PT (I CALLED HER ROOM PHONE), WENT THRU THE EXT MED HISTORY AND CALLED [facility] TO COMPLETE THE MED REC THE FOLLOWING ARE FILL DATES NOT LISTED ON THE EXT MED HISTORY: 10-17-2019 FLONASE #1 01-11-2020 PANTOPRAZOLE 40MG #30/30DS PT LET ME KNOW THAT WHEN SHE STARTED TRELEGY SHE WAS TOLD TO QUIT TAKING SYMBICORT AND SHE IS NO LONGER USING IT CHANTIX: PT FILLED THE STARTER PACK AND IS IN THE LAST WEEK OF TAKING THAT PACK OTC MEDS: BIOTIN VIT D TURMERIC GINSENG (SLOVENIAN) MAGNESIUM ASPIRIN 81MG FISH OIL WHEN I ASKED THE PT ABOUT RESCUE INHALERS OR NEBULIZER TREATMENT SHE INDICATES SHE HAS BOTH IF NEEDED- WHEN I CALLED [facility] THEY LET ME KNOW NEBULIZER SOLUTIONS OR AN ALBUTEROL HAS NOT BEEN FILLED SINCE 2014. DUE TO THE OUTDATED RX AND WITH MEDICATIONS LIKELY BEING I DID NOT INCLUDE THEM ON THE MED REC
[2020-01-23] MEDS: AZITHROMYCIN 500 MG/NS 250 ML IVPB IV SCH ×2 (17:58)
[2020-01-23] MEDS ORDERED: CEFEPIME 2 GM (MAXIPIME) VIAL ONE (20:02)
[2020-01-23] MEDS ORDERED: WATER (STERILE) FOR INJECTION 20 ML ONE (20:03)
[2020-01-23] MEDS: ENOXAPARIN 40 MG/0.4 ML (LOVENOX) SYR SC SCH (20:23)
[2020-01-23] MEDS: AMITRIPTYLINE 150 MG (ELAVIL) TABLET PO SCH (20:24)
[2020-01-23] MEDS: PREGABALIN 50 MG (LYRICA) CAP PO SCH (20:24)
[2020-01-23] MEDS: LORATADINE (CLARITIN) 10 MG TAB PO SCH (20:24)
[2020-01-23] MEDS: PANTOPRAZOLE 40 MG (PROTONIX) TAB PO SCH (20:24)
[2020-01-23] MEDS: MONTELUKAST 10 MG (SINGULAIR) TAB PO SCH (20:25)
[2020-01-23] MEDS ORDERED: NON-FORMULARY MEDICATION 1 EA EA (Varenicline Tartrate (Chantix) 1 MG) PO SCH (21:00)
--- NOTE | 2020-01-23 21:00 | NUR ---
Order for telemetry to be Dc'd. Telemetry removed from patient by this RN and device returned to ICU.
[2020-01-24] VITALS (7 sets, daily range): BP systolic 113–151; BP diastolic 61–81
[2020-01-24 05:33] LABS: CHLORIDE 101 MMOL/L (98-107); POTASSIUM 4.8 MMOL/L (3.6-5.0); SODIUM 138 MMOL/L (135-145)
[2020-01-24 05:34] LABS: CALCIUM 9.2 MG/DL (8.5-10.1)
[2020-01-24 05:35] LABS: GLUCOSE 99 MG/DL (70-105)
[2020-01-24 05:36] LABS: CARBON DIOXIDE 26 MMOL/L (21-32)
[2020-01-24 05:38] LABS: PHOSPHORUS 3.8 MG/DL (2.3-4.7)
[2020-01-24 05:39] LABS: CREATININE SERUM 0.74 MG/DL (0.60-1.30); GFR ESTIMATED > 60
[2020-01-24 05:40] LABS: BUN/CREATININE RATIO 11
[2020-01-24 05:41] LABS: MAGNESIUM 1.9 MG/DL (1.6-2.4)
[2020-01-24] MEDS: KCL 20 MEQ TAB (K-DUR) PO SCH (05:44)
[2020-01-24] MEDS: POTASSIUM CL 10MEQ/50ML IVPB 50 ML IV SCH (05:44)
[2020-01-24] MEDS: MAGNESIUM 1 GM/100 ML IVPB 100 ML IV SCH (05:44)
[2020-01-24] MEDS: ALBUTEROL/IPRATROP (COMBIVENT RESPIMAT) 4 GM INHALER IH SCH ×4 (07:19→18:48)
[2020-01-24] MEDS: ADVAIR HFA 115/21 MCG INHALER 8 GM IH SCH ×2 (07:20→18:48)
[2020-01-24] MEDS: MAGNESIUM OXIDE (MAG-OX)400 MG TAB PO SCH (07:57)
[2020-01-24] MEDS: ASPIRIN 81 MG CHEW (CHILDREN'S ASA) PO SCH (08:05)
[2020-01-24] MEDS: CEFEPIME 2,000 MG/SWFI 20 ML IV PUSH IV SCH ×4 (08:05→22:02)
[2020-01-24] MEDS: PREGABALIN 50 MG (LYRICA) CAP PO SCH ×3 (08:05→22:03)
[2020-01-24] MEDS: FLUTICASONE NASAL SPRAY (FLONASE) 16 GM BTL NS SCH (08:05)
--- NOTE | 2020-01-24 08:32 | Pulmonary Progress Note ---
Subjective Time Seen by a Provider: 08:31 Sepsis Event Evaluation Height, Weight, BMI Height: 5'4.00" Weight: 134lbs. 0.0oz. 60.869686zy; 23.00 BMI Method: Focused Exam Lactate Level 01/22/20 10:50: Lactic Acid Level 1.00 Exam Exam Vital Signs Date Time Temp Pulse Resp B/P (MAP) Pulse Ox O2 Delivery O2 Flow Rate FiO2 01/24/20 04:00 36.0 86 18 127/73 (91) 95 Nasal Cannula 1.00 1.00 01/24/20 00:00 36.0 86 20 151/71 (97) 96 Nasal Cannula 1.00 1.00 01/23/20 19:28 36.2 80 18 119/76 (90) 98 Nasal Cannula 1.00 01/23/20 19:00 80 01/23/20 18:56 97 Nasal Cannula 1.00 01/23/20 18:55 97 Nasal Cannula 1.00 01/23/20 16:38 36.0 69 18 135/85 (102) 96 High Flow N/C 1.00 01/23/20 14:54 98 Nasal Cannula 1.00 01/23/20 12:43 96 High Flow N/C 1.00 01/23/20 12:20 83 01/23/20 11:45 96 High Flow N/C 1.00 01/23/20 11:43 36.3 73 18 122/80 (94) 99 Nasal Cannula 2.00 01/23/20 10:22 95 Nasal Cannula 3.00 I & O 01/24/20 07:00 Intake Total 2630 ml Balance 2630 ml Height & Weight Height: 5'4.00" Weight: 134lbs. 0.0oz. 60.050784uw; 23.00 BMI Method: General Appearance: No Apparent Distress HEENT: PERRL/EOMI, TMs Normal, Normal ENT Inspection, Pharynx Normal, Moist Mucous Membranes Neck: Full Range of Motion, Normal Inspection, Non Tender Respiratory: Chest Non Tender, Lungs Clear, Normal Breath Sounds, No Accessory Muscle Use, No Respiratory Distress, Decreased Breath Sounds Cardiovascular: Regular Rate, Rhythm, No Edema, No Gallop, No JVD, No Murmur, Normal Peripheral Pulses Capillary Refill: Less Than 3 Seconds Extremity: Normal Capillary Refill, Normal Inspection, Normal Range of Motion, Non Tender, No Calf Tenderness, No Pedal Edema Neurologic/Psychiatric: Alert, Oriented x3, No Motor/Sensory Deficits, Normal Mood/Affect Skin: Normal Color, Warm/Dry Lymphatic: No Adenopathy Results Lab Laboratory Tests 01/22/20 10:50 01/23/20 03:19 01/24/20 04:58 Assessment/Plan Assessment/Plan RML Pneuonia -COVID is negative -repeat CXR -Continue rocephin and azithromycin COPDAE -breathing treatments UTI MICHELLE CLAY DO Jan 24, 2020 08:32
[2020-01-24] MEDS ORDERED: NON-FORMULARY MEDICATION 1 EA EA (Fluticasone/Umeclidin/Vilanter (Trelegy Ellipta 100-62.5 IN SCH (09:00)
--- NOTE | 2020-01-24 09:23 | Progress Note - Hospitalist ---
Subjective HPI/CC On Admission Date Seen by Provider: Jan 24, 2020 Time Seen by Provider: 09:00 CC: Pneumonia HPI: This is a 64yoWF that had been swabbed 3x for Covid at [facility] but presented to the ER with pneumonia and hypoxia. She does continue to smoke but she was diagnosed with a COPD exacerbation and a pneumonia but she was swabbed and the rapid test was negative and that will be confirmed with the follow up test but at this current time pt remains in isolation. PPE was placed and pt was stable at this current time. All home meds will be restarted. Subjective/Events-last exam Pt doing much better DuoNeb nebulizer treatments twice daily will be scheduled IS counseled Tolerating antibiotics DC is planned for tomorrow and she is on oxygen 20/12 at home Review of Systems General: Fatigue, Malaise Neurological: Weakness Focused Exam Lactate Level 01/22/20 10:50: Lactic Acid Level 1.00 Objective Exam Vital Signs Vital Signs Date Time Temp Pulse Resp B/P (MAP) Pulse Ox O2 Delivery O2 Flow Rate FiO2 01/25/20 04:00 36.2 76 16 129/60 (83) 94 Nasal Cannula 1.00 1.00 Capillary Refill : Less Than 3 Seconds General Appearance: No Apparent Distress, WD/WN, Chronically ill HEENT: PERRL/EOMI, Normal ENT Inspection, Pharynx Normal, Moist Mucous Membranes Neck: Full Range of Motion, Normal Inspection, Non Tender, Supple, Carotid Bruit Respiratory: Chest Non Tender, Lungs Clear, Normal Breath Sounds, No Accessory Muscle Use, No Respiratory Distress, Decreased Breath Sounds Cardiovascular: Regular Rate, Rhythm, No Edema, No Gallop, No JVD, No Murmur, Normal Peripheral Pulses Gastrointestinal: Normal Bowel Sounds, No Organomegaly, No Pulsatile Mass, Non Tender, Soft Back: Normal Inspection, No CVA Tenderness, No Vertebral Tenderness Extremity: Normal Capillary Refill, Normal Inspection, Normal Range of Motion, Non Tender, No Calf Tenderness, No Pedal Edema Neurologic/Psychiatric: Alert, Oriented x3, No Motor/Sensory Deficits, Normal Mood/Affect Skin: Normal Color, Warm/Dry Lymphatic: No Adenopathy Results/Procedures Lab Laboratory Tests 01/24/20 04:58 Patient resulted labs reviewed. Assessment/Plan Assessment and Plan Assess & Plan/Chief Complaint Assessment: PNA AECOPD Plan: Continue IV antibiotics another day Continue breathing treatments twice daily Diagnosis/Problems Diagnosis/Problems (1) Right middle lobe pneumonia Status: Acute Qualifiers: Pneumonia type: due to unspecified organism Qualified Codes: J18.9 - Pneumonia, unspecified organism (2) COPD with exacerbation Status: Acute (3) Person under investigation for COVID-19 Status: Acute (4) Hypoxia Status: Acute (5) Urinary tract infection Status: Acute Qualifiers: Urinary tract infection type: site unspecified Hematuria presence: without hematuria Qualified Codes: N39.0 - Urinary tract infection, site not specified Clinical Quality Measures DVT/VTE Risk/Contraindication: Risk Factor Score Per Nursin RFS Level Per Nursing on Admit: 4+=Very High DANNY MINER DO Jan 24, 2020 09:23
--- NOTE | 2020-01-24 10:11 | Diagnostic Imaging Report ---
INDICATION: Follow-up pneumonia. Time of exam: 9:34 AM Correlation is made with prior chest from 01/22/2020. Heart size is stable. There has been some improved aeration of the lungs since the prior exam, likely owing to improving interstitial edema or pneumonia. There is some mild residual interstitial changes in the right base. No effusion or pneumothorax is detected. IMPRESSION: Overall improved aeration of both lungs when compared to examination 2 days earlier. Dictated by: Dictated on workstation # [id number]
[2020-01-24] MEDS ORDERED: AZITHROMYCIN 250 MG TAB (ZITHROMAX) PO SCH (17:00)
[2020-01-24] MEDS ORDERED: WATER (STERILE) FOR INJECTION 20 ML ONE (21:45)
[2020-01-24] MEDS ORDERED: CEFEPIME 2 GM (MAXIPIME) VIAL ONE (21:45)
[2020-01-24] MEDS: AMITRIPTYLINE 150 MG (ELAVIL) TABLET PO SCH (22:02)
[2020-01-24] MEDS: MONTELUKAST 10 MG (SINGULAIR) TAB PO SCH (22:03)
[2020-01-24] MEDS: LORATADINE (CLARITIN) 10 MG TAB PO SCH (22:03)
[2020-01-24] MEDS: PANTOPRAZOLE 40 MG (PROTONIX) TAB PO SCH (22:03)
[2020-01-24] MEDS: ENOXAPARIN 40 MG/0.4 ML (LOVENOX) SYR SC SCH (22:04)
[2020-01-25 04:00] VITALS: BP 129/60
[2020-01-25 06:04] LABS: CHLORIDE 102 MMOL/L (98-107); POTASSIUM 4.2 MMOL/L (3.6-5.0); SODIUM 140 MMOL/L (135-145)
[2020-01-25 06:05] LABS: CALCIUM 9.1 MG/DL (8.5-10.1); GLUCOSE 92 MG/DL (70-105)
[2020-01-25 06:07] LABS: CARBON DIOXIDE 26 MMOL/L (21-32)
[2020-01-25 06:09] LABS: CREATININE SERUM 0.66 MG/DL (0.60-1.30); GFR ESTIMATED > 60; PHOSPHORUS 3.9 MG/DL (2.3-4.7)
[2020-01-25 06:10] LABS: BUN/CREATININE RATIO 15
[2020-01-25 06:11] LABS: MAGNESIUM 1.9 MG/DL (1.6-2.4)
[2020-01-25] MEDS: POTASSIUM CL 10MEQ/50ML IVPB 50 ML IV SCH (06:13)
[2020-01-25] MEDS: MAGNESIUM 1 GM/100 ML IVPB 100 ML IV SCH (06:14)
[2020-01-25] MEDS: KCL 20 MEQ TAB (K-DUR) PO SCH (06:14)
--- NOTE | 2020-01-25 06:53 | Pulmonary Progress Note ---
Subjective Time Seen by a Provider: 06:52 Subjective/Events-last exam Pt appears to be doing better. Sepsis Event Evaluation Height, Weight, BMI Height: 5'4.00" Weight: 134lbs. 0.0oz. 60.892082fn; 23.00 BMI Method: Focused Exam Lactate Level 01/22/20 10:50: Lactic Acid Level 1.00 Exam Exam Vital Signs Date Time Temp Pulse Resp B/P (MAP) Pulse Ox O2 Delivery O2 Flow Rate FiO2 01/25/20 04:00 36.2 76 16 129/60 (83) 94 Nasal Cannula 1.00 1.00 01/24/20 23:57 36.0 78 18 118/61 (80) 96 Nasal Cannula 1.00 1.00 01/24/20 21:00 95 Nasal Cannula 1.00 01/24/20 19:50 36.6 90 18 118/79 (92) 98 Nasal Cannula 1.00 01/24/20 18:53 94 Nasal Cannula 1.00 01/24/20 18:48 93 Nasal Cannula 1.00 01/24/20 15:30 36.6 76 18 125/81 (96) 100 Nasal Cannula 1.00 01/24/20 14:18 86 Room Air 01/24/20 12:00 36.3 75 18 117/76 (90) 96 Nasal Cannula 1.00 01/24/20 11:00 90 Room Air 01/24/20 09:00 95 Nasal Cannula 1.00 01/24/20 08:00 36.2 81 18 113/77 (89) 97 Nasal Cannula 1.00 01/24/20 07:20 92 01/24/20 07:19 92 I & O 01/25/20 06:59 Intake Total 2190 ml Balance 2190 ml Height & Weight Height: 5'4.00" Weight: 134lbs. 0.0oz. 60.277357mu; 23.00 BMI Method: General Appearance: No Apparent Distress, WD/WN, Chronically ill HEENT: PERRL/EOMI, Normal ENT Inspection, Pharynx Normal, Moist Mucous Membranes Neck: Full Range of Motion, Normal Inspection, Non Tender, Supple, Carotid Bruit Respiratory: Chest Non Tender, Lungs Clear, Normal Breath Sounds, No Accessory Muscle Use, No Respiratory Distress, Decreased Breath Sounds Cardiovascular: Regular Rate, Rhythm, No Edema, No Gallop, No JVD, No Murmur, Normal Peripheral Pulses Capillary Refill: Less Than 3 Seconds Extremity: Normal Capillary Refill, Normal Inspection, Normal Range of Motion, Non Tender, No Calf Tenderness, No Pedal Edema Neurologic/Psychiatric: Alert, Oriented x3, No Motor/Sensory Deficits, Normal Mood/Affect Skin: Normal Color, Warm/Dry Lymphatic: No Adenopathy Results Lab Laboratory Tests 01/24/20 04:58 01/25/20 05:37 Assessment/Plan Assessment/Plan RML Pneuonia -COVID is negative -repeat CXR -Change to PO omnicef and azithromycin COPDAE -breathing treatments UTI MICHELLE CLAY DO Jan 25, 2020 06:53
[2020-01-25] MEDS: ALBUTEROL/IPRATROP (COMBIVENT RESPIMAT) 4 GM INHALER IH SCH ×2 (07:40→10:57)
[2020-01-25] MEDS: ADVAIR HFA 115/21 MCG INHALER 8 GM IH SCH (07:40)
[2020-01-25 08:00] VITALS: BP 116/72
[2020-01-25] MEDS: FLUTICASONE NASAL SPRAY (FLONASE) 16 GM BTL NS SCH (08:56)
[2020-01-25] MEDS: MAGNESIUM OXIDE (MAG-OX)400 MG TAB PO SCH (08:57)
[2020-01-25] MEDS: PREGABALIN 50 MG (LYRICA) CAP PO SCH (08:57)
[2020-01-25] MEDS: ASPIRIN 81 MG CHEW (CHILDREN'S ASA) PO SCH (08:57)
[2020-01-25] MEDS ORDERED: CEFDINIR 300 MG (OMNICEF) CAP PO SCH (09:00)
--- NOTE | 2020-01-25 10:36 | Physician Query Clarification ---
"Physician Query-General Query to Physician: The medical record reflects the following clinical scenario: History/Risk factors: Pneumonia, COPD, Smoker Clinical Findings: SOA at rest, Hypoxic at OSH, 02 Sat 86% -While on 02 Treatment: Breathing RX, IV ABX, 02 at 100% on Admission, Question: What condition best reflects the above clinical scenario? Please document response in the Progress notes or Discharge Summary. 1. Acute Hypoxic Respiratory Failure 2. Hypoxia (as currently documented) 3. Other , with explanation of the clinical findings 4. Clinically undetermined, no explanation for the clinical findings Please remember a lack of response to the above will prompt a phone page by CDI/coding staff In responding to this query, please exercise your independent professional judgment. The purpose of this communication is to more accurately reflect the complexity of your patients condition. The fact that a question is asked does not imply that any particular answer is desired or expected. Thank you for timely response to this clarification. Melonie Richmond, MSN, RN RN Specialist-Clinical Doc Improvement CD -Health Info Mgmt Operations [address] [facility] t: [phone] | f: [phone] If you are unable to reach me at my extension, I may be working from home. Please contact me at [phone] PHYSICIAN RESPONSE: Based on the clinical findings in the record, please respond to the query above on this document as an addendum. Physician Response: Physician Response 2 If you have questions please contact: Manager University: Ext: Thank you for your time and cooperation. Clinical International Coordinator/Manager University This is a permanent part of the medical record MELONIE RICHMOND Jan 25, 2020 10:36 DANNY MINER DO Jan 25, 2020 11:04"
[2020-01-25] MEDS ORDERED: AZIT250T12 PO (10:52)
[2020-01-25] MEDS ORDERED: VARE1TAB22 PO (10:52)
[2020-01-25] MEDS ORDERED: CEFD300C3 PO (10:52)
--- NOTE | 2020-01-25 10:52 | Discharge Summary ---
Discharge Summary Hospital Course Was the Problem List Reviewed?: Yes Problems/Dx: (1) Right middle lobe pneumonia Status: Acute Qualifiers: Qualified Codes: J18.9 - Pneumonia, unspecified organism (2) COPD with exacerbation Status: Acute (3) Person under investigation for COVID-19 Status: Acute (4) Hypoxia Status: Acute (5) Urinary tract infection Status: Acute Qualifiers: Qualified Codes: N39.0 - Urinary tract infection, site not specified Hospital Course Date of Admission: Jan 22, 2020 at 14:48 Admission Diagnosis : Family Physician/Provider: Franchesca Avalos [employer] Date of Discharge: 01/25/20 Discharge Diagnosis: Assessment: PNA AECOPD Plan: Continue IV antibiotics another day Continue breathing treatments twice daily Hospital Course: Hospital Course: Pt had an uneventful hospital course. She was admitted, swabbed for Covid for the third time and that was negative. Acute exacerbation of COPD was managed with nebulizer treatments, and pneumonia was treated with broad spectrum antibiotics and overall she did very well. Smoking cessation was counseled and overall she was discharged in improved condition on her home oxygen supplementation and nebulizer treatments. Labs and Pending Lab Test: Laboratory Tests 01/25/20 05:37: Sodium Level 140, Potassium Level 4.2, Chloride Level 102, Carbon Dioxide Level 26, Anion Gap 12, Blood Urea Nitrogen 10, Creatinine 0.66, Estimat Glomerular Filtration Rate > 60, BUN/Creatinine Ratio 15, Glucose Level 92, Calcium Level 9.1, Phosphorus Level 3.9, Magnesium Level 1.9 Microbiology 01/22/20 Urine Culture - Final, Complete NO GROWTH 01/22/20 Gram Stain - Final, Complete 01/22/20 Sputum Culture - Final, Complete Usual upper respiratory lobito YEAST 01/22/20 Blood Culture - Preliminary, Resulted No growth Home Meds Active Azithromycin 250 Mg Tablet 500 Mg PO DAILY@1700 Cefdinir 300 Mg Capsule 300 Mg PO BID Chantix (Varenicline Tartrate) 1 Mg Tablet 1 Mg PO BID Reported Protonix (Pantoprazole Sodium) 40 Mg Tablet.dr 40 Mg PO HS Flonase Allergy Relief (Fluticasone Propionate) 9.9 Ml [place].susp 1 [place] NS DAILY Aspirin 81 Mg Tab.chew 81 Mg PO DAILY Magnesium (Magnesium Oxide) 400 Mg Tablet 400 Mg PO DAILY Portuguese Ginseng (Portuguese Ginseng Root) 1,000 Mg Tablet 1,000 Mg PO HS Turmeric 500 mg Capsule (Turmeric/Turmeric Root Extract) 1 Each Capsule 1 Each PO HS Vitamin D3 (Cholecalciferol (Vitamin D3)) 25 Mcg Capsule 25 Mcg PO HS Trelegy Ellipta 100-62.5-25 (Fluticasone/Umeclidin/Vilanter) 1 Each Blst.w.dev 1 Puff IN DAILY Levocetirizine Dihydrochloride 5 Mg Tablet 5 Mg PO HS Montelukast Sodium 10 Mg Tablet 10 Mg PO HS Fish Oil 1,000 mg Capsule ([place] 3 Polyunsat Fatty Acids) 1,000 Mg Cap 1,000 Mg PO HS Lyrica (Pregabalin) 50 Mg Capsule 50 Mg PO TID Amitriptyline HCl 75 Mg Tablet 75 Mg PO HS Biotin 1,000 Mcg Tablet 1,000 Mcg PO HS Assessment/Pt Instructions [facility] in 1 week Discharge Planning: <30 minutes discharge planning Discharge Instructions Discharge Diet: No Restrictions Activity as Tolerated: Yes Discharge Physical Examination Vital Signs Vital Signs Date Time Temp Pulse Resp B/P (MAP) Pulse Ox O2 Delivery O2 Flow Rate FiO2 01/25/20 09:00 95 Nasal Cannula 1.00 01/25/20 08:00 35.8 80 18 116/72 (87) General Appearance: No Apparent Distress, WD/WN, Chronically ill Respiratory: Normal Breath Sounds Cardiovascular: Regular Rate, Rhythm Neurologic/Psychiatric: Alert, Oriented x3 Allergies: Coded Allergies: No Known Drug Allergies (Unverified , 01/22/20) Discharge Summary Date of Admission Jan 22, 2020 at 14:48 Date of Discharge Discharge Date: Jan 25, 2020 Admission Diagnosis Assessment: Pneumonia AECOPD UTI Smoker COVID swab pending Plan: Await COVID swab Antibiotics Monitor closely Discharge Diagnosis Assessment: PNA AECOPD Plan: Continue IV antibiotics another day Continue breathing treatments twice daily (1) Right middle lobe pneumonia Status: Acute Qualifiers: Qualified Codes: J18.9 - Pneumonia, unspecified organism (2) COPD with exacerbation Status: Acute (3) Person under investigation for COVID-19 Status: Acute (4) Hypoxia Status: Acute (5) Urinary tract infection Status: Acute Qualifiers: Qualified Codes: N39.0 - Urinary tract infection, site not specified Clinical Quality Measures DVT/VTE Risk/Contraindication: Risk Factor Score Per Nursin RFS Level Per Nursing on Admit: 4+=Very High DANNY MINER DO Jan 25, 2020 10:52
--- NOTE | 2020-01-25 12:06 | NUR ---
THIS RN GAVE PT HER D/C PAPERWORK, SHE SIGNED PAPER FOR D/C. PT TAKEN TO DOOR BY W/C FROM PCT
== END 2020-01-25 12:00 | disposition home or self-care (01) | DRG 190 ==
LOC: EDUNIT# 10:45 → ER 10:46 → ICU 14:48 → 4TH 01-23 07:33
PROVIDERS: ADMIT Internal Medicine; ATTEND Internal Medicine
DX: J44.1 Chronic obstructive pulmonary disease with (acute) exacerbation (principal); J18.9 Pneumonia, unspecified organism; N39.0 Urinary tract infection, site not specified; I10 Essential (primary) hypertension; R09.02 Hypoxemia; G62.9 Polyneuropathy, unspecified; J30.2 Other seasonal allergic rhinitis; F17.210 Nicotine dependence, cigarettes, uncomplicated; Z99.81 Dependence on supplemental oxygen; Z20.828 Contact with and (suspected) exposure to other viral communicable diseases; Z86.19 Personal history of other infectious and parasitic diseases; Z85.41 Personal history of malignant neoplasm of cervix uteri; Z90.710 Acquired absence of both cervix and uterus
CPT/HCPCS: 36415; 71045; 71275; 80048; 80053; 81000; 82805; 83605; 83735; 83880; 84100; 84145; 84484; 85025; 85379; 85610; 85730; 86141; 87040; 87070; 87081; 87088; 87205; 87635; 93005; 93041; 94640; 94760; 99291

== ENCOUNTER → 2020-08-26 | Outpatient (CLI) | payer MEDICARE, OTHER ==
[~2020-08-26] MED LIST changes: +ASPI-999 PO; +AZIT250T12 PO; +CEFD300C3 PO; -CETI10TA21 PO; +CETI10TA49 PO; +CHOL100048 PO; +FLUT1BLS3 IN; +FLUT9.9S NS; +KORE1000 PO; +LEVO5TAB12 PO; -LISI10TA2 PO; +LISI10TA25 PO; +MAGN400T39 PO; +MONT10TA32 PO; +TURM500C4 PO
--- NOTE | 2020-08-26 14:20 | Diagnostic Imaging Report ---
INDICATION: Postmenopausal screening COMPARISON: Baseline FINDINGS: AP Spine L1-L4: [BMD (g/cm2): 0.757] [T-Score: -3.7] [Z-Score: -2.2] [BMD Previous: na] [BMD % Change: na] LT Hip Neck: [BMD (g/cm2): 0.660] [T-Score: -2.7] [Z-Score: -1.3] LT Hip Total: [BMD (g/cm2):0.649] [T-Score:-2.8] [Z-Score: -1.7] [BMD Previous: na] [BMD % Change: na] RT Hip Neck: [BMD (g/cm2):0.608] [T-Score:-3.1] [Z-Score:-1.7] RT Hip Total: [BMD (g/cm2):0.621] [T-score:-3.1] [Z-Score:-1.9] [BMD Previous:na] [BMD % Change:na] *Indicates significant change from prior examination based on 95% confidence level. World Health Organization criteria for BMD interpretation classify patients as Normal (T-score at or above -1.0), Osteopenic (T-score between -1.0 and -2.5) or Osteoporotic (T-score at or below -2.5). LIMITATIONS AND MODIFICATION: None. FRACTURE RISK (FRAX SCORE): The ten year probability of (%): Major Osteoporotic Fracture: [na] Hip Fracture: [na] IMPRESSION: 1. Osteoporosis. 2. Baseline examination. 3. See below National Osteoporosis Foundation guidelines on when to potentially initiate pharmacologic therapy. Based on the National Osteoporosis Foundation Guidelines, pharmacologic treatment should be initiated in any of the following, unless clinical conditions suggest otherwise: * Any patient with prior fragility fracture of the hip or vertebrae. A spine fracture indicates 5X risk for subsequent spine fracture and 2X risk for subsequent hip fracture. * Osteoporosis (T-score <-2.5). * Postmenopausal women and men age 50 and older with low bone mass/osteopenia (T-score between -1.0 and -2.5) by DXA and 10-year major osteoporotic fracture greater than 20% or a 10-year probability of hip fracture greater than 3%. These fracture risks are supplied above in the FRAX score, if applicable. * Clinician judgement and/or patient preferences may indicate treatment for people with 10-year fracture probabilities above or below these levels. Dictated by: Dictated on workstation # [id number]
--- NOTE | 2020-08-26 14:20 | Diagnostic Imaging Report ---
PROCEDURE: CT chest without contrast. TECHNIQUE: Multiple contiguous axial images were obtained through the chest without the use of intravenous contrast. Auto Exposure Controls were utilized during the CT exam to meet ALARA standards for radiation dose reduction. INDICATION: COPD. COMPARISON: 01/22/2020. FINDINGS: The previous dense consolidation in the right middle lobe has resolved. There are severe centrilobular emphysematous changes with some areas of subpleural fibrosis and scarring as chronic findings. No evidence for acute pneumonia. There has been resolution of the previous subcarinal, precarinal, and right hilar lymphadenopathy. There are coronary atherosclerotic vascular calcifications with a nonaneurysmal thoracic aorta, chronic. No acute chest wall pathology. No effusion. No pneumothorax. IMPRESSION: Severe chronic emphysematous changes are present. There has been resolution of the prior lymphadenopathy and resolution of the prior right middle lobe consolidation. No adverse change. Dictated by: Dictated on workstation # [id number]
--- NOTE | 2020-08-27 07:22 | Diagnostic Imaging Report ---
EXAMINATION: Digital mammogram. INDICATION: Bilateral screening This study was compared to the prior exam of 08/06/2016 and 01/21/2010. At this time there are no current complaints. The current study was also evaluated with a Computer Aided Detection (CAD) system. FINDINGS: There is a mild amount of fibroglandular tissue present in both breasts, similar to the prior exam. No primary or secondary sign of malignancy is noted. IMPRESSION: 1. There is no radiographic evidence for malignancy. 2. The patient should have her annual bilateral screening mammogram on schedule in July 2021. ACR BI-RADS Category 1: Negative. Result letter will be mailed to the patient. Note: At least 10% of breast cancer is not imaged by mammography. Dictated by: Dictated on workstation # [id number]
== END ==
LOC: RAD 13:15
PROVIDERS: ATTEND Nurse Practitioner Family
DX: Z00.00 Encounter for general adult medical examination without abnormal findings (principal); Z12.31 Encounter for screening mammogram for malignant neoplasm of breast; J43.9 Emphysema, unspecified; M81.0 Age-related osteoporosis without current pathological fracture; Z78.0 Asymptomatic menopausal state
CPT/HCPCS: 71250; 77063; 77067; 77080

== ENCOUNTER 2020-10-20 16:30 | Emergency (ER) | payer MEDICARE, MEDICAID ==
[~2020-10-20] VITALS: Ht 162.6 cm; Wt 64.9 kg
[2020-10-20 17:38] LABS: BASOPHILS % (AUTO) 1 % (0-10); EOSINOPHILS # (AUTO) 0.2 10^3/uL (0.0-0.3); EOSINOPHILS % (AUTO) 2 % (0-10); HEMATOCRIT 54 % (35-52); HEMOGLOBIN 17.7 g/dL (11.5-16.0); LYMPHOCYTES # (AUTO) 1.5 10^3/uL (1.0-4.0); LYMPHOCYTES % (AUTO) 17 % (12-44); MEAN CORPUSCULAR HEMOGLOBIN 29 pg (25-34); MEAN CORPUSCULAR HGB CONC 33 g/dL (32-36); MEAN CORPUSCULAR VOLUME 89 fL (80-99); MEAN PLATELET VOLUME 10.4 fL (9.0-12.2); MONOCYTES # (AUTO) 0.6 10^3/uL (0.0-1.0); MONOCYTES % (AUTO) 7 % (0-12); NEUTROPHILS # (AUTO) 6.3 10^3/uL (1.8-7.8); NEUTROPHILS % (AUTO) 73 % (42-75); PLATELET COUNT 181 10^3/uL (130-400); WHITE BLOOD COUNT 8.7 10^3/uL (4.3-11.0)
[2020-10-20 17:40] LABS: ALBUMIN 4.2 GM/DL (3.2-4.5)
[2020-10-20 17:41] LABS: CHLORIDE 97 MMOL/L (98-107); POTASSIUM 3.8 MMOL/L (3.6-5.0); SODIUM 141 MMOL/L (135-145)
[2020-10-20 17:42] LABS: CALCIUM 9.9 MG/DL (8.5-10.1)
[2020-10-20 17:43] LABS: GLUCOSE 128 MG/DL (70-105); TOTAL PROTEIN 8.1 GM/DL (6.4-8.2)
[2020-10-20 17:44] LABS: CARBON DIOXIDE 32 MMOL/L (21-32)
[2020-10-20 17:45] LABS: BILIRUBIN,TOTAL 1.1 MG/DL (0.1-1.0)
[2020-10-20] MEDS ORDERED: RT-ALBUTEROL SULF 2.5 MG/3 ML PRE-MIX VIAL INH ONE (17:45)
[2020-10-20 17:46] LABS: ALKALINE PHOSPHATASE 129 U/L (40-136)
[2020-10-20 17:47] LABS: CREATININE SERUM 0.77 MG/DL (0.60-1.30); GFR ESTIMATED > 60
[2020-10-20 17:48] LABS: BUN/CREATININE RATIO 10
--- NOTE | 2020-10-20 17:49 | ED Respiratory ---
General Chief Complaint: Respiratory Problems Stated Complaint: HIGH BP/O2 SAT 64 Source: patient Exam Limitations: no limitations (CARLY MAHAN MD) History of Present Illness Date Seen by Provider: October 20, 2020 Time Seen by Provider: 17:00 Initial Comments Patient is a 64-year-old female who presents to the emergency room today with a chief complaint of shortness of breath and cough. Patient states her symptoms have been going on for about 5 days. She states her sputum production is green and dark. She denies any fevers or chills. She has a history of COPD and wears 5 L of oxygen at night all the time and then as needed during the day. Patient states she has had to increase her usage of her oxygen over the course of the last 5 days. She denies any fevers. She denies chills, nausea, vomiting, diarrhea or urinary complaints. Patient went to the clinic today to go get a prescription for some prednisone when they noticed that her oxygen saturations were low in the 60s and 70s and sent her to the emergency room for further evaluation. All other review of systems reviewed and negative except as stated. Timing/Duration: week Severity: moderate Prior Episodes/Possible Cause: occasional episodes Modifying Factors: Improves With Albuterol Nebulizer Associated Symptoms: nasal drainage (CARLY MAHAN MD) Allergies and Home Medications Allergies Coded Allergies: No Known Drug Allergies (Unverified , 01/22/20) Home Medications Amitriptyline HCl 75 Mg Tablet, 75 MG PO HS, (Reported) Aspirin 81 Mg Tab.chew, 81 MG PO DAILY, (Reported) Azithromycin 250 Mg Tablet, 500 MG PO DAILY@1700 Prescribed by: DANNY MINER on 01/25/20 1052 Biotin 1,000 Mcg Tablet, 1,000 MCG PO HS, (Reported) Cefdinir 300 Mg Capsule, 300 MG PO BID Prescribed by: DANNY MINER on 01/25/20 1052 Cholecalciferol (Vitamin D3) 25 Mcg Capsule, 25 MCG PO HS, (Reported) Fluticasone Propionate 9.9 Ml [place].susp, 1 SPRAY NS DAILY, (Reported) Fluticasone/Umeclidin/Vilanter 1 Each Blst.w.dev, 1 PUFF IN DAILY, (Reported) Syriac Ginseng Root 1,000 Mg Tablet, 1,000 MG PO HS, (Reported) Levocetirizine Dihydrochloride 5 Mg Tablet, 5 MG PO HS, (Reported) Magnesium Oxide 400 Mg Tablet, 400 MG PO DAILY, (Reported) Montelukast Sodium 10 Mg Tablet, 10 MG PO HS, (Reported) [place] 3 Polyunsat Fatty Acids 1,000 Mg Cap, 1,000 MG PO HS, (Reported) Pantoprazole Sodium 40 Mg Tablet.dr, 40 MG PO HS, (Reported) Pregabalin 50 Mg Capsule, 50 MG PO TID, (Reported) Turmeric/Turmeric Root Extract 1 Each Capsule, 1 EACH PO HS, (Reported) Varenicline Tartrate 1 Mg Tablet, 1 MG PO BID Prescribed by: DANNY MINER on 01/25/20 1052 Patient Home Medication List Home Medication List Reviewed: Yes (CARLY MAHAN MD) Review of Systems Review of Systems Constitutional: see HPI EENTM: nose congestion Respiratory: cough, phlegm, short of breath Cardiovascular: no symptoms reported Gastrointestinal: no symptoms reported Genitourinary: no symptoms reported Musculoskeletal: no symptoms reported Skin: no symptoms reported (CARLY MAHAN MD) All Other Systems Reviewed Negative Unless Noted: Yes (CARLY MAHAN MD) Past Jehbtvz-Hrrvgz-Skyihc Hx Patient Social History Alcohol Beverage of Choice: Whiskey Drug of Choice: marijuana Type Used: Cigarettes Former Smoker, Quit: Nov 20, 2015 2nd Hand Smoke Exposure: Yes Recent Hopitalizations: No (CARLY MAHAN MD) Immunizations Up To Date Date of Pneumonia Vaccine: Mar 25, 2014 Date of Influenza Vaccine: Mar 05, 2019 (CARLY MAHAN MD) Seasonal Allergies Seasonal Allergies: Yes (CARLY MAHAN MD) Past Medical History Surgeries: Yes (ankle fx, ) Hysterectomy Respiratory: Yes (O2 2L AT NIGHT AND PRN) Chronic Bronchitis, COPD, Emphysema Cardiac: Yes Hypertension Neurological: Yes Neuropathy Sexually Transmitted Disease: No HIV/AIDS: No Genitourinary: No Gastrointestinal: Yes (hep C, ) Hepatitis Musculoskeletal: Yes Fractures Endocrine: No HEENT: Yes Cataract Cancer: Yes Cervical What Type of Treatment Did You: Surgical Intervention Psychosocial: No Integumentary: No Blood Disorders: No Adverse Reaction/Blood Tranf: No (N/A) (CARLY MAHAN MD) Family Medical History DVT/PE (CARLY MAHAN MD) Physical Exam Vital Signs - First Documented 10/20/20 16:30 Temp 37.5 Pulse 99 Resp 28 B/P (MAP) 136/93 (107) Pulse Ox 98 O2 Delivery OxyMask O2 Flow Rate 10.00 (QUOC CORREIA) Capillary Refill : (CARLY MAHAN MD) Height: 5'4.00" Weight: 134lbs. 0.0oz. 60.368196nv; 23.00 BMI Method: General Appearance: WD/WN, no apparent distress Eyes: Bilateral Eye Normal Inspection Neck: full range of motion, normal inspection Respiratory: no respiratory distress, no accessory muscle use, decreased breath sounds (Decreased breath sounds at the bases bilaterally), wheezing (Scant inspiratory and expiratory wheezes noted, no increased work of breathing or respiratory distress is noted) Cardiovascular: regular rate, rhythm Gastrointestinal: non tender, soft Extremities: non-tender, normal inspection, no pedal edema Neurologic/Psychiatric: alert, normal mood/affect, oriented x 3 Skin: normal color, warm/dry (CARLY MAHAN MD) Focused Exam Lactate Level 10/20/20 16:50: Lactic Acid Level 2.60*H 10/20/20 18:40: Lactic Acid Level 1.07 (QUOC CORREIA) Lactic Acid Level Laboratory Tests Test 10/20/20 16:50 10/20/20 18:40 Lactic Acid Level 2.60 MMOL/L (0.50-2.00) *H 1.07 MMOL/L (0.50-2.00) (QUOC CORREIA) Progress/Results/Core Measures Suspected Sepsis SIRS Temperature: Pulse: Respiratory Rate: Laboratory Tests 10/20/20 16:30: White Blood Count 8.7 Blood Pressure / Mean: 10/20/20 16:50: Lactic Acid Level 2.60*H Laboratory Tests 10/20/20 16:30: Creatinine 0.77, Platelet Count 181, Total Bilirubin 1.1H (CARLY MAHAN MD) Results/Orders Lab Results Laboratory Tests Test 10/20/20 16:30 10/20/20 16:50 10/20/20 18:40 Range/Units White Blood Count 8.7 4.3-11.0 10^3/uL Red Blood Count 6.10 H 3.80-5.11 10^6/uL Hemoglobin 17.7 H 11.5-16.0 g/dL Hematocrit 54 H 35-52 % Mean Corpuscular Volume 89 80-99 fL Mean Corpuscular Hemoglobin 29 25-34 pg Mean Corpuscular Hemoglobin Concent 33 32-36 g/dL Red Cell Distribution Width 12.2 10.0-14.5 % Platelet Count 181 130-400 10^3/uL Mean Platelet Volume 10.4 9.0-12.2 fL Immature Granulocyte % (Auto) 0 % Neutrophils (%) (Auto) 73 42-75 % Lymphocytes (%) (Auto) 17 12-44 % Monocytes (%) (Auto) 7 0-12 % Eosinophils (%) (Auto) 2 0-10 % Basophils (%) (Auto) 1 0-10 % Neutrophils # (Auto) 6.3 1.8-7.8 10^3/uL Lymphocytes # (Auto) 1.5 1.0-4.0 10^3/uL Monocytes # (Auto) 0.6 0.0-1.0 10^3/uL Eosinophils # (Auto) 0.2 0.0-0.3 10^3/uL Basophils # (Auto) 0.0 0.0-0.1 10^3/uL Immature Granulocyte # (Auto) 0.0 0.0-0.1 10^3/uL Sodium Level 141 135-145 MMOL/L Potassium Level 3.8 3.6-5.0 MMOL/L Chloride Level 97 L 98-107 MMOL/L Carbon Dioxide Level 32 21-32 MMOL/L Anion Gap 12 5-14 MMOL/L Blood Urea Nitrogen 8 7-18 MG/DL Creatinine 0.77 0.60-1.30 MG/DL Estimat Glomerular Filtration Rate > 60 BUN/Creatinine Ratio 10 Glucose Level 128 H 70-105 MG/DL Calcium Level 9.9 8.5-10.1 MG/DL Corrected Calcium 9.7 8.5-10.1 MG/DL Total Bilirubin 1.1 H 0.1-1.0 MG/DL Aspartate Amino Transf (AST/SGOT) 27 5-34 U/L Alanine Aminotransferase (ALT/SGPT) 18 0-55 U/L Alkaline Phosphatase 129 40-136 U/L Total Protein 8.1 6.4-8.2 GM/DL Albumin 4.2 3.2-4.5 GM/DL Lactic Acid Level 2.60 *H 1.07 0.50-2.00 MMOL/L SARS-CoV-2 RNA (RT-PCR) Not Detected Not Detecte (QUOC CORREIA) My Orders Orders - QUOC CORREIA Ed Iv/Invasive Line Start (10/20/20 18:08) Ns Iv 1000 Ml (Sodium Chloride 0.9%) (10/20/20 18:15) Covid 19 Inhouse Test (10/20/20 18:25) (QUOC CORREIA) Medications Given in ED Current Medications Medications Dose Ordered Sig/Sophie Route Start Time Stop Time Status Last Admin Dose Admin Albuterol Sulfate 2.5 mg ONCE ONCE INH 10/20/20 17:45 10/20/20 17:46 DC 10/20/20 18:29 2.5 MG (QUOC CORREIA) Vital Signs/I&O 10/20/20 10/20/20 10/20/20 16:30 18:30 19:09 Temp 37.5 Pulse 99 91 Resp 28 18 B/P (MAP) 136/93 (107) 145/73 Pulse Ox 98 95 98 O2 Delivery OxyMask OxyMask OxyMask O2 Flow Rate 10.00 5.00 5.00 (QUOC CORREIA) Vital Signs/I&O Capillary Refill : (CARLY MAHAN MD) Progress Note : Time: 19:05 Progress Note care of Pt at Shift change and agree with the HPI and PE. XR and labs concerning for early PNA. PT is on Baseline O2 at 99% and nonlabored breathing. Normal WBC and aseptic vitals. Offered a stay on Observation and she would prefer to go home. Rocephin and Azithromycin tonight. (QUOC CORREIA) Diagnostic Imaging Diagonstic Imaging: Xray Plain Films/CT/US/NM/MRI: chest Comments [facility]. [place], [place] NAME: UNIQUE [facility] REC#: [id number] PT STATUS: REG ER : 1955 PHYSICIAN: CARLY MAHAN MD ADMIT DATE: 10/20/20/ER Draft Date of Exam:10/20/20 CHEST 1 VIEW, AP/PA ONLY INDICATION: Sepsis COMPARISON: 01/24/2020 TECHNIQUE: Single frontal radiograph of the chest dated 10/20/2020 FINDINGS: The cardiac silhouette is stable. No significant pulmonary vascular congestion. Interstitial opacities are identified within the lungs bilaterally. These opacities have slightly worsened since the prior examination. These are greatest within the lung bases and right midlung. Tiny right pleural effusion is present. No pneumothorax. No acute osseous abnormality. IMPRESSION: Right greater than left interstitial pulmonary opacities are present and slightly worsened since the prior examination from December 2019. Findings are concerning for an infectious infiltrate superimposed upon background interstitial lung changes. No significant pulmonary vascular congestion. Tiny right pleural effusion. Dictated on workstation # [id number] Dict: 10/20/20 183 Trans: 10/20/20 184 [facility] [id number] Interpreted by: XOCHITL MENDEZ MD Electronically signed by: Reviewed: Reviewed by Me (QUOC CORERIA) Departure Impression Primary Impression: Pneumonia Qualified Codes: J18.9 - Pneumonia, unspecified organism Disposition: HOME, SELF-CARE Condition: Stable Departure-Patient Inst. Decision time for Depature: 19:12 (QUOC CORREIA) Referrals: [facility]/ (PCP) Primary Care Physician HUA ALAN APRN (Family) Primary Care Physician Patient Instructions: Community-Acquired Pneumonia, Adult (DC) Add. Discharge Instructions: Drink plenty of fluids. Cefdinir twice daily for 10 days Azithromycin once daily for 4 more days. Use your breathing treatments every 6 hours while awake for the next week. Use it more frequently if needed for cough or wheezing. Return to the ER promptly for significantly worsening symptoms. Follow up with your primary doctor later this week or early next for a re-check. All discharge instructions reviewed with patient and/or family. Voiced understanding. Scripts Azithromycin (Azithromycin) 250 Mg Tablet 250 MG PO DAILY for 4 Days, #4 TAB 0 Refills Prov: QUOC CORREIA 10/20/20 Cefdinir (Cefdinir) 300 Mg Capsule 300 MG PO BID for 10 Days, #20 CAP 0 Refills Prov: QUOC CORREIA 10/20/20 CARLY MAHAN MD October 20, 2020 17:49 QUOC CORREIA October 20, 2020 19:10
[2020-10-20 17:50] LABS: ALANINE AMINOTRANSFERASE 18 U/L (0-55)
[2020-10-20] MEDS ORDERED: NS IV 1000 ML 1,000 ML IV SCH (18:15)
--- NOTE | 2020-10-20 18:46 | Diagnostic Imaging Report ---
INDICATION: Sepsis COMPARISON: 01/24/2020 TECHNIQUE: Single frontal radiograph of the chest dated 10/20/2020 FINDINGS: The cardiac silhouette is stable. No significant pulmonary vascular congestion. Interstitial opacities are identified within the lungs bilaterally. These opacities have slightly worsened since the prior examination. These are greatest within the lung bases and right midlung. Tiny right pleural effusion is present. No pneumothorax. No acute osseous abnormality. IMPRESSION: Right greater than left interstitial pulmonary opacities are present and slightly worsened since the prior examination from December 2019. Findings are concerning for an infectious infiltrate superimposed upon background interstitial lung changes. No significant pulmonary vascular congestion. Tiny right pleural effusion. Dictated by: Dictated on workstation # [id number]
[2020-10-20] MEDS ORDERED: CEFD300C3 PO (19:15)
[2020-10-20] MEDS ORDERED: AZIT250T12 PO (19:15)
[2020-10-20] MEDS ORDERED: cefTRIAXone FOR IV USE 1,000 MG in WATER (STERILE) FOR INJECTION 10 ML IV ONE (19:15)
[2020-10-20] MEDS ORDERED: AZITHROMYCIN 250 MG TAB (ZITHROMAX) PO ONE (19:15)
[2020-10-20 20:03] VITALS: BP 137/88
== END 2020-10-20 20:03 | disposition home or self-care (01) ==
LOC: EDUNIT# 16:30 → ER 16:32
DX: J18.9 Pneumonia, unspecified organism (principal); I10 Essential (primary) hypertension; J43.9 Emphysema, unspecified; G62.9 Polyneuropathy, unspecified; Z99.81 Dependence on supplemental oxygen; Z87.891 Personal history of nicotine dependence; Z77.22 Contact with and (suspected) exposure to environmental tobacco smoke (acute) (chronic); Z79.51 Long term (current) use of inhaled steroids; Z79.899 Other long term (current) drug therapy
CPT/HCPCS: 36415; 71045; 80053; 83605; 85025; 87040; 87636; 94640; 94760

== ENCOUNTER → 2021-01-02 | Outpatient (CLI) | payer MEDICARE, MEDICAID ==
[~2021-01-02] MED LIST changes: +CATHETER FLUSH 10 ML SYR IV PRN; +HOLD METFORMIN - RECEIVED CONTRAST 20 ML VIAL IV SCH; +IOHEXOL 350 MG/ML 100 ML (OMNIPAQUE 350) VIAL IV ONE; +NS 100 ML (IVPB) BAG IV ONE
[2021-01-02 09:25] LABS: CREATININE SERUM 0.77 MG/DL (0.60-1.30)
--- NOTE | 2021-01-02 10:43 | Diagnostic Imaging Report ---
PROCEDURE: CT chest with contrast only. TECHNIQUE: Multiple contiguous axial images were obtained through the chest after administration of intravenous contrast. Auto Exposure Controls were utilized during the CT exam to meet ALARA standards for radiation dose reduction. INDICATION: Pneumonia. Compared with noncontrasted chest CT 08/26/[address] angiogram chest with contrast 01/22/2020. Severe air trapping and fibroemphysematous disease in the lungs as a background chronic finding is stable. No suspicious lung mass and no thoracic adenopathy. The atherosclerotic thoracic aorta is patent and nonaneurysmal. There is extensive coronary artery atherosclerotic vascular calcifications. There is no pleural or pericardial effusion. There was no acute appearing chest wall pathology. The visualized upper abdomen shows extensive aortic atherosclerotic plaque. There is calcified plaque at the ostia and takeoff of the superior mesenteric artery resulting in moderate stenosis at its takeoff unchanged. However about 2 to 3 cm beyond its takeoff, there is severe soft plaque resulting in hemodynamically significant stenosis of the proximal SMA, likely 80% or greater. This appears similar to the comparison CT injury study of 2019. The celiac takeoff and its visualized proximal branches patent. There is severe calcified and noncalcified plaque at the bilateral renal artery ostia, not appreciably changed. Partially visualized kidneys unobstructed and did appear well-perfused. No acute appearing upper abdominal abnormality. IMPRESSION: CHEST: Extensive chronic fibrotic and emphysematous lung disease without evidence for residual or recurrent pneumonia and no suspicious mass or thoracic adenopathy. No chest effusion. Note is made of abdominal atherosclerotic disease with hemodynamically significant proximal SMA stenosis as well as more moderate stenosis at its ostia. Severe renal atherosclerotic disease with advanced upper abdominal atherosclerosis is not convincingly changed from the comparison CT of 2019. Dictated by: Dictated on workstation # [id number]
== END ==
LOC: RAD 09:45
PROVIDERS: ATTEND Nurse Practitioner Family
DX: J43.9 Emphysema, unspecified (principal); I70.1 Atherosclerosis of renal artery; I70.8 Atherosclerosis of other arteries
CPT/HCPCS: 36415; 71260; 82565; 84520

== ENCOUNTER → 2022-04-12 | Outpatient (CLI) | payer MEDICARE, MEDICAID ==
[~2022-04-12] MED LIST changes: -CATHETER FLUSH 10 ML SYR IV PRN; -HOLD METFORMIN - RECEIVED CONTRAST 20 ML VIAL IV SCH; -IOHEXOL 350 MG/ML 100 ML (OMNIPAQUE 350) VIAL IV ONE; +MONT-40 PO; -MONT10TA32 PO; -NS 100 ML (IVPB) BAG IV ONE; +RT-ALBUTEROL SULF 2.5 MG/3 ML PRE-MIX VIAL INH ONE
[2022-04-12 09:10] LABS: ABG BASE EXCESS 2.7 MMOL/L (-2.5-2.5); ABG OXYGEN SATURATION 88 % (94-100); ABG PCO2 45 MMHG (35-45); ABG PH 7.39 (7.37-7.43); ABG PO2 50 MMHG (79-93); ABG TCO2 28.6 MMOL/L (21.0-31.0)
[2022-04-12 09:11] LABS: ALLENS TEST YES-POS; INSPIRED O2 ROOM AIR
[2022-04-12 09:12] LABS: PATIENT TEMP 98.4; VENTILATOR NO
== END ==
LOC: CARD 09:15
PROVIDERS: ATTEND Internal Medicine Critical Care Medicine
DX: I08.2 Rheumatic disorders of both aortic and tricuspid valves (principal); J44.9 Chronic obstructive pulmonary disease, unspecified
CPT/HCPCS: 36600; 82805; 94060; 94621; 94726; 94729; C8929; 93306

== ENCOUNTER 2022-08-18 05:36 | Outpatient (CLI) | payer MEDICARE, MEDICAID ==
[~2022-08-18] VITALS: Ht 162 cm; Wt 51.3 kg
[~2022-08-18 05:36] MED LIST changes: -RT-ALBUTEROL SULF 2.5 MG/3 ML PRE-MIX VIAL INH ONE
[2022-08-18] MEDS ORDERED: LISI10TA25 PO (09:54)
== END 2022-08-18 10:03 | disposition home or self-care (01) ==
LOC: PREOP 05:36
PROVIDERS: ATTEND Surgery
DX: Z01.818 Encounter for other preprocedural examination (principal)

== ENCOUNTER 2022-10-05 07:06 | Day surgery (SDC) | payer MEDICARE, MEDICAID ==
[~2022-10-05] VITALS: Ht 161.9 cm; Wt 51.3 kg
[~2022-10-05 07:06] MED LIST changes: +MONT-47 PO; -MONT10TA21 PO
[2022-10-05] MEDS ORDERED: LACTATED RINGERS 1,000 ML IV STA (07:07)
[2022-10-05] MEDS ORDERED: HURRICAINE EXT TUBE (BENZOCAINE) XX PRN (07:15)
[2022-10-05 07:23] VITALS: BP 136/84
[2022-10-05] MEDS ORDERED: MIDAZOLAM 2 MG/2 ML (VERSED) VIAL ONE (07:47)
[2022-10-05] MEDS ORDERED: PROPOFOL INJECTION 50 ML IV ONE (07:47)
[2022-10-05] MEDS ORDERED: KETAMINE 50 MG/5 ML SYRINGE ONE (08:12)
[2022-10-05 09:00] VITALS: BP 97/57
[2022-10-05] MEDS ORDERED: PANT40TA2 PO (09:01)
--- NOTE | 2022-10-05 09:02 | Discharge Inst-Simple/Standard ---
Discharge Inst-Standard Discharge Medications New, Converted or Re-Newed RX: Transmitted to Pharmacy Patient Instructions/Follow Up Plan of Care/Instructions/FU: 2 weeks Cl Activity as Tolerated: Yes Discharge Diet: Regular Diet (gastritis diet) JUANA ORTEGA DO October 05, 2022 09:02
[2022-10-05 09:05] VITALS: BP 111/66
--- NOTE | 2022-10-05 09:06 | Progress Note-Post Operative ---
Post-Operative Progess Note Surgeon (s)/Counseling Program Leader (s) Surgeon JUANA ORTEGA DO Counseling Program Leader: na Pre-Operative Diagnosis gerd, dysphagia, hx polyps Post-Operative Diagnosis gastritis, hiatal hernia, colon polyps, diverticulosis Procedure & Operative Findings Date of Procedure 10/05/22 Procedure Performed/Findings egd c biopsies, colonoscopy c hot bx polypectomy x 4 Anesthesia Type per lehr cutter Estimated Blood Loss Estimated blood loss (mL): none Specimens/Packing Specimens Removed antrum, body, ge, polyps JUANA ORTEGA DO October 05, 2022 09:06
[2022-10-05 09:10] VITALS: BP 124/69
[2022-10-05 09:40] VITALS: BP 124/69
--- NOTE | 2022-10-05 13:44 | OPERATIVE REPORT ---
DATE OF SERVICE: 10/05/2022 PREOPERATIVE DIAGNOSES: Gastroesophageal reflux disease, dysphagia, history of polyps. POSTOPERATIVE DIAGNOSES: Gastritis, hiatal hernia, colon polyps, diverticulosis. PROCEDURES: EGD with biopsies, colonoscopy with hot biopsy polypectomy x4. SURGEON: Andrey Smallwood DO ANESTHESIA: Per HYDROGEN POWER PLANT MANAGER. COMPLICATIONS: None. SPECIMENS: Antrum, body and GE junction, colon polyps. INDICATIONS: The patient is a 66-year-old female symptoms of dysphagia. She also has a history of polyps. She understands risks and benefits of procedure and wished to proceed. Consent was signed in chart. DESCRIPTION OF PROCEDURE: The patient was taken to endoscopy suite, placed in left lateral recumbent position. Timeout was performed. Scope was inserted in the mouth, down the esophagus, stomach, into the duodenum without difficulty. No polyps, masses or ulcerations within the duodenum. Scope was slowly retracted back into stomach where it was further insufflated. Changes of gastritis present. Biopsy of the antrum and body were obtained. Scope was retroflexed noting a small hiatal hernia, no other pathology. Scope was returned to its normal position, slowly withdrawn until distal esophagus. No polyps, masses or ulcerations. Biopsy of GE junction was obtained. Scope was slowly retracted back until completely remove noting no other pathology. Digital rectal exam was performed. No palpable polyps, masses or ulcerations. Scope was inserted in the rectum, advanced all the way to the cecum with minimal difficulty. Prep was adequate with irrigation and suction. Scope was then slowly retracted back. No polyps, masses or ulcerations in the cecum. In the ascending colon. In the hepatic flexure were tattoo was present small polyps were present, which hot biopsy polypectomies were performed. Scope was then continuously retracted back. To the transverse colon, 2 small polyps, which hot biopsy polypectomy was performed. Scope was then continuously retracted back. No polyps, masses or ulcerations in the descending and sigmoid colon. Minimal amount diverticulosis present on the left colon. Scope was then continuously retracted back into the rectum where it was also attempted to retroflex, but was unable to, so multiple insertions and retractions were made. A tunnel scope was then completely removed. The patient tolerated the procedure well without complications, taken to recovery room in stable condition. RECOMMENDATIONS: The patient will be placed on Protonix 40 mg daily. She will follow up with biopsy results in 2 weeks. She will need repeat colonoscopy in 5 years. Any issues before that, be seen at that time. Job ID: [id number] DocumentID: [id number] Dictated Date: 10/05/2022 09:05:58 Auctioneer Art Date: 10/05/2022 13:42:00 Dictated By: DO SHAHNAZ REGAN
--- NOTE | 2022-10-05 14:21 | Anesthesia-General Post-Op ---
MAC Patient Condition Mental Status/LOC: Same as Preop Cardiovascular: Satisfactory Nausea/Vomiting: Absent Respiratory: Satisfactory Pain: Controlled Complications: Absent Post Op Complications Complications None Follow Up Care/Instructions Patient Instructions None needed. Anesthesiology Discharge Order Discharge Order Patient is doing well, no complaints, stable vital signs, no apparent adverse anesthesia problems. No complications reported per nursing. JESSICA LAWSON CRNA October 05, 2022 14:21
== END 2022-10-05 09:56 | disposition home or self-care (01) ==
LOC: ENDO 07:06
PROVIDERS: ATTEND Surgery
DX: Z12.11 Encounter for screening for malignant neoplasm of colon (principal); D12.3 Benign neoplasm of transverse colon; K63.5 Polyp of colon; K57.30 Diverticulosis of large intestine without perforation or abscess without bleeding; K29.50 Unspecified chronic gastritis without bleeding; K44.9 Diaphragmatic hernia without obstruction or gangrene; K21.00 Gastro-esophageal reflux disease with esophagitis, without bleeding; F17.210 Nicotine dependence, cigarettes, uncomplicated

== ENCOUNTER 2022-11-17 08:24 | Inpatient (IN) | payer MEDICARE, MEDICAID ==
[~2022-11-17] VITALS: Ht 162.5 cm; Wt 45.5 kg
--- NOTE | 2022-11-17 08:29 | ED Hip Pain/Injury ---
General Stated Complaint: FALL | RT HIP PAIN History of Present Illness Date Seen by Provider: Nov 17, 2022 Time Seen by Provider: 08:28 Initial Comments 67 yo female who fell on right hip. pt was out to get her dog and the dog pulled her and fell onto hip. pt with tenderness on palpation and rom. Allergies and Home Medications Allergies Coded Allergies: No Known Drug Allergies (Unverified , 11/17/22) Patient Home Medication List Home Medication List Reviewed: Yes Amitriptyline HCl (Amitriptyline HCl) 75 Mg Tablet, 75 MG PO HS, (Reported) Entered as Reported by: MANAN HARRIS on 07/06/18 1441 Aspirin (Aspirin) 81 Mg Tab.chew, 81 MG PO DAILY, (Reported) Entered as Reported by: ALIZA ALAN on 01/23/20 1055 Biotin (Biotin) 1,000 Mcg Tablet, 1,000 MCG PO HS, (Reported) Entered as Reported by: MANAN HARRIS on 11/19/16 1039 Fluticasone Propionate (Flonase Allergy Relief) 9.9 Ml [place].susp, 1 SPRAY NS DAILY, (Reported) Entered as Reported by: ALIZA ALAN on 01/23/20 1059 Fluticasone/Umeclidin/Vilanter (Trelegy Ellipta 100-62.5-25) 1 Each Blst.w.dev, 1 PUFF IN DAILY, (Reported) Entered as Reported by: ALIZA ALAN on 01/23/20 1055 Lisinopril (Lisinopril) 10 Mg Tablet, 10 MG PO DAILY, (Reported) Entered as Reported by: RIP JAMA on 08/18/22 0954 Montelukast Sodium (Montelukast Sodium) 10 Mg Tablet, 10 MG PO HS, (Reported) Entered as Reported by: ALIZA ALAN on 01/23/20 1055 [place] 3 Polyunsat Fatty Acids (Fish Oil 1,000 mg Capsule) 1,000 Mg Cap, 1,000 MG PO HS, (Reported) Entered as Reported by: DARREN MCCORMACK on 07/17/19 1103 Pantoprazole Sodium (Protonix) 40 Mg Tablet.dr, 40 MG PO DAILY Prescribed by: JUANA ORTEGA on 10/05/22 0901 Varenicline Tartrate (Chantix) 1 Mg Tablet, 1 MG PO BID Prescribed by: DANNY MINER on 01/25/20 1052 Review of Systems Constitutional: No chills, No fever Respiratory: No cough, No short of breath Cardiovascular: no symptoms reported Gastrointestinal: no symptoms reported Musculoskeletal: see HPI Skin: no symptoms reported Psychiatric/Neurological: No Symptoms Reported Past Tzjrbhw-Tqgxjr-Skqgcr Hx Immunizations Up To Date First/Initial COVID19 Vaccinat: 2020 Second COVID19 Vaccination [place]: 2020 Third COVID19 Vaccination Date: 2021 Seasonal Allergies Seasonal Allergies: Yes Past Medical History Surgeries: Yes (ankle fx, ) Hysterectomy Respiratory: Yes (O2 2L AT NIGHT AND PRN) Chronic Bronchitis, COPD, Emphysema Cardiac: Yes Hypertension Neurological: Yes Neuropathy Sexually Transmitted Disease: No HIV/AIDS: No Genitourinary: No Gastrointestinal: Yes (hep C, ) Hepatitis Musculoskeletal: Yes Fractures Endocrine: No HEENT: Yes Cataract Cancer: Yes Cervical What Type of Treatment Did You: Surgical Intervention Psychosocial: No Integumentary: No Blood Disorders: No Adverse Reaction/Blood Tranf: No (N/A) Family Medical History DVT/PE Physical Exam Vital Signs Vital Signs - First Documented 11/17/22 08:25 Temp 36.7 Pulse 74 Resp 18 Pulse Ox 100 O2 Delivery Nasal Cannula O2 Flow Rate 5.00 Capillary Refill : Height, Weight, BMI Height: 5'4.00" Weight: 134lbs. 0.0oz. 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 Norm as Tested Skin: Normal Color, Warm/Dry Progress/Results/Core Measures Results/Orders Lab Results Laboratory Tests Test 11/17/22 08:40 Range/Units White Blood Count 6.9 4.3-11.0 10^3/uL Red Blood Count 5.36 H 3.80-5.11 10^6/uL Hemoglobin 15.6 11.5-16.0 g/dL Hematocrit 48 35-52 % Mean Corpuscular Volume 90 80-99 fL Mean Corpuscular Hemoglobin 29 25-34 pg Mean Corpuscular Hemoglobin Concent 32 32-36 g/dL Red Cell Distribution Width 13.5 10.0-14.5 % Platelet Count 136 130-400 10^3/uL Mean Platelet Volume 10.2 9.0-12.2 fL Immature Granulocyte % (Auto) 0 % Neutrophils (%) (Auto) 67 42-75 % Lymphocytes (%) (Auto) 24 12-44 % Monocytes (%) (Auto) 6 0-12 % Eosinophils (%) (Auto) 2 0-10 % Basophils (%) (Auto) 1 0-10 % Neutrophils # (Auto) 4.6 1.8-7.8 10^3/uL Lymphocytes # (Auto) 1.6 1.0-4.0 10^3/uL Monocytes # (Auto) 0.4 0.0-1.0 10^3/uL Eosinophils # (Auto) 0.1 0.0-0.3 10^3/uL Basophils # (Auto) 0.1 0.0-0.1 10^3/uL Immature Granulocyte # (Auto) 0.0 0.0-0.1 10^3/uL Percent Immature Platelet Fraction 3.0 0.0-7.6 % Sodium Level 141 135-145 MMOL/L Potassium Level 3.7 3.6-5.0 MMOL/L Chloride Level 104 98-107 MMOL/L Carbon Dioxide Level 29 21-32 MMOL/L Anion Gap 8 5-14 MMOL/L Blood Urea Nitrogen 9 7-18 MG/DL Creatinine 0.75 0.60-1.30 MG/DL Estimat Glomerular Filtration Rate 87 BUN/Creatinine Ratio 12 Glucose Level 100 70-105 MG/DL Calcium Level 8.8 8.5-10.1 MG/DL Corrected Calcium 9.2 8.5-10.1 MG/DL Total Bilirubin 0.8 0.1-1.0 MG/DL Aspartate Amino Transf (AST/SGOT) 27 5-34 U/L Alanine Aminotransferase (ALT/SGPT) 15 0-55 U/L Alkaline Phosphatase 96 40-136 U/L Total Protein 6.7 6.4-8.2 GM/DL Albumin 3.5 3.2-4.5 GM/DL My Orders Orders - SHEFFIELD,REI L DO Cbc With Automated Diff (11/17/22 08:29) Comprehensive Metabolic Panel (11/17/22 08:29) Chest 1 View, Ap/Pa Only (11/17/22 08:29) Pelvis With Right Hip 2-3views (11/17/22 08:29) Vital Signs/I&O 11/17/22 08:25 Temp 36.7 Pulse 74 Resp 18 B/P (MAP) Pulse Ox 100 O2 Delivery Nasal Cannula O2 Flow Rate 5.00 Progress Progress Note : Progress Note Patient diagnostic studies were ordered reviewed and interpreted by me. Patient's x-ray was reviewed with initial interpretation right hip fracture with final interpretation per radiology report. Patient's labs show no significant acute findings. Patient to be admitted to Dr. Calles hospitalist for CBC with Dr. Jasso Ortho consulting. I did discuss patient with both Dr. Calles and Dr. Jasso. Patient to be admitted for further management. Departure Impression Primary Impression: Intertrochanteric fracture of right femur Qualified Codes: S72.144A - Nondisplaced intertrochanteric fracture of right femur, initial encounter for closed fracture Disposition: ADMITTED INPATIENT Condition: Stable Departure-Patient Inst. Referrals: [facility] (PCP) Primary Care Physician ALIZA PINEDO DO (Family) Primary Care Physician REI SHEFFIELD DO Nov 17, 2022 08:29
[2022-11-17 08:52] LABS: HEMOGLOBIN 15.6 g/dL (11.5-16.0); LYMPHOCYTES # (AUTO) 1.6 10^3/uL (1.0-4.0)
[2022-11-17 08:54] LABS: BASOPHILS # (AUTO) 0.1 10^3/uL (0.0-0.1); BASOPHILS % (AUTO) 1 % (0-10); EOSINOPHILS # (AUTO) 0.1 10^3/uL (0.0-0.3); EOSINOPHILS % (AUTO) 2 % (0-10); HEMATOCRIT 48 % (35-52); LYMPHOCYTES % (AUTO) 24 % (12-44); MEAN CORPUSCULAR HEMOGLOBIN 29 pg (25-34); MEAN CORPUSCULAR HGB CONC 32 g/dL (32-36); MEAN CORPUSCULAR VOLUME 90 fL (80-99); MEAN PLATELET VOLUME 10.2 fL (9.0-12.2); MONOCYTES # (AUTO) 0.4 10^3/uL (0.0-1.0); MONOCYTES % (AUTO) 6 % (0-12); NEUTROPHILS # (AUTO) 4.6 10^3/uL (1.8-7.8); NEUTROPHILS % (AUTO) 67 % (42-75); PLATELET COUNT 136 10^3/uL (130-400); WHITE BLOOD COUNT 6.9 10^3/uL (4.3-11.0)
[2022-11-17 09:02] LABS: ALBUMIN 3.5 GM/DL (3.2-4.5); POTASSIUM 3.7 MMOL/L (3.6-5.0)
[2022-11-17 09:03] LABS: CALCIUM 8.8 MG/DL (8.5-10.1)
[2022-11-17 09:05] LABS: TOTAL PROTEIN 6.7 GM/DL (6.4-8.2)
[2022-11-17 09:06] LABS: BILIRUBIN,TOTAL 0.8 MG/DL (0.1-1.0)
[2022-11-17 09:08] LABS: CREATININE SERUM 0.75 MG/DL (0.60-1.30)
--- NOTE | 2022-11-17 09:20 | Diagnostic Imaging Report ---
INDICATION: Fall and right hip pain. TIME OF EXAM: 9:03 AM AP view of the pelvis and 2 views right hip were obtained. FINDINGS: There appears to be an acute intertrochanteric fracture of the right hip. Femoroacetabular alignment is normal. Left hip is intact. Rami appear intact. No other fractures are seen. IMPRESSION: Acute intertrochanteric right hip fracture. Dictated by: Dictated on workstation # [id number]
--- NOTE | 2022-11-17 09:24 | Diagnostic Imaging Report ---
CLINICAL INDICATION: Patient fell at approximately 0730 hours while walking dog and was unable to get up because of right hip pain. EXAM: Portable chest x-ray, upright view. COMPARISON: Chest x-ray dated 10/20/2020. FINDINGS: There is a minimal sized airspace opacity involving the periphery of the right lung base. There are increased lung markings throughout both lungs again noted which are likely related to chronic lung disease. There is no significant pulmonary vascular congestion. Heart size is within normal limits. There is left curvature of the lumbar spine. IMPRESSION: 1: There is a minimal sized area of airspace opacity involving the periphery of the right lung base which may represent a lung infiltrate. 2: There are increased lung markings throughout both lungs, concerning for background diffuse interstitial chronic lung changes. Dictated by: Dictated on workstation # [id number]
--- NOTE | 2022-11-17 10:51 | Consultation - Ortho ---
Consult - Ortho Subjective Date of Exam 11/17/22 Chief Complaint Right Hip Injury HPI/Events since last exam fall from standing height, landing on right side, ER evaluation demonstrated right intertrochanteric femur fracture, I was asked to evaluate and manage the fracture Medical, Surgical History see ER documentation Social History see ER documentation Family History see ER documentation Review of Systems - Allergies: Coded Allergies: No Known Drug Allergies (Unverified , 11/17/22) Home Meds Active Scripts Pantoprazole Sodium (Protonix) 40 Mg Tablet.dr, 40 MG PO DAILY, #30 TAB 3 Refills Prov:JUANA ORTEGA DO 10/05/22 Varenicline Tartrate (Chantix) 1 Mg Tablet, 1 MG PO BID, #60 TAB Prov:DANNY MINER DO 01/25/20 Reported Medications Lisinopril (Lisinopril) 10 Mg Tablet, 10 MG PO DAILY, TAB 08/18/22 Fluticasone Propionate (Flonase Allergy Relief) 9.9 Ml [place].susp, 1 SPRAY NS DAILY, EACH 01/23/20 Aspirin (Aspirin) 81 Mg Tab.chew, 81 MG PO DAILY, TAB 01/23/20 Fluticasone/Umeclidin/Vilanter (Trelegy Ellipta 100-62.5-25) 1 Each Blst.w.dev, 1 PUFF IN DAILY, EA 01/23/20 Montelukast Sodium (Montelukast Sodium) 10 Mg Tablet, 10 MG PO HS, TAB 01/23/20 [place] 3 Polyunsat Fatty Acids (Fish Oil 1,000 mg Capsule) 1,000 Mg Cap, 1000 MG PO HS, CAP 07/17/19 Amitriptyline HCl (Amitriptyline HCl) 75 Mg Tablet, 75 MG PO HS, TAB 07/06/18 Biotin (Biotin) 1,000 Mcg Tablet, 1000 MCG PO HS, TAB 11/19/16 Objective Exam Right leg: no abrasion or ecchymosis, held in external rotation, able to DF ankle, sensation grossly intact to light touch, distal pulses palpable Vital Signs Vital Signs Date Time Temp Pulse Resp B/P (MAP) Pulse Ox O2 Delivery O2 Flow Rate FiO2 11/17/22 08:25 36.7 74 18 100 Nasal Cannula 5.00 Lab Results Laboratory Tests 11/17/22 08:40: White Blood Count 6.9, Red Blood Count 5.36H, Hemoglobin 15.6, Hematocrit 48, Mean Corpuscular Volume 90, Mean Corpuscular Hemoglobin 29, Mean Corpuscular Hemoglobin Concent 32, Red Cell Distribution Width 13.5, Platelet Count 136, Mean Platelet Volume 10.2, Immature Granulocyte % (Auto) 0, Neutrophils (%) (Auto) 67, Lymphocytes (%) (Auto) 24, Monocytes (%) (Auto) 6, Eosinophils (%) (Auto) 2, Basophils (%) (Auto) 1, Neutrophils # (Auto) 4.6, Lymphocytes # (Auto) 1.6, Monocytes # (Auto) 0.4, Eosinophils # (Auto) 0.1, Basophils # (Auto) 0.1, Immature Granulocyte # (Auto) 0.0, Percent Immature Platelet Fraction 3.0, Sodium Level 141, Potassium Level 3.7, Chloride Level 104, Carbon Dioxide Level 29, Anion Gap 8, Blood Urea Nitrogen 9, Creatinine 0.75, Estimat Glomerular Filtration Rate 87, BUN/Creatinine Ratio 12, Glucose Level 100, Calcium Level 8.8, Corrected Calcium 9.2, Total Bilirubin 0.8, Aspartate Amino Transf (AST/SGOT) 27, Alanine Aminotransferase (ALT/SGPT) 15, Alkaline Phosphatase 96, Total Protein 6.7, Albumin 3.5 Imaging AP pelvis and 2 views of the right hip demonstrated a displaced intertrochanteric femur fracture Assessment and Plan Assessment Right intertrochanteric femur fracture Problem List Right intertrochanteric femur fracture Plan I have recommended proceeding with IM stabilization of the right intertrochanteric femur fracture. Nature of the procedure and the postop course were discussed. risks and benefits were discussed. Consent to be obtained. Tentatively scheduled for 7:30 in the AM. Final Diagonsis Right intertrochanteric femur fracture Level of the visit: Level 3 (preop) JOSE ARMANDO STARKEY MD Nov 17, 2022 10:51
[2022-11-17] MEDS ORDERED: ceFAZolin INJECTION 2,000 MG VIAL IV ONE (11:15)
[2022-11-17 11:35] VITALS: BP 143/85
--- NOTE | 2022-11-17 13:18 | History & Physical ---
HPI History of Present Illness: This morning she was letting her dog back in and he knocked her over and she landed on her right side. The dog got himself in the house and left her outside. She was down on her knees and the new grad rn came down the alley and stopped and called 911 for her. She is having pain in her right leg and hip, she couldn't even move. She was supposed to have an appointment with Dr. Manley at [facility] this morning. She has supplemental oxygen dependent COPD, she uses 6 lpm during the day and just got prescribed an "oxidizer" that she uses at night that gives her 75% more oxygen at night per her report, by Pulmonology. She does note a diagnosis of osteoporosis, and is supposed to be on weekly alendronate, but f orgets it, thinks last dose was 2 or 3 months ago. She is concerned because her sister of a stroke in June the night after she had a fall. Her mother also of a blood clot, she believes that it travelled to the brain and caused a stroke. Madeleine herself has never had any cardiac problems or stroke in the past nor any blood clots. Source: family Date seen by provider: Nov 17, 2022 Time Seen by Provider: 13:14 Attending Physician Hana/[facility] PCP Admitting Physician: To Calles MD Attending Physician: To Calles MD Consult Date of Admission Nov 17, 2022 at 11:13 Home Medications Home Medications Reviewed patient Home Medication Reconciliation performed by pharmacy medication reconciliations wire technician and/or nursing. Patients Allergies have been reviewed. Allergies Coded Allergies: No Known Drug Allergies (Unverified , 11/17/22) IGR-Frtcfy-Hiuohb Hx Patient Social History Drug of Choice: marijuana Smoking Status: Current Everyday Smoker 2nd Hand Smoke Exposure: Yes Recent Hopitalizations: No Alcohol Use?: No Substance type: Marijuana (occasional per report) Tobacco type used: Cigarettes Immunizations Up To Date First/Initial COVID19 Vaccinat: 08/26/2020 Second COVID19 Vaccination [place]: 09/23/2020 Third COVID19 Vaccination Date: 04/30/2021 Past Medical History PMHx: COPD HTN HLD Osteoporosis SurgHx: Tympanostomy right side Hysterectomy Ankle surgery right side Family Medical History Significant Family History: Heart Disease, Cancer (father lung cancer), CAD Over 55 Years Old (3 brothers with heart attack, nephew and neice with heart attack), CVA (sister), DVT/PE (mother) Review of Systems ([facility]) Constitutional: No fever; other (was sick about a month ago for a couple of weeks, to the point of not eating and losing weight, reports feeling better now but sometimes forgets to eat still) EENTM: No nose congestion, No throat pain Respiratory: cough (at baseline for her), short of breath (at baseline) Cardiovascular: No chest pain Gastrointestinal: No abdominal pain, No constipation, No diarrhea, No melena, No nausea, No vomiting Genitourinary: No dysuria Musculoskeletal: No joint pain Skin: No rash Psychiatric/Neurological: Denies Anxiety, Denies Depressed Reviewed Test Results Reviewed Test Results Lab Laboratory Tests Test 11/17/22 08:40 Range/Units White Blood Count 6.9 4.3-11.0 10^3/uL Red Blood Count 5.36 H 3.80-5.11 10^6/uL Hemoglobin 15.6 11.5-16.0 g/dL Hematocrit 48 35-52 % Mean Corpuscular Volume 90 80-99 fL Mean Corpuscular Hemoglobin 29 25-34 pg Mean Corpuscular Hemoglobin Concent 32 32-36 g/dL Red Cell Distribution Width 13.5 10.0-14.5 % Platelet Count 136 130-400 10^3/uL Mean Platelet Volume 10.2 9.0-12.2 fL Immature Granulocyte % (Auto) 0 % Neutrophils (%) (Auto) 67 42-75 % Lymphocytes (%) (Auto) 24 12-44 % Monocytes (%) (Auto) 6 0-12 % Eosinophils (%) (Auto) 2 0-10 % Basophils (%) (Auto) 1 0-10 % Neutrophils # (Auto) 4.6 1.8-7.8 10^3/uL Lymphocytes # (Auto) 1.6 1.0-4.0 10^3/uL Monocytes # (Auto) 0.4 0.0-1.0 10^3/uL Eosinophils # (Auto) 0.1 0.0-0.3 10^3/uL Basophils # (Auto) 0.1 0.0-0.1 10^3/uL Immature Granulocyte # (Auto) 0.0 0.0-0.1 10^3/uL Percent Immature Platelet Fraction 3.0 0.0-7.6 % Sodium Level 141 135-145 MMOL/L Potassium Level 3.7 3.6-5.0 MMOL/L Chloride Level 104 98-107 MMOL/L Carbon Dioxide Level 29 21-32 MMOL/L Anion Gap 8 5-14 MMOL/L Blood Urea Nitrogen 9 7-18 MG/DL Creatinine 0.75 0.60-1.30 MG/DL Estimat Glomerular Filtration Rate 87 BUN/Creatinine Ratio 12 Glucose Level 100 70-105 MG/DL Calcium Level 8.8 8.5-10.1 MG/DL Corrected Calcium 9.2 8.5-10.1 MG/DL Total Bilirubin 0.8 0.1-1.0 MG/DL Aspartate Amino Transf (AST/SGOT) 27 5-34 U/L Alanine Aminotransferase (ALT/SGPT) 15 0-55 U/L Alkaline Phosphatase 96 40-136 U/L Total Protein 6.7 6.4-8.2 GM/DL Albumin 3.5 3.2-4.5 GM/DL Radiology Hip xray: IMPRESSION: Acute intertrochanteric right hip fracture. CXR: IMPRESSION: 1: There is a minimal sized area of airspace opacity involving the periphery of the right lung base which may represent a lung infiltrate. 2: There are increased lung markings throughout both lungs, concerning for background diffuse interstitial chronic lung changes. Physical Exam-([facility]) Physical Exam Vital Signs VS - Last 72 Hours, by Label 11/17/22 11/17/22 11/17/22 08:25 11:12 11:35 Temp 36.7 36.0 Pulse 74 69 92 Resp 18 18 20 B/P (MAP) 153/87 143/85 (104) Pulse Ox 100 100 92 O2 Delivery Nasal Cannula Nasal Cannula Nasal Cannula O2 Flow Rate 5.00 5.00 5.00 5.00 Capillary Refill : Less Than 3 Seconds General Appearance: thin Respiratory: lungs clear, normal breath sounds Cardiovascular: no murmur, tachycardia Peripheral Pulses: 2+ Dorsalis Pedis (R), 2+ Left Dors-Pedis (L) Gastrointestinal: normal bowel sounds, non tender, soft Extremities: no pedal edema Neurologic/Psychiatric: alert, normal mood/affect Skin: normal color, warm/dry Assessment/Plan Assessment/Plan Admission Status: Inpatient Order (span 2 midnights) Reason for Inpatient Admission: Hip fracture requiring surgical repair (1) Intertrochanteric fracture of right femur Status: Acute Assessment & Plan: Ortho consulted, plan for surgery in the am. Hydrocodone and fentanyl prn pain. No history of CAD, no cardiac symptoms. She does have respiratory risk for surgery but is managed as well as possible for urgent surgery. Qualifiers: Qualified Codes: S72.144A - Nondisplaced intertrochanteric fracture of right femur, initial encounter for closed fracture (2) Hypertension Status: Chronic Assessment & Plan: Resume home lisinopril. Qualifiers: Qualified Codes: I10 - Essential (primary) hypertension (3) Hyperlipidemia Status: Chronic Assessment & Plan: Resume home statin (4) Osteoporosis Status: Chronic Assessment & Plan: Encouraged to take alendronate regularly. (5) COPD (chronic obstructive pulmonary disease) Status: Chronic Assessment & Plan: On baseline home supplemental oxygen requirement. No clear evidence of exacerbation or pneumonia in spite of CXR findings. Will resume home Trelegy and monitor closely. (6) Underweight Status: Chronic Assessment & Plan: Reporting recent weight loss in addition to chronic, will review clinic records for last chest CT. (7) Tobacco use Status: Chronic Assessment & Plan: Discussed cessation, she thinks if she doesn't smoke inpatient she may be able to stay off. (8) DVT prophylaxis Status: Acute Assessment & Plan: Start as soon as possible after surgery. TO CALLES MD Nov 17, 2022 13:18
[2022-11-17] MEDS ORDERED: GBPN600T PO (13:24)
[2022-11-17] MEDS ORDERED: ATOR20TA66 PO (13:24)
[2022-11-17] MEDS ORDERED: ALEN70TA80 PO (13:28)
[2022-11-17] MEDS: fentaNYL INJ 100 MCG/2 ML AMP IVP PRN ×2 (13:35→18:40)
[2022-11-17] MEDS: HYDROcodone/APAP 5 MG/325 MG (LORTAB) TAB PO PRN ×2 (13:36→18:39)
[2022-11-17] MEDS ORDERED: MELA5TAB14 PO (14:29)
[2022-11-17] MEDS ORDERED: OMEG100032 PO (14:29)
[2022-11-17 15:44] VITALS: BP 131/87
[2022-11-17] MEDS ORDERED: NICOTINE 21 MG (NICODERM) PATCH TD NR (19:30)
[2022-11-17] MEDS: GABAPENTIN 600 MG (NEURONTIN) TAB PO SCH (19:49)
[2022-11-17] MEDS: AMITRIPTYLINE 25 MG (ELAVIL) TAB PO SCH (19:49)
[2022-11-17 19:55] VITALS: BP 137/89
[2022-11-17] MEDS ORDERED: NON-FORMULARY MEDICATION 1 EA EA (Amitriptyline HCl 75 MG) PO SCH (21:00)
[2022-11-18] VITALS (17 sets, daily range): BP systolic 82–124; BP diastolic 54–78
[2022-11-18 05:54] LABS: HEMOGLOBIN 16.2 g/dL (11.5-16.0); MEAN PLATELET VOLUME 10.8 fL (9.0-12.2); WHITE BLOOD COUNT 6.9 10^3/uL (4.3-11.0)
[2022-11-18 05:56] LABS: POTASSIUM 4.7 MMOL/L (3.6-5.0)
[2022-11-18 05:57] LABS: CALCIUM 9.2 MG/DL (8.5-10.1)
[2022-11-18 06:02] LABS: CREATININE SERUM 0.74 MG/DL (0.60-1.30)
[2022-11-18] MEDS: fentaNYL INJ 100 MCG/2 ML AMP IVP PRN (06:43)
[2022-11-18] MEDS ORDERED: MIDAZOLAM 2 MG/2 ML (VERSED) VIAL ONE (06:51)
[2022-11-18] MEDS ORDERED: BUPIVACAINE 0.5% 30 ML (SENSORCAINE) VIAL ONE (06:51)
[2022-11-18] MEDS ORDERED: ONDANSETRON 4 MG/2 ML (SDV) Z0FRAN ONE (06:51)
[2022-11-18] MEDS ORDERED: PROPOFOL INJECTION 50 ML IV ONE (06:51)
[2022-11-18] MEDS: LACTATED RINGERS 1,000 ML IV PRN ×2 (07:22→08:25)
[2022-11-18] MEDS ORDERED: KETAMINE 50 MG/5 ML SYRINGE ONE (07:27)
[2022-11-18] MEDS ORDERED: ceFAZolin INJECTION 2,000 MG ONE (07:29)
[2022-11-18] MEDS ORDERED: NS (IVPB) 50 ML ONE (07:29)
--- NOTE | 2022-11-18 08:36 | Operative Report - Ortho ---
Operative Report Surgeon (s)/Remote Sensing Scientist (s) Surgeon JOSE ARMANDO STARKEY MD Remote Sensing Scientist n/a Pre-Operative Diagnosis Right Intertrochanteric Femur Fracture Post-Operative Diagnosis same Operative Report Date of Procedure: Nov 18, 2022 Name of Procedure Performed: Intramedullary Nailing of Right Intertrochanteric Femur Fracture Description & Findings After obtaining informed consent and marking the patient in the preoperative holding area, the patient was administered IV antibiotics and taken to the operating room. Anesthesia was induced. Patient was transferred to the fracture table. Surgical timeout was taken. The right lower extremity was placed in the traction spar and the left leg was placed in the well leg muñoz. The right lower extremity was prepped and draped in the usual sterile fashion. Incision was made just proximal to the greater trochanter. Blunt dissection was performed down to the tip of the trochanter. A guide wire was placed through a trochanteric entry point. Position of the wire was confirmed using C-arm. An entry reamer was then placed over the guidewire and reamed to the level of the lesser trochanter. A trochanteric gamma nail with a 120 degree neck angle was selected and assembled on the back table. Nail was inserted through the trochanteric entry point and seated by hand. Position of the nail was confirmed using C-arm. A guide wire was placed for the cephalomedullary screw. Version of the wire was obtained on the lateral. Measurement was taken and the reamer was set to 95 mm. Reamer was used over the guidewire and then a 95 mm cephalomedullary screw was placed. Position of the cephalomedullary screw was confirmed on C-arm. Set screw was then tightened onto the cephalomedullary screw and then backed off 1/4 turn. Attention was then turned to the distal screw and using the provided guides, a 37.5 mm screw was placed through the static portion of the distal slot. Final C arm images were obtained, demonstrated appropriate placement of hardware with adequate reduction, and were transferred to PACS. Incision sites were irrigated with normal saline. Closed subcutaneously with 2- 0 vicryl and skin was closed with wen. Dressed with xeroform, 4x4s, ABD, and tape. Patient tolerated the procedure well and was stable to the recovery room. Anesthesia Type Spinal Estimated Blood Loss 100 mL Specimen(s) collected/removed none JOSE ARMANDO STARKEY MD Nov 18, 2022 08:36
[2022-11-18] MEDS ORDERED: NON-FORMULARY MEDICATION 1 EA EA (Fluticasone/Umeclidin/Vilanter (Trelegy Ellipta 100-62.5 IN SCH (09:00)
[2022-11-18] MEDS ORDERED: NON-FORMULARY MEDICATION 1 EA EA (Fluticasone Propionate (Flonase Allergy Relief) 1 SPRAY) NS SCH (09:00)
[2022-11-18] MEDS ORDERED: FLUTICASONE NASAL SPRAY (FLONASE) 16 GM BTL NS PRN (09:00)
[2022-11-18] MEDS ORDERED: ONDANSETRON 4 MG/2 ML (SDV) Z0FRAN IVP PRN (09:00)
[2022-11-18] MEDS ORDERED: morphine INJ 10 MG/ML 1ML (SYR OR VIAL) IVP ONE (09:00)
--- NOTE | 2022-11-18 09:14 | Diagnostic Imaging Report ---
INDICATION: Fluoroscopy for right hip surgery. Fluoroscopy was provided in the OR during a right hip ORIF. 66 seconds of fluoroscopic time was utilized. 3 images were obtained demonstrating intramedullary katiana as well as compression screw transfixing the right hip fracture. Alignment is anatomic. IMPRESSION: Fluoroscopy for right hip ORIF. Dictated by: Dictated on workstation # [id number]
[2022-11-18] MEDS: FLUTICASONE/VILANTEROL 100 MCG 14'S (BREO) IH SCH (09:52)
[2022-11-18] MEDS: UMECLIDINIUM BROMIDE (INCRUSE ELLIPTA) 7'S IH SCH (09:52)
[2022-11-18] MEDS: NICOTINE PATCH REMOVAL TP SCH (10:08)
[2022-11-18] MEDS: GABAPENTIN 600 MG (NEURONTIN) TAB PO SCH ×2 (10:12→19:31)
[2022-11-18] MEDS: OMEGA 3 (FISH OIL) 1000 MG CAP PO SCH (10:12)
[2022-11-18] MEDS: NICOTINE 21 MG (NICODERM) PATCH TD SCH (10:12)
[2022-11-18] MEDS: lisINopril 10 MG (PRINIVIL) TABLET PO SCH (10:13)
--- NOTE | 2022-11-18 11:14 | Progress Note ---
Subjective Subjective/Events-last exam Pt reports she is feeling okay, can't feel legs yet post surgery. She denies concerns. She states her breathing feels pretty good. Objective Exam Last Set of Vital Signs Vital Signs Date Time Temp Pulse Resp B/P (MAP) Pulse Ox O2 Delivery O2 Flow Rate FiO2 11/18/22 10:30 Nasal Cannula 5.00 11/18/22 10:06 84 18 90/57 (68) 93 11/18/22 09:40 36.4 Capillary Refill : Less Than 3 SecondsLess Than 3 Seconds I&O Intake and Output 11/18/22 00:00 Intake Total 100 ml Output Total 150 ml Balance -50 ml Intake Oral 100 ml Output Urine Total 150 ml Daily Weight Change Yes, 14-23 lbs General: Alert, No Acute Distress Lungs: Clear to Auscultation Heart: No Murmurs, Other (tachycardic) Abdomen: Normal Bowel Sounds, Soft, No Tenderness Extremities: No Edema Neuro: Normal Speech Psych/Mental Status: Mood NL Results/Procedures Lab Laboratory Tests 11/18/22 05:05: White Blood Count 6.9, Red Blood Count 5.59H, Hemoglobin 16.2H, Hematocrit 50, Mean Corpuscular Volume 90, Mean Corpuscular Hemoglobin 29, Mean Corpuscular Hemoglobin Concent 32, Red Cell Distribution Width 13.5, Platelet Count 121L, Mean Platelet Volume 10.8, Percent Immature Platelet Fraction 4.4, Sodium Level 138, Potassium Level 4.7, Chloride Level 99, Carbon Dioxide Level 29, Anion Gap 10, Blood Urea Nitrogen 10, Creatinine 0.74, Estimat Glomerular Filtration Rate 89, BUN/Creatinine Ratio 14, Glucose Level 112H, Calcium Level 9.2 Radiology Hip xray: IMPRESSION: Acute intertrochanteric right hip fracture. CXR: IMPRESSION: 1: There is a minimal sized area of airspace opacity involving the periphery of the right lung base which may represent a lung infiltrate. 2: There are increased lung markings throughout both lungs, concerning for background diffuse interstitial chronic lung changes. Assessment/Plan Assessment/Plan (1) Intertrochanteric fracture of right femur Status: Acute Assessment & Plan: 11/17- Ortho consulted, plan for surgery in the am. Hydrocodone and fentanyl prn pain. No history of CAD, no cardiac symptoms. She does have respiratory risk for surgery but is managed as well as possible for urgent surgery. 11/18- s/p surgical repair this am, appreciate Ortho recommendations. Qualifiers: Qualified Codes: S72.144A - Nondisplaced intertrochanteric fracture of right femur, initial encounter for closed fracture (2) Hypertension Status: Chronic Assessment & Plan: Resume home lisinopril. Qualifiers: Qualified Codes: I10 - Essential (primary) hypertension (3) Hyperlipidemia Status: Chronic Assessment & Plan: Resume home statin (4) Osteoporosis Status: Chronic Assessment & Plan: Encouraged to take alendronate regularly. (5) COPD (chronic obstructive pulmonary disease) Status: Chronic Assessment & Plan: On baseline home supplemental oxygen requirement. No clear evidence of exacerbation or pneumonia in spite of CXR findings. Will resume home Trelegy and monitor closely. (6) Underweight Status: Chronic Assessment & Plan: Reporting recent weight loss in addition to chronic, will review clinic records for last chest CT. 11/18- per clinic chart CT chest low dose screening was 08/2021. Will repeat CT and add protein shakes. (7) Tobacco use Status: Chronic Assessment & Plan: Discussed cessation, she thinks if she doesn't smoke inpatient she may be able to stay off. (8) DVT prophylaxis Status: Acute Assessment & Plan: Start as soon as possible after surgery. TO STEEL MD Nov 18, 2022 11:13
--- NOTE | 2022-11-18 13:41 | Physical Therapy Evaluation ---
PT Evaluation-General Medical Diagnosis Admission Date Nov 17, 2022 at 11:13 Medical Diagnosis: intertrochanteric fracture right femur Onset Date: Nov 17, 2022 Therapy Diagnosis Therapy Diagnosis: debility/weakness Height/Weight Height (Feet): 5 Height (Inches): 4.00 Weight (Pounds): 134 Weight (Ounces): 0.0 Precautions Precautions/Isolations: Standard Precautions Weight Bear Status Right Lower Extremity: Right Non Weight Bearing Referral Physician: Romero Reason for Referral: Evaluation/Treatment Medical History Pertinent Medical History: COPD (O2 HS), HTN, Neuropathy Current History ER secondary to fall (dog pulled her down) Reviewed History: Yes Social History Home: Single Level Current Living Status: Children Prior Prior Level of Function SCALE: Activities may be completed with or without assistive devices. 4-Najrdhgmtp-lecxwfa completes the activity by him/herself with no assistance from a helper. 5-Set-up or Clean-up Assistance-helper sets up or cleans up; patient completes activity. [place] assists only prior to or following the activity. 4-Supervision or Touching Assistance-helper provides verbal cues and/or t ouching/steadying and/or contact guard assistance as patient completes activity. Assistance may be provided throughout the activity or intermittently. 3-Partial/Moderate Assistance-helper does LESS THAN HALF the effort. [place] lifts, holds or supports trunk or limbs, but provides less than half the effort. 2-Substantial/Maximal Assistance-helper does MORE THAN HALF the effort. [place] lifts or holds trunk or limbs and provides more than half the effort. 1-Oraxgaepc-nfowhi does ALL the effort. Patient does none of the effort to complete the activity. Or, the assistance of 2 or more helpers is required for the patient to complete the activity. If activity was not attempted, code reason: 7-Patient Refused. 9-Not Applicable-not attempted and the patient did not perform the activity before the current illness, exacerbation or injury. 10-Not Attempted due to Environmental Limitations-(lack of equipment, weather restraints, etc.). 88-Not Attempted due to Medical Conditions or Safety Concerns. Bed Mobility: 6 Transfers (B,C,W/C): 6 Gait: 6 Stairs: 6 Indoor Mobility (Ambulation): Independent Stairs: Independent Prior Devices Use: None PT Evaluation-Current Subjective Patient agrees to PT. Objective Patient Orientation: Normal For Age Attachments: Oxygen, Barrientos Catheter ROM/Strength ROM Lower Extremities bilateral LE WFL Strength Lower Extremities right LE 3-/5 grossly/ left LE 3+/5 grossly Integumentary/Posture Bowel Incontinence: No Bladder Incontinence: Barrientos Cath Posture WFL Neuromuscular (Tone, Coordination, Reflexes) grossly intact Sensory Vision: Functional Hearing: Functional Transfers Lying to Sitting/Side of Bed(Q: 3 Sit to Stand (QC): 2 Chair/Dmc-ua-Cbbmk Xfer(QC): 2 Gait Mode of Locomotion: Walk Anticipated Mode of Locomotion: Walk Distance: 5 steps Gait Assistive Device: FWW Comments/Gait Description right LE still slightly numb/diminished proprioception due to this Balance Sitting Static: Normal Sitting Dynamic: Normal Standing Static: Poor Standing Dynamic: Poor Assessment/Needs Patient will benefit from skilled PT to address functional strength and mobility to improve current LOF to safely return to home at maximum LOF. Rehab Potential: Fair PT Correction Goals Correction Goals PT Correction Goals Time Frame: Nov 26, 2022 Roll Left & Right (QC): 6 Sit to Lying (QC): 6 Lying-Sitting on Side/Bed(QC): 6 Sit to Stand (QC): 6 Chair/Nsu-tu-Rkbqq Xfer(QC): 6 Toilet Transfer (QC): 6 Walk 10 feet (QC): 6 Walk 50ft with 2 Turns (QC): 6 Walk 150 ft (QC): 6 PT Plan Problem List Problem List: Activity Tolerance, Functional Strength, Safety, Balance, Gait, Transfer, Bed Mobility Treatment/Plan Treatment Plan: Continue Plan of Care Treatment Plan: Bed Mobility, Education, Functional Activity [place], Functional Strength, Gait, Safety, Therapeutic Exercise, Transfers Treatment Duration: Nov 26, 2022 Frequency: 11 times per week Estimated Hrs Per Day: .5 hour per day Patient and/or Family Agrees t: Yes Time Time In: 1318 Time Out: 1330 DATE: Nov 18, 2022 Total Billed Treatment Time: 12 Total Billed Treatment 1 visit EVMod 12 min ELLIS SARAVIA PT Nov 18, 2022 13:41
--- NOTE | 2022-11-18 15:25 | Diagnostic Imaging Report ---
EXAMINATION: CT chest without contrast. TECHNIQUE: Multiple contiguous axial images were obtained through the chest without the use of intravenous contrast. All CT scans use one or more of the following dose optimizing techniques: automated exposure control, MA and/or KvP adjustment based on patient size and exam type or iterative reconstruction. HISTORY: Weight loss COMPARISON: 01/02/2021 FINDINGS: There is no edema or pneumonia. No pleural effusion. No pneumothorax. No suspicious nodules. Lungs are severely emphysematous. There is mild fibrosis. There is mucous in the airways. There is no axillary or supraclavicular lymphadenopathy. There is no mediastinal lymphadenopathy. Heart size is normal. There are severe coronary artery calcifications. No pericardial effusion. Aorta is normal in caliber. Limited views of the upper abdomen are unremarkable. There are no suspicious osseus lesions. IMPRESSION: 1. Severe emphysema with mild fibrosis. Dictated by: Dictated on workstation # [id number]
[2022-11-18] MEDS: HYDROcodone/APAP 5 MG/325 MG (LORTAB) TAB PO PRN (15:39)
[2022-11-18] MEDS ORDERED: NS IV 500 ML 500 ML IV ONE (18:45)
[2022-11-18] MEDS ORDERED: NS IV 500 ML 500 ML ONE (18:49)
[2022-11-18 19:30] LABS: HEMATOCRIT 43 % (35-52); MEAN CORPUSCULAR VOLUME 90 fL (80-99)
[2022-11-18] MEDS: AMITRIPTYLINE 25 MG (ELAVIL) TAB PO SCH (19:31)
[2022-11-18 19:32] LABS: BASOPHILS % (AUTO) 0 % (0-10); EOSINOPHILS % (AUTO) 0 % (0-10); HEMOGLOBIN 13.9 g/dL (11.5-16.0); LYMPHOCYTES # (AUTO) 1.6 10^3/uL (1.0-4.0); LYMPHOCYTES % (AUTO) 17 % (12-44); MEAN CORPUSCULAR HEMOGLOBIN 29 pg (25-34); MEAN CORPUSCULAR HGB CONC 32 g/dL (32-36); MEAN PLATELET VOLUME 10.8 fL (9.0-12.2); MONOCYTES # (AUTO) 0.5 10^3/uL (0.0-1.0); MONOCYTES % (AUTO) 5 % (0-12); NEUTROPHILS # (AUTO) 7.5 10^3/uL (1.8-7.8); NEUTROPHILS % (AUTO) 77 % (42-75); PLATELET COUNT 101 10^3/uL (130-400); WHITE BLOOD COUNT 9.6 10^3/uL (4.3-11.0)
[2022-11-18 19:33] LABS: SMEAR SCAN COMMENT YES
[2022-11-19] VITALS (7 sets, daily range): BP systolic 84–130; BP diastolic 52–74
[2022-11-19] MEDS: HYDROcodone/APAP 5 MG/325 MG (LORTAB) TAB PO PRN ×3 (05:52→18:02)
[2022-11-19] MEDS ORDERED: NS IV 1000 ML 1,000 ML IV SCH (07:45)
[2022-11-19] MEDS: NICOTINE 21 MG (NICODERM) PATCH TD SCH (07:51)
[2022-11-19] MEDS: OMEGA 3 (FISH OIL) 1000 MG CAP PO SCH (07:51)
[2022-11-19] MEDS: GABAPENTIN 600 MG (NEURONTIN) TAB PO SCH ×2 (07:51→19:28)
[2022-11-19] MEDS: lisINopril 10 MG (PRINIVIL) TABLET PO SCH (07:52)
[2022-11-19] MEDS: NICOTINE PATCH REMOVAL TP SCH (07:52)
[2022-11-19] MEDS: UMECLIDINIUM BROMIDE (INCRUSE ELLIPTA) 7'S IH SCH (07:58)
[2022-11-19] MEDS: FLUTICASONE/VILANTEROL 100 MCG 14'S (BREO) IH SCH (07:58)
[2022-11-19 08:03] LABS: HEMOGLOBIN 13.4 g/dL (11.5-16.0)
[2022-11-19 08:05] LABS: MEAN PLATELET VOLUME 10.4 fL (9.0-12.2); WHITE BLOOD COUNT 8.2 10^3/uL (4.3-11.0)
[2022-11-19 08:11] LABS: POTASSIUM 4.5 MMOL/L (3.6-5.0)
[2022-11-19 08:12] LABS: CALCIUM 8.6 MG/DL (8.5-10.1)
[2022-11-19 08:16] LABS: CREATININE SERUM 0.67 MG/DL (0.60-1.30)
--- NOTE | 2022-11-19 08:28 | Anesthesia-General Post-Op ---
General Patient Condition Mental Status/LOC: Same as Preop Cardiovascular: Satisfactory Nausea/Vomiting: Absent Respiratory: Satisfactory Pain: Controlled Complications: Absent Post Op Complications Complications None Follow Up Care/Instructions Patient Instructions None needed. Anesthesia/Patient Condition Patient Condition Patient is doing well, no complaints, stable vital signs, no apparent adverse anesthesia problems. No complications reported per nursing. D/C home per [facility] Criteria: Yes ALONZO BCEK CRNA Nov 19, 2022 08:28
--- NOTE | 2022-11-19 10:05 | Progress Note - Ortho ---
Progress Note Subjective Date of Exam 11/19/22 Chief Complaint POD #1 IM Nailing of R IT Femur Fracture HPI/Events since last exam having some pain in hip, has been up in therapy Review of Systems - Allergies: Coded Allergies: No Known Drug Allergies (Unverified , 11/17/22) Home Meds Reported Medications Melatonin (Melatonin) 5 Mg Tablet, 5 MG PO HS, TAB 11/17/22 [place]-3/Dha/Epa/Fish Oil (Fish Oil 1,000 mg Softgel) 1,000 Mg (120 Mg-180 Mg) Capsule, 1000 MG PO DAILY, CAP 11/17/22 Atorvastatin Calcium (Atorvastatin Calcium) 20 Mg Tablet, 20 MG PO DAILY 11/17/22 Gabapentin (Gabapentin) 600 Mg Tablet, 600 MG PO BID 11/17/22 Lisinopril (Lisinopril) 10 Mg Tablet, 10 MG PO DAILY, TAB 08/18/22 Fluticasone Propionate (Flonase Allergy Relief) 50 Mcg/Actuation [place].susp, 1 SPRAY NS DAILY PRN for CONGESTION, EACH 01/23/20 Aspirin (Aspirin) 81 Mg Tab.chew, 81 MG PO DAILY, TAB 01/23/20 Fluticasone/Umeclidin/Vilanter (Trelegy Ellipta 100-62.5-25) 1 Each Blst.w.dev, 1 PUFF IN DAILY, EA 01/23/20 Amitriptyline HCl (Amitriptyline HCl) 75 Mg Tablet, 75 MG PO HS, TAB 07/06/18 Discontinued Reported Medications Alendronate Sodium (Alendronate Sodium) 70 Mg Tablet, 70 MG PO WEEK 11/17/22 Montelukast Sodium (Montelukast Sodium) 10 Mg Tablet, 10 MG PO HS, TAB 01/23/20 [place] 3 Polyunsat Fatty Acids (Fish Oil 1,000 mg Capsule) 1,000 Mg Cap, 1000 MG PO HS, CAP 07/17/19 Biotin (Biotin) 1,000 Mcg Tablet, 1000 MCG PO HS, TAB 11/19/16 Discontinued Scripts Pantoprazole Sodium (Protonix) 40 Mg Tablet.dr, 40 MG PO DAILY, #30 TAB 3 Refills Prov:JUANA ORTEGA DO 10/05/22 Varenicline Tartrate (Chantix) 1 Mg Tablet, 1 MG PO BID, #60 TAB Prov:DANNY MINER DO 01/25/20 Objective Exam R Hip: Dressing C/D/I, +DF of ankle, no s/s of DVT Vital Signs Vital Signs Date Time Temp Pulse Resp B/P (MAP) Pulse Ox O2 Delivery O2 Flow Rate FiO2 11/19/22 09:10 97 Nasal Cannula 7.00 11/19/22 08:00 Nasal Cannula 7.00 11/19/22 07:32 36.2 91 18 92/53 (66) 98 High Flow N/C 7.00 11/19/22 03:15 36.6 88 18 110/60 (77) 100 Nasal Cannula 7.00 11/18/22 23:06 36.7 93 18 105/70 (82) 100 Nasal Cannula 7.00 11/18/22 20:18 36.5 81 20 109/70 (83) 96 Nasal Cannula 7.00 11/18/22 19:38 96 High Flow N/C 7.00 11/18/22 18:25 37.4 97 18 82/54 (63) 98 Nasal Cannula 10.00 11/18/22 17:33 36.5 106 18 97/65 (76) 98 Non Rebreather 7.00 11/18/22 16:31 37.5 106 18 100/58 (72) 100 Non Rebreather 8.00 11/18/22 11:22 36.7 91 20 107/65 (79) 92 High Flow N/C 5.00 11/18/22 10:30 Nasal Cannula 5.00 11/18/22 10:06 84 18 90/57 (68) 93 Nasal Cannula 5.00 I & O 11/19/22 07:00 Intake Total 2400 ml Output Total 1075 ml Balance 1325 ml Lab Results Laboratory Tests 11/18/22 19:12: White Blood Count 9.6, Red Blood Count 4.80, Hemoglobin 13.9, Hematocrit 43, Mean Corpuscular Volume 90, Mean Corpuscular Hemoglobin 29, Mean Corpuscular Hemoglobin Concent 32, Red Cell Distribution Width 13.5, Platelet Count 101L, Mean Platelet Volume 10.8, Immature Granulocyte % (Auto) 0, Neutrophils (%) (Auto) 77H, Lymphocytes (%) (Auto) 17, Monocytes (%) (Auto) 5, Eosinophils (%) (Auto) 0, Basophils (%) (Auto) 0, Neutrophils # (Auto) 7.5, Lymphocytes # (Auto) 1.6, Monocytes # (Auto) 0.5, Eosinophils # (Auto) 0.0, Basophils # (Auto) 0.0, Immature Granulocyte # (Auto) 0.0, Percent Immature Platelet Fraction 5.1, Smear Scan YES 11/19/22 07:54: White Blood Count 8.2, Red Blood Count 4.62, Hemoglobin 13.4, Hematocrit 42, Mean Corpuscular Volume 90, Mean Corpuscular Hemoglobin 29, Mean Corpuscular Hemoglobin Concent 32, Red Cell Distribution Width 13.6, Platelet Count 105L, Mean Platelet Volume 10.4, Percent Immature Platelet Fraction 5.4, Sodium Level 138, Potassium Level 4.5, Chloride Level 100, Carbon Dioxide Level 31, Anion Gap 7, Blood Urea Nitrogen 11, Creatinine 0.67, Estimat Glomerular Filtration Rate 96, BUN/Creatinine Ratio 16, Glucose Level 106H, Calcium Level 8.6 Assessment and Plan Assessment R IT Femur Fx s/p IM Nailing Problem List R IT Femur Fx s/p IM Nailing Plan PT/OT DVT Prophylaxis D/C planning Final Diagonsis R IT Femur Fx s/p IM Nailing Level of the visit: Level 3 (postop global) JOSE ARMANDO STARKEY MD Nov 19, 2022 10:05
--- NOTE | 2022-11-19 10:10 | Progress Note ---
Subjective Subjective/Events-last exam Pt states she is having a lot of pain, is worried about PT, but otherwise denies concerns, states breathing feels baseline for her. Objective Exam Last Set of Vital Signs Vital Signs Date Time Temp Pulse Resp B/P (MAP) Pulse Ox O2 Delivery O2 Flow Rate FiO2 11/19/22 09:10 97 Nasal Cannula 7.00 11/19/22 07:32 36.2 91 18 92/53 (66) Capillary Refill : Less Than 3 SecondsLess Than 3 Seconds I&O Intake and Output 11/19/22 00:00 Intake Total 2400 ml Output Total 875 ml Balance 1525 ml Intake Oral 900 ml IV Total 1500 ml Output Urine Total 875 ml General: Alert, No Acute Distress Lungs: Other (decreased air movement throughout) Heart: Regular Rate Abdomen: Normal Bowel Sounds, Soft Neuro: Normal Speech Psych/Mental Status: Mood NL Results/Procedures Lab Laboratory Tests 11/18/22 19:12: White Blood Count 9.6, Red Blood Count 4.80, Hemoglobin 13.9, Hematocrit 43, Mean Corpuscular Volume 90, Mean Corpuscular Hemoglobin 29, Mean Corpuscular Hemoglobin Concent 32, Red Cell Distribution Width 13.5, Platelet Count 101L, Mean Platelet Volume 10.8, Immature Granulocyte % (Auto) 0, Neutrophils (%) (Auto) 77H, Lymphocytes (%) (Auto) 17, Monocytes (%) (Auto) 5, Eosinophils (%) (Auto) 0, Basophils (%) (Auto) 0, Neutrophils # (Auto) 7.5, Lymphocytes # (Auto) 1.6, Monocytes # (Auto) 0.5, Eosinophils # (Auto) 0.0, Basophils # (Auto) 0.0, Immature Granulocyte # (Auto) 0.0, Percent Immature Platelet Fraction 5.1, Smear Scan YES 11/19/22 07:54: White Blood Count 8.2, Red Blood Count 4.62, Hemoglobin 13.4, Hematocrit 42, Mean Corpuscular Volume 90, Mean Corpuscular Hemoglobin 29, Mean Corpuscular Hemoglobin Concent 32, Red Cell Distribution Width 13.6, Platelet Count 105L, Mean Platelet Volume 10.4, Percent Immature Platelet Fraction 5.4, Sodium Level 138, Potassium Level 4.5, Chloride Level 100, Carbon Dioxide Level 31, Anion Gap 7, Blood Urea Nitrogen 11, Creatinine 0.67, Estimat Glomerular Filtration Rate 96, BUN/Creatinine Ratio 16, Glucose Level 106H, Calcium Level 8.6 Radiology Hip xray: IMPRESSION: Acute intertrochanteric right hip fracture. CXR: IMPRESSION: 1: There is a minimal sized area of airspace opacity involving the periphery of the right lung base which may represent a lung infiltrate. 2: There are increased lung markings throughout both lungs, concerning for background diffuse interstitial chronic lung changes. Assessment/Plan Assessment/Plan (1) Intertrochanteric fracture of right femur Status: Acute Assessment & Plan: 11/17- Ortho consulted, plan for surgery in the am. Hydrocodone and fentanyl prn pain. No history of CAD, no cardiac symptoms. She does have respiratory risk for surgery but is managed as well as possible for urgent surgery. 11/18- s/p surgical repair this am, appreciate Ortho recommendations. 11/19- accepted for IRF, waiting on insurance authorization Qualifiers: Qualified Codes: S72.144A - Nondisplaced intertrochanteric fracture of right femur, initial encounter for closed fracture (2) Hypertension Status: Chronic Assessment & Plan: Has had low BP, receiving bolus, will hold anti-hypertensive Qualifiers: Qualified Codes: I10 - Essential (primary) hypertension (3) Hyperlipidemia Status: Chronic Assessment & Plan: Resume home statin (4) Osteoporosis Status: Chronic Assessment & Plan: Encouraged to take alendronate regularly. (5) COPD (chronic obstructive pulmonary disease) Status: Chronic Assessment & Plan: On baseline home supplemental oxygen requirement. No clear evidence of exacerbation or pneumonia in spite of CXR findings. Will resume home Trelegy and monitor closely. (6) Underweight Status: Chronic Assessment & Plan: Reporting recent weight loss in addition to chronic, will review clinic records for last chest CT. 11/18- per clinic chart CT chest low dose screening was 08/2021. Will repeat CT and add protein shakes. 11/19- CT chest with no masses (7) Tobacco use Status: Chronic Assessment & Plan: Discussed cessation, she thinks if she doesn't smoke inpatient she may be able to stay off. (8) DVT prophylaxis Status: Acute Assessment & Plan: Start as soon as possible after surgery. Apixaban per TO Thomas MD Nov 19, 2022 10:10
--- NOTE | 2022-11-19 10:20 | Physical Therapy Daily Note ---
PT Daily Note-Current Subjective Patient requires a lot of encouragement to participate with therapy and to complete tasks due to 8 right LE pain with meds issued. She repeats, "I just can't do this. It hurts too bad." Pain Numeric Pain Scale: 8 Location: Right Location Body Site: Hip Pain Description: Acute Section J - Health Conditions 1. Rarely or not at all 2. Occasionally 3. Frequently 4. Almost constantly 8. Unable to answer Pain Effect on Sleep: 3 Pain Interference with Therapy: 3 Pain Interference w/Day-to-Day: 3 Mental Status Patient Orientation: Normal For Age Attachments: Oxygen Transfers SCALE: Activities may be completed with or without assistive devices. 4-Ryshyhkweo-ujvcntc completes the activity by him/herself with no assistance from a helper. 5-Set-up or Clean-up Assistance-helper sets up or cleans up; patient completes activity. [place] assists only prior to or following the activity. 4-Supervision or Touching Assistance-helper provides verbal cues and/or touching/steadying and/or contact guard assistance as patient completes activity. Assistance may be provided throughout the activity or intermittently. 3-Partial/Moderate Assistance-helper does LESS THAN HALF the effort. [place] lifts, holds or supports trunk or limbs, but provides less than half the effort. 2-Substantial/Maximal Assistance-helper does MORE THAN HALF the effort. [place] lifts or holds trunk or limbs and provides more than half the effort. 7-Mw[place]geonh-memwwd does ALL the effort. Patient does none of the effort to complete the activity. Or, the assistance of 2 or more helpers is required for the patient to complete the activity. If activity was not attempted, code reason: 7-Patient Refused. 9-Not Applicable-not attempted and the patient did not perform the activity before the current illness, exacerbation or injury. 10-Not Attempted due to Environmental Limitations-(lack of equipment, weather restraints, etc.). 88-Not Attempted due to Medical Conditions or Safety Concerns. Lying to Sitting/Side of Bed(Q: 4 Sit to Stand (QC): 3 Chair/Gkq-ng-Bjifj Xfer(QC): 3 Toilet Transfer (QC): 3 (assist with sit to stand and body position to sit safely on toilet due to impulsive behavior) mod assist with mobility Weight Bearing Right Lower Extremity: Right Non Weight Bearing Gait Training Distance: 40' Walk 10 feet (QC): 3 Gait Assistive Device: FWW multiple stops with patient leaning her forearms on FWW (unsafely) and not wanting to weight bear right LE due to pain. Patient performed gait training on right ball of foot and would foot flat ambulate. Patient also displayed extended UE's with FWW use with continues VC's for body placement in FWW Exercises Seated Therapy Exercises: Long arc quads Seated Reps: 15 Assessment Patient requires time and encouragement to participate and complete tasks. Patient repeats, "I just can't do this. I can't walk. It hurts too bad." Patient is currently on 7L O2 NC and fatigues with minimal activity. PT to continue to increase activity as tolerated by patient. PT Pulp Grinder Goals Pulp Grinder Goals PT Fpc Goals Time Frame: Nov 26, 2022 Roll Left & Right (QC): 6 Sit to Lying (QC): 6 Lying-Sitting on Side/Bed(QC): 6 Sit to Stand (QC): 6 Chair/Nsm-jw-Pkthn Xfer(QC): 6 Toilet Transfer (QC): 6 Walk 10 feet (QC): 6 Walk 50ft with 2 Turns (QC): 6 Walk 150 ft (QC): 6 PT Plan Treatment/Plan Treatment Plan: Continue Plan of Care Treatment Plan: Bed Mobility, Education, Functional Activity [place], Functional Strength, Gait, Safety, Therapeutic Exercise, Transfers Treatment Duration: Nov 26, 2022 Frequency: 11 times per week Estimated Hrs Per Day: .5 hour per day Patient and/or Family Agrees t: Yes Time Time In: 845 Time Out: 909 DATE: Nov 19, 2022 Total Billed Treatment Time: 24 Total Billed Treatment 1 visit GT 15 min FA 9 min ELLIS SARAVIA PT Nov 19, 2022 10:20
--- NOTE | 2022-11-19 10:23 | Occupational Therapy Eval ---
OT Evaluation-General/PLF Medical Diagnosis Admission Date Nov 17, 2022 at 11:13 Medical Diagnosis: intertrochanteric fracture right femur Onset Date: Nov 17, 2022 Therapy Diagnosis Therapy Diagnosis: weakness Height/Weight Height (Feet): 5 Height (Inches): 4.00 Weight (Pounds): 134 Weight (Ounces): 0.0 Precautions Precautions/Isolations: Fall Prevention, Standard Precautions Weight Bear Status Weight Bearing Restriction: Weight Bearing/Tolerated Location Restriction: R LE Referral Physician: Romero Referral Reason: Activity Tolerance, Self Care, Evaluation/Treatment, Strengthening/ROM Medical History Pertinent Medical History: COPD (O2 HS), HTN, Neuropathy Additional Medical History She was letting her dog back in and he knocked her over and she landed on her right side. The dog got himself in the house and left her outside. She was down on her knees and the exercise planner came down the alley and stopped and called 911 for her. She is having pain in her right leg and hip, she couldn't even move. She was supposed to have an appointment with Dr. Manley at [facility] this morning. She has supplemental oxygen dependent COPD, she uses 6 lpm during the day and just got prescribed an "oxidizer" that she uses at night that gives her 75% more oxygen at night per her report, by Pulmonology. She does note a diagnosis of osteoporosis, and is supposed to be on weekly alendronate, but forgets it, thinks last dose was 2 or 3 months ago. She is concerned because her sister of a stroke in June the night after she had a fall. Her mother also of a blood clot, she believes that it travelled to the brain and caused a stroke. Madeleine herself has never had any cardiac problems or stroke in the past nor any blood clots Current History Requires moderate to high encouragement to complete tasks, Leans forward on FWW with poor posture control. Paten facilitated to stand erect w/ OT supporting chest and low back . Patient weakness in BUE and does not sustain Offloading WBAT RLE. Patient takes 1-3 steps on FWW w/ Gait belt and reports she needs a break.Multiple; VC and hand over hand placement to position patient hand on FWW safely. Patient reports "I can't several times when accessing tasks Reviewed History: Yes Social History Home: Single Level Current Living Status: Children ADL-Prior Level of Function SCALE: Activities may be completed with or without assistive devices. 5-Qgqkvgjhsg-qikskwk completes the activity by him/herself with no assistance from a helper. 5-Set-up or Clean-up Assistance-helper sets up or cleans up; patient completes activity. [place] assists only prior to or following the activity. 4-Supervision or Touching Assistance-helper provides verbal cues and/or touching/steadying and/or contact guard assistance as patient completes activity. Assistance may be provided throughout the activity or intermittently. 3-Partial/Moderate Assistance-helper does LESS THAN HALF the effort. [place] lifts, holds or supports trunk or limbs, but provides less than half the effort. 2-Substantial/Maximal Assistance-helper does MORE THAN HALF the effort. [place] lifts or holds trunk or limbs and provides more than half the effort. 9-Mwalwwqzx-ckkbfh does ALL the effort. Patient does none of the effort to complete the activity. Or, the assistance of 2 or more helpers is required for the patient to complete the activity. If activity was not attempted, code reason: 7-Patient Refused. 9-Not Applicable-not attempted and the patient did not perform the activity before the current illness, exacerbation or injury. 10-Not Attempted due to Environmental Limitations-(lack of equipment, weather restraints, etc.). 88-Not Attempted due to Medical Conditions or Safety Concerns. Self Care: Independent Functional Cognition: Independent OT Current Status Subjective Patient resting in bed on arrival, agreeable to therapy Pain Numeric Pain Scale: 8 Location Body Site: Hip Comment: 0-10 scale education provided Mental Status/Objective Patient Orientation: Person, Place, Time, Situation Attachments: Oxygen (8 liters) Current Glasses/Contacts: Yes Upper Extremity ROM BUE ROM WFLS Upper Extremity Coordination slow motor planning. Upper Extremity Strength +3/5 ADL-Treatment Eating (QC): 6 Oral Hygiene (QC): 5 Shower/Bathe Self (QC): 7 Upper Body Dressing (QC): 4 Lower Body Dressing (QC): 3 On/Off Footwear (QC): 3 Toileting Hygiene (QC): 4 Education OT Patient Education: Correct positioning, Exercise program, Modified ADL techniques, Progress toward Goal/Update tx plan, Purpose of tx/functional activi ties, Reviewed precautions, Rehab process, Safety issues, Transfer techniques, Use of adapted equipment Teaching Recipient: Patient Teaching Methods: Demonstration, Discussion Response to Teaching: Reinforcement Needed OT Correction Goals Correction Goals Eating (QC): 6 Oral Hygiene (QC): 6 Toileting Hygiene (QC): 6 Shower/Bathe Self (QC): 6 Upper Body Dressing (QC): 6 Lower Body Dressing (QC): 6 On/Off Footwear (QC): 6 1=Demonstrate adherence to instructed precautions during ADL tasks. 2=Patient will verbalize/demonstrate understanding of assistive devices/modifications for ADL. 3=Patient will improve strength/tolerance for activity to enable patient to perform ADL's. OT Education/Plan Problem List/Assessment Assessment: Decreased Activ Tolerance, Decreased Safety Aware, Decreased UE Strength, Impaired Coordination, Impaired Funct Balance, Impaired Self-Care Skills Discharge Recommendations Plan/Recommendations: Continue POC Therapy Discharge Recommendati: Post Acute OT Treatment Plan/Plan of Care Treatment,Training & Education: Yes Patient would benefit from OT for education, treatment and training to promote independence in ADL's, mobility, safety and/or upper extremity function for ADL's. Plan of Care: ADL Retraining, Functional Mobility, Group Exercise/Act as Ind, UE Funct Exercise/Act Treatment Duration: Nov 26, 2022 Frequency: 3 times per week (3-5 tmes per week) Estimated Hrs Per Day: .25 hour per day Agreement: Yes Rehab Potential: Fair Time Start Time: 08:45 Stop Time: 09:10 DATE: Nov 19, 2022 Total Time Billed (hr/min): 25 Billed Treatment Time EVM, ADL 25 min KERLINE MILLER OT Nov 19, 2022 10:23
--- NOTE | 2022-11-19 13:25 | Physical Therapy Progress Note ---
Therapy Progress Note Patient made multiple excuses not to participate with PT this p.m. PT attempted to educate patient on importance of increasing her activity to gain strength and improve mobility and patient stated,"My doctor told me I was going to hurt for a few more days so I don't want to get up or exercise." PT will attempt tomorrow a.m. Patient refused treatment. ELLIS SARAVIA PT Nov 19, 2022 13:25
[2022-11-19] MEDS: APIXABAN 2.5 MG (ELIQUIS) TABLET PO SCH (19:28)
[2022-11-19] MEDS: AMITRIPTYLINE 25 MG (ELAVIL) TAB PO SCH (19:28)
[2022-11-19] MEDS ORDERED: NS (IVPB) 250 ML IV PRN (19:45)
[2022-11-20] MEDS: HYDROcodone/APAP 5 MG/325 MG (LORTAB) TAB PO PRN ×4 (02:23→22:07)
[2022-11-20 03:04] VITALS: BP 113/68
[2022-11-20 05:37] LABS: EOSINOPHILS # (AUTO) 0.2 10^3/uL (0.0-0.3); EOSINOPHILS % (AUTO) 4 % (0-10); HEMOGLOBIN 12.5 g/dL (11.5-16.0)
[2022-11-20 05:40] LABS: BASOPHILS % (AUTO) 1 % (0-10); HEMATOCRIT 39 % (35-52); LYMPHOCYTES # (AUTO) 1.4 10^3/uL (1.0-4.0); LYMPHOCYTES % (AUTO) 24 % (12-44); MEAN CORPUSCULAR HEMOGLOBIN 29 pg (25-34); MEAN CORPUSCULAR HGB CONC 32 g/dL (32-36); MEAN CORPUSCULAR VOLUME 91 fL (80-99); MEAN PLATELET VOLUME 10.6 fL (9.0-12.2); MONOCYTES # (AUTO) 0.6 10^3/uL (0.0-1.0); MONOCYTES % (AUTO) 10 % (0-12); NEUTROPHILS # (AUTO) 3.7 10^3/uL (1.8-7.8); NEUTROPHILS % (AUTO) 61 % (42-75); PLATELET COUNT 99 10^3/uL (130-400); WHITE BLOOD COUNT 6.1 10^3/uL (4.3-11.0)
[2022-11-20 06:12] LABS: ALBUMIN 2.8 GM/DL (3.2-4.5); BILIRUBIN,TOTAL 0.8 MG/DL (0.1-1.0); CALCIUM 8.7 MG/DL (8.5-10.1); CREATININE SERUM 0.59 MG/DL (0.60-1.30); POTASSIUM 4.2 MMOL/L (3.6-5.0); TOTAL PROTEIN 5.4 GM/DL (6.4-8.2)
--- NOTE | 2022-11-20 06:31 | Progress Note - Hospitalist ---
Subjective HPI/CC On Admission Date Seen by Provider: Nov 20, 2022 Time Seen by Provider: 11:00 Subjective/Events-last exam Doing better No falls Pain controlled No BM yet so ordered placed Refusing therapy at times Review of Systems General: Fatigue, Malaise Objective Exam Vital Signs Vital Signs Date Time Temp Pulse Resp B/P (MAP) Pulse Ox O2 Delivery O2 Flow Rate FiO2 11/20/22 11:27 36.4 93 18 99/55 (70) 97 High Flow N/C 7.00 Capillary Refill : Less Than 3 SecondsLess Than 3 Seconds General Appearance: No Apparent Distress, WD/WN, Chronically ill, Thin Respiratory: Lungs Clear, Normal Breath Sounds Cardiovascular: Regular Rate, Rhythm Neurologic/Psychiatric: Alert, Oriented x3, No Motor/Sensory Deficits, Normal Mood/Affect Results/Procedures Lab Laboratory Tests 11/20/22 05:25 Patient resulted labs reviewed. Assessment/Plan Assessment and Plan Assess & Plan/Chief Complaint Assessment/Plan (1) Intertrochanteric fracture of right femur Status: Acute Assessment & Plan: 11/17- Ortho consulted, plan for surgery in the am. Hydrocodone and fentanyl prn pain. No history of CAD, no cardiac symptoms. She does have respiratory risk for surgery but is managed as well as possible for urgent surgery. 11/18- s/p surgical repair this am, appreciate Ortho recommendations. 11/19- accepted for IRF, waiting on insurance authorization Qualifiers: Qualified Codes: S72.144A - Nondisplaced intertrochanteric fracture of right femur, initial encounter for closed fracture (2) Hypertension Status: Chronic Assessment & Plan: Has had low BP, receiving bolus, will hold anti-hypertensive Qualifiers: Qualified Codes: I10 - Essential (primary) hypertension (3) Hyperlipidemia Status: Chronic Assessment & Plan: Resume home statin (4) Osteoporosis Status: Chronic Assessment & Plan: Encouraged to take alendronate regularly. (5) COPD (chronic obstructive pulmonary disease) Status: Chronic Assessment & Plan: On baseline home supplemental oxygen requirement. No clear evidence of exacerbation or pneumonia in spite of CXR findings. Will resume home Trelegy and monitor closely. (6) Underweight Status: Chronic Assessment & Plan: Reporting recent weight loss in addition to chronic, will review clinic records for last chest CT. 11/18- per clinic chart CT chest low dose screening was 08/2021. Will repeat CT and add protein shakes. 11/19- CT chest with no masses (7) Tobacco use Status: Chronic Assessment & Plan: Discussed cessation, she thinks if she doesn't smoke inpatient she may be able to stay off. (8) DVT prophylaxis Status: Acute Assessment & Plan: Start as soon as possible after surgery. Apixaban per DANNY Singh DO Nov 20, 2022 06:31
[2022-11-20] MEDS: FLUTICASONE/VILANTEROL 100 MCG 14'S (BREO) IH SCH (06:38)
[2022-11-20] MEDS: UMECLIDINIUM BROMIDE (INCRUSE ELLIPTA) 7'S IH SCH (06:39)
[2022-11-20 07:15] VITALS: BP 112/53
[2022-11-20] MEDS: NICOTINE 21 MG (NICODERM) PATCH TD SCH (08:35)
[2022-11-20] MEDS: GABAPENTIN 600 MG (NEURONTIN) TAB PO SCH ×2 (08:36→20:23)
[2022-11-20] MEDS: OMEGA 3 (FISH OIL) 1000 MG CAP PO SCH (08:36)
[2022-11-20] MEDS: APIXABAN 2.5 MG (ELIQUIS) TABLET PO SCH ×2 (08:36→20:22)
[2022-11-20] MEDS: NICOTINE PATCH REMOVAL TP SCH (08:37)
[2022-11-20] MEDS ORDERED: SENNA W/DOCUSATE (SENOKOT S) TABLET PO ONE (11:00)
[2022-11-20] MEDS ORDERED: polyethylene glycoL POWDER 17 GM (MIRALAX) PACK PO ONE (11:00)
[2022-11-20] MEDS ORDERED: BISACODYL 10 MG SUPP (DULCOLAX) PR PRN (11:00)
[2022-11-20] MEDS ORDERED: LACTULOSE SYRUP 10GM/15ML (ENULOSE) 30ML UDC PO ONE (11:00)
[2022-11-20 11:27] VITALS: BP 99/55
--- NOTE | 2022-11-20 12:01 | Physical Therapy Daily Note ---
PT Daily Note-Current Subjective PT reports she is feeling a little better today. Pain Section J - Health Conditions 1. Rarely or not at all 2. Occasionally 3. Frequently 4. Almost constantly 8. Unable to answer Pain Effect on Sleep: 3 Pain Interference with Therapy: 3 Pain Interference w/Day-to-Day: 3 Transfers SCALE: Activities may be completed with or without assistive devices. 9-Ylcqhjjnmb-uqqiuyr completes the activity by him/herself with no assistance from a helper. 5-Set-up or Clean-up Assistance-helper sets up or cleans up; patient completes activity. [place] assists only prior to or following the activity. 4-Supervision or Touching Assistance-helper provides verbal cues and/or touching/steadying and/or contact guard assistance as patient completes activity. Assistance may be provided throughout the activity or intermittently. 3-Partial/Moderate Assistance-helper does LESS THAN HALF the effort. [place] lifts, holds or supports trunk or limbs, but provides less than half the effort. 2-Substantial/Maximal Assistance-helper does MORE THAN HALF the effort. [place] lifts or holds trunk or limbs and provides more than half the effort. 5-Mbabfdlzw-uwznwg does ALL the effort. Patient does none of the effort to complete the activity. Or, the assistance of 2 or more helpers is required for the patient to complete the activity. If activity was not attempted, code reason: 7-Patient Refused. 9-Not Applicable-not attempted and the patient did not perform the activity before the current illness, exacerbation or injury. 10-Not Attempted due to Environmental Limitations-(lack of equipment, weather restraints, etc.). 88-Not Attempted due to Medical Conditions or Safety Concerns. Roll Left & Right (QC): 4 Sit to Lying (QC): 4 Lying to Sitting/Side of Bed(Q: 4 Sit to Stand (QC): 4 Chair/Hio-cr-Rklno Xfer(QC): 4 Toilet Transfer (QC): 4 Weight Bearing Right Lower Extremity: Right Non Weight Bearing Gait Training Gait Assistive Device: FWW Ambulate 50ft in room with FWW and CGA. Pt able to put toe touch wt through the right leg. PT Floor Grinder Goals Snf Goals PT Snf Goals Time Frame: Nov 26, 2022 Roll Left & Right (QC): 6 Sit to Lying (QC): 6 Lying-Sitting on Side/Bed(QC): 6 Sit to Stand (QC): 6 Chair/Dwa-tc-Bjwtf Xfer(QC): 6 Toilet Transfer (QC): 6 Walk 10 feet (QC): 6 Walk 50ft with 2 Turns (QC): 6 Walk 150 ft (QC): 6 PT Plan Treatment/Plan Treatment Plan: Continue Plan of Care Treatment Plan: Bed Mobility, Education, Functional Activity Brandon, Functional Strength, Gait, Safety, Therapeutic Exercise, Transfers Treatment Duration: Nov 26, 2022 Frequency: 11 times per week Estimated Hrs Per Day: .5 hour per day Patient and/or Family Agrees t: Yes Time Time In: 1130 Time Out: 1145 DATE: Nov 20, 2022 Total Billed Treatment Time: 15 Total Billed Treatment visit, gait 15 min MOI ANTONIO PT Nov 20, 2022 12:01
[2022-11-20 16:11] VITALS: BP 106/64
[2022-11-20 20:20] VITALS: BP 120/60
[2022-11-20] MEDS: AMITRIPTYLINE 25 MG (ELAVIL) TAB PO SCH (20:22)
[2022-11-20] MEDS: polyethylene glycoL POWDER 17 GM (MIRALAX) PACK PO SCH (20:23)
[2022-11-20] MEDS: LACTULOSE SYRUP 10GM/15ML (ENULOSE) 30ML UDC PO SCH (20:23)
[2022-11-20] MEDS: SENNA W/DOCUSATE (SENOKOT S) TABLET PO SCH (20:23)
[2022-11-21] VITALS: BP 115/65
[2022-11-21] MEDS: HYDROcodone/APAP 5 MG/325 MG (LORTAB) TAB PO PRN ×3 (03:17→18:25)
[2022-11-21 04:00] VITALS: BP 108/67
[2022-11-21 05:42] LABS: EOSINOPHILS # (AUTO) 0.4 10^3/uL (0.0-0.3); HEMATOCRIT 37 % (35-52); MEAN PLATELET VOLUME 10.9 fL (9.0-12.2)
[2022-11-21 05:45] LABS: BASOPHILS # (AUTO) 0.1 10^3/uL (0.0-0.1); BASOPHILS % (AUTO) 1 % (0-10); EOSINOPHILS % (AUTO) 6 % (0-10); LYMPHOCYTES # (AUTO) 1.7 10^3/uL (1.0-4.0); LYMPHOCYTES % (AUTO) 28 % (12-44); MEAN CORPUSCULAR HEMOGLOBIN 29 pg (25-34); MEAN CORPUSCULAR HGB CONC 33 g/dL (32-36); MEAN CORPUSCULAR VOLUME 90 fL (80-99); MONOCYTES # (AUTO) 0.5 10^3/uL (0.0-1.0); MONOCYTES % (AUTO) 9 % (0-12); NEUTROPHILS # (AUTO) 3.4 10^3/uL (1.8-7.8); NEUTROPHILS % (AUTO) 57 % (42-75); PLATELET COUNT 134 10^3/uL (130-400)
[2022-11-21 06:09] LABS: ALBUMIN 2.7 GM/DL (3.2-4.5); BILIRUBIN,TOTAL 0.8 MG/DL (0.1-1.0); CALCIUM 8.7 MG/DL (8.5-10.1); CREATININE SERUM 0.56 MG/DL (0.60-1.30); TOTAL PROTEIN 5.2 GM/DL (6.4-8.2)
--- NOTE | 2022-11-21 06:48 | Progress Note - Hospitalist ---
Subjective HPI/CC On Admission Date Seen by Provider: Nov 21, 2022 Time Seen by Provider: 11:00 Subjective/Events-last exam Patient doing really well Wants to go home with her skilled worker tomorrow instead of care home No pain is reported Bowels have not moved yet except for small amount last night Review of Systems General: Fatigue, Malaise Gastrointestinal: Constipation Musculoskeletal: leg pain Objective Exam Vital Signs Vital Signs Date Time Temp Pulse Resp B/P (MAP) Pulse Ox O2 Delivery O2 Flow Rate FiO2 11/21/22 11:10 36.2 99 18 110/66 (81) 93 High Flow N/C 6.00 Capillary Refill : Less Than 3 SecondsLess Than 3 Seconds General Appearance: No Apparent Distress, WD/WN, Chronically ill, Thin Respiratory: Lungs Clear, Normal Breath Sounds Cardiovascular: Regular Rate, Rhythm Neurologic/Psychiatric: Alert, Oriented x3, No Motor/Sensory Deficits, Normal Mood/Affect Results/Procedures Lab Laboratory Tests 11/21/22 05:00 Patient resulted labs reviewed. Assessment/Plan Assessment and Plan Assess & Plan/Chief Complaint Assessment/Plan (1) Intertrochanteric fracture of right femur (2) Hypertension (3) Hyperlipidemia (4) Osteoporosis (5) COPD (chronic obstructive pulmonary disease) (6) Underweight (7) Tobacco use (8) DVT prophylaxis DANNY MINER DO Nov 21, 2022 06:48
[2022-11-21] MEDS: FLUTICASONE/VILANTEROL 100 MCG 14'S (BREO) IH SCH (07:10)
[2022-11-21] MEDS: UMECLIDINIUM BROMIDE (INCRUSE ELLIPTA) 7'S IH SCH (07:10)
[2022-11-21 07:18] VITALS: BP 100/62
--- NOTE | 2022-11-21 08:32 | Physical Therapy Daily Note ---
PT Daily Note-Current Subjective pt reports feeling better today. she has more movement in the right leg. Pain Section J - Health Conditions 1. Rarely or not at all 2. Occasionally 3. Frequently 4. Almost constantly 8. Unable to answer Pain Effect on Sleep: 3 Pain Interference with Therapy: 3 Pain Interference w/Day-to-Day: 3 Mental Status Patient Orientation: Normal For Age Transfers SCALE: Activities may be completed with or without assistive devices. 9-Hxhvpqqsru-rvbjdsm completes the activity by him/herself with no assistance from a helper. 5-Set-up or Clean-up Assistance-helper sets up or cleans up; patient completes activity. [employer] assists only prior to or following the activity. 4-Supervision or Touching Assistance-helper provides verbal cues and/or touching/steadying and/or contact guard assistance as patient completes activity. Assistance may be provided throughout the activity or intermittently. 3-Partial/Moderate Assistance-helper does LESS THAN HALF the effort. [employer] lifts, holds or supports trunk or limbs, but provides less than half the effort. 2-Substantial/Maximal Assistance-helper does MORE THAN HALF the effort. [employer] lifts or holds trunk or limbs and provides more than half the effort. 7-Ofk[place]a-svgszb does ALL the effort. Patient does none of the effort to complete the activity. Or, the assistance of 2 or more helpers is required for the patient to complete the activity. If activity was not attempted, code reason: 7-Patient Refused. 9-Not Applicable-not attempted and the patient did not perform the activity before the current illness, exacerbation or injury. 10-Not Attempted due to Environmental Limitations-(lack of equipment, weather restraints, etc.). 88-Not Attempted due to Medical Conditions or Safety Concerns. Roll Left & Right (QC): 6 Sit to Lying (QC): 4 Lying to Sitting/Side of Bed(Q: 4 Sit to Stand (QC): 4 Chair/Pzk-rw-Huwpz Xfer(QC): 4 Weight Bearing Right Lower Extremity: Right Non Weight Bearing Gait Training Gait Assistive Device: FWW Ambulate 100ft with FWW and WBAT with CGA. Pt able to bear increased wt this session with foot flat during stance. Assessment Pt is progressing with her gait and mobility. She will benefit from continued therapy to improve strength and function. PT Diesel Tractor Engine Mechanic Goals Diesel Tractor Engine Mechanic Goals PT Diesel Tractor Engine Mechanic Goals Time Frame: Nov 26, 2022 Roll Left & Right (QC): 6 Sit to Lying (QC): 6 Lying-Sitting on Side/Bed(QC): 6 Sit to Stand (QC): 6 Chair/Dvl-hs-Kaonp Xfer(QC): 6 Toilet Transfer (QC): 6 Walk 10 feet (QC): 6 Walk 50ft with 2 Turns (QC): 6 Walk 150 ft (QC): 6 PT Plan Treatment/Plan Treatment Plan: Continue Plan of Care Treatment Plan: Bed Mobility, Education, Functional Activity Brandon, Functional Strength, Gait, Safety, Therapeutic Exercise, Transfers Treatment Duration: Nov 26, 2022 Frequency: 11 times per week Estimated Hrs Per Day: .5 hour per day Patient and/or Family Agrees t: Yes Time Time In: 810 Time Out: 830 DATE: Nov 21, 2022 Total Billed Treatment Time: 20 Total Billed Treatment visit, gait 15, FA 5min MOI ANTONIO PT Nov 21, 2022 08:32
[2022-11-21] MEDS: NICOTINE PATCH REMOVAL TP SCH (09:50)
[2022-11-21] MEDS: LACTULOSE SYRUP 10GM/15ML (ENULOSE) 30ML UDC PO SCH ×2 (10:06→20:29)
[2022-11-21] MEDS: SENNA W/DOCUSATE (SENOKOT S) TABLET PO SCH ×2 (10:07→20:29)
[2022-11-21] MEDS: NICOTINE 21 MG (NICODERM) PATCH TD SCH (10:07)
[2022-11-21] MEDS: OMEGA 3 (FISH OIL) 1000 MG CAP PO SCH (10:07)
[2022-11-21] MEDS: GABAPENTIN 600 MG (NEURONTIN) TAB PO SCH ×2 (10:07→20:29)
[2022-11-21] MEDS: APIXABAN 2.5 MG (ELIQUIS) TABLET PO SCH ×2 (10:07→20:29)
[2022-11-21 11:10] VITALS: BP 110/66
[2022-11-21 15:15] VITALS: BP 111/69
[2022-11-21 19:35] VITALS: BP 105/66
[2022-11-21] MEDS: polyethylene glycoL POWDER 17 GM (MIRALAX) PACK PO SCH (20:29)
[2022-11-21] MEDS: AMITRIPTYLINE 25 MG (ELAVIL) TAB PO SCH (20:29)
[2022-11-22 00:01] VITALS: BP 119/66
[2022-11-22] MEDS: HYDROcodone/APAP 5 MG/325 MG (LORTAB) TAB PO PRN (02:27)
[2022-11-22 04:22] VITALS: BP 105/62
[2022-11-22 05:50] LABS: BASOPHILS # (AUTO) 0.1 10^3/uL (0.0-0.1); BASOPHILS % (AUTO) 1 % (0-10); EOSINOPHILS # (AUTO) 0.4 10^3/uL (0.0-0.3); EOSINOPHILS % (AUTO) 7 % (0-10); HEMATOCRIT 39 % (35-52); HEMOGLOBIN 12.2 g/dL (11.5-16.0); LYMPHOCYTES # (AUTO) 1.7 10^3/uL (1.0-4.0); LYMPHOCYTES % (AUTO) 29 % (12-44); MEAN CORPUSCULAR HEMOGLOBIN 29 pg (25-34); MEAN CORPUSCULAR HGB CONC 32 g/dL (32-36); MEAN CORPUSCULAR VOLUME 91 fL (80-99); MEAN PLATELET VOLUME 10.7 fL (9.0-12.2); MONOCYTES # (AUTO) 0.6 10^3/uL (0.0-1.0); MONOCYTES % (AUTO) 10 % (0-12); NEUTROPHILS # (AUTO) 2.9 10^3/uL (1.8-7.8); NEUTROPHILS % (AUTO) 52 % (42-75); PLATELET COUNT 157 10^3/uL (130-400); WHITE BLOOD COUNT 5.6 10^3/uL (4.3-11.0)
[2022-11-22 06:14] LABS: CALCIUM 9.1 MG/DL (8.5-10.1); CREATININE SERUM 0.67 MG/DL (0.60-1.30); POTASSIUM 4.7 MMOL/L (3.6-5.0); TOTAL PROTEIN 5.7 GM/DL (6.4-8.2)
[2022-11-22 07:38] VITALS: BP 111/69
[2022-11-22] MEDS: SENNA W/DOCUSATE (SENOKOT S) TABLET PO SCH (08:51)
[2022-11-22] MEDS: NICOTINE PATCH REMOVAL TP SCH (08:51)
[2022-11-22] MEDS: NICOTINE 21 MG (NICODERM) PATCH TD SCH (08:51)
[2022-11-22] MEDS: APIXABAN 2.5 MG (ELIQUIS) TABLET PO SCH (08:51)
[2022-11-22] MEDS: OMEGA 3 (FISH OIL) 1000 MG CAP PO SCH (08:51)
[2022-11-22] MEDS: LACTULOSE SYRUP 10GM/15ML (ENULOSE) 30ML UDC PO SCH (08:51)
[2022-11-22] MEDS: GABAPENTIN 600 MG (NEURONTIN) TAB PO SCH (08:51)
--- NOTE | 2022-11-22 09:03 | Progress Note - Ortho ---
Progress Note Subjective Date of Exam 11/22/22 Chief Complaint POD #4 R IT Femur Fx s/p IM Nailing HPI/Events since last exam doing well, good progress with therapy, planning for going home Review of Systems - Allergies: Coded Allergies: No Known Drug Allergies (Unverified , 11/17/22) Home Meds Reported Medications Melatonin (Melatonin) 5 Mg Tablet, 5 MG PO HS, TAB 11/17/22 [place]-3/Dha/Epa/Fish Oil (Fish Oil 1,000 mg Softgel) 1,000 Mg (120 Mg-180 Mg) Capsule, 1000 MG PO DAILY, CAP 11/17/22 Atorvastatin Calcium (Atorvastatin Calcium) 20 Mg Tablet, 20 MG PO DAILY 11/17/22 Gabapentin (Gabapentin) 600 Mg Tablet, 600 MG PO BID 11/17/22 Lisinopril (Lisinopril) 10 Mg Tablet, 10 MG PO DAILY, TAB 08/18/22 Fluticasone Propionate (Flonase Allergy Relief) 50 Mcg/Actuation Milmine.susp, 1 SPRAY NS DAILY PRN for CONGESTION, EACH 01/23/20 Aspirin (Aspirin) 81 Mg Tab.chew, 81 MG PO DAILY, TAB 01/23/20 Fluticasone/Umeclidin/Vilanter (Trelegy Ellipta 100-62.5-25) 1 Each Blst.w.dev, 1 PUFF IN DAILY, EA 01/23/20 Amitriptyline HCl (Amitriptyline HCl) 75 Mg Tablet, 75 MG PO HS, TAB 07/06/18 Discontinued Reported Medications Alendronate Sodium (Alendronate Sodium) 70 Mg Tablet, 70 MG PO WEEK 11/17/22 Montelukast Sodium (Montelukast Sodium) 10 Mg Tablet, 10 MG PO HS, TAB 01/23/20 [place] 3 Polyunsat Fatty Acids (Fish Oil 1,000 mg Capsule) 1,000 Mg Cap, 1000 MG PO HS, CAP 07/17/19 Biotin (Biotin) 1,000 Mcg Tablet, 1000 MCG PO HS, TAB 11/19/16 Discontinued Scripts Pantoprazole Sodium (Protonix) 40 Mg Tablet.dr, 40 MG PO DAILY, #30 TAB 3 Refills Prov:JUANA ORTEGA DO 10/05/22 Varenicline Tartrate (Chantix) 1 Mg Tablet, 1 MG PO BID, #60 TAB Prov:DANNY MINER DO 01/25/20 Objective Exam R Hip: Dressing C/D/I, +DF of ankle, no s/s of DVT Vital Signs Vital Signs Date Time Temp Pulse Resp B/P (MAP) Pulse Ox O2 Delivery O2 Flow Rate FiO2 11/22/22 07:38 36.7 65 19 111/69 (83) 96 High Flow N/C 6.00 11/22/22 04:22 36.2 89 18 105/62 (76) 98 High Flow N/C 6.00 11/22/22 03:32 36.2 11/22/22 00:01 36.2 94 18 119/66 (83) 95 High Flow N/C 6.00 11/21/22 20:55 94 High Flow N/C 6.00 11/21/22 19:35 37.4 81 18 105/66 (79) 94 Nasal Cannula 6.00 11/21/22 18:43 Nasal Cannula 5.00 11/21/22 15:15 36.4 91 18 111/69 (83) 95 Nasal Cannula 6.00 11/21/22 11:10 36.2 99 18 110/66 (81) 93 High Flow N/C 6.00 I & O 11/22/22 07:00 Intake Total 1540 ml Output Total 1650 ml Balance -110 ml Lab Results Laboratory Tests 11/22/22 05:04: White Blood Count 5.6, Red Blood Count 4.22, Hemoglobin 12.2, Hematocrit 39, Mean Corpuscular Volume 91, Mean Corpuscular Hemoglobin 29, Mean Corpuscular Hemoglobin Concent 32, Red Cell Distribution Width 13.6, Platelet Count 157, Mean Platelet Volume 10.7, Immature Granulocyte % (Auto) 0, Neutrophils (%) (Auto) 52, Lymphocytes (%) (Auto) 29, Monocytes (%) (Auto) 10, Eosinophils (%) (Auto) 7, Basophils (%) (Auto) 1, Neutrophils # (Auto) 2.9, Lymphocytes # (Auto) 1.7, Monocytes # (Auto) 0.6, Eosinophils # (Auto) 0.4H, Basophils # (Auto) 0.1, Immature Granulocyte # (Auto) 0.0, Sodium Level 139, Potassium Level 4.7, Chloride Level 98, Carbon Dioxide Level 35H, Anion Gap 6, Blood Urea Nitrogen 11, Creatinine 0.67, Estimat Glomerular Filtration Rate 96, BUN/Creatinine Ratio 16, Glucose Level 100, Calcium Level 9.1, Corrected Calcium 9.9, Total Bilirubin 1.0, Aspartate Amino Transf (AST/SGOT) 28, Alanine Aminotransferase (ALT/SGPT) 15, Alkaline Phosphatase 101, Total Protein 5.7L, Albumin 3.0L Assessment and Plan Assessment R IT Femur Fx s/p IM Nailing Problem List R IT Femur Fx s/p IM Nailing Plan Agree with home with home therapy Plan for apixaban for DVT prophylaxis for 35 days total F/U 2 weeks from date of surgery for staple removal Final Diagonsis R IT Femur Fx s/p IM Nailing Level of the visit: Level 3 (postop global) JOSE ARMANDO STARKEY MD Nov 22, 2022 09:03
[2022-11-22] MEDS: FLUTICASONE/VILANTEROL 100 MCG 14'S (BREO) IH SCH (09:42)
[2022-11-22] MEDS: UMECLIDINIUM BROMIDE (INCRUSE ELLIPTA) 7'S IH SCH (09:43)
[2022-11-22] MEDS ORDERED: APIX2.5T PO (10:13)
[2022-11-22] MEDS ORDERED: ACHD5005 PO (10:13)
[2022-11-22] MEDS ORDERED: POLY17PO54 PO (10:13)
--- NOTE | 2022-11-22 10:14 | D/C HH Face to Face Order ---
D/C HH Face to Face Orders Reconcile Patient Problems Problems Reviewed?: Yes Instructions for Patient HH Patient Instructions/FollowUp: PCP 1 week Physician to follow Patient: [facility] Discharge Diet for Home: No Restrictions Patient Problems: Hip fx Patient Data-Allergies,Ht & Wt Patient Allergies: Coded Allergies: No Known Drug Allergies (Unverified , 11/17/22) Height (Feet): 5 Height (Inches): 4.00 Weight (Pounds): 134 Weight (Ounces): 0.0 Home Health Need/Face to Face Date of Face to Face: Nov 22, 2022 Clinical Findings: Muscle weakness, Non or partial weight bearing, Shortness of breath I have seen Pt tpby-la-gvgl: Yes Discharged To: Home Diagnosis/Conditions: Hip fx Patient is Homebound due to: Vianey fall risk due to instabilty, Muscle weakness Homebound Status Due to the above stated illness, injury or surgical procedure (medical condition or diagnosis) and associated clinical findings, the patient is homebound because of his/her inability to leave home except with aid of a supportive device and/or person AND leaving the home requires a considerable and taxing effort or is medically contraindicated. Pt req the following assistanc: Walker Home Health Nursing Orders Home Health Services Order: Nursing Services, Supervisor Specialty Plant-Evaluate & Treat, Physical Therapy-Evaluate & Treat Home Health Infusion Therapy Line Start Date: Nov 19, 2022 Certify Stmt I certify that this patient is under my care and that I, a nurse practitioner or a physician; a kennel assistant working with me, had a face to face encounter that - meets the physician face to face encounter requirements with this patient as dated. DANNY MINER DO Nov 22, 2022 10:14
--- NOTE | 2022-11-22 10:15 | Discharge Summary ---
Discharge Summary Hospital Course Was the Problem List Reviewed?: Yes Problems/Dx: (1) Intertrochanteric fracture of right femur Status: Acute Qualifiers: Qualified Codes: S72.144A - Nondisplaced intertrochanteric fracture of right femur, initial encounter for closed fracture (2) Underweight Status: Chronic (3) DVT prophylaxis Status: Acute (4) Hypertension Status: Chronic Qualifiers: Qualified Codes: I10 - Essential (primary) hypertension (5) Hyperlipidemia Status: Chronic (6) Osteoporosis Status: Chronic (7) COPD (chronic obstructive pulmonary disease) Status: Chronic (8) Tobacco use Status: Chronic Hospital Course Date of Admission: Nov 17, 2022 at 11:13 Admission Diagnosis : Family Physician/Provider: Jose R Manley DO Date of Discharge: 11/22/22 Discharge Diagnosis: [ ] Hospital Course: Uneventful hospital course after she was admitted following a hip fracture status post uncomplicated repair. She remained frail but she was able to participate in therapy and was able to return back to some baseline function in order to return home and not go to a skilled nursing and she will be at home with her skilled worker. Labs and Pending Lab Test: Laboratory Tests 11/22/22 05:04: White Blood Count 5.6, Red Blood Count 4.22, Hemoglobin 12.2, Hematocrit 39, Mean Corpuscular Volume 91, Mean Corpuscular Hemoglobin 29, Mean Corpuscular Hemoglobin Concent 32, Red Cell Distribution Width 13.6, Platelet Count 157, Mean Platelet Volume 10.7, Immature Granulocyte % (Auto) 0, Neutrophils (%) (Auto) 52, Lymphocytes (%) (Auto) 29, Monocytes (%) (Auto) 10, Eosinophils (%) (Auto) 7, Basophils (%) (Auto) 1, Neutrophils # (Auto) 2.9, Lymphocytes # (Auto) 1.7, Monocytes # (Auto) 0.6, Eosinophils # (Auto) 0.4H, Basophils # (Auto) 0.1, Immature Granulocyte # (Auto) 0.0, Sodium Level 139, Potassium Level 4.7, Chloride Level 98, Carbon Dioxide Level 35H, Anion Gap 6, Blood Urea Nitrogen 11, Creatinine 0.67, Estimat Glomerular Filtration Rate 96, BUN/Creatinine Ratio 16, Glucose Level 100, Calcium Level 9.1, Corrected Calcium 9.9, Total Bilirubin 1.0, Aspartate Amino Transf (AST/SGOT) 28, Alanine Aminotransferase (ALT/SGPT) 15, Alkaline Phosphatase 101, Total Protein 5.7L, Albumin 3.0L Home Meds Active Polyethylene Glycol 3350 17 Gram Powd.pack 17 Gm PO HS Hydrocodone-Acetamin 5-325 mg (Hydrocodone/Acetaminophen) 5 Mg-325 Mg Tablet 1 Ea PO Q4H PRN Eliquis (Apixaban) 2.5 Mg Tablet 2.5 Mg PO BID Reported Melatonin 5 Mg Tablet 5 Mg PO HS Fish Oil 1,000 mg Softgel ([place]-3/Dha/Epa/Fish Oil) 1,000 Mg (120 Mg-180 Mg) Capsule 1,000 Mg PO DAILY Atorvastatin Calcium 20 Mg Tablet 20 Mg PO DAILY Gabapentin 600 Mg Tablet 600 Mg PO BID Lisinopril 10 Mg Tablet 10 Mg PO DAILY Flonase Allergy Relief (Fluticasone Propionate) 50 Mcg/Actuation [place].susp 1 [place] NS DAILY PRN Aspirin 81 Mg Tab.chew 81 Mg PO DAILY Trelegy Ellipta 100-62.5-25 (Fluticasone/Umeclidin/Vilanter) 1 Each Blst.w.dev 1 Puff IN DAILY Amitriptyline HCl 75 Mg Tablet 75 Mg PO HS Assessment/Pt Instructions PCP in 1 week Discharge Planning: <30 minutes discharge planning Discharge Physical Examination Vital Signs Vital Signs Date Time Temp Pulse Resp B/P (MAP) Pulse Ox O2 Delivery O2 Flow Rate FiO2 11/22/22 07:38 36.7 65 19 111/69 (83) 96 High Flow N/C 6.00 General Appearance: No Apparent Distress, WD/WN, Chronically ill Respiratory: Lungs Clear Allergies: Coded Allergies: No Known Drug Allergies (Unverified , 11/17/22) Discharge Summary Date of Admission Nov 17, 2022 at 11:13 Date of Discharge Discharge Date: Nov 22, 2022 Discharge Diagnosis Assessment/Plan (1) Intertrochanteric fracture of right femur (2) Hypertension (3) Hyperlipidemia (4) Osteoporosis (5) COPD (chronic obstructive pulmonary disease) (6) Underweight (7) Tobacco use (8) DVT prophylaxis DANNY MINER DO Nov 22, 2022 10:15
[2022-11-22 11:35] VITALS: BP 111/69
--- NOTE | 2022-11-22 11:39 | Physical Therapy Progress Note ---
Therapy Progress Note Patient adamantly declined PT stating she is going home and she's been practicing walking on her own. PT attempted to educate patient on importance of participating with skilled PT to ensure safe return to home, however, patient continued to declined. Patient to dismiss to home on this date. 1 ref ELLIS SARAVIA PT Nov 22, 2022 11:39
== END 2022-11-22 11:35 | disposition home health service (06) | DRG 481 ==
LOC: EDUNIT# 08:24 → ER 08:26 → 4TH 11:13
PROVIDERS: ADMIT Family Medicine; ATTEND Internal Medicine
PROC: 0QS636Z Reposition Right Upper Femur with Intramedullary Internal Fixation Device, Percutaneous Approach (ICD-10-PCS; principal; 2022-11-18 07:22)
DX: S72.141A Displaced intertrochanteric fracture of right femur, initial encounter for closed fracture (principal); Z68.1 Body mass index [BMI] 19.9 or less, adult; J43.9 Emphysema, unspecified; Z99.81 Dependence on supplemental oxygen; M81.0 Age-related osteoporosis without current pathological fracture; I10 Essential (primary) hypertension; G62.9 Polyneuropathy, unspecified; F17.210 Nicotine dependence, cigarettes, uncomplicated; F12.90 Cannabis use, unspecified, uncomplicated; E78.5 Hyperlipidemia, unspecified; R63.6 Underweight; Z85.41 Personal history of malignant neoplasm of cervix uteri; Z79.82 Long term (current) use of aspirin; Z79.899 Other long term (current) drug therapy; W19.XXXA Unspecified fall, initial encounter; Y92.007 Garden or yard of unspecified non-institutional (private) residence as the place of occurrence of the external cause
CPT/HCPCS: 36415; 51702; 71045; 71250; 76000; 80048; 80053; 85025; 85027; 94640; 94664; 94760

== ENCOUNTER → 2022-12-02 | Outpatient (CLI) | payer MEDICARE, MEDICAID ==
[~2022-12-02] MED LIST changes: +ACHD5005 PO; +ALEN70TA80 PO; +APIX2.5T PO; +GBPN600T PO; +MELA5TAB14 PO; +POLY17PO54 PO
== END ==
LOC: ORTHO 10:46
PROVIDERS: ATTEND Orthopaedic Surgery
DX: Z47.89 Encounter for other orthopedic aftercare (principal)

== ENCOUNTER 2023-02-27 08:29 | Inpatient (IN) | payer MEDICARE, MEDICAID ==
[~2023-02-27] VITALS: Ht 162 cm; Wt 48.7 kg
[2023-02-27] MEDS ORDERED: RT-Ipratropium/Albuterol NEB 3 ML VIAL INH ONE (08:45)
[2023-02-27 08:54] LABS: BASOPHILS % (AUTO) 0 % (0-10); EOSINOPHILS # (AUTO) 0.1 10^3/uL (0.0-0.3); EOSINOPHILS % (AUTO) 1 % (0-10); HEMATOCRIT 47 % (35-52); HEMOGLOBIN 15.3 g/dL (11.5-16.0); LYMPHOCYTES # (AUTO) 0.7 10^3/uL (1.0-4.0); LYMPHOCYTES % (AUTO) 5 % (12-44); MEAN CORPUSCULAR HEMOGLOBIN 29 pg (25-34); MEAN CORPUSCULAR HGB CONC 33 g/dL (32-36); MEAN CORPUSCULAR VOLUME 89 fL (80-99); MEAN PLATELET VOLUME 9.9 fL (9.0-12.2); MONOCYTES # (AUTO) 0.8 10^3/uL (0.0-1.0); MONOCYTES % (AUTO) 7 % (0-12); NEUTROPHILS # (AUTO) 10.7 10^3/uL (1.8-7.8); NEUTROPHILS % (AUTO) 87 % (42-75); PLATELET COUNT 184 10^3/uL (130-400); WHITE BLOOD COUNT 12.4 10^3/uL (4.3-11.0)
--- NOTE | 2023-02-27 08:57 | ED General ---
General Chief Complaint: Respiratory Problems Stated Complaint: SOA Nursing Triage Note: PT PRESENTS TO ED VIA EMS FROM HOME WITH COMPLAINTS OF INCREASED SOB STARTING AT 0600 THIS AM. PER EMS PT WAS INITIALLY 92% ON 6 L NC BUT INCREASED TO 97% ON 6 L AFTER EMS GAVE DUONEB BREATHING TX. PT ALSO REPORTS PRODUCTIVE COUGH. Source of Information: Patient, EMS, Old Records Exam Limitations: No Limitations History of Present Illness Date Seen by Provider: Feb 27, 2023 Time Seen by Provider: 08:30 Initial Comments This 67-year-old woman presents to the emergency room with exacerbation of COPD, shortness of breath, and hypoxia this morning. She uses 6 L by nasal cannula at home at baseline. Oxygen saturation was 92% at that rate. She has notable dyspnea. She is coughing up thick beige-colored and blood-tinged sputum to an emesis bag. She denies fever or chest pain. She continues to smoke despite her severe COPD. Allergies and Home Medications Allergies Coded Allergies: No Known Drug Allergies (Unverified , 11/17/22) Patient Home Medication List Home Medication List Reviewed: Yes Amitriptyline HCl (Amitriptyline HCl) 75 Mg Tablet, 75 MG PO HS, (Reported) Entered as Reported by: MANAN HARRIS on 07/06/18 1441 Apixaban (Eliquis) 2.5 Mg Tablet, 2.5 MG PO BID Prescribed by: DANNY MINER on 11/22/22 1013 Atorvastatin Calcium (Atorvastatin Calcium) 20 Mg Tablet, 20 MG PO DAILY, (Reported) Entered as Reported by: TO STEEL on 11/17/22 1324 Fluticasone Propionate (Flonase Allergy Relief) 50 Mcg/Actuation [place].susp, 1 SPRAY NS DAILY PRN for CONGESTION, (Reported) Entered as Reported by: ALIZA ALAN on 01/23/20 1059 Fluticasone/Umeclidin/Vilanter (Trelegy Ellipta 100-62.5-25) 1 Each Blst.w.dev, 1 PUFF IN DAILY, (Reported) Entered as Reported by: ALIZA ALAN on 01/23/20 1055 Gabapentin (Gabapentin) 600 Mg Tablet, 600 MG PO BID, (Reported) Entered as Reported by: TO STEEL on 11/17/22 1324 Hydrocodone/Acetaminophen (Hydrocodone-Acetamin 5-325 mg) 5 Mg-325 Mg Tablet, 1 EA PO Q4H PRN for PAIN-MODERATE (5-7) Prescribed by: DANNY MINER on 11/22/22 1014 Lisinopril (Lisinopril) 10 Mg Tablet, 10 MG PO DAILY, (Reported) Entered as Reported by: RIP JAMA on 08/18/22 0954 Melatonin (Melatonin) 5 Mg Tablet, 5 MG PO HS, (Reported) Entered as Reported by: ALIZA ALAN on 11/17/22 1429 [place]-3/Dha/Epa/Fish Oil (Fish Oil 1,000 mg Softgel) 1,000 Mg (120 Mg-180 Mg) Capsule, 1,000 MG PO DAILY, (Reported) Entered as Reported by: ALIZA ALAN on 11/17/22 1429 Polyethylene Glycol 3350 (Polyethylene Glycol 3350) 17 Gram Powd.pack, 17 GM PO HS Prescribed by: DANNY MINER on 11/22/22 1013 Review of Systems Review of Systems Constitutional: no symptoms reported EENTM: no symptoms reported Respiratory: see HPI Cardiovascular: no symptoms reported Gastrointestinal: no symptoms reported Genitourinary: no symptoms reported : No Musculoskeletal: no symptoms reported Skin: no symptoms reported Psychiatric/Neurological: No Symptoms Reported Hematologic/Lymphatic: No Symptoms Reported Past Jrbjqlt-Txhycn-Hvgixm Hx Patient Social History Tobacco Use?: Yes Tobacco type used: Cigarettes Smoking Status: Current Someday Smoker Substance use?: No Alcohol Use?: No Pt feels they are or have been: No Immunizations Up To Date First/Initial COVID19 Vaccinat: 08/26/2020 Second COVID19 Vaccination [place]: 09/23/2020 Third COVID19 Vaccination Date: 04/30/2021 Seasonal Allergies Seasonal Allergies: Yes Past Medical History Surgery/Hospitalization HX: COPD, HYST, R ANKLE SURG, HTN, NEUROPATHY, Surgeries: Yes (ankle fx, ) Hysterectomy, Orthopedic (Hip fracture) Respiratory: Yes (Oxygen dependent at 6 L/min nasal cannula) Chronic Bronchitis, COPD, Emphysema Currently Using CPAP: No Currently Using BIPAP: No Cardiac: Yes Hypertension Neurological: Yes Neuropathy Sexually Transmitted Disease: No HIV/AIDS: No Genitourinary: No Gastrointestinal: Yes (hep C, ) Hepatitis Musculoskeletal: Yes Fractures Endocrine: No HEENT: Yes Cataract Cancer: Yes Cervical Did You Recieve Any Treatments: Yes What Type of Treatment Did You: Surgical Intervention Psychosocial: No Integumentary: No Blood Disorders: No Adverse Reaction/Blood Tranf: No (N/A) Family Medical History Heart Disease, Cancer, CAD Over 55 Years Old, CVA, DVT/PE Physical Exam-Suspected Sepsis Physical Exam Vital Signs Vital Signs - First Documented 02/27/23 08:30 Temp 36.8 Pulse 106 Resp 20 B/P (MAP) 135/82 (99) Pulse Ox 94 O2 Delivery Nasal Cannula O2 Flow Rate 6.00 Capillary Refill : Less Than 3 Seconds Blood Pressure Mean: 99 Height, Weight, BMI Height: 5'4.00" Weight: 134lbs. 0.0oz. 60.236319hk; 17.00 BMI Method: General Appearance: WD/WN, Moderate Distress, Thin HEENT: PERRL/EOMI, Normal ENT Inspection Neck: Normal Inspection; No JVD Respiratory: Crackles (Lower lung), Decreased Breath Sounds (Rather poor air movement), Wheezing, Other (Dyspnea, tachypnea) Cardiovascular: Regular Rate, Rhythm, No Edema, No Murmur Extremity: Normal Inspection, No Pedal Edema Neurologic/Psychiatric: Alert, Oriented x3, No Motor/Sensory Deficits, Normal Mood/Affect Skin: normal color, warm/dry Focused Exam Lactate Level 02/27/23 08:37: Lactic Acid Level 1.21 Lactic Acid Level Laboratory Tests Test 02/27/23 08:37 Lactic Acid Level 1.21 MMOL/L (0.50-2.00) Progress/Results/Core Measures Suspected Sepsis SIRS Temperature: Pulse: 106 Respiratory Rate: 20 Laboratory Tests 02/27/23 08:37: White Blood Count 12.4H Blood Pressure 135 /82 Mean: 99 02/27/23 08:37: Lactic Acid Level 1.21 Laboratory Tests 02/27/23 08:37: Creatinine 0.70, INR Comment 1.1, Platelet Count 184, Total Bilirubin 1.0 Results/Orders Lab Results Laboratory Tests Test 02/27/23 08:37 Range/Units White Blood Count 12.4 H 4.3-11.0 10^3/uL Red Blood Count 5.24 H 3.80-5.11 10^6/uL Hemoglobin 15.3 11.5-16.0 g/dL Hematocrit 47 35-52 % Mean Corpuscular Volume 89 80-99 fL Mean Corpuscular Hemoglobin 29 25-34 pg Mean Corpuscular Hemoglobin Concent 33 32-36 g/dL Red Cell Distribution Width 12.6 10.0-14.5 % Platelet Count 184 130-400 10^3/uL Mean Platelet Volume 9.9 9.0-12.2 fL Immature Granulocyte % (Auto) 1 % Neutrophils (%) (Auto) 87 H 42-75 % Lymphocytes (%) (Auto) 5 L 12-44 % Monocytes (%) (Auto) 7 0-12 % Eosinophils (%) (Auto) 1 0-10 % Basophils (%) (Auto) 0 0-10 % Neutrophils # (Auto) 10.7 H 1.8-7.8 10^3/uL Lymphocytes # (Auto) 0.7 L 1.0-4.0 10^3/uL Monocytes # (Auto) 0.8 0.0-1.0 10^3/uL Eosinophils # (Auto) 0.1 0.0-0.3 10^3/uL Basophils # (Auto) 0.0 0.0-0.1 10^3/uL Immature Granulocyte # (Auto) 0.1 0.0-0.1 10^3/uL Neutrophils % (Manual) 85 % Lymphocytes % (Manual) 4 % Monocytes % (Manual) 8 % Eosinophils % (Manual) 0 % Basophils % (Manual) 0 % Band Neutrophils 3 % Blood Morphology Comment NORMAL Prothrombin Time 14.0 12.2-14.7 SEC INR Comment 1.1 0.8-1.4 Activated Partial Thromboplast Time 32 24-35 SEC Sodium Level 140 135-145 MMOL/L Potassium Level 4.2 3.6-5.0 MMOL/L Chloride Level 101 98-107 MMOL/L Carbon Dioxide Level 26 21-32 MMOL/L Anion Gap 13 5-14 MMOL/L Blood Urea Nitrogen 10 7-18 MG/DL Creatinine 0.70 0.60-1.30 MG/DL Estimat Glomerular Filtration Rate 95 BUN/Creatinine Ratio 14 Glucose Level 132 H 70-105 MG/DL Lactic Acid Level 1.21 0.50-2.00 MMOL/L Calcium Level 9.6 8.5-10.1 MG/DL Corrected Calcium 9.7 8.5-10.1 MG/DL Total Bilirubin 1.0 0.1-1.0 MG/DL Aspartate Amino Transf (AST/SGOT) 20 5-34 U/L Alanine Aminotransferase (ALT/SGPT) 13 0-55 U/L Alkaline Phosphatase 116 40-136 U/L Total Protein 7.4 6.4-8.2 GM/DL Albumin 3.9 3.2-4.5 GM/DL Influenza Type A (RT-PCR) Not Detected Not Detecte Influenza Type B (RT-PCR) Not Detected Not Detecte SARS-CoV-2 RNA (RT-PCR) Not Detected Not Detecte My Orders Orders - KASSIDY MEZA MD Ipratropium/Albuterol Inh Soln (Ipratrop (02/27/23 08:45) Svn Small Volume Nebulizer (02/27/23 08:45) Methylprednisolone Sod Succ (Methylpredn (02/27/23 09:00) Cbc And Automated Diff (02/27/23 08:46) Comprehensive Metabolic Panel (02/27/23 08:46) Blood Culture (02/27/23 08:46) Sputum Culture (02/27/23 08:46) Urinalysis (02/27/23 08:46) Urine Culture (02/27/23 08:46) Protime With Inr (02/27/23 08:46) Partial Thromboplastin Time (02/27/23 08:46) Chest 1 View, Ap/Pa Only (02/27/23 08:46) Ed Iv/Invasive Line Start (02/27/23 08:46) Vital Signs Adult Sepsis Patie Q15M (02/27/23 08:46) O2 (02/27/23 08:46) Remove Rings In Anticipation O (02/27/23 08:46) Lactic Acid Analyzer (02/27/23 08:46) Covid 19 Inhouse Test (02/27/23 08:46) Influenza A And B By Pcr (02/27/23 08:46) Manual Differential (02/27/23 08:37) Cefepime Injection (Cefepime Injection) (02/27/23 09:30) Ed Admission (Communication) (02/27/23 09:51) Code/Resuscitation (02/27/23 09:51) Medications Given in ED Current Medications Medications Dose Ordered Sig/Sophie Route Start Time Stop Time Status Last Admin Dose Admin Albuterol/ Ipratropium 3 ml ONCE ONCE INH 02/27/23 08:45 02/27/23 08:47 DC 02/27/23 09:01 3 ML Cefepime HCl 2000 mg/Sodium Chloride 50 ml @ 100 mls/hr ONCE ONCE IV 02/27/23 09:30 02/27/23 09:59 DC 02/27/23 10:02 100 MLS/HR Methylprednisolone Sodium Succinate 125 mg ONCE ONCE IVP 02/27/23 09:00 02/27/23 09:01 DC 02/27/23 09:12 125 MG Vital Signs/I&O 02/27/23 02/27/23 02/27/23 02/27/23 08:30 08:30 09:02 09:03 Temp 36.8 Pulse 106 99 Resp 20 32 B/P (MAP) 135/82 (99) Pulse Ox 94 100 100 O2 Delivery Nasal Cannula Nasal Cannula NIV Bilevel O2 Flow Rate 6.00 6.00 40.00 Capillary Refill : Less Than 3 Seconds Blood Pressure Mean: 99 Progress Note : Time: 10:21 Progress Note Ms. Lemon was interviewed and examined upon arrival. BiPAP was ordered along with an additional DuoNeb treatment. Solu-Medrol 125 mg IV was administered. She is moving air better and respirations are much more relaxed on BiPAP. She knowledges breathing better, but complains that the BiPAP is drying out her mucous membranes severely. RT will work with her regarding either humidifying the air or trying Vapotherm as an alternative. Work-up was relatively unremarkable. All labs were reviewed and interpreted by me. CBC was notable only for a minimal elevation in WBC of 12.4. CMP was unremarkable. Lactic acid was normal. Influenza and COVID swabs were negative. Chest x-ray was unremarkable for acute changes. Because of the purulent bloody sputum, she is being treated with cefepime presuming occult pneumonia. Patient has a history of pneumonia. I discussed CODE STATUS with the patient, and she elects full code stating, "at least for a little while, and then I will let my son decide." Case was discussed with Dr. Miner, admitting physician for [facility], accepts admission. Diagnostic Imaging Diagonstic Imaging: Xray Plain Films/CT/US/NM/MRI: chest Comments NAME: UNIQUE LEMON [facility] REC#: [id number] PT STATUS: REG ER : 1955 PHYSICIAN: KASSIDY MEZA MD ADMIT DATE: 02/27/23/ER Signed Date of Exam:02/27/23 CHEST 1 VIEW, AP/PA ONLY EXAMINATION: Chest radiograph, portable AP view. DATE: 02/27/2023 8:58 AM INDICATION: 67-year-old female, shortness of breath. COMPARISON: November 17, 2022. FINDINGS: Heart size and mediastinal contours are unchanged. There is no identified pneumothorax. There are unchanged interstitial opacities likely reflecting chronic lung changes. There is no identified interval focal airspace consolidation. IMPRESSION: 1. Findings of chronic lung disease without interval acute cardiopulmonary abnormality identified. Dictated by: Dictated on workstation # [id number] Dict: 02/27/2359 Trans: 02/27/23914 [facility] [id number] Interpreted by: KAYLIN RAVI MD Electronically signed by: KAYLIN RAVI MD 02/27/2315 Departure Communication (Admissions) Time/Spoke to Admitting Phy: 09:45 Dr. Miner Impression Primary Impression: COPD exacerbation Additional Impression: Bloody sputum Disposition: ADMITTED INPATIENT Condition: Stable Admissions Decision to Admit Reason: Admit from ER (General) Decision to Admit/Date: Feb 27, 2023 Time/Decision to Admit Time: 09:45 Departure-Patient Inst. Referrals: ALIZA PINEDO DO (PCP/Family) Primary Care Physician KASSIDY MEZA MD Feb 27, 2023 08:57
[2023-02-27 08:58] LABS: ALBUMIN 3.9 GM/DL (3.2-4.5); POTASSIUM 4.2 MMOL/L (3.6-5.0)
[2023-02-27 08:59] LABS: CALCIUM 9.6 MG/DL (8.5-10.1); INR 1.1 (0.8-1.4)
[2023-02-27] MEDS ORDERED: methylPREDNISolone INJ 125 MG VIAL IVP ONE (09:00)
[2023-02-27 09:01] LABS: TOTAL PROTEIN 7.4 GM/DL (6.4-8.2)
[2023-02-27 09:02] VITALS: BP 128/76
[2023-02-27 09:04] LABS: CREATININE SERUM 0.7 MG/DL (0.60-1.30)
--- NOTE | 2023-02-27 09:15 | Diagnostic Imaging Report ---
EXAMINATION: Chest radiograph, portable AP view. DATE: 02/27/2023 8:58 AM INDICATION: 67-year-old female, shortness of breath. COMPARISON: November 17, 2022. FINDINGS: Heart size and mediastinal contours are unchanged. There is no identified pneumothorax. There are unchanged interstitial opacities likely reflecting chronic lung changes. There is no identified interval focal airspace consolidation. IMPRESSION: 1. Findings of chronic lung disease without interval acute cardiopulmonary abnormality identified. Dictated by: Dictated on workstation # [id number]
[2023-02-27 09:30] LABS: BAND NEUTROPHILS 3 %; BASOPHILS % (MANUAL) 0 %; EOSINOPHILS % (MANUAL) 0 %; LYMPHOCYTES % (MANUAL) 4 %; MONOCYTES % (MANUAL) 8 %; NEUTROPHILS % (MANUAL) 85 %; RBC MORPH NORMAL
[2023-02-27] MEDS ORDERED: CEFEPIME INJECTION 2,000 MG in NS (IVPB) 50 ML 50 ML IV ONE (09:30)
--- NOTE | 2023-02-27 09:50 | History & Physical-Hospitalist ---
History of Present Illness HPI/Chief Complaint Chief complaint: Acute on chronic hypoxic respiratory failure HPI: This is a 67-year-old female clinic patient of [facility] with known history of end stage COPD maintained on oxygen 20/12 at home who presented after a couple of days and not feeling well and she was found to have pneumonia with exacerbation of COPD and acute on chronic hypoxic respiratory failure. She will receive ICU care BiPAP IV steroids and IV antibiotics. Currently she is doing much better giving her rest from BiPAP and family member is at the bedside. Source: patient, family Exam Limitations: no limitations Date Seen 02/27/23 Time Seen by a Provider: 14:00 Attending Physician Jose R Manley DO PCP Admitting Physician: Attending Physician: Referring Physician Date of Admission Home Medications & Allergies Home Medications Reviewed patient Home Medication Reconciliation performed by pharmacy medication reconciliations nanotechnician and/or nursing. Patients Allergies have been reviewed. Allergies Allergies Coded Allergies No Known Drug Allergies (Unverified11/17/22) Past Slxyjly-Ygcwff-Dcdofu Hx Patient Social History Marrital Status: single Employed/Student: retired Tobacco Use?: Yes Tobacco type used: Cigarettes Smoking Status: Current Someday Smoker Substance use?: No Alcohol Use?: No Pt feels they are or have been: No Immunizations Up To Date Date of Influenza Vaccine: Mar 05, 2022 First/Initial COVID19 Vaccinat: 08/26/2020 Second COVID19 Vaccination [place]: 09/23/2020 Tetanus Booster (TDap): Less Than 5 Years Date of Pneumonia Vaccine: Mar 25, 2014 Seasonal Allergies Seasonal Allergies: Yes Current Status Advance Directives: No Primary Language: Estonian Preferred Spoken Language: Estonian Past Medical History Surgeries: Hysterectomy Pneumonia, Chronic Bronchitis, COPD, Emphysema Currently Using CPAP: No Currently Using BIPAP: No Hypertension Neuropathy Sexually Transmitted Disease: No HIV/AIDS: No Hepatitis Fractures Cataract Cervical What Type of Treatment Did You: Surgical Intervention Blood Disorders: No Adverse Reaction/Blood Tranf: No (N/A) PMHx: COPD HTN HLD Osteoporosis SurgHx: Tympanostomy right side Hysterectomy Ankle surgery right side Family Medical History Heart Disease, Cancer, CAD Over 55 Years Old, CVA, DVT/PE Review of Systems Constitutional: see HPI, malaise, weakness Respiratory: dyspnea on exertion, short of breath Physical Exam Physical Exam Vital Signs Vital Signs - First Documented 02/27/23 08:30 Temp 36.8 Pulse 106 Resp 20 B/P (MAP) 135/82 (99) Pulse Ox 94 O2 Delivery Nasal Cannula O2 Flow Rate 6.00 Capillary Refill : Less Than 3 Seconds Height, Weight, BMI Height: 5'4.00" Weight: 134lbs. 0.0oz. 60.361744jc; 17.00 BMI Method: General Appearance: No Apparent Distress, Chronically ill, Thin Respiratory: No Accessory Muscle Use, No Respiratory Distress, Crackles, Decreased Breath Sounds, Wheezing Cardiovascular: Regular Rate, Rhythm Neurologic/Psychiatric: Alert, Oriented x3 Results Results/Procedures Labs Laboratory Tests 02/27/23 08:37 Patient resulted labs reviewed. Assessment/Plan Admission Diagnosis Assessment: Acute on chronic hypoxic respiratory failure Pneumonia Exacerbation of COPD Oxygen dependent End stage COPD Frail status Current smoker Plan: ICU BiPAP IV steroids IV antibiotics Oxygen Vapotherm Admission Status: Inpatient Order (span 2 midnights) Reason for Inpatient Admission: resp failure DANNY MINER DO Feb 27, 2023 09:50
[2023-02-27] MEDS ORDERED: ACETAMINOPHEN 325 MG TABLET PO PRN (10:45)
[2023-02-27] MEDS ORDERED: MILK OF MAGNESIA 400 MG/5 ML 30 ML UDC PO PRN (10:45)
[2023-02-27] MEDS ORDERED: ANTACID SUSPENSION 30 ML UDC PO PRN (10:45)
[2023-02-27] MEDS ORDERED: NS IV 500 ML 500 ML IV PRN (10:45)
[2023-02-27] MEDS ORDERED: oxyCODONE IMMEDIATE RELEASE 5 MG TABLET PO PRN (10:45)
[2023-02-27] MEDS ORDERED: diphenhydrAMINE INJ 50 MG/ML VIAL IVP PRN (10:45)
[2023-02-27] MEDS ORDERED: LACTULOSE SYRUP 10GM/15ML 30ML UDC PO PRN (10:45)
[2023-02-27] MEDS ORDERED: BISACODYL 10 MG SUPPOSITORY PR PRN (10:45)
[2023-02-27] MEDS ORDERED: MELATONIN 3 MG TABLET PO PRN (10:45)
[2023-02-27] MEDS ORDERED: ONDANSETRON 4 MG ORAL DISSOLVE TABLET PO PRN (10:45)
[2023-02-27] MEDS ORDERED: ONDANSETRON INJECTION 4 MG/2 ML (SDV) IV PRN (10:45)
[2023-02-27] MEDS ORDERED: LORazepam 0.5 MG TABLET PO PRN (10:45)
[2023-02-27] MEDS ORDERED: diphenhydrAMINE 25 MG TABLET PO PRN (10:45)
[2023-02-27] MEDS ORDERED: morphine INJ 4 MG/ML 1 ML (VIAL/SYRINGE) IV PRN (10:45)
[2023-02-27] MEDS ORDERED: CALCIUM CARBONATE 500 MG CHEW TABLET PO PRN (10:45)
[2023-02-27] MEDS: inSUlin ASPART 1 UNIT/0.01 ML (PER UNIT) SC SCH ×3 (10:59→21:10)
[2023-02-27] MEDS: NS IV 1000 ML 1,000 ML IV SCH ×2 (10:59→23:52)
[2023-02-27] MEDS: ENOXAPARIN 30 MG/0.3 ML SYRINGE SC SCH (10:59)
[2023-02-27 11:19] VITALS: BP 131/79
--- NOTE | 2023-02-27 12:09 | Tele-ICU Progress Note ---
Subjective Date Seen by a Provider: Feb 27, 2023 Time Seen by a Provider: 12:08 Subjective/Events-last exam (Tele-ICU Physician , consultation as per request of PCP Service provided via interactive audio and video telecommunications E-CARE system to a patient admitted to ICU bed in [facility]. Available chart/ vitals / labs / Images reviewed H&P is from ER notes Patient's information available about PMH, Shx, Fhx allergy reviewed inEMR. ROS as per chart and RN report Now in ICU, hemodynamically stable Video assessment done using teleICU camera, rest of exam as per RN Discussed with RN. Hospital course: (02/27) 67y/o F admitted with COPD exacerbation r/o pneumonia., hemoptysis> , placed Bipap-->NC A/P Acute on chronic resp failure -placed on BIPAP in ER , now on NC 6 l , confortable -Presumed due to PNA / ? bronchospam . As per med list - on eliquis - so PE is less likely ( baseline severe emphysema/copd with 6 L O2 NC ) -CPM AECOPD - nebs , steroids IV PNA - Influenza and COVID swabs were negative - no radiological evifdence of of PNA on cxr , but there is severe cough with purulent sputom with suspicion for bact LRTI - cont abx Hemoptysis reported . mild - due to cough in face of AC - need to monitor for now Lines : , (Central Line Necessity Reviewed) Barrientos: OG: Nutrition: Analgesia: Anxiety/ delirium VTE Prophylaxis: sendy 40 Stress Ulcer Prophylaxis: Plans in collaboration with bedside consultants and IM MDs. Discussed with RN to reach out if any questions or concerns A total of 20 minutes of critical care time was devoted to this patient today, required to treat and/or prevent further deterioration of critical care co ndition ( as above ) . I am remotely monitoring this patient from another state. I am unable to do the bedside exam, and history/physical and pertinent information is taken from other notes in the computer and bedside staff. . Sepsis Event Evaluation Height, Weight, BMI Height: 5'4.00" Weight: 134lbs. 0.0oz. 60.725312je; 17.60 BMI Method: Focused Exam Lactate Level 02/27/23 08:37: Lactic Acid Level 1.21 Lactic Acid Level Laboratory Tests Test 02/27/23 08:37 Lactic Acid Level 1.21 MMOL/L (0.50-2.00) Exam Exam Patient acknowledged, consented, and participated in this virtual visit which was conducted using real time audio/video Vital Signs Date Time Temp Pulse Resp B/P (MAP) Pulse Ox O2 Delivery O2 Flow Rate FiO2 02/27/23 11:19 36.8 98 99 02/27/23 11:03 99 High Flow N/C 6.00 02/27/23 11:00 98 131/79 (98) 99 High Flow N/C 6.00 02/27/23 10:52 101 18 119/102 (108) 99 High Flow N/C 6.00 02/27/23 10:50 98 02/27/23 10:15 92 22 125/87 99 NIV Bilevel 35.00 02/27/23 09:03 100 NIV Bilevel 02/27/23 09:02 99 32 100 40.00 02/27/23 08:30 36.8 106 20 135/82 (99) 94 Nasal Cannula 6.00 02/27/23 08:30 Nasal Cannula 6.00 Height & Weight Height: 5'4.00" Weight: 134lbs. 0.0oz. 60.057082ys; 17.60 BMI Method: General Appearance: WD/WN, Moderate Distress, Thin HEENT: PERRL/EOMI, Normal ENT Inspection Neck: Normal Inspection; No JVD Respiratory: Crackles (Lower lung), Decreased Breath Sounds (Rather poor air movement), Wheezing, Other (Dyspnea, tachypnea) Cardiovascular: Regular Rate, Rhythm, No Edema, No Murmur Capillary Refill: Less Than 3 Seconds Extremity: Normal Inspection, No Pedal Edema Neurologic/Psychiatric: Alert, Oriented x3, No Motor/Sensory Deficits, Normal Mood/Affect Results Lab Laboratory Tests 02/27/23 08:37 Assessment/Plan Assessment/Plan 1 LORETTA FABIAN MD Feb 27, 2023 12:09
[2023-02-27] MEDS ORDERED: FLU HIGH DOSE (65+ YOA) 240 MCG/0.7 ML 2023-24 (FLUZONE) IM ONE (12:45)
[2023-02-27] MEDS: RT-Ipratropium/Albuterol NEB 3 ML VIAL INH SCH ×2 (14:28→18:52)
[2023-02-27] MEDS: DOCUSATE SODIUM 100 MG CAPSULE PO SCH (19:22)
[2023-02-27] MEDS: SENNOSIDES 8.6 MG TABLET PO SCH (19:22)
[2023-02-27] MEDS: dexAMETHasone INJ 4 MG/ML SDV IV SCH (21:10)
[2023-02-28] MEDS: AMITRIPTYLINE 25 MG TABLET PO SCH ×2 (00:41→20:54)
[2023-02-28] MEDS: GABAPENTIN 600 MG TABLET PO SCH ×3 (00:42→20:54)
[2023-02-28 01:01] LABS: CLARITY,URINE CLEAR; COLOR,URINE YELLOW; PH,URINE 5.5 (5-9)
[2023-02-28 01:02] LABS: GLUCOSE, URINE (UA) TRACE (NEGATIVE); KETONES,URINE TRACE (NEGATIVE); NITRITE,URINE NEGATIVE (NEGATIVE); PROTEIN,URINE 1+ (NEGATIVE)
[2023-02-28 01:03] LABS: BACTERIA,URINE NEGATIVE /HPF; BILIRUBIN,URINE NEGATIVE (NEGATIVE); HYALINE CASTS, URINE 0-2 /LPF; LEUKOCYTE ESTERASE ,URINE NEGATIVE (NEGATIVE); WBC,URINE 0-2 /HPF
[2023-02-28 04:29] LABS: BASOPHILS % (AUTO) 0 % (0-10); EOSINOPHILS % (AUTO) 0 % (0-10); HEMATOCRIT 42 % (35-52); HEMOGLOBIN 13.8 g/dL (11.5-16.0); LYMPHOCYTES # (AUTO) 0.5 10^3/uL (1.0-4.0); LYMPHOCYTES % (AUTO) 6 % (12-44); MEAN CORPUSCULAR HEMOGLOBIN 29 pg (25-34); MEAN CORPUSCULAR HGB CONC 33 g/dL (32-36); MEAN CORPUSCULAR VOLUME 89 fL (80-99); MEAN PLATELET VOLUME 10.5 fL (9.0-12.2); MONOCYTES # (AUTO) 0.2 10^3/uL (0.0-1.0); MONOCYTES % (AUTO) 3 % (0-12); NEUTROPHILS # (AUTO) 8.4 10^3/uL (1.8-7.8); NEUTROPHILS % (AUTO) 91 % (42-75); PLATELET COUNT 188 10^3/uL (130-400); WHITE BLOOD COUNT 9.2 10^3/uL (4.3-11.0)
[2023-02-28 05:09] LABS: ALBUMIN 3.4 GM/DL (3.2-4.5); BILIRUBIN,TOTAL 0.4 MG/DL (0.1-1.0); CALCIUM 9.4 MG/DL (8.5-10.1); CREATININE SERUM 0.65 MG/DL (0.60-1.30); MAGNESIUM 1.8 MG/DL (1.6-2.4); PHOSPHORUS 2.5 MG/DL (2.3-4.7); TOTAL PROTEIN 6.9 GM/DL (6.4-8.2)
[2023-02-28] MEDS: inSUlin ASPART 1 UNIT/0.01 ML (PER UNIT) SC SCH ×4 (05:20→20:54)
[2023-02-28] MEDS: POTASSIUM CL 10MEQ/50ML IVPB 50 ML IV SCH (06:04)
[2023-02-28] MEDS: POTASSIUM CHLORIDE 20 MEQ TABLET PO SCH (06:05)
[2023-02-28] MEDS: MAGNESIUM 1 GM/100 ML IVPB 100 ML IV SCH ×3 (06:05→07:36)
[2023-02-28] MEDS: RT-Ipratropium/Albuterol NEB 3 ML VIAL INH SCH ×4 (07:10→21:35)
[2023-02-28] MEDS: DOCUSATE SODIUM 100 MG CAPSULE PO SCH ×2 (08:13→20:10)
[2023-02-28] MEDS: SENNOSIDES 8.6 MG TABLET PO SCH ×2 (08:14→20:10)
[2023-02-28] MEDS: dexAMETHasone INJ 4 MG/ML SDV IV SCH ×2 (08:32→20:54)
[2023-02-28] MEDS ORDERED: CEFEPIME INJECTION 2,000 MG in NS (IVPB) 50 ML 50 ML IV SCH (09:00)
--- NOTE | 2023-02-28 09:09 | Consultation-Cardiology ---
HPI-Cardiology Cardiology Consultation: Date of Consultation 02/28/23 Time Seen by a Provider: 08:50 Date of Admission 02-27-23 Attending Physician Aliza Manley DO Admitting Physician Admitting Physician: Nessa Miner DO Attending Physician: Nessa Miner DO Consulting Physician Colten Drew MD Provider requesting provider: Dr. Miner HPI: Chief Complaint: Progressive dyspnea Ms. Lemon is a 67 yr old female admitted to ICU 6 from the ED with progressive HAWKINS. She reports she has COPD and is oxygen dependant. She reports last night she became increasingly short of breath last night prompting her to come to the ED. She reports productive cough of thick sputum. No c/o CP, palpitations, syncope, near syncope or LE swelling. No c/o n/v/d. No c/o fever or chills. Review of Systems-Cardiology Review of Systems Constitutional: No chills, No fever; malaise Eyes: No vision change Ears/Nose/Throat: No epistaxis, No recent hearing loss Respiratory: As described under HPI Cardiovascular: As described under HPI Gastrointestinal: As described under HPI Genitourinary: No dysuria, No hematuria : No Musculoskeletal: no symptoms reported Skin: No rash on exposed areas, No ulcerations on exposed areas Psychiatric/Neurological: No anxiety, No depression, No seizure, No focal weakness, No syncope Hematologic: No bleeding abnormalities UMB-Sykdxm-Beesnp Hx Patient Social History Marrital Status: single Employed/Student: retired Smoking Status: Current Someday Smoker 2nd Hand Smoke Exposure: Yes Alcohol Use?: No Pt feels they are or have been: No Tobacco type used: Cigarettes Immunizations Up To Date Date of Pneumonia Vaccine: Mar 25, 2014 Date of Influenza Vaccine: Mar 05, 2022 Past Medical History PMH As described under Assessment. Family Medical History Family Medical History: She reports her father had lung cancer. She reports 3 brothers with CAD and MD. She reports her mother and sister had PE/DVT. She reports her sister with CVA. She reports her nephew passed from an MD. Allergies and Home Medications Allergies Coded Allergies: No Known Drug Allergies (Unverified , 11/17/22) Patient Home Medication List Albuterol Sulfate (Ventolin Hfa) 1 Puff Puff, 2 PUFF INH Q4H PRN for SHORTNESS OF BREATH, (Reported) Entered as Reported by: ALIZA ALAN on 02/28/23 1550 Last Action: Reviewed Alendronate Sodium (Alendronate Sodium) 70 Mg Tablet, 70 MG PO MON, (Reported) Entered as Reported by: ALIZA ALAN on 02/28/231544 Last Action: Reviewed Amitriptyline HCl (Amitriptyline HCl) 75 Mg Tablet, 75 MG PO HS, (Reported) Entered as Reported by: MANAN HARRIS on 07/06/18 1441 Last Action: Reviewed Ascorbic Acid/Ascorbate Sodium (Vitamin C 500 mg Tablet Chew) 500 Mg Tab.chew, 500 MG PO DAILY, (Reported) Entered as Reported by: ALIZA ALAN on 02/28/23 154 Last Action: Reviewed Atorvastatin Calcium (Atorvastatin Calcium) 20 Mg Tablet, 20 MG PO DAILY, (Reported) Entered as Reported by: TO STEEL on 11/17/22 1324 Last Action: Reviewed Calcium Carbonate/Vitamin D3 (Caltrate 600 + D Soft Chew Tab) 600 Mg Calcium-20 Mcg (800 Unit) Tab.chew, 1 EACH PO BID, (Reported) Entered as Reported by: ALIZA ALAN on 02/28/231544 Last Action: Reviewed Cholecalciferol (Vitamin D3) (Vitamin D3) 25 Mcg (1000 Unit) Tab.chew, 25 MCG PO DAILY, (Reported) Entered as Reported by: ALIZA ALAN on 02/28/231544 Last Action: Reviewed Famotidine (Famotidine) 20 Mg Tablet, 20 MG PO BID, (Reported) Entered as Reported by: ALIZA ALAN on 02/28/231544 Last Action: Reviewed Fluticasone/Umeclidin/Vilanter (Trelegy Ellipta 100-62.5-25) 1 Each Blst.w.dev, 1 PUFF IN DAILY, (Reported) Entered as Reported by: ALIZA ALAN on 01/23/20 1055 Last Action: Reviewed Gabapentin (Gabapentin) 600 Mg Tablet, 600 MG PO BID, (Reported) Entered as Reported by: TO STEEL on 11/17/22 1324 Last Action: Reviewed Multivit-Minerals/Folic Acid (Multivitamin Gummies) 200 Mcg Tab.chew, 1 EA PO DAILY, (Reported) Entered as Reported by: ALIZA ALAN on 02/28/23 1545 Last Action: Reviewed Discontinued Medications Apixaban (Eliquis) 2.5 Mg Tablet, 2.5 MG PO BID Discontinued Reason: No Longer Taking Prescribed by: NESSA MINER on 11/22/22 1013 Last Action: Discontinued Fluticasone Propionate (Flonase Allergy Relief) 50 Mcg/Actuation [place].susp, 1 SPRAY NS DAILY PRN for CONGESTION, (Reported) Discontinued Reason: No Longer Taking Entered as Reported by: ALIZA ALAN on 01/23/20 1059 Last Action: Discontinued Hydrocodone/Acetaminophen (Hydrocodone-Acetamin 5-325 mg) 5 Mg-325 Mg Tablet, 1 EA PO Q4H PRN for PAIN-MODERATE (5-7) Discontinued Reason: No Longer Taking Prescribed by: NESSA MINER on 11/22/22 1014 Last Action: Discontinued Lisinopril (Lisinopril) 10 Mg Tablet, 10 MG PO DAILY, (Reported) Discontinued Reason: No Longer Taking Entered as Reported by: RIP JAMA on 08/18/22 0954 Last Action: Discontinued Melatonin (Melatonin) 5 Mg Tablet, 5 MG PO HS, (Reported) Discontinued Reason: No Longer Taking Entered as Reported by: ALIZA ALAN on 11/17/22 1429 Last Action: Discontinued [place]-3/Dha/Epa/Fish Oil (Fish Oil 1,000 mg Softgel) 1,000 Mg (120 Mg-180 Mg) Capsule, 1,000 MG PO DAILY, (Reported) Discontinued Reason: No Longer Taking Entered as Reported by: ALIZA ALAN on 11/17/22 1429 Last Action: Discontinued Polyethylene Glycol 3350 (Polyethylene Glycol 3350) 17 Gram Powd.pack, 17 GM PO HS Discontinued Reason: No Longer Taking Prescribed by: NESSA MINER on 11/22/22 1013 Last Action: Discontinued Physical Exam-Cardiology Physical Exam Vital Signs/I&O 02/28/23 02/28/23 02/28/23 02/28/23 20:00 20:00 20:29 23:35 Temp 35.9 36.7 Pulse 97 66 Resp 24 18 B/P (MAP) 126/87 (100) 129/73 (91) Pulse Ox 92 92 100 O2 Delivery High Flow N/C High Flow N/C High Flow N/C O2 Flow Rate 6.00 6.00 6.00 03/01/23 03/01/23 03/01/23 03/01/23 01:00 03:37 04:49 07:07 Temp 36.0 Pulse 75 88 93 Resp 22 B/P (MAP) 137/87 (104) Pulse Ox 100 90 O2 Delivery High Flow N/C High Flow N/C O2 Flow Rate 6.00 7.00 03/01/23 07:29 Pulse Ox 92 O2 Delivery High Flow N/C O2 Flow Rate 6.00 03/01/23 00:00 Intake Total 640 ml Output Total 600 ml Balance 40 ml Capillary Refill : Less Than 3 Seconds Constitutional: AAO x 3, well-developed, other (thin) HEENT: PERRL, hearing is well preserved Neck: No carotid bruit; carotid pulses are 2 + bilaterally Respiratory: No accessory muscle use, No respiratory distress; chest expansion is symmetric, chest is bilaterally symmetric, other (diminished throughout) Cardiovascular: regular rate-rhythm; No JVD; S1 and S2 Gastrointestinal: soft; No guarding; audible bowel sounds Extremities: no lower extremity edema bilateral Neurologic/Psychiatric: other (moves all extremities) Skin: normal color, warm/dry; No rash on exposed areas, No ulcerations on exposed areas Data Review Labs Laboratory Tests 02/28/23 10:55: Glucometer 171H 02/28/23 15:43: Glucometer 169H 02/28/23 20:36: Glucometer 164H 03/01/23 03:44: White Blood Count 9.9, Red Blood Count 4.96, Hemoglobin 14.5, Hematocrit 45, Mean Corpuscular Volume 91, Mean Corpuscular Hemoglobin 29, Mean Corpuscular Hemoglobin Concent 32, Red Cell Distribution Width 12.6, Platelet Count 235, Mean Platelet Volume 10.6, Immature Granulocyte % (Auto) 0, Neutrophils (%) (Auto) 91H, Lymphocytes (%) (Auto) 6L, Monocytes (%) (Auto) 2, Eosinophils (%) (Auto) 0, Basophils (%) (Auto) 0, Neutrophils # (Auto) 9.0H, Lymphocytes # (Auto) 0.6L, Monocytes # (Auto) 0.2, Eosinophils # (Auto) 0.0, Basophils # (Auto) 0.0, Immature Granulocyte # (Auto) 0.0, Sodium Level 144, Potassium Level 4.9, Chloride Level 105, Carbon Dioxide Level 29, Anion Gap 10, Blood Urea Nitrogen 16, Creatinine 0.67, Estimat Glomerular Filtration Rate 96, BUN/Creatinine Ratio 24, Glucose Level 142H, Calcium Level 9.5, Corrected Calcium 9.9, Magnesium Level 1.9, Total Bilirubin 0.2, Aspartate Amino Transf (AST/SGOT) 21, Alanine Aminotransferase (ALT/SGPT) 17, Alkaline Phosphatase 127, Total Protein 7.1, Albumin 3.5 Microbiology 02/27/23 Gram Stain - Final, Resulted 02/27/23 Sputum Culture - Preliminary, Resulted Staphylococcus aureus Haemophilus species Usual upper respiratory lobito 02/27/23 Blood Culture - Preliminary, Resulted Radiology NAME: UNIQUE LEMON [facility] REC#: [id number] PT STATUS: REG ER : 1955 PHYSICIAN: KASSIDY MEZA MD ADMIT DATE: 02/27/23/ER Signed Date of Exam:02/27/23 CHEST 1 VIEW, AP/PA ONLY EXAMINATION: Chest radiograph, portable AP view. DATE: 02/27/2023 8:58 AM INDICATION: 67-year-old female, shortness of breath. COMPARISON: November 17, 2022. FINDINGS: Heart size and mediastinal contours are unchanged. There is no identified pneumothorax. There are unchanged interstitial opacities likely reflecting chronic lung changes. There is no identified interval focal airspace consolidation. IMPRESSION: 1. Findings of chronic lung disease without interval acute cardiopulmonary abnormality identified. Dictated by: Dictated on workstation # [id number] Dict: 02/27/23 0859 Trans: 02/27/2315 [facility] [id number] Interpreted by: KAYLIN RAVI MD Electronically signed by: KAYLIN RAVI MD 02/27/2315 A/P-Cardiology Assessment/Admission Diagnosis Acute on chronic exacerbation of COPD - management per medical services - oxygen dependant - follows with Dr. Rios of pulmonary services at [place] Tobaccoism - cessation advised Family h/o CAD - brothers x3 H/O cervical cancer - hysterectomy at age 21 H/O L femur fracture in November 2022 d/t non-syncopal fall - treated by Dr. Jasso Discussion and Recomendations Acute on chronic exacerbation of COPD - management per medical services Progressive dyspnea - Echocardiogram today to eval structure and function Monitor lab Further recs will be based on her hospital course We would like to thank medical services for this consult SONI CASEY Feb 28, 2023 09:09
--- NOTE | 2023-02-28 10:44 | Progress Note - Hospitalist ---
SKYLA YODER 02/28/23 1043: Subjective HPI/CC On Admission Date Seen by Provider: Feb 28, 2023 Time Seen by Provider: 09:30 Chief complaint: Acute on chronic hypoxic respiratory failure HPI: This is a 67-year-old female clinic patient of [facility] with known history of end stage COPD maintained on oxygen 24/7 at home who presented after a couple of days and not feeling well and she was found to have pneumonia with exacerbation of COPD and acute on chronic hypoxic respiratory failure. She will receive ICU care BiPAP IV steroids and IV antibiotics. Currently she is doing much better giving her rest from BiPAP and family member is at the bedside. Subjective/Events-last exam 02/28/2023: CC: Acute on Chronic Hypoxic Respiratory Failure HPI: Madeleine, 67F, notes that she couldn't sleep well last night. She says that this is due to being woken up for testing, not due to any respiratory concerns. She says that she has no SOB and feels like she is back to her baseline. She feels like she has improved a lot. She is urinating and having BM. She denies using the BiPAP last night, preferring to just use a H/F NC. She has no chest pain, no accessory muscle use, and no other concerns. When talking, she would desaturate slightly. She notes that the oxygen and breathing treatments are helping her. She notes that moving around and talking can make things worse. She confirms that she is still an active smoker. She says that she sleeps better when she gets her Amitryptiline and Gabapentin. No other concerns were noted. She wants to get out of the ICU. Review of Systems General: No Chills, No Night Sweats, No Fatigue, No Malaise, No Appetite HEENT: No Head Aches, No Visual Changes, No Eye Pain, No Dysphasia, No Sinus Congestion Pulmonary: Dyspnea, Cough; No Pleuritic Chest Pain Cardiovascular: No: Chest Pain, Palpitations, Orthopnea, Paroxysmal Noc. Dyspnea, Edema Gastrointestinal: No: Nausea, Vomiting, Abdominal Pain, Diarrhea, Constipation Genitourinary: No Dysuria, No Incontinence Musculoskeletal: No: neck pain, shoulder pain, arm pain, back pain, hand pain, leg pain Neurological: No: Weakness, Numbness, Change in speech, Confusion Focused Exam Lactate Level 02/27/23 08:37: Lactic Acid Level 1.21 Objective Exam Vital Signs Vital Signs Date Time Temp Pulse Resp B/P (MAP) Pulse Ox O2 Delivery O2 Flow Rate FiO2 02/28/23 10:00 84 20 126/71 (89) 93 High Flow N/C 5.00 02/28/23 07:35 36.0 Capillary Refill : Less Than 3 Seconds General Appearance: No Apparent Distress, WD/WN, Anxious, Thin HEENT: PERRL/EOMI; No Pale Conjunctivae (L), No Pale Conjunctivae (R), No Scleral Icterus (L), No Scleral Icterus (R) Neck: Full Range of Motion, Normal Inspection, Non Tender, Supple; No JVD Respiratory: No Accessory Muscle Use, No Respiratory Distress, Crackles, Expiration, Inspiration, Wheezing Cardiovascular: Regular Rate, Rhythm, No JVD, No Murmur, Normal Peripheral Pulses Gastrointestinal: Normal Bowel Sounds, Non Tender, Soft Rectal: Deferred Back: Normal Inspection, No CVA Tenderness, No Vertebral Tenderness Extremity: Normal Capillary Refill, Normal Inspection, Non Tender, No Calf Tenderness, No Pedal Edema; No Inflammation Neurologic/Psychiatric: Alert, Oriented x3, No Motor/Sensory Deficits, Normal Mood/Affect, supervisor coin machine II-XII Norm as Tested Skin: Normal Color, Warm/Dry Lymphatic: No Adenopathy Results/Procedures Lab Laboratory Tests 02/28/23 03:43 Patient resulted labs reviewed. Assessment/Plan Assessment and Plan Assess & Plan/Chief Complaint 02/28/23: Assessment: * Acute on Chronic Hypoxic Respiratory Failure * PNA * COPD Exacerbation * Currrent Tobacco Smoking Plan: * O2 supplementation * Decadron * Cefepime * BiPAP PRN * Move to step-down * RT Diagnosis/Problems Diagnosis/Problems (1) Acute on chronic hypoxic respiratory failure Status: Acute Assessment & Plan: O2, Decadron, Abx, BiPAP (2) PNA (pneumonia) Status: Acute Assessment & Plan: Cefepime Qualifiers: Qualified Codes: J18.9 - Pneumonia, unspecified organism (3) COPD (chronic obstructive pulmonary disease) Status: Chronic Assessment & Plan: RT, O2 management Qualifiers: Qualified Codes: J44.1 - Chronic obstructive pulmonary disease with (acute) exacerbation (4) Smoking addiction Status: Chronic NESSA MINER DO 02/28/232044: Subjective Subjective/Events-last exam Patient doing a lot better but she still hypoxic at 70% when just conversing for small amount of time Objective Exam General Appearance: No Apparent Distress, WD/WN, Anxious, Thin Respiratory: Accessory Muscle Use, Expiration, Inspiration, Wheezing Assessment/Plan Assessment and Plan Assess & Plan/Chief Complaint Supportive care Moved to cardiac stepdown Still high risk for decompensation Supervisory-Addendum Brief Verification & Attestation Participated in pt care: history, MDM, physical Personally performed: exam, history, MDM, supervision of care Care discussed with: Medical Student Procedures: n/a Results interpretation: Verified all documentation Verification and Attestation of Medical Student E/M Service A medical student performed and documented this service in my presence. I reviewed and verified all information documented by the medical student and made modifications to such information, when appropriate. I personally performed the physical exam and medical decision making. Nessa Miner, Feb 28, 2023,20:44 SKYLA YODER Feb 28, 2023 10:43 NESSA MINER DO Feb 28, 2023 20:45
[2023-02-28] MEDS: ENOXAPARIN 30 MG/0.3 ML SYRINGE SC SCH (11:03)
--- NOTE | 2023-02-28 14:47 | Consultation-Cardiology ---
HPI-Cardiology Cardiology Consultation: Date of Consultation 02/28/23 Time Seen by a Provider: 09:30 Date of Admission Attending Physician Aliza Manley DO Admitting Physician Admitting Physician: Nessa Miner DO Attending Physician: Nessa Miner DO Consulting Physician DALY ARNOLD MD, MA, FACP, FACC, FSCAI, CCDS Physician requesting Card consult: Dr Miner HPI: Chief Complaint: Progressive dyspnea Ms. Lemon is a 67 yr old female admitted to ICU 6 from the ED with progressive HAWKINS. She reports she has COPD and is oxygen dependant. She reports last night she became increasingly short of breath last night prompting her to come to the ED. She reports productive cough of thick sputum. No c/o CP, palpitations, syncope, near syncope or LE swelling. No c/o n/v/d. No c/o fever or chills. Review of Systems-Cardiology Review of Systems Constitutional: No chills, No fever; malaise Eyes: No vision change Ears/Nose/Throat: No epistaxis, No recent hearing loss Respiratory: As described under HPI Cardiovascular: As described under HPI Gastrointestinal: As described under HPI Genitourinary: No dysuria, No hematuria : No Musculoskeletal: no symptoms reported Skin: No rash on exposed areas, No ulcerations on exposed areas Psychiatric/Neurological: No anxiety, No depression, No seizure, No focal weakness, No syncope Hematologic: No bleeding abnormalities HCL-Jibpah-Jslmpx Hx Patient Social History Marrital Status: single Employed/Student: retired Smoking Status: Current Someday Smoker 2nd Hand Smoke Exposure: Yes Alcohol Use?: No Pt feels they are or have been: No Tobacco type used: Cigarettes Immunizations Up To Date Date of Pneumonia Vaccine: Mar 25, 2014 Date of Influenza Vaccine: Mar 05, 2022 Past Medical History PMH As described under Assessment. Family Medical History Family Medical History: She reports her father had lung cancer. She reports 3 brothers with CAD and [place]. She reports her mother and sister had PE/DVT. She reports her sister with CVA. She reports her nephew passed from an [place]. Allergies and Home Medications Allergies Coded Allergies: No Known Drug Allergies (Unverified , 11/17/22) Patient Home Medication List Home Medication List Reviewed: Yes Amitriptyline HCl (Amitriptyline HCl) 75 Mg Tablet, 75 MG PO HS, (Reported) Entered as Reported by: MANAN HARRIS on 07/06/18 1441 Apixaban (Eliquis) 2.5 Mg Tablet, 2.5 MG PO BID Prescribed by: NESSA MINER on 11/22/22 1013 Atorvastatin Calcium (Atorvastatin Calcium) 20 Mg Tablet, 20 MG PO DAILY, (Reported) Entered as Reported by: TO STEEL on 11/17/22 1324 Fluticasone Propionate (Flonase Allergy Relief) 50 Mcg/Actuation [place].susp, 1 SPRAY NS DAILY PRN for CONGESTION, (Reported) Entered as Reported by: ALIZA ALAN on 01/23/20 1059 Fluticasone/Umeclidin/Vilanter (Trelegy Ellipta 100-62.5-25) 1 Each Blst.w.dev, 1 PUFF IN DAILY, (Reported) Entered as Reported by: ALIZA ALAN on 01/23/20 1055 Gabapentin (Gabapentin) 600 Mg Tablet, 600 MG PO BID, (Reported) Entered as Reported by: TO STEEL on 11/17/22 1324 Hydrocodone/Acetaminophen (Hydrocodone-Acetamin 5-325 mg) 5 Mg-325 Mg Tablet, 1 EA PO Q4H PRN for PAIN-MODERATE (5-7) Prescribed by: NESSA MINER on 11/22/22 1014 Lisinopril (Lisinopril) 10 Mg Tablet, 10 MG PO DAILY, (Reported) Entered as Reported by: RIP JAMA on 08/18/22 0954 Melatonin (Melatonin) 5 Mg Tablet, 5 MG PO HS, (Reported) Entered as Reported by: ALIZA ALAN on 11/17/22 1429 [place]-3/Dha/Epa/Fish Oil (Fish Oil 1,000 mg Softgel) 1,000 Mg (120 Mg-180 Mg) Capsule, 1,000 MG PO DAILY, (Reported) Entered as Reported by: ALIZA ALAN on 11/17/22 1429 Polyethylene Glycol 3350 (Polyethylene Glycol 3350) 17 Gram Powd.pack, 17 GM PO HS Prescribed by: NESSA MINER on 11/22/22 1013 Physical Exam-Cardiology Physical Exam Vital Signs/I&O 02/28/23 02/28/23 02/28/23 02/28/23 03:00 03:15 03:15 04:00 Temp 36.7 Pulse 64 72 Resp 18 B/P (MAP) 127/80 (94) 132/79 (103) Pulse Ox 100 98 100 O2 Delivery High Flow N/C High Flow N/C High Flow N/C High Flow N/C O2 Flow Rate 6.00 6.00 6.00 6.00 02/28/23 02/28/23 02/28/23 02/28/23 05:00 06:00 07:00 07:10 Pulse 64 65 83 Resp 16 21 B/P (MAP) 124/74 (91) 139/71 (93) 140/82 (101) Pulse Ox 100 98 97 99 O2 Delivery High Flow N/C High Flow N/C High Flow N/C High Flow N/C O2 Flow Rate 6.00 6.00 6.00 6.00 02/28/23 02/28/23 02/28/23 02/28/23 07:19 07:35 08:00 08:00 Temp 36.0 Pulse 84 96 B/P (MAP) 117/73 (88) Pulse Ox 94 93 O2 Delivery High Flow N/C High Flow N/C High Flow N/C O2 Flow Rate 5.00 5.00 5.00 02/28/23 02/28/23 02/28/23 02/28/23 09:00 10:00 11:05 11:09 Temp 36.3 Pulse 96 84 Resp 19 20 B/P (MAP) 122/106 (111) 126/71 (89) Pulse Ox 95 93 94 O2 Delivery High Flow N/C High Flow N/C High Flow N/C O2 Flow Rate 5.00 5.00 4.50 02/28/23 02/28/23 02/28/23 12:24 12:31 14:13 Pulse 104 96 Resp 62 B/P (MAP) 119/67 (84) Pulse Ox 89 94 O2 Delivery High Flow N/C High Flow N/C O2 Flow Rate 5.00 4.00 02/28/23 00:00 Intake Total 1850 ml Balance 1850 ml Capillary Refill : Less Than 3 Seconds Constitutional: AAO x 3, well-developed, other (thin) HEENT: PERRL, hearing is well preserved Neck: No carotid bruit; carotid pulses are 2 + bilaterally Respiratory: No accessory muscle use, No respiratory distress; chest expansion is symmetric, chest is bilaterally symmetric, other (diminished throughout) Cardiovascular: regular rate-rhythm; No JVD; S1 and S2 Gastrointestinal: soft; No guarding; audible bowel sounds Extremities: no lower extremity edema bilateral Neurologic/Psychiatric: other (moves all extremities) Skin: normal color, warm/dry; No rash on exposed areas, No ulcerations on exposed areas Data Review Labs Laboratory Tests 02/27/23 16:12: Glucometer 262H 02/27/23 21:05: Glucometer 211H 02/28/23 03:43: White Blood Count 9.2, Red Blood Count 4.74, Hemoglobin 13.8, Hematocrit 42, Mean Corpuscular Volume 89, Mean Corpuscular Hemoglobin 29, Mean Corpuscular Hemoglobin Concent 33, Red Cell Distribution Width 12.4, Platelet Count 188, Mean Platelet Volume 10.5, Immature Granulocyte % (Auto) 0, Neutrophils (%) (Auto) 91H, Lymphocytes (%) (Auto) 6L, Monocytes (%) (Auto) 3, Eosinophils (%) (Auto) 0, Basophils (%) (Auto) 0, Neutrophils # (Auto) 8.4H, Lymphocytes # (Auto) 0.5L, Monocytes # (Auto) 0.2, Eosinophils # (Auto) 0.0, Basophils # (Auto) 0.0, Immature Granulocyte # (Auto) 0.0, Sodium Level 142, Potassium Level 5.0, Chloride Level 106, Carbon Dioxide Level 26, Anion Gap 10, Blood Urea Ni trogen 16, Creatinine 0.65, Estimat Glomerular Filtration Rate 96, BUN/Creatinine Ratio 25, Glucose Level 134H, Calcium Level 9.4, Corrected Calcium 9.9, Phosphorus Level 2.5, Magnesium Level 1.8, Total Bilirubin 0.4, Aspartate Amino Transf (AST/SGOT) 18, Alanine Aminotransferase (ALT/SGPT) 13, Alkaline Phosphatase 109, Total Protein 6.9, Albumin 3.4 02/28/23 10:55: Glucometer 171H Microbiology 02/27/23 Gram Stain, Resulted Pending 02/27/23 Sputum Culture - Preliminary, Resulted Staphylococcus aureus A/P-Cardiology Assessment/Admission Diagnosis Acute exacerbation of COPD - management per medical services - oxygen dependant - follows with Dr. Gabriel of pulmonary services at [facility] Tobaccoism - cessation advised Family h/o CAD - brothers x3 H/O cervical cancer - hysterectomy at age 21 H/O L femur fracture in November 2022 d/t non-syncopal fall - treated by Dr. Jasso Discussion and Recomendations Acute on chronic exacerbation of COPD - management per medical services Progressive dyspnea - Echocardiogram today to eval structure and function Monitor lab Further recs will be based on her hospital course We would like to thank medical services for this consult DALY ARNOLD MD FACP FAC CCDS Feb 28, 2023 14:47
[2023-02-28] MEDS ORDERED: ASCO500T16 PO (15:45)
[2023-02-28] MEDS ORDERED: ALEN70TA80 PO (15:45)
[2023-02-28] MEDS ORDERED: CALC-857 PO (15:45)
[2023-02-28] MEDS ORDERED: CHOL10008 PO (15:45)
[2023-02-28] MEDS ORDERED: FAMO20TA5 PO (15:45)
[2023-02-28] MEDS ORDERED: MULT200T12 PO (15:45)
[2023-02-28] MEDS ORDERED: RT-ALBUINH INH (15:50)
--- NOTE | 2023-02-28 17:07 | Diagnostic Imaging Report ---
CHEST 1 VIEW, AP/PA ONLY INDICATION: Pneumonia. COMPARISON: 02/27/2023. FINDINGS: Increased heterogeneous opacities in the right lung base. Left basilar opacities are similar. No pleural effusion or pneumothorax. Normal heart size. IMPRESSION: 1. Worsening right basilar opacities may represent pneumonia superimposed on interstitial lung disease. Dictated by: Dictated on workstation # [id number]
[2023-02-28] MEDS: CEFEPIME 1,000 MG/NS 50 ML IVPB IV SCH ×2 (20:54)
[2023-03-01 04:29] LABS: BASOPHILS % (AUTO) 0 % (0-10); EOSINOPHILS % (AUTO) 0 % (0-10); HEMATOCRIT 45 % (35-52); HEMOGLOBIN 14.5 g/dL (11.5-16.0); LYMPHOCYTES # (AUTO) 0.6 10^3/uL (1.0-4.0); LYMPHOCYTES % (AUTO) 6 % (12-44); MEAN CORPUSCULAR HEMOGLOBIN 29 pg (25-34); MEAN CORPUSCULAR HGB CONC 32 g/dL (32-36); MEAN CORPUSCULAR VOLUME 91 fL (80-99); MEAN PLATELET VOLUME 10.6 fL (9.0-12.2); MONOCYTES # (AUTO) 0.2 10^3/uL (0.0-1.0); MONOCYTES % (AUTO) 2 % (0-12); NEUTROPHILS % (AUTO) 91 % (42-75); PLATELET COUNT 235 10^3/uL (130-400); WHITE BLOOD COUNT 9.9 10^3/uL (4.3-11.0)
[2023-03-01] MEDS: CEFEPIME 1,000 MG/NS 50 ML IVPB IV SCH ×6 (04:44→20:14)
[2023-03-01] MEDS: RT-Ipratropium/Albuterol NEB 3 ML VIAL INH SCH ×4 (04:49→19:14)
[2023-03-01 04:53] LABS: ALBUMIN 3.5 GM/DL (3.2-4.5); BILIRUBIN,TOTAL 0.2 MG/DL (0.1-1.0); CALCIUM 9.5 MG/DL (8.5-10.1); CREATININE SERUM 0.67 MG/DL (0.60-1.30); MAGNESIUM 1.9 MG/DL (1.6-2.4); POTASSIUM 4.9 MMOL/L (3.6-5.0); TOTAL PROTEIN 7.1 GM/DL (6.4-8.2)
[2023-03-01] MEDS: MAGNESIUM 1 GM/100 ML IVPB 100 ML IV SCH ×2 (05:02→05:22)
[2023-03-01] MEDS: POTASSIUM CL 10MEQ/50ML IVPB 50 ML IV SCH (05:02)
[2023-03-01] MEDS: POTASSIUM CHLORIDE 20 MEQ TABLET PO SCH (05:03)
[2023-03-01] MEDS: inSUlin ASPART 1 UNIT/0.01 ML (PER UNIT) SC SCH ×4 (05:03→20:15)
--- NOTE | 2023-03-01 08:24 | Diagnostic Imaging Report ---
Indication: Pneumonia Frontal chest obtained at 0426 a.m. Compared to 02/28/23 Heart is borderline in size. Diffuse interstitial infiltrate versus fibrosis appears similar to the prior study. There is no pneumothorax or pleural fluid. Impression: Stable interstitial changes compared to yesterday with no new abnormality. Dictated by: Dictated on workstation # [id number]
--- NOTE | 2023-03-01 08:43 | Progress Note - Cardiology ---
Cardiology SOAP Progress Note Objective: I&O/Vital Signs 03/01/23 03/02/23 03/02/23 03/02/23 23:21 03:47 07:40 07:47 Temp 36.4 36.0 36.3 Pulse 97 79 93 Resp 18 18 16 B/P (MAP) 133/75 (94) 134/78 (96) 127/83 (98) Pulse Ox 99 99 99 100 O2 Delivery High Flow N/C High Flow N/C High Flow N/C High Flow N/C O2 Flow Rate 5.50 5.50 5.00 5.00 5.50 5.50 03/02/23 08:10 Pulse Ox 100 O2 Delivery High Flow N/C O2 Flow Rate 6.00 03/02/23 00:00 Intake Total 917 ml Balance 917 ml Weight (Pounds): 134 Weight (Ounces): 0.0 Weight (Calculated Kilograms): 60.652394 Constitutional: AAO x 3, well-developed, other (thin) Respiratory: No accessory muscle use, No respiratory distress; chest expansion is symmetric, chest is bilaterally symmetric, other (diminished throughout) Cardiovascular: regular rate-rhythm; No JVD; S1 and S2 Gastrointestional: soft; No guarding; audible bowel sounds Extremities: no lower extremity edema bilateral Neurologic/Psychiatric: other (moves all extremities) Skin: normal color, warm/dry; No rash on exposed areas, No ulcerations on exposed areas Results/Procedures: Labs Laboratory Tests 03/01/23 10:59: Glucometer 178H 03/01/23 15:14: Glucometer 108 03/01/23 20:08: Glucometer 192H 03/02/23 04:54: White Blood Count 6.7, Red Blood Count 4.74, Hemoglobin 13.9, Hematocrit 44, Mean Corpuscular Volume 92, Mean Corpuscular Hemoglobin 29, Mean Corpuscular Hemoglobin Concent 32, Red Cell Distribution Width 12.7, Platelet Count 202, Mean Platelet Volume 9.7, Immature Granulocyte % (Auto) 1, Neutrophils (%) (Auto) 70, Lymphocytes (%) (Auto) 22, Monocytes (%) (Auto) 7, Eosinophils (%) (Auto) 0, Basophils (%) (Auto) 0, Neutrophils # (Auto) 4.7, Lymphocytes # (Auto) 1.5, Monocytes # (Auto) 0.5, Eosinophils # (Auto) 0.0, Basophils # (Auto) 0.0, Immature Granulocyte # (Auto) 0.1, Sodium Level 143, Potassium Level 5.1H, Chloride Level 101, Carbon Dioxide Level 31, Anion Gap 11, Blood Urea Nitrogen 16, Creatinine 0.66, Estimat Glomerular Filtration Rate 96, BUN/Creatinine Ratio 24, Glucose Level 86, Calcium Level 9.2, Corrected Calcium 9.8, Magnesium Level 1.8, Total Bilirubin 0.3, Aspartate Amino Transf (AST/SGOT) 22, Alanine Aminotransferase (ALT/SGPT) 19, Alkaline Phosphatase 117, Total Protein 6.4, Albumin 3.3 03/02/23 05:13: Glucometer 63L 03/02/23 10:36: Glucometer 252H Microbiology 02/27/23 Gram Stain - Final, Resulted 02/27/23 Sputum Culture - Preliminary, Resulted Staphylococcus aureus Haemophilus species Usual upper respiratory lobito 02/27/23 Blood Culture - Preliminary, Resulted 02/27/23 Urine Culture - Final, Complete Gram Pos Mixed Bacterial Lobito Procedures NAME: [facility] REC#: [id number] PT STATUS: ADM IN : 1955 PHYSICIAN: DANNY MINER DO ADMIT DATE: 02/27/23/ICU Draft Date of Exam:03/01/23 CHEST 1 VIEW, AP/PA ONLY Indication: Pneumonia Frontal chest obtained at 0426 a.m. Compared to 02/28/23 Heart is borderline in size. Diffuse interstitial infiltrate versus fibrosis appears similar to the prior study. There is no pneumothorax or pleural fluid. Impression: Stable interstitial changes compared to yesterday with no new abnormality. Dictated on workstation # [id number] Dict: 03/01/23 0755 Trans: 03/01/23 0824 [facility] [id number] Interpreted by: CARLOS ESPARZA MD Electronically signed by: A/P: Assessment: Acute exacerbation of COPD - management per medical services - oxygen dependant - follows with Dr. Rios of pulmonary services at [facility] - cessation advised Family h/o CAD - brothers x3 H/O cervical cancer - hysterectomy at age 21 H/O L femur fracture in November 2022 d/t non-syncopal fall - treated by Dr. Jasso Plan: Acute on chronic exacerbation of COPD - management per medical services Progressive dyspnea - Echocardiogram today to eval structure and function Monitor lab SONI CASEY Mar 01, 2023 08:43
[2023-03-01] MEDS: dexAMETHasone INJ 4 MG/ML SDV IV SCH (09:12)
[2023-03-01] MEDS: SENNOSIDES 8.6 MG TABLET PO SCH ×2 (09:12→20:15)
[2023-03-01] MEDS: GABAPENTIN 600 MG TABLET PO SCH ×2 (09:12→20:15)
[2023-03-01] MEDS: DOCUSATE SODIUM 100 MG CAPSULE PO SCH ×2 (09:12→20:15)
[2023-03-01] MEDS ORDERED: ENOXAPARIN 40 MG/0.4 ML SYRINGE SC SCH (11:00)
--- NOTE | 2023-03-01 11:06 | Progress Note - Hospitalist ---
SKYLA YODER 03/01/23 1106: Subjective HPI/CC On Admission Date Seen by Provider: Mar 01, 2023 Time Seen by Provider: 09:00 Chief complaint: Acute on chronic hypoxic respiratory failure HPI: This is a 67-year-old female clinic patient of [facility] with known history of end stage COPD maintained on oxygen 24/7 at home who presented after a couple of days and not feeling well and she was found to have pneumonia with exacerbation of COPD and acute on chronic hypoxic respiratory failure. She will receive ICU care BiPAP IV steroids and IV antibiotics. Currently she is doing much better giving her rest from BiPAP and family member is at the bedside. Subjective/Events-last exam 03/01/2023: CC: Acute on Chronic Hypoxic Respiratory Failure HPI: Madeleine, 67F, notes that last night was a better night. She was able to sleep which she attributes to taking her medications. She still endorses having a productive cough that results in green/brown sputum. She feels like she is at her baseline and wants to go home. She denies any pain and has no concerns. She is urinating and having BM. She tolerates mild ambulation. She is still on 6L but was able to tolerate 4.5L, she notes that at home she sometimes goes without using oxygen for a bit, but otherwise always uses 6L. She is in good spirits. She notes that the breathing treatments have really improved her condition. Review of Systems General: No Chills, No Night Sweats, No Fatigue HEENT: No Head Aches, No Visual Changes, No Eye Pain Pulmonary: No Dyspnea; Cough; No Pleuritic Chest Pain Cardiovascular: No: Chest Pain, Palpitations, Edema Gastrointestinal: No: Nausea, Vomiting, Abdominal Pain Genitourinary: No Dysuria, No Frequency Musculoskeletal: No: neck pain, shoulder pain Neurological: No: Weakness, Numbness, Incoordination, Change in speech, Confusion Focused Exam Lactate Level 02/27/23 08:37: Lactic Acid Level 1.21 Objective Exam Vital Signs Vital Signs Date Time Temp Pulse Resp B/P (MAP) Pulse Ox O2 Delivery O2 Flow Rate FiO2 03/01/23 10:31 93 High Flow N/C 6.00 03/01/23 07:51 36.1 92 16 126/83 (97) Capillary Refill : Less Than 3 Seconds General Appearance: No Apparent Distress, WD/WN, Thin HEENT: PERRL/EOMI; No Scleral Icterus (L), No Scleral Icterus (R) Neck: Full Range of Motion, Normal Inspection, Non Tender, Supple Respiratory: Chest Non Tender, No Accessory Muscle Use, No Respiratory Distress, Crackles, Expiration, Wheezing Cardiovascular: Regular Rate, Rhythm, No JVD, No Murmur, Normal Peripheral Pu lses Gastrointestinal: Non Tender, Soft Rectal: Deferred Back: Normal Inspection Extremity: Normal Capillary Refill, Normal Inspection, No Pedal Edema Neurologic/Psychiatric: Alert, Oriented x3, No Motor/Sensory Deficits, Normal Mood/Affect Skin: Normal Color, Cool Lymphatic: No Adenopathy Comments 03/01/2023: On 02/28 during conversation patients SpO2 would drop from the 90s into the 70s, which resulted in patient remaining in ICU. Today, patient retained mid 90s SpO2 during conversation. Patient had pulse oximetry on finger on 02/28, but on 03/01 has it on her ear. This is resulting in likely more accurate data. Patient has cold hands along with moving her hands during talking. Retain using monitor on ear. Results/Procedures Lab Laboratory Tests 03/01/23 03:44 Patient resulted labs reviewed. Imaging: Reviewed Imaging Films, Reviewed Imaging Report Radiology no change Assessment/Plan Assessment and Plan Assess & Plan/Chief Complaint 03/01/2023: Assessment/Plan: -Acute on Chronic Hypoxic Respiratory Failure * O2 support, BiPAP PRN, H/F NC at 6L 24/7, IV decadron * Change to PO Prednisone -PNA * Cefepime, CXR -COPD Exacerbation * RT, breathing treatments, O2 support -Current Tobacco Use * Discuss risks and concerns, pt refused futher education Pt moving to 4th floor due to decreased acuity. D/C tele, PO Prednisone, Plan for DC in next few days 02/28/23: Assessment: * Acute on Chronic Hypoxic Respiratory Failure * PNA * COPD Exacerbation * Currrent Tobacco Smoking Plan: * O2 supplementation * Decadron * Cefepime * BiPAP PRN * Move to step-down * RT Diagnosis/Problems Diagnosis/Problems (1) Acute on chronic hypoxic respiratory failure Status: Acute Assessment & Plan: O2, Decadron, Abx, BiPAP (2) PNA (pneumonia) Status: Acute Assessment & Plan: Cefepime Qualifiers: Qualified Codes: J18.9 - Pneumonia, unspecified organism (3) COPD (chronic obstructive pulmonary disease) Status: Chronic Assessment & Plan: RT, O2 management Qualifiers: Qualified Codes: J44.1 - Chronic obstructive pulmonary disease with (acute) exacerbation (4) Smoking addiction Status: Chronic NESSA MINER DO 03/01/232057: Subjective Subjective/Events-last exam Patient doing well Denies any issues Much improved breathing Objective Exam General Appearance: No Apparent Distress, WD/WN, Chronically ill Respiratory: Crackles, Wheezing Cardiovascular: Regular Rate, Rhythm Assessment/Plan Assessment and Plan Assess & Plan/Chief Complaint Perhaps discharge tomorrow I personally performed the rodriguez portions of the visit, discussed case with resident and concur with resident documentation of history, physical exam, assessment and treatment plan unless otherwise noted. Supervisory-Addendum Brief Verification & Attestation Participated in pt care: history, MDM, physical Personally performed: exam, history, MDM, supervision of care Care discussed with: Medical Student Procedures: n/a Results interpretation: Verified all documentation Verification and Attestation of Medical Student E/M Service A medical student performed and documented this service in my presence. I reviewed and verified all information documented by the medical student and made modifications to such information, when appropriate. I personally performed the physical exam and medical decision making. Nessa Miner, Mar 01, 2023,20:58 SKYLA YODER Mar 01, 2023 11:06 NESSA MINER DO Mar 01, 2023 20:58
[2023-03-01 11:43] VITALS: BP 115/56
--- NOTE | 2023-03-01 13:44 | Progress Note - Cardiology ---
Cardiology SOAP Progress Note Subjective: Shortness of breath has improved No cp or palp or syncope No n/v/d No focal weakness Gen weakness and malaise Objective: I&O/Vital Signs 03/01/23 03/01/23 03/01/23 03/01/23 03:37 04:49 07:07 07:29 Temp 36.0 Pulse 88 93 Resp 22 B/P (MAP) 137/87 (104) Pulse Ox 100 90 92 O2 Delivery High Flow N/C High Flow N/C High Flow N/C O2 Flow Rate 6.00 7.00 6.00 03/01/23 03/01/23 03/01/23 03/01/23 07:51 08:00 10:31 11:43 Temp 36.1 36.8 Pulse 92 94 Resp 16 20 B/P (MAP) 126/83 (97) 115/56 (75) Pulse Ox 90 94 93 95 O2 Delivery High Flow N/C High Flow N/C High Flow N/C High Flow N/C O2 Flow Rate 6.00 6.00 6.00 6.50 03/01/23 14:43 Pulse Ox 98 O2 Delivery High Flow N/C O2 Flow Rate 6.00 03/01/23 00:00 Intake Total 640 ml Output Total 600 ml Balance 40 ml Weight (Pounds): 134 Weight (Ounces): 0.0 Weight (Calculated Kilograms): 60.952736 Constitutional: AAO x 3, well-developed, other (thin) Respiratory: No accessory muscle use, No respiratory distress; chest expansion is symmetric, chest is bilaterally symmetric, other (diminished throughout) Cardiovascular: regular rate-rhythm; No JVD; S1 and S2 Gastrointestional: soft; No guarding; audible bowel sounds Extremities: no lower extremity edema bilateral Neurologic/Psychiatric: other (moves all extremities) Skin: normal color, warm/dry; No rash on exposed areas, No ulcerations on exposed areas Results/Procedures: Labs Laboratory Tests 02/28/23 15:43: Glucometer 169H 02/28/23 20:36: Glucometer 164H 03/01/23 03:44: White Blood Count 9.9, Red Blood Count 4.96, Hemoglobin 14.5, Hematocrit 45, Mean Corpuscular Volume 91, Mean Corpuscular Hemoglobin 29, Mean Corpuscular Hemoglobin Concent 32, Red Cell Distribution Width 12.6, Platelet Count 235, Mean Platelet Volume 10.6, Immature Granulocyte % (Auto) 0, Neutrophils (%) (Auto) 91H, Lymphocytes (%) (Auto) 6L, Monocytes (%) (Auto) 2, Eosinophils (%) (Auto) 0, Basophils (%) (Auto) 0, Neutrophils # (Auto) 9.0H, Lymphocytes # (Auto) 0.6L, Monocytes # (Auto) 0.2, Eosinophils # (Auto) 0.0, Basophils # (Auto) 0.0, Immature Granulocyte # (Auto) 0.0, Sodium Level 144, Potassium Level 4.9, Chloride Level 105, Carbon Dioxide Level 29, Anion Gap 10, Blood Urea Nitrogen 16, Creatinine 0.67, Estimat Glomerular Filtration Rate 96, BUN/Creatinine Ratio 24, Glucose Level 142H, Calcium Level 9.5, Corrected Calcium 9.9, Magnesium Level 1.9, Total Bilirubin 0.2, Aspartate Amino Transf (AST/SGOT) 21, Alanine Aminotransferase (ALT/SGPT) 17, Alkaline Phosphatase 127, Total Protein 7.1, Albumin 3.5 03/01/23 10:59: Glucometer 178H Microbiology 02/27/23 Gram Stain - Final, Resulted 02/27/23 Sputum Culture - Preliminary, Resulted Staphylococcus aureus Haemophilus species Usual upper respiratory lobito 02/27/23 Blood Culture - Preliminary, Resulted 02/27/23 Urine Culture - Final, Complete Gram Pos Mixed Bacterial Lobito Laboratory Tests 02/28/23 03:43 03/01/23 03:44 A/P: Assessment: Acute exacerbation of COPD - management per Medical services - oxygen dependent - follows with Dr. Rios of pulmonary services at [place] - Echo on 03/01/23: LVEF 60-65%, RV mildly enlarged, PASP 50-55 mmHg Tobaccoism - cessation advised Family h/o CAD - brothers x3 H/O cervical cancer - hysterectomy at age 21 H/O L femur fracture in November 2022 d/t non-syncopal fall - treated by Dr. Jasso Plan: I discussed her CV issues and echo findings with her and answered CV-related questions Monitor lab [facility] ARNOLD [facility] Mar 01, 2023 13:44
[2023-03-01 15:16] VITALS: BP 121/66
[2023-03-01 20:06] VITALS: BP 146/68
[2023-03-01] MEDS: AMITRIPTYLINE 25 MG TABLET PO SCH (20:15)
[2023-03-01 23:21] VITALS: BP 133/75
[2023-03-02 03:47] VITALS: BP 134/78
[2023-03-02] MEDS: CEFEPIME 1,000 MG/NS 50 ML IVPB IV SCH ×4 (04:40→12:42)
[2023-03-02] MEDS: inSUlin ASPART 1 UNIT/0.01 ML (PER UNIT) SC SCH ×2 (05:15→11:16)
[2023-03-02 05:25] LABS: BASOPHILS % (AUTO) 0 % (0-10); EOSINOPHILS % (AUTO) 0 % (0-10); HEMATOCRIT 44 % (35-52); HEMOGLOBIN 13.9 g/dL (11.5-16.0); LYMPHOCYTES # (AUTO) 1.5 10^3/uL (1.0-4.0); LYMPHOCYTES % (AUTO) 22 % (12-44); MEAN CORPUSCULAR HEMOGLOBIN 29 pg (25-34); MEAN CORPUSCULAR HGB CONC 32 g/dL (32-36); MEAN CORPUSCULAR VOLUME 92 fL (80-99); MEAN PLATELET VOLUME 9.7 fL (9.0-12.2); MONOCYTES # (AUTO) 0.5 10^3/uL (0.0-1.0); MONOCYTES % (AUTO) 7 % (0-12); NEUTROPHILS # (AUTO) 4.7 10^3/uL (1.8-7.8); NEUTROPHILS % (AUTO) 70 % (42-75); PLATELET COUNT 202 10^3/uL (130-400); WHITE BLOOD COUNT 6.7 10^3/uL (4.3-11.0)
[2023-03-02 05:51] LABS: ALBUMIN 3.3 GM/DL (3.2-4.5); BILIRUBIN,TOTAL 0.3 MG/DL (0.1-1.0); CALCIUM 9.2 MG/DL (8.5-10.1); CREATININE SERUM 0.66 MG/DL (0.60-1.30); MAGNESIUM 1.8 MG/DL (1.6-2.4); POTASSIUM 5.1 MMOL/L (3.6-5.0); TOTAL PROTEIN 6.4 GM/DL (6.4-8.2)
[2023-03-02] MEDS: POTASSIUM CL 10MEQ/50ML IVPB 50 ML IV SCH (05:56)
[2023-03-02] MEDS: POTASSIUM CHLORIDE 20 MEQ TABLET PO SCH (05:56)
[2023-03-02] MEDS: MAGNESIUM 1 GM/100 ML IVPB 100 ML IV SCH (06:04)
[2023-03-02] MEDS ORDERED: predniSONE 20 MG TABLET PO SCH (07:00)
[2023-03-02] MEDS: RT-Ipratropium/Albuterol NEB 3 ML VIAL INH SCH ×2 (07:40→11:09)
[2023-03-02 07:47] VITALS: BP 127/83
[2023-03-02] MEDS: GABAPENTIN 600 MG TABLET PO SCH (08:08)
[2023-03-02] MEDS: SENNOSIDES 8.6 MG TABLET PO SCH (08:08)
[2023-03-02] MEDS: DOCUSATE SODIUM 100 MG CAPSULE PO SCH (08:08)
--- NOTE | 2023-03-02 10:41 | Progress Note - Cardiology ---
Cardiology SOAP Progress Note Objective: I&O/Vital Signs 03/01/23 03/02/23 03/02/23 03/02/23 23:21 03:47 07:40 07:47 Temp 36.4 36.0 36.3 Pulse 97 79 93 Resp 18 18 16 B/P (MAP) 133/75 (94) 134/78 (96) 127/83 (98) Pulse Ox 99 99 99 100 O2 Delivery High Flow N/C High Flow N/C High Flow N/C High Flow N/C O2 Flow Rate 5.50 5.50 5.00 5.00 5.50 5.50 03/02/23 08:10 Pulse Ox 100 O2 Delivery High Flow N/C O2 Flow Rate 6.00 03/02/23 00:00 Intake Total 917 ml Balance 917 ml Weight (Pounds): 134 Weight (Ounces): 0.0 Weight (Calculated Kilograms): 60.126131 Constitutional: AAO x 3, well-developed, other (thin) Respiratory: No accessory muscle use, No respiratory distress; chest expansion is symmetric, chest is bilaterally symmetric, other (diminished throughout) Cardiovascular: regular rate-rhythm; No JVD; S1 and S2 Gastrointestional: soft; No guarding; audible bowel sounds Extremities: no lower extremity edema bilateral Neurologic/Psychiatric: other (moves all extremities) Skin: normal color, warm/dry; No rash on exposed areas, No ulcerations on exposed areas Results/Procedures: Labs Laboratory Tests 03/01/23 10:59: Glucometer 178H 03/01/23 15:14: Glucometer 108 03/01/23 20:08: Glucometer 192H 03/02/23 04:54: White Blood Count 6.7, Red Blood Count 4.74, Hemoglobin 13.9, Hematocrit 44, Mean Corpuscular Volume 92, Mean Corpuscular Hemoglobin 29, Mean Corpuscular Hemoglobin Concent 32, Red Cell Distribution Width 12.7, Platelet Count 202, Mean Platelet Volume 9.7, Immature Granulocyte % (Auto) 1, Neutrophils (%) (Auto) 70, Lymphocytes (%) (Auto) 22, Monocytes (%) (Auto) 7, Eosinophils (%) (Auto) 0, Basophils (%) (Auto) 0, Neutrophils # (Auto) 4.7, Lymphocytes # (Auto) 1.5, Monocytes # (Auto) 0.5, Eosinophils # (Auto) 0.0, Basophils # (Auto) 0.0, Immature Granulocyte # (Auto) 0.1, Sodium Level 143, Potassium Level 5.1H, Chloride Level 101, Carbon Dioxide Level 31, Anion Gap 11, Blood Urea Nitrogen 16, Creatinine 0.66, Estimat Glomerular Filtration Rate 96, BUN/Creatinine Ratio 24, Glucose Level 86, Calcium Level 9.2, Corrected Calcium 9.8, Magnesium Level 1.8, Total Bilirubin 0.3, Aspartate Amino Transf (AST/SGOT) 22, Alanine Aminotransferase (ALT/SGPT) 19, Alkaline Phosphatase 117, Total Protein 6.4, Albumin 3.3 03/02/23 05:13: Glucometer 63L 03/02/23 10:36: Glucometer 252H Microbiology 02/27/23 Gram Stain - Final, Resulted 02/27/23 Sputum Culture - Preliminary, Resulted Staphylococcus aureus Haemophilus species Usual upper respiratory lobito 02/27/23 Blood Culture - Preliminary, Resulted 02/27/23 Urine Culture - Final, Complete Gram Pos Mixed Bacterial Lobito Laboratory Tests 03/01/23 03:44 03/02/23 04:54 A/P: Assessment: Acute exacerbation of COPD - management per Medical services - oxygen dependent - follows with Dr. Rios of pulmonary services at [place] - Echo on 03/01/23: LVEF 60-65%, RV mildly enlarged, PASP 50-55 mmHg Tobaccoism - cessation advised Family h/o CAD - brothers x3 H/O cervical cancer - hysterectomy at age 21 H/O L femur fracture in November 2022 d/t non-syncopal fall - treated by Dr. Jasso Plan: Continue current regimen Monitor lab SONI CASEY Mar 02, 2023 10:41
[2023-03-02] MEDS ORDERED: ENOXAPARIN 30 MG/0.3 ML SYRINGE SC SCH (11:00)
--- NOTE | 2023-03-02 11:30 | Progress Note ---
SKYLA YODER 03/02/23 1130: Progress Note 03/02/2023: CC: SOB Course: Madeleine is a 67 year old female that presented to the ED on 02/27 due to SOB and concerns about her respiratory status. She was also producing some sputum with streaks of blood. Madeleine has a positive medical history of COPD and tobacco smoking. She also has HTN, HLD, and Osteoporosis. Due to her respiratory concerns, Madeleine was taken to the ICU due to need for BiPAP. CXR showed that she had findings consistent with PNA. She was started on cefepime and decadron for respiratory support. Madeleine showed improvement with these interventions, and used a H/F NC due to not liking the BiPAP. During conversation she was having drops in her SpO2 which caused her to remain in the ICU. On 03/01, her SpO2 was remaining constant in the 90s which caused her to move to the 4th floor MED/SURG unit. Once moved, her decadron was changed to PO Prednisone for futher treatment of her PNA. Repeat CXR also showed no negative changes. Over the course of her stay, her WBC and other labs also showed improvement consistent with reduction in PNA. Madeleine has continued to endorse that she feels better and wishes to go home. Madeleine has also been on 6L with 98% SpO2. She has also done well at 5L. Madeleine informed us that she uses 6L at home. On physical exam, her longs have also continued to improve, but do show signs of chronic lung dysfunction consistent with COPD. Additionally, Cardiology was consulted due to lung concerns and an ECHO was performed. Cardiology did not plan any interventions and deferred management to IMED team. At time of discharge, Kirill lungs have improved and are at baseline. She is ready to return home with plans to use home health support. She also knows that her lung issues are part of a chronic issue that will not fully resolve. She is glad that she is back at baseline. Overall, she has a poor prognosis due to the COPD and current tobacco smoking. She will not need to continue any ABx at home and will continue 8 days of PO predisone to complete the 10 day course started on 03/01. She has no other concerns. NESSA MINER DO 03/02/232022: Supervisory-Addendum Brief Verification & Attestation Participated in pt care: history, MDM, physical Personally performed: exam, history, MDM, supervision of care Care discussed with: Medical Student Procedures: n/a Results interpretation: Verified all documentation Verification and Attestation of Medical Student E/M Service A medical student performed and documented this service in my presence. I reviewed and verified all information documented by the medical student and made modifications to such information, when appropriate. I personally performed the physical exam and medical decision making. Nessa Miner, Mar 02, 2023,20:23 SKYLA YODER Mar 02, 2023 11:30 NESSA MINER DO Mar 02, 2023 20:23
[2023-03-02 11:44] VITALS: BP 124/89
[2023-03-02] MEDS ORDERED: PRED10TA22 PO (12:44)
--- NOTE | 2023-03-02 13:06 | D/C HH Face to Face Order ---
D/C Face to Face Orders Reconcile Patient Problems Problems Reviewed?: Yes Instructions for Patient Via [employer], Patient Instructions/FollowUp: See Dr. Manley for follow-up in 7-14 days. Physician to follow Patient: Dr. Manley in 7-14 days Discharge Diet for Home: No Restrictions Patient Data-Allergies,Ht & Wt Patient Allergies: Coded Allergies: No Known Drug Allergies (Unverified , 11/17/22) Height (Feet): 5 Height (Inches): 4.00 Weight (Pounds): 134 Weight (Ounces): 0.0 Home Health Need/Face to Face Date of Face to Face: Mar 02, 2023 Clinical Findings: Generalized weakness and fatigue, Shortness of breath I have seen Pt [id number]: Yes Discharged To: Home Diagnosis/Conditions: COPD exacerbation Patient is Homebound due to: Vianey fall risk due to instabilty, Muscle weakness, Shortness of breath/distress Homebound Status Due to the above stated illness, injury or surgical procedure (medical condition or diagnosis) and associated clinical findings, the patient is homebound because of his/her inability to leave home except with aid of a bernardo pportive device and/or person AND leaving the home requires a considerable and taxing effort or is medically contraindicated. Pt req the following assistanc: Aid of another person Home Health Nursing Orders Home Health Services Order: Nursing Services, Hand Knitter-Evaluate & Treat, Physical Therapy-Evaluate & Treat Home Health Infusion Therapy Line Start Date: Feb 27, 2023 Therapy Orders Therapy Orders: OT (must have SN or PT order), PT to assess for OT Therapy Specific Orders: Increase strength/endurance Certify Stmt I certify that this patient is under my care and that I, a nurse practitioner or a physician; a compounding assistant working with me, had a face to face encounter that - meets the physician face to face encounter requirements with this patient as dated. MICHELLE MURPHY MD,RESIDENT Mar 02, 2023 13:06
[2023-03-02 13:35] VITALS: BP 124/89
== END 2023-03-02 13:41 | disposition home health service (06) | DRG 193 ==
LOC: EDUNIT# 08:29 → ER 08:30 → ICU 10:35 → 4TH 03-01 11:25
PROVIDERS: ADMIT Internal Medicine; ATTEND Internal Medicine
PROC: 5A0945A Assistance with Respiratory Ventilation, 24-96 Consecutive Hours, High Flow/Velocity Cannula (ICD-10-PCS; principal; 2023-02-27)
PROC: 5A09357 Assistance with Respiratory Ventilation, Less than 24 Consecutive Hours, Continuous Positive Airway Pressure (ICD-10-PCS; 2023-02-27)
DX: J18.9 Pneumonia, unspecified organism (principal); J96.21 Acute and chronic respiratory failure with hypoxia; R04.2 Hemoptysis; J43.9 Emphysema, unspecified; I10 Essential (primary) hypertension; G62.9 Polyneuropathy, unspecified; M81.0 Age-related osteoporosis without current pathological fracture; F17.210 Nicotine dependence, cigarettes, uncomplicated; Z11.52 Encounter for screening for COVID-19; E78.5 Hyperlipidemia, unspecified; Z85.41 Personal history of malignant neoplasm of cervix uteri; Z79.01 Long term (current) use of anticoagulants; Z79.899 Other long term (current) drug therapy; Z23 Encounter for immunization
CPT/HCPCS: 36415; 71045; 80053; 81000; 82947; 83605; 83735; 84100; 85007; 85025; 85027; 85610; 85730; 87040; 87070; 87077; 87081; 87088; 87185; 87186; 87205; 87636; 90662; 93005; 93306; 94640; 94760